=== PATIENT | female | born 1985 | race African-American/Black ===

== ENCOUNTER → 2016-10-24 | Outpatient (CLI) | payer MEDICARE, MEDICAID ==
--- NOTE | 2016-10-24 17:38 | WOMENS IMAGING REPORT ---
EXAM DESCRIPTION: BILAT DIAGNOSTIC MAMMO W/CAD; U/S BREAST UNILAT LIMITED COMPLETED DATE/TIME: 10/24/2016 8:36 am; 10/24/2016 9:43 am REASON FOR STUDY: MASTODYNIA N64.4; RT BREAST PAIN Z80.3 FAMILY HISTORY OF MALIGNANT NEOPLASM OF BR EAST N64.4 MASTODYNIA COMPARISON: CT chest 06/08/2014 TECHNIQUE: Standard craniocaudal and mediolateral oblique views of each breast recorded using digita l acquisition. Additional right breast 90 mediolateral view and right breast ultrasound was performed, given histor y of right breast pain. LIMITATIONS: None. FINDINGS: RIGHT BREAST MASSES: No suspicious masses. CALCIFICATIONS: No new or suspicious calcifications. ARCHITECTURAL DISTORTION: None. DEVELOPING DENSITY: None. ASYMMETRY: None noted. OTHER: No other significant findings. LEFT BREAST MASSES: No suspicious masses. CALCIFICATIONS: No new or suspicious calcifications. ARCHITECTURAL DISTORTION: None. DEVELOPING DENSITY: None. ASYMMETRY: None noted. OTHER: No other significant finding. Read with the assistance of CAD: .[facility] - R2 Cenova Version 1.3 .[facility] - R2 Cenova Version 1.3 .[facility] - R2 Cenova Version 2.4 .[facility] - R2 Cenova Version 2.4 .[facility] - R2 Tarring Machine Operator Version 9.2 Right breast ultrasound: Ultrasound of the right breast upper outer quadrant was performed in the area of pain. No focal find ings. No cysts. No masses. No worrisome acoustic absorption. BREAST DENSITY: d. The breasts are extremely dense, which lowers the sensitivity of mammography. BIRAD: 1 Negative. RECOMMENDATION: RECOMMENDED FOLLOW UP: Clinical followup for right breast pain. Yearly screening to mosynthesis should be based on the patient's lifetime risk assessment for breast cancer Priscilla model. SPECIFIC INTERVENTION/IMAGING/CONSULTATION RECOMMENDED:No additional intervention/ imaging/consultati on needed at this time. COMMUNICATION:Patient notified by letter COMMENT: PATIENT NOTIFIED BY LETTER. The [employer] (ACR) has developed recommendations for screening MRI of the breast s in certain patient populations, to be used in conjunction with mammography. Breast MRI surveillanc e may be appropriate for women with more than 20% lifetime risk of developing breast cancer as deter mined by genetic testing, significant family history of the disease, or history of mantle radiation f or Hodgkins Disease. ACR Practice Guidelines 2008. TECHNICAL DOCUMENTATION: FINDING NUMBER: (1) ASSESSMENT: (1) JOB ID: [id number] [facility] [employer]- All Rights Reserved
--- NOTE | 2016-10-24 17:38 | WOMENS IMAGING REPORT ---
EXAM DESCRIPTION: BILAT DIAGNOSTIC MAMMO W/CAD; U/S BREAST UNILAT LIMITED COMPLETED DATE/TIME: 10/24/2016 8:36 am; 10/24/2016 9:43 am REASON FOR STUDY: MASTODYNIA N64.4; RT BREAST PAIN Z80.3 FAMILY HISTORY OF MALIGNANT NEOPLASM OF BR EAST N64.4 MASTODYNIA COMPARISON: CT chest 06/08/2014 TECHNIQUE: Standard craniocaudal and mediolateral oblique views of each breast recorded using digita l acquisition. Additional right breast 90 mediolateral view and right breast ultrasound was performed, given histor y of right breast pain. LIMITATIONS: None. FINDINGS: RIGHT BREAST MASSES: No suspicious masses. CALCIFICATIONS: No new or suspicious calcifications. ARCHITECTURAL DISTORTION: None. DEVELOPING DENSITY: None. ASYMMETRY: None noted. OTHER: No other significant findings. LEFT BREAST MASSES: No suspicious masses. CALCIFICATIONS: No new or suspicious calcifications. ARCHITECTURAL DISTORTION: None. DEVELOPING DENSITY: None. ASYMMETRY: None noted. OTHER: No other significant finding. Read with the assistance of CAD: .[facility] - R2 Cenova Version 1.3 .[facility] - R2 Cenova Version 1.3 .[facility] - R2 Cenova Version 2.4 .[facility] - R2 Cenova Version 2.4 .[facility] - R2 Plant Technician Version 9.2 Right breast ultrasound: Ultrasound of the right breast upper outer quadrant was performed in the area of pain. No focal find ings. No cysts. No masses. No worrisome acoustic absorption. BREAST DENSITY: d. The breasts are extremely dense, which lowers the sensitivity of mammography. BIRAD: 1 Negative. RECOMMENDATION: RECOMMENDED FOLLOW UP: Clinical followup for right breast pain. Yearly screening to mosynthesis should be based on the patient's lifetime risk assessment for breast cancer Priscilla model. SPECIFIC INTERVENTION/IMAGING/CONSULTATION RECOMMENDED:No additional intervention/ imaging/consultati on needed at this time. COMMUNICATION:Patient notified by letter COMMENT: PATIENT NOTIFIED BY LETTER. The [employer] (ACR) has developed recommendations for screening MRI of the breast s in certain patient populations, to be used in conjunction with mammography. Breast MRI surveillanc e may be appropriate for women with more than 20% lifetime risk of developing breast cancer as deter mined by genetic testing, significant family history of the disease, or history of mantle radiation f or Hodgkins Disease. ACR Practice Guidelines 2008. TECHNICAL DOCUMENTATION: FINDING NUMBER: (1) ASSESSMENT: (1) JOB ID: [id number] [facility] [employer]- All Rights Reserved
== END ==
LOC: WI 08:23
PROVIDERS: ATTEND Internal Medicine Medical Oncology
DX: N64.4 Mastodynia (principal); Z80.3 Family history of malignant neoplasm of breast
CPT/HCPCS: 76642; G0204; 77066

== ENCOUNTER → 2016-11-23 | Outpatient (CLI) | payer MEDICARE, MEDICAID | LOC: RAD 08:55 | PROVIDERS: ATTEND Internal Medicine Medical Oncology | DX: R50.9 Fever, unspecified (principal); K59.00 Constipation, unspecified; N83.202 Unspecified ovarian cyst, left side | CPT/HCPCS: 74177 ==

== ENCOUNTER 2016-11-28 11:50 | Emergency (ER) | payer MEDICARE, MEDICAID ==
--- NOTE | 2016-11-28 12:32 | ER Document Report ---
ED Medical Screen (RME) - General Stated Complaint: RIGHT ARM PAIN Notes: 31 yo female c/o right arm pain since 0530 this am. hx/o Sickle cell and Lupus. took Percocet 10mg at home without relief. feels like sickle cell crisis. no other symptoms. charge nurse notified of sickle cell crisis TRAVEL OUTSIDE OF THE [place] IN LAST 30 DAYS: No - Related Data Allergies/Adverse Reactions: green pepper Allergy (Verified 09/30/16 02:34) Past Medical History Pulmonary Medical History: Reports: Hx Pneumonia - yearly since 2003 (last time 07/2012) Malignancy Medical History: Reports: Hx Renal (Kidney) Cancer Past Surgical History: Reports: Hx Cholecystectomy, Hx Kidney (Renal Surgery) - part of left kidney removed., Hx Orthopedic Surgery - L Femur, L FINGER, Other - Partial left nephrectomy for renal cell carcinoma - Immunizations Immunizations up to date: Yes Hx Diphtheria, Pertussis, Tetanus Vaccination: No
[2016-11-28] MEDS ORDERED: NORMAL SALINE 1000 ML 1,000 ML IV ONE (14:49)
[2016-11-28 15:21] LABS: ABSOLUTE BASOPHILS # (AUTO) 0.1 10^3/uL (0.0-0.2); ABSOLUTE EOSINOPHILS # (AUTO) 0.1 10^3/uL (0.0-0.6); ABSOLUTE LYMPHOCYTES (AUTO) 4.3 10^3/uL (0.5-4.7); ABSOLUTE MONOCYTES (AUTO) 1.5 10^3/uL (0.1-1.4); ABSOLUTE NEUT (AUTO) 10.6 10^3/uL (1.7-8.2); BASOPHILS % (AUTO) 0.5 % (0-2); EOSINOPHILS % (AUTO) 0.7 % (0-6); HEMATOCRIT 24.9 % (36.0-47.0); HEMOGLOBIN 8.8 g/dL (12.0-15.5); HGB HCT DIFFERENCE 1.5; MEAN CORPUSCULAR HEMOGLOBIN 32.4 pg (27.0-33.4); MEAN CORPUSCULAR HGB CONC 35.4 g/dL (32.0-36.0); MEAN CORPUSCULAR VOLUME 91 fl (80-97); RED BLOOD COUNT 2.72 10^6/uL (3.72-5.28); RED CELL DISTRIBUTION WIDTH 20.1 % (11.5-14.0); SEGMENTED NEUTROPHILS % (AUTO) 63.8 % (42-78); WHITE BLOOD COUNT 16.5 10^3/uL (4.0-10.5)
[2016-11-28 15:45] LABS: POLYCHROMASIA SLIGHT; TOXIC GRANULATION SLIGHT
[2016-11-28 15:46] LABS: ANISOCYTOSIS 2+; OVALOCYTES SLIGHT; SCHISTOCYTES SLIGHT
[2016-11-28 15:47] LABS: TARGET CELLS 2+
[2016-11-28 15:53] LABS: ALANINE AMINOTRANSFERASE 67 U/L (9-52); ALBUMIN 4.5 g/dL (3.5-5.0); ALKALINE PHOSPHATASE 78 U/L (38-126); ANION GAP 12 (5-19); ASPARTATE AMINO TRANSFERASE 130 U/L (14-36); BILIRUBIN,TOTAL 2.3 mg/dL (0.2-1.3); BLOOD UREA NITROGEN 2 mg/dL (7-20); CALCIUM 9.5 mg/dL (8.4-10.2); CARBON DIOXIDE 25 mmol/L (22-30); CHLORIDE 99 mmol/L (98-107); GLUCOSE 118 mg/dL (75-110); POTASSIUM 3.1 mmol/L (3.6-5.0); SODIUM 135.7 mmol/L (137-145); TOTAL PROTEIN 8.3 g/dL (6.3-8.2)
[2016-11-28] MEDS ORDERED: LIDOCAINE 5% (700 MG) TRANSDERMAL ADH..PATCH TP ONE (15:56)
[2016-11-28] MEDS ORDERED: OXYCODONE-ACETAMINOPHEN 5-325 MG TABLET PO ONE (16:55)
--- NOTE | 2016-11-28 17:00 | ER Document Report ---
ED General - General Chief Complaint: Arm Pain Stated Complaint: RIGHT ARM PAIN TRAVEL OUTSIDE OF THE [place] IN LAST 30 DAYS: No - HPI Patient complains to provider of: right arm pain Notes: Patient has a history of sickle cell disease coming today for right arm right shoulder pain. Patient states pain starts in her shoulder goes down to her tinnitus. Patient does have a port in her right arm. Patient states that she took her Percocet early this morning with no relief in the pain. Patient states she is also on senna patches however patch fell off and she does not have a right now. Patient states was recently at her seismograph chief office for evaluation of not feeling well was given IV fluids and discharged. Denies any recent fevers chills nausea vomiting diarrhea. Denies any recent antibiotics. - Related Data Allergies/Adverse Reactions: green pepper Allergy (Verified 09/30/16 02:34) Past Medical History - Social History Smoking Status: Never Smoker Chew tobacco use (# tins/day): No Frequency of alcohol use: None Drug Abuse: None Family History: Reviewed & Not Pertinent Patient has suicidal ideation: No Patient has homicidal ideation: No Pulmonary Medical History: Reports: Hx Pneumonia - yearly since 2003 (last time 07/2012) Renal/ Medical History: Denies: Hx Peritoneal Dialysis Malignancy Medical History: Reports: Hx Renal (Kidney) Cancer Past Surgical History: Reports: Hx Cholecystectomy, Hx Kidney (Renal Surgery) - part of left kidney removed., Hx Orthopedic Surgery - L Femur, L FINGER, Other - Partial left nephrectomy for renal cell carcinoma - Immunizations Immunizations up to date: Yes Hx Diphtheria, Pertussis, Tetanus Vaccination: No Hx Pneumococcal Vaccination: 07/21/12 Review of Systems - Review of Systems Constitutional: No symptoms reported EENT: No symptoms reported Cardiovascular: No symptoms reported Respiratory: No symptoms reported Gastrointestinal: No symptoms reported Genitourinary: No symptoms reported Female Genitourinary: No symptoms reported Musculoskeletal: Muscle pain - Arm pain Skin: No symptoms reported Hematologic/Lymphatic: No symptoms reported Neurological/Psychological: No symptoms reported -: Yes All other systems reviewed and negative Physical Exam - Vital signs Vitals: Temp Pulse Resp BP Pulse Ox 98.0 F 100 18 102/68 95 11/28/16 12:28 11/28/16 12:28 11/28/16 12:28 11/28/16 12:28 11/28/16 12:28 Interpretation: Normal - General General appearance: Appears well, Alert - HEENT Head: Normocephalic, Atraumatic Eyes: Normal Pupils: PERRL - Respiratory Respiratory status: No respiratory distress Chest status: Nontender Breath sounds: Normal Chest palpation: Normal - Cardiovascular Rhythm: Regular Heart sounds: Normal auscultation Murmur: No - Abdominal Inspection: Normal Distension: No distension Bowel sounds: Normal Tenderness: Nontender Organomegaly: No organomegaly - Back Back: Normal, Nontender - Extremities General upper extremity: Nontender, Normal color, Normal ROM, Normal temperature. No: Normal inspection - Port in the right arm no signs of infection. Upon initial evaluation palpation of the right shoulder elbow and wrist patient cries in pain going to passive range of motion exercises no difficulty. However upon auscultation of the patient's lungs I do palpate the patient's right shoulder with no painful response General lower extremity: Normal inspection, Nontender, Normal color, Normal ROM , Normal temperature, Normal weight bearing. No: Dariel's sign - Neurological Neuro grossly intact: Yes Cognition: Normal Orientation: AAOx4 [place] Coma Scale Eye Opening: Spontaneous [place] Coma Scale Verbal: Oriented [place] Coma Scale Motor: Obeys Commands [place] Coma Scale Total: 15 Speech: Normal Motor strength normal: LUE, RUE, LLE, RLE Sensory: Normal - Psychological Associated symptoms: Normal affect, Normal mood - Skin Skin Temperature: Warm Skin Moisture: Dry Skin Color: Normal Course - Re-evaluation Re-evalutation: 11/28/16 19:19 Patient's lab work shows leukocytosis chronic anemia. These results were discussed with the patient's seismograph chief Dr Jimenez. States concern that patient may start seeking drugs states change in the patient's behavior recently. States that we should treat her with her Percocet and that the patient can follow-up in her office tomorrow after she removed sees fluids. A review the patient's narcotic database shows multiple prescriptions for narcotics hydromorphone injections oxycodone prescription. Patient last filled a Dilaudid prescription on the . Explained to patient the request of her seismograph chief. We will place a Lidoderm patch on the patient's shoulders. I was later informed the patient removed her port access without heparin lock by herself. Patient will be discharged home follow-up with her seismograph chief - Vital Signs Vital signs: Temp Pulse Resp BP Pulse Ox 98.5 F 99 16 111/73 97 11/28/16 17:52 11/28/16 17:52 11/28/16 17:52 11/28/16 17:52 11/28/16 17:52 - Laboratory Result Diagrams: 11/28/16 15:06 11/28/16 15:06 Laboratory results interpreted by me: 11/28/16 11/28/16 11/28/16 12:40 15:06 15:06 WBC 16.5 H RBC 2.72 L Hgb 8.8 L Hct 24.9 L RDW 20.1 H Absolute Neutrophils 10.6 H Absolute Monocytes 1.5 H Retic Count (auto) 5.70 H Absolute Retic 0.155 H Sodium 135.7 L Potassium 3.1 L BUN 2 L Creatinine 0.40 L Glucose 118 H POC Glucose 118 H Total Bilirubin 2.3 H AST 130 H ALT 67 H Total Protein 8.3 H Discharge - Discharge Clinical Impression: Right arm pain Sickle cell anemia Qualifiers: Sickle-cell associated disorders: with unspecified crisis Qualified Code(s): D57.00 - Hb-SS disease with crisis, unspecified Condition: Good Disposition: HOME, SELF-CARE Instructions: Arm Pain, Nonspecific ([facility]) Additional Instructions: I have discussed your case with your seismograph chief is Dr. Pink. At this time she would like us to treat her pain with your Percocet you may continue your pain management home we will also give you a Lidoderm patch. Please follow-up in her office tomorrow at 8:00. Referrals: LUPE PINK MD [Primary Care Provider] - 11/29/16 (show up at 800am)
[2016-11-28 17:55] VITALS: BP 111/73
== END 2016-11-28 17:50 | disposition home or self-care (01) ==
LOC: ER 11:50
DX: D57.00 Hb-SS disease with crisis, unspecified (principal); M79.601 Pain in right arm; M25.511 Pain in right shoulder; D72.829 Elevated white blood cell count, unspecified; D64.9 Anemia, unspecified; Z91.018 Allergy to other foods; Z85.528 Personal history of other malignant neoplasm of kidney; Z90.5 Acquired absence of kidney; Z79.891 Long term (current) use of opiate analgesic
CPT/HCPCS: 36591; 99283; 36415; 82962; 83735; 85025; 85045; 80053; A9270; J7030

== ENCOUNTER 2017-01-11 10:33 | Emergency (ER) | payer MEDICARE, MEDICAID ==
[2017-01-11] MEDS ORDERED: NORMAL SALINE 1000 ML 1,000 ML IV ONE (11:03)
--- NOTE | 2017-01-11 11:05 | ER Document Report ---
ED Medical Screen (RME) - General Stated Complaint: RIGHT LEG PAIN Notes: Patient states she has been having a sickle cell crisis for the last 3 days. Complains of body pain, but pain is mostly in the right leg. Denies injury, and states she can hardly walk on that right leg. Patient does complain of slight chest pain, denies shortness of breath. I have greeted and performed a rapid initial assessment of this patient. A comprehensive ED assessment and evaluation of the patient, analysis of test results and completion of the medical decision making process will be conducted by additional ED providers. TRAVEL OUTSIDE OF THE [place] IN LAST 30 DAYS: No - Related Data Allergies/Adverse Reactions: green pepper Allergy (Verified 01/11/17 11:03) Past Medical History Pulmonary Medical History: Reports: Hx Pneumonia - yearly since 2003 (last time 07/2012) Renal/ Medical History: Denies: Hx Peritoneal Dialysis Malignancy Medical History: Reports: Hx Renal (Kidney) Cancer Past Surgical History: Reports: Hx Cholecystectomy, Hx Kidney (Renal Surgery) - part of left kidney removed., Hx Orthopedic Surgery - L Femur, L FINGER, Other - Partial left nephrectomy for renal cell carcinoma - Immunizations Immunizations up to date: Yes Hx Diphtheria, Pertussis, Tetanus Vaccination: No Physical Exam - Vital signs Vitals: Temp Pulse Resp BP Pulse Ox 98.9 F 121 H 20 118/76 94 01/11/17 11:00 01/11/17 11:01/11/17 11:01/11/17 11:00 01/11/17 11:00 - Cardiovascular Rhythm: Tachycardia Heart sounds: Normal auscultation Course - Vital Signs Vital signs: Temp Pulse Resp BP Pulse Ox 98.9 F 121 H 20 118/76 94 01/11/17 11:00 01/11/17 11:00 01/11/17 11:00 01/11/17 11:01/11/17 11:00
--- NOTE | 2017-01-11 12:50 | ER Document Report ---
ED General Pain - General Chief Complaint: Chest Pain Stated Complaint: RIGHT LEG PAIN Notes: The patient is a 31-year-old female, past medical history sickle cell disease, presents with usual sickle cell crisis pain in her right leg. She has her fentanyl patch on and took her Percocet tens without much relief of her pain. In addition, she said she had a dry cough that was causing some chest pain only when she coughs. She denies current chest pain, fevers, nausea, vomiting, numbness, tingling, leg injury, change in bowel or bladder or back pain. TRAVEL OUTSIDE OF THE [place] IN LAST 30 DAYS: No - Related Data Allergies/Adverse Reactions: green pepper Allergy (Verified 01/11/17 11:03) Past Medical History - General Information source: Patient - Social History Smoking Status: Current Every Day Smoker Chew tobacco use (# tins/day): No Frequency of alcohol use: None Drug Abuse: None Family History: Reviewed & Not Pertinent Pulmonary Medical History: Reports: Hx Pneumonia - yearly since 2003 (last time 07/2012) Renal/ Medical History: Denies: Hx Peritoneal Dialysis Malignancy Medical History: Reports: Hx Renal (Kidney) Cancer Past Surgical History: Reports: Hx Cholecystectomy, Hx Kidney (Renal Surgery) - part of left kidney removed., Hx Orthopedic Surgery - L Femur, L FINGER, Other - Partial left nephrectomy for renal cell carcinoma - Immunizations Immunizations up to date: Yes Hx Diphtheria, Pertussis, Tetanus Vaccination: No Hx Pneumococcal Vaccination: 07/21/12 Review of Systems - Review of Systems Notes: REVIEW OF SYSTEMS: CONSTITUTIONAL: -fevers, -chills EENT: -eye pain, -difficulty swallowing, -nasal congestion CARDIOVASCULAR: +chest pain when coughing, -syncope. RESPIRATORY: +cough, -SOB GASTROINTESTINAL: -abdominal pain, - nausea, -vomiting, -diarrhea GENITOURINARY: -dysuria, -hematuria MUSCULOSKELETAL: +right femur pain, -back pain, -neck pain SKIN: -rash or skin lesions. HEMATOLOGIC: -easy bruising or bleeding. LYMPHATIC: -swollen, enlarged glands. NEUROLOGICAL: -altered mental status or loss of consciousness, -headache, - neurologic symptoms PSYCHIATRIC: -anxiety, -depression. ALL OTHER SYSTEMS REVIEWED AND NEGATIVE. Physical Exam - Vital signs Vitals: Temp Pulse Resp BP Pulse Ox 98.9 F 121 H 20 118/76 94 01/11/17 11:00 01/11/17 11:00 01/11/17 11:00 01/11/17 11:00 01/11/17 11:00 - Notes Notes: PHYSICAL EXAMINATION: GENERAL: Well-appearing, well-nourished and in no acute distress. HEAD: Atraumatic, normocephalic. EYES: Pupils equal round and reactive to light, extraocular movements intact, sclera anicteric, conjunctiva are normal. ENT: nares patent, oropharynx clear without exudates. Moist mucous membranes. NECK: Normal range of motion, supple without lymphadenopathy LUNGS: Breath sounds clear to auscultation bilaterally and equal. No wheezes rales or rhonchi. HEART: Regular rate and rhythm without murmurs ABDOMEN: Soft, nontender, normoactive bowel sounds. No guarding, no rebound. No masses appreciated. EXTREMITIES: Tenderness over right mid femur. Normal range of motion, no pitting or edema. No cyanosis. NEUROLOGICAL: Cranial nerves grossly intact. Normal speech, normal gait. Normal sensory, motor, and reflex exams. PSYCH: Normal mood, normal affect. SKIN: Warm, Dry, normal turgor, no rashes or lesions noted. Course - Re-evaluation Re-evalutation: Patient's tachycardia has resolved. No infiltrate on chest x-ray and patient not having any chest pain unless she coughs. Patient is not anemic. She has a leukocytosis, but she often has a leukocytosis on her labs. She has no fevers or signs of infection at this time. After Dilaudid, patient is having no pain. Instructed her to continue her fentanyl patches, Percocet and follow up at hematology. - Vital Signs Vital signs: Temp Pulse Resp BP Pulse Ox 98.9 F 121 H 20 118/76 94 01/11/17 11:00 01/11/17 11:00 01/11/17 11:00 01/11/17 11:00 01/11/17 11:00 - Laboratory Result Diagrams: 01/11/17 15:15 01/11/17 15:15 Laboratory results interpreted by me: 01/11/17 15:15 WBC 16.7 H RBC 3.08 L Hgb 10.7 L Hct 30.9 L MCV 100 H MCH 34.8 H RDW 24.4 H Plt Count 457 H Absolute Neutrophils 11.8 H Absolute Monocytes 1.7 H Retic Count (auto) 9.84 H Absolute Retic 0.303 H - Diagnostic Test Radiology reviewed: Image reviewed, Reports reviewed - EKG Interpretation by Me EKG shows normal: Sinus rhythm, [place], Intervals, QRS Complexes, ST-T Waves Rate: Tachycardia Discharge - Discharge Clinical Impression: Sickle cell pain crisis Condition: Good Disposition: HOME, SELF-CARE Additional Instructions: Sickle Cell Crisis You have "sickle cell crisis." Sickle cell disease is caused by abnormal hemoglobin. This hemoglobin can deform red blood cells into a sickle shape. These abnormal blood cells can block blood vessels. This causes the pain of sickle cell crisis. Sickle cell crisis can occur any time. But attacks are more likely with acute infection, dehydration, or altitude change. A crisis usually causes pain in the legs, back, abdomen, and chest. Sometimes the pain may ease and return later. The usual treatment is oxygen, pain medication, IV fluids, and treatment of infection. Attacks may take a couple of days to resolve. Return if the pain becomes more severe, or if there are new symptoms. Referrals: ONCOLOGY [Provider Group] - Follow up as needed
[2017-01-11] MEDS ORDERED: HYDROMORPHONE HCL INJ/PF 2 MG/ML AMPULE IV ONE ×2 (12:57→15:41)
[2017-01-11 15:42] LABS: ABSOLUTE EOSINOPHILS # (AUTO) 0.1 10^3/uL (0.0-0.6); ABSOLUTE LYMPHOCYTES (AUTO) 3.1 10^3/uL (0.5-4.7); ABSOLUTE MONOCYTES (AUTO) 1.7 10^3/uL (0.1-1.4); ABSOLUTE NEUT (AUTO) 11.8 10^3/uL (1.7-8.2); BASOPHILS % (AUTO) 0.2 % (0-2); EOSINOPHILS % (AUTO) 0.6 % (0-6); HEMATOCRIT 30.9 % (36.0-47.0); HEMOGLOBIN 10.7 g/dL (12.0-15.5); HGB HCT DIFFERENCE 1.2; LYMPHOCYTES % (AUTO) 18.4 % (13-45); MEAN CORPUSCULAR HEMOGLOBIN 34.8 pg (27.0-33.4); MEAN CORPUSCULAR HGB CONC 34.8 g/dL (32.0-36.0); MEAN CORPUSCULAR VOLUME 100 fl (80-97); MONOCYTES % (AUTO) 10.3 % (3-13); RED BLOOD COUNT 3.08 10^6/uL (3.72-5.28); RED CELL DISTRIBUTION WIDTH 24.4 % (11.5-14.0); SEGMENTED NEUTROPHILS % (AUTO) 70.5 % (42-78); WHITE BLOOD COUNT 16.7 10^3/uL (4.0-10.5)
[2017-01-11 15:56] LABS: ANISOCYTOSIS 2+; POLYCHROMASIA SLIGHT; TOXIC GRANULATION SLIGHT
[2017-01-11 15:57] LABS: OVALOCYTES SLIGHT; TARGET CELLS 2+
[2017-01-11 16:17] LABS: ALANINE AMINOTRANSFERASE 37 U/L (9-52); ALBUMIN 4.1 g/dL (3.5-5.0); ALKALINE PHOSPHATASE 159 U/L (38-126); ANION GAP 8 (5-19); ASPARTATE AMINO TRANSFERASE 41 U/L (14-36); BILIRUBIN,DIRECT 0.4 mg/dL (0.0-0.4); BILIRUBIN,TOTAL 2.6 mg/dL (0.2-1.3); BLOOD UREA NITROGEN 3 mg/dL (7-20); CARBON DIOXIDE 28 mmol/L (22-30); CHLORIDE 100 mmol/L (98-107); CREATINE KINASE 30 U/L (30-135); CREATININE RESULT 0.27 mg/dL (0.52-1.25); GLUCOSE 92 mg/dL (75-110); LIPASE 20.8 U/L (23-300); POTASSIUM 3.6 mmol/L (3.6-5.0); TOTAL PROTEIN 7.5 g/dL (6.3-8.2)
[2017-01-11 16:39] VITALS: BP 101/65
--- NOTE | 2017-01-11 18:29 | EKG REPORT ---
SEVERITY:- ABNORMAL ECG - SINUS TACHYCARDIA LEFT ATRIAL ABNORMALITY PROBABLE LEFT VENTRICULAR HYPERTROPHY : Confirmed by: Toni Lomax MD 11-Jan-2017 18:28:26
== END 2017-01-11 16:41 | disposition home or self-care (01) ==
LOC: ER 10:33
DX: D57.00 Hb-SS disease with crisis, unspecified (principal); R07.9 Chest pain, unspecified; M79.604 Pain in right leg; F17.200 Nicotine dependence, unspecified, uncomplicated; Z90.49 Acquired absence of other specified parts of digestive tract; Z85.528 Personal history of other malignant neoplasm of kidney
CPT/HCPCS: 93005; 96376; 99284; 96361; 96374; 36415; 82550; 84702; 83690; 85025; 85045; 80053; 84484; 71020; 93010; J1170; J7030

== ENCOUNTER 2017-02-11 04:30 | Emergency (ER) | payer MEDICARE, MEDICAID ==
[2017-02-11] MEDS ORDERED: HYDROMORPHONE HCL INJ/PF 2 MG/ML AMPULE IV ONE ×2 (04:40→05:00)
[2017-02-11] MEDS ORDERED: NORMAL SALINE 1000 ML 1,000 ML IV ONE (04:41)
[2017-02-11] MEDS ORDERED: KETOROLAC TROMETHAMINE INJ/PF 30 MG/1 ML SDV IV ONE (04:42)
--- NOTE | 2017-02-11 04:42 | ER Document Report ---
ED General Pain - General Chief Complaint: Back Pain Stated Complaint: SICKLE CELL CRISIS Notes: Patient is a 31-year-old female, past medical history sickle cell disease, presents with her usual sickle cell pain in her back. She put on two of her fentanyl patches, but she is unable to find her Percocet tens to take at home because she misplaced them when she was cleaning. She was given 1 mg IV Dilaudid by EMS prior to arrival. She denies abdominal pain, numbness, tingling , difficulty walking, nausea, vomiting, saddle anesthesia, change in bowel or bladder, chest pain or shortness of breath. TRAVEL OUTSIDE OF THE [place] IN LAST 30 DAYS: No - Related Data Allergies/Adverse Reactions: green pepper Allergy (Verified 01/11/17 11:03) Past Medical History - General Information source: Patient - Social History Smoking Status: Unknown if Ever Smoked Family History: Reviewed & Not Pertinent Pulmonary Medical History: Reports: Hx Pneumonia - yearly since 2003 (last time 07/2012) Renal/ Medical History: Denies: Hx Peritoneal Dialysis Malignancy Medical History: Reports: Hx Renal (Kidney) Cancer Past Surgical History: Reports: Hx Cholecystectomy, Hx Kidney (Renal Surgery) - part of left kidney removed., Hx Orthopedic Surgery - L Femur, L FINGER, Other - Partial left nephrectomy for renal cell carcinoma - Immunizations Immunizations up to date: Yes Hx Diphtheria, Pertussis, Tetanus Vaccination: No Hx Pneumococcal Vaccination: 07/21/12 Review of Systems - Review of Systems Notes: REVIEW OF SYSTEMS: CONSTITUTIONAL: -fevers, -chills EENT: -eye pain, -difficulty swallowing, -nasal congestion CARDIOVASCULAR:-chest pain, -syncope. RESPIRATORY: -cough, -SOB GASTROINTESTINAL: -abdominal pain, - nausea, -vomiting, -diarrhea GENITOURINARY: -dysuria, -hematuria MUSCULOSKELETAL: +back pain, -neck pain SKIN: -rash or skin lesions. HEMATOLOGIC: -easy bruising or bleeding. LYMPHATIC: -swollen, enlarged glands. NEUROLOGICAL: -altered mental status or loss of consciousness, -headache, - neurologic symptoms PSYCHIATRIC: -anxiety, -depression. ALL OTHER SYSTEMS REVIEWED AND NEGATIVE. Physical Exam - Notes Notes: PHYSICAL EXAMINATION: GENERAL: In mild distress. HEAD: Atraumatic, normocephalic. EYES: Pupils equal round and reactive to light, extraocular movements intact, sclera anicteric, conjunctiva are normal. ENT: nares patent, oropharynx clear without exudates. Moist mucous membranes. NECK: Normal range of motion, supple without lymphadenopathy LUNGS: Breath sounds clear to auscultation bilaterally and equal. No wheezes rales or rhonchi. HEART: Regular rate and rhythm without murmurs ABDOMEN: Soft, nontender, normoactive bowel sounds. No guarding, no rebound. No masses appreciated. EXTREMITIES: Normal range of motion, no pitting or edema. No cyanosis. NEUROLOGICAL: Cranial nerves grossly intact. Normal speech, normal gait. Normal sensory, motor, and reflex exams. PSYCH: Normal mood, normal affect. SKIN: Warm, Dry, normal turgor, no rashes or lesions noted. Course - Re-evaluation Re-evalutation: Patient's back pain is exactly the same as her prior sickle cell pain. No fevers, chest pain or shortness of breath to suggest acute chest syndrome. Abdominal exam is completely nontender. She has no red flag signs for her low back pain. She has strong distal pulses and aortic dissection/AAA is less likely at this time. After pain medicine, patient is no longer having any pain. Told her that she must follow-up with her fountain jerk this week to discuss pain management since she utilizes the ER once a month for her sickle cell pain crisis. Given return precautions and she understands. Discharge - Discharge Clinical Impression: Hb-SS disease with crisis Condition: Stable Disposition: HOME, SELF-CARE Additional Instructions: You must follow-up with your fountain jerk to discuss pain management for your sickle cell crises since you utilize the ER once a month for pain management. Sickle Cell Crisis You have "sickle cell crisis." Sickle cell disease is caused by abnormal hemoglobin. This hemoglobin can deform red blood cells into a sickle shape. These abnormal blood cells can block blood vessels. This causes the pain of sickle cell crisis. Sickle cell crisis can occur any time. But attacks are more likely with acute infection, dehydration, or altitude change. A crisis usually causes pain in the legs, back, abdomen, and chest. Sometimes the pain may ease and return later. The usual treatment is oxygen, pain medication, IV fluids, and treatment of infection. Attacks may take a couple of days to resolve. Return if the pain becomes more severe, or if there are new symptoms.
[2017-02-11 06:16] VITALS: BP 100/63
== END 2017-02-11 06:16 | disposition home or self-care (01) ==
LOC: ER 04:30
DX: D57.00 Hb-SS disease with crisis, unspecified (principal); M54.9 Dorsalgia, unspecified; Z90.49 Acquired absence of other specified parts of digestive tract
CPT/HCPCS: 96376; 99284; 96361; 96374; 96375; J1885; J1170; J7030

== ENCOUNTER → 2017-03-22 | Outpatient (CLI) | payer MEDICARE, MEDICAID ==
[2017-03-22 14:48] LABS: HEMATOCRIT 30.3 % (36.0-47.0); HEMOGLOBIN 10.5 g/dL (12.0-15.5); HGB HCT DIFFERENCE 1.2; MEAN CORPUSCULAR HEMOGLOBIN 33.7 pg (27.0-33.4); MEAN CORPUSCULAR HGB CONC 34.8 g/dL (32.0-36.0); MEAN CORPUSCULAR VOLUME 97 fl (80-97); RED BLOOD COUNT 3.13 10^6/uL (3.72-5.28); RED CELL DISTRIBUTION WIDTH 23.1 % (11.5-14.0)
[2017-03-22 15:18] LABS: BAND NEUTROPHILS % (MANUAL) 1 % (3-5); BASOPHILS % (MANUAL) 1 % (0-2); EOSINOPHILS % (MANUAL) 3 % (0-6); LYMPHOCYTES % (MANUAL) 34 % (13-45); NUCLEATED RED BLOOD CELLS 4 /100 WBC (0); TOTAL CELLS COUNTED 100
[2017-03-22 15:23] LABS: ANISOCYTOSIS 3+; OVALOCYTES SLIGHT; POIKILOCYTOSIS 1+; POLYCHROMASIA 1+
[2017-03-22 15:24] LABS: HOWELL-JOLLY BODIES PRESENT; PLATELET CLUMPS PRESENT; TARGET CELLS 1+
[2017-03-22 15:25] LABS: TOXIC GRANULATION SLIGHT
== END ==
LOC: OD 14:00
PROVIDERS: ATTEND Emergency Medicine
DX: N89.8 Other specified noninflammatory disorders of vagina (principal)
CPT/HCPCS: 36415; 84702; 85025

== ENCOUNTER 2017-04-17 16:40 | Emergency (ER) | payer MEDICARE, MEDICAID ==
[2017-04-17] MEDS ORDERED: HYDROMORPHONE HCL INJ/PF 2 MG/ML AMPULE IV ONE ×2 (17:00→18:26)
--- NOTE | 2017-04-17 17:02 | ER Document Report ---
ED General - General Chief Complaint: Sickle Cell Crisis Stated Complaint: PAIN ALL OVER Time Seen by Provider: 04/17/17 16:53 Notes: 31-year-old female with sickle cell disease multiple ED visits for flares, indwelling port, and a distant history of acute chest syndrome presents with 4 days of all over pain chest back and legs identical to prior sickle cell, constant, achy, unrelieved with 125 mcg/h fentanyl patch and breakthrough 10 mg oxycodone tablets. Denies shortness of breath cough or fever. TRAVEL OUTSIDE OF THE [place] IN LAST 30 DAYS: No - Related Data Allergies/Adverse Reactions: green pepper Allergy (Verified 01/11/17 11:03) Past Medical History - Social History Smoking Status: Unknown if Ever Smoked Family History: Reviewed & Not Pertinent Pulmonary Medical History: Reports: Hx Pneumonia - yearly since 2003 (last time 07/2012) Renal/ Medical History: Denies: Hx Peritoneal Dialysis Malignancy Medical History: Reports: Hx Renal (Kidney) Cancer Past Surgical History: Reports: Hx Cholecystectomy, Hx Kidney (Renal Surgery) - part of left kidney removed., Hx Orthopedic Surgery - L Femur, L FINGER, Other - Partial left nephrectomy for renal cell carcinoma - Immunizations Immunizations up to date: Yes Hx Diphtheria, Pertussis, Tetanus Vaccination: No Hx Pneumococcal Vaccination: 07/21/12 Review of Systems - Review of Systems Notes: GEN: Denies fever, chills, weight loss ENT: Denies sore throat, nasal discharge, ear pain EYES: Denies blurry vision, eye pain, discharge CV: N in RESP: Denies cough, shortness of breath, wheezing GI: Denies abdominal pain, nausea, vomiting, diarrhea MSK:, Leg pain SKIN: Denies rash, skin lesions LYMPH: Denies swollen glands/lymph nodes NEURO: Denies headache, focal weakness or numbness, dizziness PSYCH: Denies depression, suicidal or homicidal ideation Physical Exam - Vital signs Vitals: Temp Pulse Resp BP Pulse Ox 98.7 F 102 H 16 85/54 L 98 04/17/17 16:51 04/17/17 16:51 04/17/17 16:51 04/17/17 16:51 04/17/17 16:51 - Notes Notes: General: No acute distress, well-nourished Head: Atraumatic, normocephalic ENT: Mouth normal, oropharynx moist, no exudates or tonsillar enlargement Eyes: Conjunctiva normal, pupils equal, lids normal Neck: No JVD, supple, no guarding CVS: Normal rate, regular rhythm, no murmurs Resp: No resp distress, equal and normal breath sounds bilaterally GI: Nondistended, soft, no tenderness to palpation, no rebound or guarding Ext: No deformities, no edema, normal range of motion in upper and lower ext Skin: No rash, warm Lymphatic: No lymphadeopathy noted Neuro: Awake, alert. Face symmetric. Course - Re-evaluation Re-evalutation: 04/17/17 17:01 31-year-old female presents with sickle cell type pain crisis, with back leg and chest pain. Her vitals are normal except for mild hypotension which I will investigate as to whether this is her baseline. She is very comfortable playing a game on her iPad and does not appear in any distress. I will rule out acute chest with chest x-ray, get an EKG get labs and reticulocyte count, hydrate her, and after conversation with her about what she normally gets we agreed on a regimen of 1 mg of Dilaudid to 40 minutes 2 followed by either discharged or admitted. She was agreeable to this plan. 04/17/17 20:11 Dr. Sumner who is uncomfortability the patient given her hypertension. She is ranged from the 70s to the 100s on multiple prior admissions she has no signs of hypoperfusion, and I let them know this but he is concerned about nursing. He requested I give the patient second liter of fluid and he would admit the patient if her blood pressure is over 95 systolic. 04/17/17 20:29 Labs all appropriate. Vital signs are stable at patient's baseline in the 80s. I informed her that she may need to be transferred and at this time she would rather be discharged home which I think is appropriate. I have discussed with the patient there likely diagnosis, aftercare plan, follow -up plans and my usual and customary return precautions. They verbalized understanding of this. 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
[2017-04-17] MEDS ORDERED: DIPHENHYDRAMINE HCL 25 MG CAPSULE PO ONE (17:25)
[2017-04-17] MEDS: NORMAL SALINE 1000 ML 1,000 ML IV PRN ×2 (17:31→20:15)
--- NOTE | 2017-04-17 17:33 | RADIOLOGY REPORT (SQ) ---
EXAM DESCRIPTION: CHEST SINGLE VIEW COMPLETED DATE/TIME: 04/17/2017 5:19 pm REASON FOR STUDY: cp sickle cell r/o infiltrate COMPARISON: None. EXAM PARAMETERS: NUMBER OF VIEWS: One view. TECHNIQUE: Single frontal radiographic view of the chest acquired. RADIATION DOSE: NA LIMITATIONS: None. FINDINGS: LUNGS AND PLEURA: Atelectasis noted in the lateral right lung base. MEDIASTINUM AND HILAR STRUCTURES: No masses. Contour normal. HEART AND VASCULAR STRUCTURES: Stable cardiac size. No pulmonary vascular congestion. BONES: No acute findings. HARDWARE: Right upper extremity port with tip at the cavoatrial junction. OTHER: No other significant finding. IMPRESSION: NO ACUTE RADIOGRAPHIC FINDING IN THE CHEST. TECHNICAL DOCUMENTATION: JOB ID: [id number]
[2017-04-17 17:42] LABS: HEMATOCRIT 24.1 % (36.0-47.0); HEMOGLOBIN 8.6 g/dL (12.0-15.5); HGB HCT DIFFERENCE 1.7; MEAN CORPUSCULAR HEMOGLOBIN 34.3 pg (27.0-33.4); MEAN CORPUSCULAR HGB CONC 35.6 g/dL (32.0-36.0); MEAN CORPUSCULAR VOLUME 96 fl (80-97); RED CELL DISTRIBUTION WIDTH 21.5 % (11.5-14.0); WHITE BLOOD COUNT 8.5 10^3/uL (4.0-10.5)
[2017-04-17 17:44] LABS: ANION GAP 10 (5-19); CALCIUM 8.8 mg/dL (8.4-10.2); CARBON DIOXIDE 20 mmol/L (22-30); CHLORIDE 107 mmol/L (98-107); CREATININE RESULT 0.36 mg/dL (0.52-1.25); GLUCOSE 84 mg/dL (75-110); POTASSIUM 3.6 mmol/L (3.6-5.0); SODIUM 136.5 mmol/L (137-145)
[2017-04-17 17:45] LABS: BLOOD UREA NITROGEN < 2 mg/dL (7-20)
[2017-04-17 18:13] LABS: BASOPHILS % (MANUAL) 0 % (0-2); EOSINOPHILS % (MANUAL) 4 % (0-6); LYMPHOCYTES % (MANUAL) 39 % (13-45); NUCLEATED RED BLOOD CELLS 4 /100 WBC (0); TOTAL CELLS COUNTED 100
[2017-04-17 18:14] LABS: ANISOCYTOSIS 3+
[2017-04-17 18:16] LABS: OVALOCYTES SLIGHT; PLATELET CLUMPS PRESENT; POIKILOCYTOSIS 1+; TARGET CELLS 2+; TEAR DROP CELLS SLIGHT
[2017-04-17 18:18] LABS: HOWELL-JOLLY BODIES PRESENT; TOXIC GRANULATION SLIGHT
[2017-04-17] MEDS ORDERED: NORMAL SALINE 1000 ML 1,000 ML IV PRN (19:45)
[2017-04-17 23:07] VITALS: BP 97/64
== END 2017-04-17 22:40 | disposition home or self-care (01) ==
LOC: ER 16:40
DX: D57.00 Hb-SS disease with crisis, unspecified (principal); M54.9 Dorsalgia, unspecified; R07.9 Chest pain, unspecified; M79.605 Pain in left leg; M79.604 Pain in right leg; I95.9 Hypotension, unspecified; Z90.49 Acquired absence of other specified parts of digestive tract; Z85.528 Personal history of other malignant neoplasm of kidney
CPT/HCPCS: 36591; 96376; 99284; 96361; 96374; 96375; 36415; 85025; 85045; 80048; 71010; A9270; J1170; J7030

== ENCOUNTER 2017-04-20 00:44 | Outpatient (CLI) | payer MEDICARE, MEDICAID ==
[2017-04-20 00:59] VITALS: BP 88/61
--- NOTE | 2017-04-20 03:05 | ER Document Report ---
ED General - General Chief Complaint: Abdominal Pain Stated Complaint: ABDOMINAL PAIN Time Seen by Provider: 04/20/17 02:42 Mode of Arrival: Medic Information source: Patient TRAVEL OUTSIDE OF THE [place] IN LAST 30 DAYS: No - HPI Notes: Patient is a 31-year-old female history of lupus and sickle cell disease presents emergency department with report that her last menstrual period was sometime in September and she has noticed some lower pelvic progression of swelling consistent with a , but has not had any care whatsoever. She states that at 1400 today and then later at 2000 she passed significant fluid similar to when she had broken her water with 2 previous pregnancies. She now states she feels like she needs to push and has a fullness in the lower pelvic region. Patient states that she is currently out of her chronic fentanyl and oxycodone for the last week that she takes for her chronic pain from sickle cell disease and lupus. The patient reports vomiting yesterday and today with some diarrhea. She denies any fever, but does report chills. She denies any chest pain or difficulty breathing. She reports no vaginal bleeding Or recent intercourse. Patient has a MediPort in place. - Related Data Allergies/Adverse Reactions: green pepper Allergy (Verified 01/11/17 11:03) Past Medical History - General Information source: Patient - Social History Smoking Status: Never Smoker Chew tobacco use (# tins/day): No Frequency of alcohol use: None Drug Abuse: None Lives with: Family Family History: Reviewed & Not Pertinent Patient has suicidal ideation: No Patient has homicidal ideation: No Pulmonary Medical History: Reports: Hx Pneumonia - yearly since 2003 (last time 07/2012) Renal/ Medical History: Denies: Hx Peritoneal Dialysis Malignancy Medical History: Reports: Hx Renal (Kidney) Cancer Past Surgical History: Reports: Hx Cholecystectomy, Hx Kidney (Renal Surgery) - part of left kidney removed., Hx Orthopedic Surgery - L Femur, L FINGER, Other - Partial left nephrectomy for renal cell carcinoma - Immunizations Immunizations up to date: Yes Hx Diphtheria, Pertussis, Tetanus Vaccination: No Hx Pneumococcal Vaccination: 07/21/12 Review of Systems - Review of Systems Notes: REVIEW OF SYSTEMS: CONSTITUTIONAL : Denies fever, chills, or sweats. Denies recent illness. EENT: Denies eye, ear, throat, or mouth pain or symptoms. Denies nasal or sinus congestion or discharge. Denies throat, tongue, or mouth swelling or difficulty swallowing. CARDIOVASCULAR: Denies chest pain. Denies palpitations or racing or irregular heart beat. Denies ankle edema. RESPIRATORY: Denies cough, cold, or chest congestion. Denies shortness of breath, difficulty breathing, or wheezing. GASTROINTESTINAL: Denies blood in vomitus, stools, or per rectum. Denies black, tarry stools. Denies constipation. GENITOURINARY: Denies difficulty urinating, painful urination, burning, frequency, blood in urine, or discharge. FEMALE GENITOURINARY: Denies vaginal bleeding, heavy or abnormal periods, irregular periods. MUSCULOSKELETAL: Denies back or neck pain or stiffness. Denies joint pain or swelling. SKIN: Denies rash, lesions or sores. HEMATOLOGIC : Denies easy bruising or bleeding. LYMPHATIC: Denies swollen, enlarged glands. NEUROLOGICAL: Denies confusion or altered mental status. Denies passing out or loss of consciousness. Denies dizziness or lightheadedness. Denies headache. Denies weakness or paralysis or loss of use of either side. Denies problems with gait or speech. Denies sensory loss, numbness, or tingling. Denies seizures. PSYCHIATRIC: Denies anxiety or stress. Denies depression, suicidal ideation, or homicidal ideation. ALL OTHER SYSTEMS REVIEWED AND NEGATIVE. Dictation was performed using [employer] voice recognition software altered Physical Exam - Vital signs Vitals: Temp Pulse Resp BP Pulse Ox 98.2 F 102 H 24 H 88/61 L 97 04/20/17 00:58 04/20/17 00:58 04/20/17 00:58 04/20/17 00:58 04/20/17 00:58 - Notes Notes: PHYSICAL EXAMINATION: GENERAL: Well-appearing, well-nourished. Tearful In obvious distress. HEAD: Atraumatic, normocephalic. EYES: Pupils equal round and reactive to light, extraocular movements intact, conjunctiva are normal. ENT: Nares patent, oropharynx clear without exudates. Moist mucous membranes. NECK: Normal range of motion, supple without lymphadenopathy LUNGS: Breath sounds clear to auscultation bilaterally and equal. No wheezes rales or rhonchi. HEART: Regular rate and rhythm without murmurs ABDOMEN: Tender with fullness and appearance of contracture through the lower pelvic region with fundal height above the umbilicus estimated at about 28 weeks. Female : Normal external female genitalia. No bleeding noted. Cervix is very much thin, but the head is not appreciated presenting. Less than 1 cm cervical dilatation noted. Musculoskeletal: Normal range of motion, no pitting or edema. No cyanosis. NEUROLOGICAL: Cranial nerves grossly intact. Normal speech, normal gait. Normal sensory, motor exams PSYCH: Patient is anxious and tearful. SKIN: Warm, Dry, normal turgor, no rashes or lesions noted. Course - Re-evaluation Re-evalutation: 04/20/17 03:11 Immediate bedside portable ultrasound was undertaken which on gross estimation showed in excess of 20 weeks. There was good heart tones greater than 150 noted. There was movement noted. Immediate call was made at the OB to transfer the patient for further evaluation of what appeared to be viable in excess of 20 weeks. Discussion was undertaken with Dr. Colunga to make him aware of the findings end of also the findings of narcotic withdrawal contributory. Patient was quickly taken up to the OB floor with instructions for IV to be started and further evaluation immediately undertaken upon arrival. 04/20/17 03:14 - Vital Signs Vital signs: Temp Pulse Resp BP Pulse Ox 98.2 F 102 H 24 H 88/61 L 97 04/20/17 00:58 04/20/17 00:58 04/20/17 00:58 04/20/17 00:58 04/20/17 00:58 Discharge - Discharge Clinical Impression: Narcotic withdrawal Qualifiers: Weeks of gestation: unspecified Qualified Code(s): Z33.1 - state, incidental Vomiting Qualifiers: Vomiting type: unspecified Vomiting Intractability: non-intractable Nausea presence: with nausea Qualified Code(s): R11.2 - Nausea with vomiting, unspecified Diarrhea Qualifiers: Diarrhea type: unspecified type Qualified Code(s): R19.7 - Diarrhea, unspecified Condition: Fair Disposition: LABOR CHECK Unit Admitted: Labor and Delivery
[2017-04-20 03:55] LABS: ABSOLUTE BASOPHILS # (AUTO) 0.1 10^3/uL (0.0-0.2); ABSOLUTE LYMPHOCYTES (AUTO) 1.8 10^3/uL (0.5-4.7); ABSOLUTE MONOCYTES (AUTO) 0.9 10^3/uL (0.1-1.4); ABSOLUTE NEUT (AUTO) 7.7 10^3/uL (1.7-8.2); BASOPHILS % (AUTO) 0.5 % (0-2); EOSINOPHILS % (AUTO) 0.5 % (0-6); HEMATOCRIT 26.5 % (36.0-47.0); HEMOGLOBIN 9.6 g/dL (12.0-15.5); HGB HCT DIFFERENCE 2.3; LYMPHOCYTES % (AUTO) 17.4 % (13-45); MEAN CORPUSCULAR HEMOGLOBIN 34.3 pg (27.0-33.4); MEAN CORPUSCULAR VOLUME 95 fl (80-97); MONOCYTES % (AUTO) 8.4 % (3-13); RED BLOOD COUNT 2.78 10^6/uL (3.72-5.28); RED CELL DISTRIBUTION WIDTH 22.3 % (11.5-14.0); SEGMENTED NEUTROPHILS % (AUTO) 73.2 % (42-78)
[2017-04-20 04:03] LABS: ALANINE AMINOTRANSFERASE 16 U/L (9-52); ALBUMIN 3.9 g/dL (3.5-5.0); ALKALINE PHOSPHATASE 140 U/L (38-126); ANION GAP 12 (5-19); ASPARTATE AMINO TRANSFERASE 24 U/L (14-36); BILIRUBIN,DIRECT 0.5 mg/dL (0.0-0.4); BILIRUBIN,TOTAL 2.8 mg/dL (0.2-1.3); BLOOD UREA NITROGEN 3 mg/dL (7-20); CALCIUM 9.5 mg/dL (8.4-10.2); CARBON DIOXIDE 18 mmol/L (22-30); CHLORIDE 107 mmol/L (98-107); CREATININE RESULT 0.43 mg/dL (0.52-1.25); GLUCOSE 88 mg/dL (75-110); LIPASE 51.3 U/L (23-300); POTASSIUM 3.9 mmol/L (3.6-5.0); SODIUM 136.7 mmol/L (137-145); TOTAL PROTEIN 7.7 g/dL (6.3-8.2)
[2017-04-20 04:23] LABS: WHITE BLOOD COUNT 10.6 10^3/uL (4.0-10.5)
[2017-04-20 04:44] LABS: ADD HIVPANEL? NO; HIV (1 AND 2) ANTIBODY NEGATIVE (NEGATIVE)
[2017-04-20 05:09] LABS: URINE BARBITURATES SCREEN NEGATIVE; URINE METHADONE SCREEN NEGATIVE; URINE OPIATES LOW NEGATIVE; URINE PHENCYCLIDINE SCREEN NEGATIVE
[2017-04-20 05:30] LABS: APPEARANCE,URINE SLIGHTLY-CLOUDY; BILIRUBIN,URINE NEGATIVE (NEGATIVE); GLUCOSE, URINE NEGATIVE (NEGATIVE); KETONES,URINE 20 mg/dL (NEGATIVE); LEUKOCYTE ESTERASE,URINE SMALL (NEGATIVE); NITRITE,URINE NEGATIVE (NEGATIVE); PROTEIN,URINE NEGATIVE (NEGATIVE); UROBILINOGEN,URINE NEGATIVE mg/dL (<2.0)
--- NOTE | 2017-04-20 06:15 | RADIOLOGY REPORT (SQ) ---
EXAM DESCRIPTION: U/S OB 14+ TA/1 GEST W/DOPPLER COMPLETED DATE/TIME: 04/20/2017 4:27 am REASON FOR STUDY: EGA,EFW,Cervical length,Placenta location,ARLENE,NPNC O26.90 RELATED CONDI TIONS, UNSP, UNSPECIFIED TRIME COMPARISON: None. TECHNIQUE: Static and Dynamic grayscale imaging performed of gravid uterus using transabdominal appr oach. Additional selected color Doppler and spectral images recorded. All stored on PACS. LIMITATIONS: None. FINDINGS: EGA: 25 weeks and 5 days based on ultrasound biometrics. NEREIDA: 07/29/2017. EFW: 876 g PERCENTILE: 37th percentile ARLENE: 13.2 cm PLACENTA: Fundal PRESENTATION: Breech. ANATOMY: HEART RATE: 161 beats per minute. FOUR CHAMBER HEART: The THREE VESSEL CORD: Yes. CORD INSERTION: Visualized. KIDNEYS AND BLADDER: Visualized. Appear normal. STOMACH: Visualized. Appears normal. SPINE: Normal as visualized. BRAIN AND LATERAL VENTRICLES: Visualized. Appear normal. OTHER: No other significant finding. MATERNAL ADNEXA: Maternal ovaries not visualized. CERVICAL LENGTH: 3.2 cm Closed. OTHER: No other significant finding. IMPRESSION: LIVING INTRAUTERINE . ESTIMATED GESTATIONAL AGE 25 weeks 5 days NO VISUALIZED ANOMALIES. Trimester of : Second trimester - 13 weeks 1 day to 27 weeks 6 days. TECHNICAL DOCUMENTATION: JOB ID: [id number]- All Rights Reserved
[2017-04-21 07:38] LABS: HEPATITIS C VIRUS AB <0.1 s/co ratio (0.0-0.9)
== END 2017-04-20 05:10 | disposition home or self-care (01) ==
LOC: ER 00:44 → EDSTATUS 02:55 → LC 02:57
PROVIDERS: ATTEND Obstetrics & Gynecology
PROC: 4A1HXCZ Monitoring of Products of Conception, Cardiac Rate, External Approach (ICD-10-PCS; principal; 2017-04-20)
DX: O21.2 Late vomiting of pregnancy (principal); O09.32 Supervision of pregnancy with insufficient antenatal care, second trimester; O26.892 Other specified pregnancy related conditions, second trimester; R10.9 Unspecified abdominal pain; R19.7 Diarrhea, unspecified; O99.012 Anemia complicating pregnancy, second trimester; D57.1 Sickle-cell disease without crisis; Z3A.25 25 weeks gestation of pregnancy; Z85.528 Personal history of other malignant neoplasm of kidney; Z90.5 Acquired absence of kidney; Z79.891 Long term (current) use of opiate analgesic
CPT/HCPCS: 36415; 76805; 80053; 80307; 81001; 83690; 84702; 85025; 86592; 86701; 86762; 86803; 86804; 86850; 86900; 86901; 87340; 93976; 99284

== ENCOUNTER 2017-04-20 05:17 | Emergency (ER) | payer MEDICARE, MEDICAID ==
[2017-04-20] MEDS ORDERED: NORMAL SALINE 1000 ML 1,000 ML IV ONE (06:25)
[2017-04-20] MEDS ORDERED: HYDROMORPHONE HCL INJ/PF 2 MG/ML AMPULE IV ONE (08:22)
[2017-04-20] MEDS ORDERED: METOCLOPRAMIDE HCL INJ/PF 10 MG/2 ML SDV IV ONE (08:22)
--- NOTE | 2017-04-20 08:28 | ER Document Report ---
ED General - General Chief Complaint: Sickle Cell Crisis Stated Complaint: BODY PAIN Time Seen by Provider: 04/20/17 06:25 Mode of Arrival: Ambulatory Information source: Patient Notes: 31-year-old female history of sickle cell disease who is 25 weeks presents with generalized body aches pain. Patient notes she has run out of her narcotics at home, was seen earlier this morning discharge and sent to OB/ OPEN DIE INSPECTOR who ruled out any abdominal and related issues. Patient was then transferred back down to the ED for reevaluation given her continued pain TRAVEL OUTSIDE OF THE [place] IN LAST 30 DAYS: No - HPI Onset: Other Onset/Duration: Intermittent Quality of pain: Sharp Severity: Mild Pain Level: 1 Associated symptoms: Body/muscle aches, Nausea, Vomiting Exacerbated by: Denies Relieved by: Denies Similar symptoms previously: Yes Recently seen / treated by doctor: Yes - Related Data Allergies/Adverse Reactions: green pepper Allergy (Verified 04/20/17 05:30) Past Medical History - Social History Smoking Status: Never Smoker Cigarette use (# per day): No Chew tobacco use (# tins/day): No Smoking Education Provided: No Family History: Reviewed & Not Pertinent Patient has suicidal ideation: No Patient has homicidal ideation: No Pulmonary Medical History: Reports: Hx Pneumonia - yearly since 2003 (last time 07/2012) Renal/ Medical History: Denies: Hx Peritoneal Dialysis Malignancy Medical History: Reports: Hx Renal (Kidney) Cancer Past Surgical History: Reports: Hx Cholecystectomy, Hx Kidney (Renal Surgery) - part of left kidney removed., Hx Orthopedic Surgery - L Femur, L FINGER, Other - Partial left nephrectomy for renal cell carcinoma - Immunizations Immunizations up to date: Yes Hx Diphtheria, Pertussis, Tetanus Vaccination: No Hx Pneumococcal Vaccination: 07/21/12 Review of Systems - Review of Systems Notes: REVIEW OF SYSTEMS: CONSTITUTIONAL : Denies fever, chills, or sweats. Denies recent illness. EENT: Denies eye, ear, throat, or mouth pain or symptoms. Denies nasal or sinus congestion or discharge. Denies throat, tongue, or mouth swelling or difficulty swallowing. CARDIOVASCULAR: Denies chest pain. Denies palpitations or racing or irregular heart beat. Denies ankle edema. RESPIRATORY: Denies cough, cold, or chest congestion. Denies shortness of breath, difficulty breathing, or wheezing. GASTROINTESTINAL: Admits to nausea vomiting GENITOURINARY: Denies difficulty urinating, painful urination, burning, frequency, blood in urine, or discharge. FEMALE GENITOURINARY: Denies vaginal bleeding, heavy or abnormal periods, irregular periods. Denies vaginal discharge or odor. MUSCULOSKELETAL: Admits to body aches. SKIN: Denies rash, lesions or sores. HEMATOLOGIC : Denies easy bruising or bleeding. LYMPHATIC: Denies swollen, enlarged glands. NEUROLOGICAL: Denies confusion or altered mental status. Denies passing out or loss of consciousness. Denies dizziness or lightheadedness. Denies headache. Denies weakness or paralysis or loss of use of either side. Denies problems with gait or speech. Denies sensory loss, numbness, or tingling. Denies seizures. PSYCHIATRIC: Denies anxiety or stress. Denies depression, suicidal ideation, or homicidal ideation. ALL OTHER SYSTEMS REVIEWED AND NEGATIVE. PHYSICAL EXAMINATION: GENERAL: Well-appearing, well-nourished and in no acute distress. HEAD: Atraumatic, normocephalic. EYES: Pupils equal round and reactive to light, extraocular movements intact, conjunctiva are normal. ENT: Nares patent, oropharynx clear without exudates. Moist mucous membranes. NECK: Normal range of motion, supple without lymphadenopathy LUNGS: Breath sounds clear to auscultation bilaterally and equal. No wheezes rales or rhonchi. HEART: Regular rate and rhythm without murmurs ABDOMEN: Soft, gravid abdomen Female : deferred Musculoskeletal: Normal range of motion, no pitting or edema. No cyanosis. NEUROLOGICAL: Cranial nerves grossly intact. Normal speech, normal gait. Normal sensory, motor exams PSYCH: Normal mood, normal affect. SKIN: Warm, Dry, normal turgor, no rashes or lesions noted. Dictation was performed using [employer] voice recognition software Physical Exam - Vital signs Vitals: Temp Pulse Resp BP Pulse Ox 98.0 F 92 18 98/74 L 93 04/20/17 05:24 04/20/17 05:24 04/20/17 05:24 04/20/17 05:24 04/20/17 05:24 Course - Re-evaluation Re-evalutation: 04/20/17 08:27 Multiple attempts to get IV access through port failed, peripheral IV was placed. Patient will be given fluids pain control, long discussion held with patient regarding her status the patient demanded narcotics nonetheless 04/20/17 11:10 Patient was given pain control, she is called a ride and is otherwise stable. Patient was to follow-up with her own primary care physician regarding continuation of her heavy dose of narcotics as I definitely do not feel comfortable prescribing this amount of narcotics in a female After performing a Medical Screening Examination, I estimate there is LOW risk for ACUTE CORONARY SYNDROME, RESPIRATORY FAILURE, SEPSIS OR MENINGITIS, thus I consider the discharge disposition reasonable. I have reevaluated this patient multiple times and no significant life threatening changes are noted. The patient and I have discussed the diagnosis and risks, and we agree with discharging home with close follow-up. We also discussed returning to the Emergency Department immediately if new or worsening symptoms occur. We have discussed the symptoms which are most concerning (e.g., changing or worsening pain, trouble swallowing or breathing, neck stiffness, fever) that necessitate immediate return. - Vital Signs Vital signs: Temp Pulse Resp BP Pulse Ox 98.0 F 92 18 98/74 L 93 04/20/17 05:24 04/20/17 05:24 04/20/17 05:24 04/20/17 05:24 04/20/17 05:24 - Laboratory Result Diagrams: 04/20/17 08:06 04/20/17 08:06 Laboratory results interpreted by me: 04/20/17 04/20/17 08:06 08:06 WBC 11.3 H RBC 2.59 L Hgb 8.6 L Hct 25.1 L RDW 21.8 H Retic Count (auto) 6.65 H Absolute Retic 0.173 H Sodium 136.8 L Potassium 3.5 L Carbon Dioxide 18 L BUN < 2 L Creatinine 0.39 L Total Bilirubin 2.8 H Direct Bilirubin 0.5 H Discharge - Discharge Clinical Impression: Hb-SS disease with crisis, Narcotic withdrawal Qualifiers: Weeks of gestation: unspecified Qualified Code(s): Z33.1 - state, incidental Condition: Stable Disposition: HOME, SELF-CARE Additional Instructions: Follow up with your physician tomorrow for further care or return to the ED IMMEDIATELY if symptoms worsen or new concerns occur. If you cannot afford to follow up with your primary care physician a list of low cost clinics have been provided at the end of your discharge papers as well.
[2017-04-20 08:29] LABS: HEMATOCRIT 25.1 % (36.0-47.0); HEMOGLOBIN 8.6 g/dL (12.0-15.5); HGB HCT DIFFERENCE 0.7; MEAN CORPUSCULAR HEMOGLOBIN 33.2 pg (27.0-33.4); MEAN CORPUSCULAR HGB CONC 34.4 g/dL (32.0-36.0); MEAN CORPUSCULAR VOLUME 97 fl (80-97); RED BLOOD COUNT 2.59 10^6/uL (3.72-5.28); RED CELL DISTRIBUTION WIDTH 21.8 % (11.5-14.0); WHITE BLOOD COUNT 11.3 10^3/uL (4.0-10.5)
[2017-04-20 08:41] LABS: ALANINE AMINOTRANSFERASE 13 U/L (9-52); ALBUMIN 3.6 g/dL (3.5-5.0); ALKALINE PHOSPHATASE 124 U/L (38-126); ANION GAP 12 (5-19); ASPARTATE AMINO TRANSFERASE 25 U/L (14-36); BILIRUBIN,DIRECT 0.5 mg/dL (0.0-0.4); BILIRUBIN,TOTAL 2.8 mg/dL (0.2-1.3); CALCIUM 9.3 mg/dL (8.4-10.2); CARBON DIOXIDE 18 mmol/L (22-30); CHLORIDE 107 mmol/L (98-107); CREATININE RESULT 0.39 mg/dL (0.52-1.25); GLUCOSE 88 mg/dL (75-110); POTASSIUM 3.5 mmol/L (3.6-5.0); SODIUM 136.8 mmol/L (137-145); TOTAL PROTEIN 7.2 g/dL (6.3-8.2)
[2017-04-20 08:44] LABS: BASOPHILS % (MANUAL) 0 % (0-2); EOSINOPHILS % (MANUAL) 1 % (0-6); LYMPHOCYTES % (MANUAL) 19 % (13-45); NUCLEATED RED BLOOD CELLS 2 /100 WBC (0); TOTAL CELLS COUNTED 100
[2017-04-20 08:45] LABS: BLOOD UREA NITROGEN < 2 mg/dL (7-20)
[2017-04-20 08:48] LABS: ANISOCYTOSIS 2+; HELMET CELLS SLIGHT; OVALOCYTES SLIGHT; POIKILOCYTOSIS 3+
[2017-04-20 08:49] LABS: POLYCHROMASIA SLIGHT; TARGET CELLS 1+
[2017-04-20 11:28] VITALS: BP 94/61
== END 2017-04-20 11:55 | disposition home or self-care (01) ==
LOC: ER 05:17
DX: D57.00 Hb-SS disease with crisis, unspecified (principal); F11.23 Opioid dependence with withdrawal; M79.1 Myalgia; Z33.1 Pregnant state, incidental; Z3A.25 25 weeks gestation of pregnancy; Z85.528 Personal history of other malignant neoplasm of kidney
CPT/HCPCS: 99283; 99284; 96374; 96375; 86900; 86901; 36415; 86850; 84702; 83690; 85025; 86762; 86592; 85045; 80053; 81001; 87340; 86701; 80307; 86803; 86804; 76805; 93976; J2765; J1170; J7030

== ENCOUNTER 2017-05-16 17:19 | Emergency (ER) | payer MEDICARE, MEDICAID ==
[2017-05-16] MEDS ORDERED: NORMAL SALINE 1000 ML 1,000 ML IV PRN (17:49)
[2017-05-16] MEDS ORDERED: HYDROMORPHONE HCL INJ/PF 2 MG/ML AMPULE IV ONE ×4 (17:49→22:17)
--- NOTE | 2017-05-16 17:50 | ER Document Report ---
ED General - General Mode of Arrival: Ambulatory Information source: Patient TRAVEL OUTSIDE OF THE U.[place] IN LAST 30 DAYS: No <MARINE CARRERA - Last Filed: 05/16/17 17:55> <GIL LEYVA - Last Filed: 05/16/17 23:56> - General Chief Complaint: Sickle Cell Crisis Stated Complaint: POSSIBLE SICKLE CELL CRISIS Time Seen by Provider: 05/16/17 17:30 Notes: Patient is a 31 year old female who presents to the ED with complaints of diffuse body pain secondary to her sickle cell acting up. Patient states she is unable to control the pain at home due to her current . Patient states this is about the same as her flare ups in the past. Patient states baby is very active and has no complications or concerns with her . Patient denies any recent fever, burning with urination or hematuria, chest pain or difficulty breathing. (MARINE CARRERA) - Related Data Allergies/Adverse Reactions: green pepper Allergy (Verified 05/16/17 17:38) Home Medications: Current Home Medications Vit/Iron Fumarate/FA [ Tablet] 1 each PO DAILY 05/16/17 [ History] Past Medical History - General Information source: Patient - Social History Smoking Status: Never Smoker Frequency of alcohol use: None Drug Abuse: None Family History: Reviewed & Not Pertinent Pulmonary Medical History: Reports: Hx Pneumonia - yearly since 2003 (last time 07/2012) Renal/ Medical History: Denies: Hx Peritoneal Dialysis Malignancy Medical History: Reports: Hx Renal (Kidney) Cancer Past Surgical History: Reports: Hx Cholecystectomy, Hx Kidney (Renal Surgery) - part of left kidney removed., Hx Orthopedic Surgery - L Femur, L FINGER, Other - Partial left nephrectomy for renal cell carcinoma - Immunizations Immunizations up to date: Yes Hx Diphtheria, Pertussis, Tetanus Vaccination: No Hx Pneumococcal Vaccination: 07/21/12 <MARINE CARRERA - Last Filed: 05/16/17 17:55> Review of Systems - Review of Systems Constitutional: No symptoms reported. denies: Fever EENT: No symptoms reported Cardiovascular: No symptoms reported. denies: Chest pain Respiratory: No symptoms reported. denies: Short of breath Gastrointestinal: No symptoms reported Genitourinary: No symptoms reported Female Genitourinary: See HPI, Musculoskeletal: See HPI, Other - diffuse generalized pain Skin: No symptoms reported Hematologic/Lymphatic: No symptoms reported Neurological/Psychological: No symptoms reported <MARINE CARRERA - Last Filed: 05/16/17 17:55> Physical Exam <MARINE CARRERA - Last Filed: 05/16/17 17:55> <GIL LEYVA - Last Filed: 05/16/17 23:56> - Vital signs Vitals: Resp 20 05/16/17 17:30 - Notes Notes: GENERAL: Alert, interacts well. No acute distress. HEAD: Normocephalic, atraumatic. EYES: Pupils equal, round, and reactive to light. Extraocular movements intact. ENT: Oral mucosa moist, tongue midline. NECK: Full range of motion. Supple. Trachea midline. LUNGS: Clear to auscultation bilaterally, no wheezes, rales, or rhonchi. No respiratory distress. HEART: Regular rate and rhythm. 2/6 systolic murmur, gallops, or rubs. ABDOMEN: Gravid abdomen, can feel baby movement, no tenderness to palpation. Bowel sounds present in all 4 quadrants. EXTREMITIES: Moves all 4 extremities spontaneously. No edema. No cyanosis. NEUROLOGICAL: Alert and oriented x3. Normal speech. PSYCH: Normal affect, normal mood. SKIN: Warm, dry, normal turgor. No rashes or lesions noted. (MARINE CARRERA) Course <MARINE CARRERA - Last Filed: 05/16/17 17:55> - Laboratory Result Diagrams: 05/16/17 18:05 05/16/17 18:05 <GIL LEYVA - Last Filed: 05/16/17 23:56> - Re-evaluation Re-evalutation: 05/16/17 21:32 Patient was awake, rechecked, still having pain. States that the daughter takes away her pain partially but not completely. Discussed with patient increasing her dose of pain medication versus trying to admit her for further pain control. Patient is agreeable to trying an increased dose of pain medication here and trying to get home. CBC shows anemia that is fairly typical for her, increased absolute reticulocyte count consistent with sickle cell crisis. Patient is responding appropriately. Patient also has urinary tract infection, this was treated with Rocephin. 05/16/17 23:15 Patient is feeling much better, pain is under control, patient will be treated as an outpatient for her urinary tract infection with Keflex. She will be given Zofran for nausea and asked to follow-up with her FREIGHT TALLIER as an outpatient. (GIL LEYVA) - Vital Signs Vital signs: Temp Pulse Resp BP Pulse Ox 97.9 F 112 H 18 117/85 98 05/16/17 23:35 05/16/17 23:35 05/16/17 23:35 05/16/17 23:31 05/16/17 23:35 - Laboratory Laboratory results interpreted by me: 05/16/17 05/16/17 05/16/17 18:05 18:05 18:09 RBC 2.51 L Hgb 9.2 L Hct 24.0 L MCH 36.7 H MCHC 38.5 H RDW 21.6 H Retic Count (auto) 9.10 H Absolute Retic 0.228 H Chloride 108 H Carbon Dioxide 20 L BUN 4 L Creatinine 0.38 L Glucose 72 L Total Bilirubin 3.9 H Direct Bilirubin 0.5 H Alkaline Phosphatase 164 H Urine Blood SMALL H Urine Urobilinogen 4.0 H Ur Leukocyte Esterase LARGE H Discharge <MARINE CARERRA - Last Filed: 05/16/17 17:55> <GIL LEYVA - Last Filed: 05/16/17 23:56> - Discharge Clinical Impression: Sickle cell anemia with crisis, Third trimester at less than 36 weeks Vomiting Qualifiers: Vomiting type: unspecified Vomiting Intractability: non-intractable Nausea presence: with nausea Qualified Code(s): R11.2 - Nausea with vomiting, unspecified Urinary tract infection Qualifiers: Urinary tract infection type: acute cystitis Hematuria presence: without hematuria Qualified Code(s): N30.00 - Acute cystitis without hematuria Condition: Stable Disposition: HOME, SELF-CARE Additional Instructions: Please drink plenty fluids. Take the Keflex as directed until it is gone, this is an antibiotic that will fix her urinary tract infection. Use the Zofran to help with your nausea and vomiting. Please follow-up with your primary care physician as an outpatient and follow up with the FREIGHT TALLIER as well. Prescriptions: Ondansetron [Zofran Odt 4 mg Tablet] 1 - 2 tab PO Q4HP PRN #10 tab.rapdis PRN Reason: Cephalexin Monohydrate [Keflex 500 mg Capsule] 500 mg PO QID #20 capsule Referrals: JARAD FRANCIS MD [Primary Care Provider] - Follow up as needed [facility] [Provider Group] - Follow up in 3-5 days Scribe Attestation: 05/16/17 23:56 I personally performed the services described in the documentation, reviewed and edited the documentation which was dictated to the scribe in my presence, and it accurately records my words and actions. (GIL LEYVA) Scribe Documentation - Scribe Written by Yeni:: yeni Perez, 05/16/2017, 1801 acting as scribe for :: Otoniel <MARINE CARRERA - Last Filed: 05/16/17 17:55>
[2017-05-16 18:19] LABS: HEMOGLOBIN 9.2 g/dL (12.0-15.5); HGB HCT DIFFERENCE 3.6; MEAN CORPUSCULAR HEMOGLOBIN 36.7 pg (27.0-33.4); MEAN CORPUSCULAR HGB CONC 38.5 g/dL (32.0-36.0); MEAN CORPUSCULAR VOLUME 96 fl (80-97); RED BLOOD COUNT 2.51 10^6/uL (3.72-5.28); RED CELL DISTRIBUTION WIDTH 21.6 % (11.5-14.0)
[2017-05-16 18:39] LABS: ALANINE AMINOTRANSFERASE 14 U/L (9-52); ALBUMIN 3.7 g/dL (3.5-5.0); ALKALINE PHOSPHATASE 164 U/L (38-126); ANION GAP 9 (5-19); ASPARTATE AMINO TRANSFERASE 30 U/L (14-36); BILIRUBIN,DIRECT 0.5 mg/dL (0.0-0.4); BILIRUBIN,TOTAL 3.9 mg/dL (0.2-1.3); BLOOD UREA NITROGEN 4 mg/dL (7-20); CALCIUM 9.4 mg/dL (8.4-10.2); CARBON DIOXIDE 20 mmol/L (22-30); CHLORIDE 108 mmol/L (98-107); CREATININE RESULT 0.38 mg/dL (0.52-1.25); GLUCOSE 72 mg/dL (75-110); POTASSIUM 3.6 mmol/L (3.6-5.0); SODIUM 137.1 mmol/L (137-145); TOTAL PROTEIN 7.5 g/dL (6.3-8.2)
[2017-05-16] MEDS ORDERED: ONDANSETRON HCL INJ/PF 4 MG/2 ML SDV IV ONE (18:53)
[2017-05-16 18:55] LABS: APPEARANCE,URINE CLEAR; BILIRUBIN,URINE NEGATIVE (NEGATIVE); GLUCOSE, URINE NEGATIVE (NEGATIVE); KETONES,URINE NEGATIVE (NEGATIVE); LEUKOCYTE ESTERASE,URINE LARGE (NEGATIVE); NITRITE,URINE NEGATIVE (NEGATIVE); PROTEIN,URINE NEGATIVE (NEGATIVE); URINE SPECIFIC GRAVITY 1.009
[2017-05-16 18:56] LABS: WHITE BLOOD COUNT 9.2 10^3/uL (4.0-10.5)
[2017-05-16 18:58] LABS: BASOPHILS % (MANUAL) 0 % (0-2); EOSINOPHILS % (MANUAL) 2 % (0-6); LYMPHOCYTES % (MANUAL) 29 % (13-45); NUCLEATED RED BLOOD CELLS 12 /100 WBC (0); POLYCHROMASIA 1+; TOTAL CELLS COUNTED 100
[2017-05-16 18:59] LABS: ANISOCYTOSIS 3+; HOWELL-JOLLY BODIES PRESENT; OVALOCYTES SLIGHT; POIKILOCYTOSIS 1+; TARGET CELLS 2+; TEAR DROP CELLS SLIGHT
[2017-05-16 19:00] LABS: TOXIC GRANULATION SLIGHT; TOXIC VACUOLATION PRESENT
[2017-05-16] MEDS ORDERED: CEFTRIAXONE 1 GM/D5W RTU 50 ML IV ONE (19:05)
[2017-05-16] MEDS ORDERED: DIPHENHYDRAMINE HCL 50 MG/ML VIAL IV ONE ×3 (19:14→21:31)
[2017-05-16] MEDS ORDERED: NORMAL SALINE 1000 ML 1,000 ML IV ONE (20:48)
[2017-05-16] MEDS ORDERED: ONDANSETRON ODT 4 MG TAB (6 TAB/DSPK) PO PRN (23:22)
[2017-05-16 23:33] VITALS: BP 117/85
== END 2017-05-16 23:40 | disposition home or self-care (01) ==
LOC: ER 17:19
DX: O99.013 Anemia complicating pregnancy, third trimester (principal); D57.00 Hb-SS disease with crisis, unspecified; O23.13 Infections of bladder in pregnancy, third trimester; O21.2 Late vomiting of pregnancy; Z3A.00 Weeks of gestation of pregnancy not specified; Z91.018 Allergy to other foods; Z85.528 Personal history of other malignant neoplasm of kidney; Z90.5 Acquired absence of kidney
CPT/HCPCS: 96376; 99284; 96361; 96375; 96365; 36415; 87086; 85025; 87088; 85045; 80053; 81001; 87186; J1200; J1170; J2405; J7030; J0696; A9270

== ENCOUNTER 2017-05-29 15:28 | Emergency (ER) | payer MEDICARE, MEDICAID ==
[2017-05-29 15:49] VITALS: BP 93/64
--- NOTE | 2017-05-29 16:29 | ER Document Report ---
ED Medical Screen (RME) - General Chief Complaint: Pain All Over Stated Complaint: BODY PAIN Time Seen by Provider: 05/29/17 16:26 Notes: This 31-year-old female patient complains of pain all over due to sickle cell crisis. She was seen here 2 weeks ago for sickle cell crisis pain and found to have urinary tract infection she is approximately 33 weeks at this time. She reports the pain started 3 days ago on Saturday. There has been no vomiting. There is been no fever. I have greeted and performed a rapid initial assessment of this patient. A comprehensive ED assessment and evaluation of the patient, analysis of test results and completion of the medical decision making process will be conducted by additional ED providers. TRAVEL OUTSIDE OF THE [place] IN LAST 30 DAYS: No - Related Data Allergies/Adverse Reactions: green pepper Allergy (Verified 05/29/17 15:36) Home Medications: Current Home Medications No Home Medications 05/29/17 [History] Past Medical History Pulmonary Medical History: Reports: Hx Pneumonia - yearly since 2003 (last time 07/2012) Renal/ Medical History: Denies: Hx Peritoneal Dialysis Malignancy Medical History: Reports: Hx Renal (Kidney) Cancer Past Surgical History: Reports: Hx Cholecystectomy, Hx Kidney (Renal Surgery) - part of left kidney removed., Hx Orthopedic Surgery - L Femur, L FINGER, Other - Partial left nephrectomy for renal cell carcinoma - Immunizations Immunizations up to date: Yes Hx Diphtheria, Pertussis, Tetanus Vaccination: No Physical Exam - Vital signs Vitals: Temp Pulse Resp BP Pulse Ox 98.2 F 83 20 93/64 L 91 L 05/29/17 15:47 05/29/17 15:47 05/29/17 15:47 05/29/17 15:47 05/29/17 15:47 Course - Vital Signs Vital signs: Temp Pulse Resp BP Pulse Ox 98.2 F 83 16 93/64 L 94 05/29/17 15:47 05/29/17 16:24 05/29/17 16:24 05/29/17 15:47 05/29/17 16:24
[2017-05-29 17:11] LABS: APPEARANCE,URINE CLEAR; BILIRUBIN,URINE NEGATIVE (NEGATIVE); GLUCOSE, URINE NEGATIVE (NEGATIVE); KETONES,URINE NEGATIVE (NEGATIVE); LEUKOCYTE ESTERASE,URINE LARGE (NEGATIVE); NITRITE,URINE NEGATIVE (NEGATIVE); PROTEIN,URINE NEGATIVE (NEGATIVE); URINE SPECIFIC GRAVITY 1.003
[2017-05-29 17:13] LABS: HEMATOCRIT 25.4 % (36.0-47.0); HEMOGLOBIN 9.3 g/dL (12.0-15.5); HGB HCT DIFFERENCE 2.5; MEAN CORPUSCULAR HGB CONC 36.7 g/dL (32.0-36.0); MEAN CORPUSCULAR VOLUME 98 fl (80-97); RED BLOOD COUNT 2.59 10^6/uL (3.72-5.28); RED CELL DISTRIBUTION WIDTH 22.5 % (11.5-14.0); WHITE BLOOD COUNT 8.6 10^3/uL (4.0-10.5)
[2017-05-29 17:31] LABS: ALANINE AMINOTRANSFERASE 15 U/L (9-52); ALBUMIN 3.6 g/dL (3.5-5.0); ALKALINE PHOSPHATASE 179 U/L (38-126); ANION GAP 10 (5-19); ASPARTATE AMINO TRANSFERASE 40 U/L (14-36); CARBON DIOXIDE 21 mmol/L (22-30); CHLORIDE 106 mmol/L (98-107); CREATININE RESULT 0.42 mg/dL (0.52-1.25); GLUCOSE 91 mg/dL (75-110); POTASSIUM 3.8 mmol/L (3.6-5.0); SODIUM 137.2 mmol/L (137-145); TOTAL PROTEIN 7.4 g/dL (6.3-8.2)
[2017-05-29 17:35] LABS: BLOOD UREA NITROGEN < 2 mg/dL (7-20)
[2017-05-29 17:55] LABS: BASOPHILS % (MANUAL) 0 % (0-2); EOSINOPHILS % (MANUAL) 2 % (0-6); LYMPHOCYTES % (MANUAL) 36 % (13-45); NUCLEATED RED BLOOD CELLS 5 /100 WBC (0); TOTAL CELLS COUNTED 100
[2017-05-29 17:58] LABS: TOXIC VACUOLATION PRESENT
[2017-05-29 17:59] LABS: ANISOCYTOSIS 3+; OVALOCYTES SLIGHT; POIKILOCYTOSIS 2+; POLYCHROMASIA 1+
[2017-05-29 18:01] LABS: HOWELL-JOLLY BODIES PRESENT
[2017-05-29 18:02] LABS: TARGET CELLS 1+
[2017-05-29] MEDS ORDERED: NORMAL SALINE 1000 ML 1,000 ML IV ONE (18:10)
[2017-05-29] MEDS ORDERED: MORPHINE SULFATE 10 MG/ML INJ IV ONE ×2 (18:11→19:58)
--- NOTE | 2017-05-29 18:15 | ER Document Report ---
ED General - General Chief Complaint: Pain All Over Stated Complaint: BODY PAIN Time Seen by Provider: 05/29/17 16:26 Notes: Patient presents 33 weeks or so with a history of sickle cell disease off all narcotics presenting with 4 days of pain in her back neck legs and chest similar to prior sickle cell crises. Severe nonradiating. She is not taking any narcotic products at home. No shortness of breath or fever. She has intermittent vaginal discharge as well which she has been treated for multiple times with antibiotics but is not sure what is going on. She sees an oncologist here. TRAVEL OUTSIDE OF THE [place] IN LAST 30 DAYS: No - Related Data Allergies/Adverse Reactions: green pepper Allergy (Verified 05/29/17 15:36) Past Medical History - General Information source: Patient - Social History Smoking Status: Never Smoker Family History: Reviewed & Not Pertinent Patient has suicidal ideation: No Patient has homicidal ideation: No Pulmonary Medical History: Reports: Hx Pneumonia - yearly since 2003 (last time 07/2012) Renal/ Medical History: Denies: Hx Peritoneal Dialysis Malignancy Medical History: Reports: Hx Renal (Kidney) Cancer Past Surgical History: Reports: Hx Cholecystectomy, Hx Kidney (Renal Surgery) - part of left kidney removed., Hx Orthopedic Surgery - L Femur, L FINGER, Other - Partial left nephrectomy for renal cell carcinoma - Immunizations Immunizations up to date: Yes Hx Diphtheria, Pertussis, Tetanus Vaccination: No Hx Pneumococcal Vaccination: 07/21/12 Review of Systems - Review of Systems Notes: REVIEW OF SYSTEMS GEN: Denies fever, chills, weight loss ENT: Denies sore throat, nasal discharge, ear pain EYES: Denies blurry vision, eye pain, discharge CV: D chest pain RESP: Shortness of breath g GI: Denies abdominal pain, nausea, vomiting, diarrhea MSK: Pain SKIN: Denies rash, skin lesions LYMPH: Denies swollen glands/lymph nodes NEURO: Denies headache, focal weakness or numbness, dizziness PSYCH: Denies depression, suicidal or homicidal ideation PHYSICAL EXAMINATION General: No acute distress, well-nourished. Appears in mild pain. Head: Atraumatic, normocephalic ENT: Mouth normal, oropharynx moist, no exudates or tonsillar enlargement Eyes: Conjunctiva normal, pupils equal, lids normal Neck: No JVD, supple, no guarding CVS: Normal rate, regular rhythm, no murmurs Resp: No resp distress, equal and normal breath sounds bilaterally GI: Nondistended, soft, no tenderness to palpation, no rebound or guarding Ext: No deformities, no edema, normal range of motion in upper and lower ext Back: No CVA or midline TTP Skin: No rash, warm Lymphatic: No lymphadeopathy noted Neuro: Awake, alert. Face symmetric. GCS 15. Physical Exam - Vital signs Vitals: Temp Pulse Resp BP Pulse Ox 98.2 F 83 20 93/64 L 91 L 05/29/17 15:47 05/29/17 15:47 05/29/17 15:47 05/29/17 15:47 05/29/17 15:47 Course - Re-evaluation Re-evalutation: 05/29/17 18:14 This is a high risk 31-year-old female approaching her third trimester off on medication for sickle cell presenting with pain characteristic of a sickle cell crisis. She has normal vital signs and a reassuring exam. She did have some chest pain. She has a history of acute chest and ICU stays per her. Her differential includes sickle cell pain crisis less likely rhabdomyolysis or infection, acute chest, aplastic crisis. I believe it is worthwhile treating her with narcotics in the ED although I have concerns for long-term use in terms of her fetus. She was offered 2 rounds of morphine treatment followed by the option of being admitted or discharge I will attempt to contact her BUTTON GRADER. UA and wet mount ordered for vaginal discharge. 05/29/17 20:51 Patient reassessed after 2 doses of morphine. She is comfortably watching TV but states that her pain is no better. When I suggest discharge she is amenable however. I spoke with her BUTTON GRADER doctor I will Moehle who will see her tomorrow in the clinic. She will help the patient establish pain management as well as get connected with her BUTTON GRADER high risk here in [place]. Patient will be given oxycodone. She appears comfortable does not have acute chest based on her workup in the ED and is stable for discharge home. I have discussed with the patient there likely diagnosis, aftercare plan, follow -up plans and my usual and customary return precautions. They verbalized understanding of this. - Vital Signs Vital signs: Temp Pulse Resp BP Pulse Ox 98.2 F 82 16 93/64 L 97 05/29/17 19:55 05/29/17 19:55 05/29/17 19:55 05/29/17 15:47 05/29/17 19:55 - Laboratory Result Diagrams: 05/29/17 16:35 05/29/17 16:35 Laboratory results interpreted by me: 05/29/17 05/29/17 05/29/17 16:30 16:35 16:35 RBC 2.59 L Hgb 9.3 L Hct 25.4 L MCV 98 H MCH 36.0 H MCHC 36.7 H RDW 22.5 H Retic Count (auto) 10.99 H Absolute Retic 0.285 H Carbon Dioxide 21 L BUN < 2 L Creatinine 0.42 L Total Bilirubin 5.0 H Direct Bilirubin 1.0 H AST 40 H Alkaline Phosphatase 179 H Urine Urobilinogen 4.0 H Ur Leukocyte Esterase LARGE H Discharge - Discharge Clinical Impression: Sickle cell pain crisis Condition: Good Disposition: HOME, SELF-CARE Instructions: Sickle Cell Crisis ([facility]) Additional Instructions: Vaginal discharge is likely being caused by infection. I am prescribing you both gel for vaginal use as well as antibiotics. Please take these as instructed. I am also prescribing him some oxycodone for pain which she should taken to you can see her necktie centralizing machine operator tomorrow. She stated that she will see you in the office at 10 AM tomorrow. Please also establish care with your BUTTON GRADER here in [place]. Prescriptions: Cephalexin Monohydrate [Keflex 500 mg Capsule] 500 mg PO QID #20 capsule Metronidazole [Metrogel 0.75% Vaginal Gel] 5 applic VG DAILY #1 tube Oxycodone HCl [Oxycodone HCl 10 MG Tablet] 5 - 10 mg PO Q6H PRN #10 tablet PRN Reason: PAIN Referrals: AIDEN ALEMAN PA-C [Primary Care Provider] - Follow up as needed LUPE PINK MD [ACTIVE STAFF] - Follow up as needed
[2017-05-29] MEDS ORDERED: CEPHALEXIN 500 MG CAPSULE PO ONE (18:58)
[2017-05-29] MEDS ORDERED: DIPHENHYDRAMINE HCL 25 MG CAPSULE PO ONE (19:13)
[2017-05-30 09:57] LABS: PATH REVIEW PATHOLOGIST REVIEWED
--- NOTE | 2017-05-30 13:28 | EKG REPORT ---
SEVERITY:- ABNORMAL ECG - SINUS RHYTHM PROLONGED QT INTERVAL : Confirmed by: Monika Mendez 30-May-2017 13:28:11
== END 2017-05-29 22:11 | disposition home or self-care (01) ==
LOC: ER 15:28
DX: O99.012 Anemia complicating pregnancy, second trimester (principal); D57.00 Hb-SS disease with crisis, unspecified; O26.892 Other specified pregnancy related conditions, second trimester; N89.8 Other specified noninflammatory disorders of vagina; R07.9 Chest pain, unspecified; Z3A.00 Weeks of gestation of pregnancy not specified; Z85.528 Personal history of other malignant neoplasm of kidney; Z91.018 Allergy to other foods; Z90.5 Acquired absence of kidney
CPT/HCPCS: 93005; 96376; 99284; 96374; 36415; 87086; 85025; 85045; 80053; 81001; 93010; A9270 ×2; J2270; J7030

== ENCOUNTER 2017-06-17 12:17 | Emergency (ER) | payer MEDICARE, MEDICAID ==
[2017-06-17] MEDS ORDERED: NORMAL SALINE 1000 ML 1,000 ML IV PRN ×2 (12:38→18:46)
[2017-06-17] MEDS ORDERED: ONDANSETRON HCL INJ/PF 4 MG/2 ML SDV IV ONE (13:04)
[2017-06-17] MEDS ORDERED: HYDROMORPHONE HCL INJ/PF 2 MG/ML AMPULE IV ONE ×2 (13:04→15:22)
--- NOTE | 2017-06-17 13:04 | ER Document Report ---
HPI - HPI Onset: Yesterday Onset/Duration: Gradual, Constant Quality of pain: Dull Pain Level: 5 Associated Symptoms: None Exacerbated by: Denies Relieved by: Denies Similar symptoms previously: Yes Recently seen / treated by doctor: Yes Notes: Patient is a 31-year-old female who is approximately 33 weeks . Patient has sickle cell. Due to her she is been taken off all her sickle-cell medications by her oncologist. She does not currently take anything for pain. Patient states she is having more frequent sickle-cell attacks as a result of this. She presents today with her typical sickle cell pain which is noted to be in her back and legs. She denies any fevers. She denies any urinary symptoms. No chest pain or shortness of breath. - ROS Systems Reviewed and Negative: Yes All other systems reviewed and negative - CONSTITUTIONAL Constitutional: DENIES: Fever - NEURO Neurology: DENIES: Headache - REPRODUCTIVE Reproductive: DENIES: : - MUSCULOSKELETAL Musculoskeletal: REPORTS: Extremity pain, Back Pain - DERM Skin Color: Normal Skin Problems: None Past Medical History - General Information source: Patient - Social History Smoking Status: Never Smoker Family History: Reviewed & Not Pertinent Patient has suicidal ideation: No Patient has homicidal ideation: No Pulmonary Medical History: Reports: Hx Pneumonia - yearly since 2003 (last time 07/2012) Renal/ Medical History: Denies: Hx Peritoneal Dialysis Malignancy Medical History: Reports: Hx Renal (Kidney) Cancer Past Surgical History: Reports: Hx Cholecystectomy, Hx Kidney (Renal Surgery) - part of left kidney removed., Hx Orthopedic Surgery - L Femur, L FINGER, Other - Partial left nephrectomy for renal cell carcinoma - Immunizations Immunizations up to date: Yes Hx Diphtheria, Pertussis, Tetanus Vaccination: No Hx Pneumococcal Vaccination: 07/21/12 Vertical Provider Document - CONSTITUTIONAL Agree With Documented VS: Yes Exam Limitations: No Limitations General Appearance: WD/WN, No Apparent Distress - INFECTION CONTROL TRAVEL OUTSIDE OF THE [place] IN LAST 30 DAYS: No - HEENT HEENT: Atraumatic, Normocephalic - NECK Neck: Normal Inspection, Supple - RESPIRATORY Respiratory: Breath Sounds Normal, No Respiratory Distress O2 Sat by Pulse Oximetry: 94 - CARDIOVASCULAR Cardiovascular: Regular Rate, Regular Rhythm, No Murmur - GI/ABDOMEN Gastrointestinal: Abdomen Soft, Abdomen Non-Tender Notes: Gravid uterus - BACK Back: Normal Inspection. negative: CVA Tenderness-Right, CVA Tenderness-Left - MUSCULOSKELETAL/EXTREMETIES Musculoskeletal/Extremeties: MAEW, FROM, Non-Tender - NEURO Level of Consciousness: Awake, Alert, Appropriate Motor/Sensory: No Motor Deficit, No Sensory Deficit Course - Re-evaluation Re-evalutation: 06/17/17 13:04 We will check sickle-cell labs. Will give IV fluids and pain medication. Disposition will be based on patient's response to treatment. 06/17/17 16:11 Labs reviewed. Patient states that she does not feel well enough to go home. Will need to transfer to [facility] for admission given her high risk . 06/17/17 16:33 Call placed to provide an transfer center. 06/17/17 17:24 Discussed with [facility] at [facility], Dr. Tyson, who has accepted patient in transfer. - Vital Signs Vital signs: Temp Pulse Resp BP Pulse Ox 98.6 F 105 H 18 102/73 94 06/17/17 12:40 06/17/17 12:40 06/17/17 12:40 06/17/17 12:40 06/17/17 12:40 - Laboratory Result Diagrams: 06/17/17 13:35 06/17/17 13:35 Discharge - Discharge Clinical Impression: Third trimester , Sickle cell crisis Condition: Fair Disposition: [facility] Referrals: AIDEN ALEMAN PA-C [Primary Care Provider] - Follow up as needed
[2017-06-17 13:20] LABS: APPEARANCE,URINE CLEAR; BILIRUBIN,URINE NEGATIVE (NEGATIVE); GLUCOSE, URINE NEGATIVE (NEGATIVE); KETONES,URINE NEGATIVE (NEGATIVE); LEUKOCYTE ESTERASE,URINE MODERATE (NEGATIVE); NITRITE,URINE NEGATIVE (NEGATIVE); PROTEIN,URINE NEGATIVE (NEGATIVE); URINE SPECIFIC GRAVITY 1.005
[2017-06-17] MEDS ORDERED: DIPHENHYDRAMINE HCL 50 MG/ML VIAL ONE (13:32)
[2017-06-17 13:49] LABS: HEMATOCRIT 21.7 % (36.0-47.0); MEAN CORPUSCULAR VOLUME 97 fl (80-97); RED BLOOD COUNT 2.24 10^6/uL (3.72-5.28); WHITE BLOOD COUNT 10.9 10^3/uL (4.0-10.5)
[2017-06-17 13:59] LABS: ALANINE AMINOTRANSFERASE 10 U/L (9-52); ALBUMIN 3.2 g/dL (3.5-5.0); ALKALINE PHOSPHATASE 226 U/L (38-126); ANION GAP 8 (5-19); ASPARTATE AMINO TRANSFERASE 39 U/L (14-36); BILIRUBIN,TOTAL 5.3 mg/dL (0.2-1.3); BLOOD UREA NITROGEN 3 mg/dL (7-20); CALCIUM 8.8 mg/dL (8.4-10.2); CARBON DIOXIDE 20 mmol/L (22-30); CHLORIDE 109 mmol/L (98-107); CREATININE RESULT 0.39 mg/dL (0.52-1.25); GLUCOSE 74 mg/dL (75-110); POTASSIUM 3.4 mmol/L (3.6-5.0); SODIUM 136.6 mmol/L (137-145); TOTAL PROTEIN 6.7 g/dL (6.3-8.2)
[2017-06-17 14:26] LABS: HGB HCT DIFFERENCE 0.2
[2017-06-17 14:30] LABS: MEAN CORPUSCULAR HEMOGLOBIN 32.6 pg (27.0-33.4)
[2017-06-17 14:31] LABS: MEAN CORPUSCULAR HGB CONC 33.6 g/dL (32.0-36.0)
[2017-06-17 14:32] LABS: HEMOGLOBIN 7.3 g/dL (12.0-15.5)
[2017-06-17 14:38] LABS: BAND NEUTROPHILS % (MANUAL) 1 % (3-5); BASOPHILS % (MANUAL) 0 % (0-2); EOSINOPHILS % (MANUAL) 0 % (0-6); LYMPHOCYTES % (MANUAL) 33 % (13-45); NUCLEATED RED BLOOD CELLS 10 /100 WBC (0); TOTAL CELLS COUNTED 100
[2017-06-17 14:42] LABS: ANISOCYTOSIS 3+; OVALOCYTES SLIGHT; POIKILOCYTOSIS 1+; POLYCHROMASIA 1+; TARGET CELLS 1+
[2017-06-17 14:44] LABS: PLATELET CLUMPS PRESENT
[2017-06-17 15:13] LABS: TOXIC VACUOLATION PRESENT
[2017-06-17 15:14] LABS: HOWELL-JOLLY BODIES PRESENT
[2017-06-17 15:19] LABS: RBC FOR MANUAL RETICS 2.24 10^6/uL (3.72-5.28)
[2017-06-17] MEDS: FENTANYL CITRATE INJ/PF 100 MCG/2 ML AMPUL IV SCH ×2 (19:08→20:57)
[2017-06-17 20:53] VITALS: BP 106/71
== END 2017-06-17 21:10 | disposition short-term general hospital (02) ==
LOC: ER 12:17
DX: O99.013 Anemia complicating pregnancy, third trimester (principal); D57.00 Hb-SS disease with crisis, unspecified; Z3A.00 Weeks of gestation of pregnancy not specified; Z85.528 Personal history of other malignant neoplasm of kidney; Z90.5 Acquired absence of kidney
CPT/HCPCS: 96376; 99285; 96361; 96374; 96375; 36415; 85025; 85045; 80053; 81001; J3010; J1170; J2405; J7030

== ENCOUNTER 2017-07-04 09:40 | Emergency (ER) | payer MEDICARE, MEDICAID ==
[2017-07-04] MEDS ORDERED: ACETAMINOPHEN 325 MG TABLET PO ONE (10:26)
[2017-07-04 10:29] LABS: HEMATOCRIT 23.3 % (36.0-47.0); HEMOGLOBIN 8.5 g/dL (12.0-15.5); HGB HCT DIFFERENCE 2.2; MEAN CORPUSCULAR HEMOGLOBIN 36.6 pg (27.0-33.4); MEAN CORPUSCULAR HGB CONC 36.5 g/dL (32.0-36.0); MEAN CORPUSCULAR VOLUME 100 fl (80-97); RED BLOOD COUNT 2.33 10^6/uL (3.72-5.28); RED CELL DISTRIBUTION WIDTH 21.3 % (11.5-14.0)
[2017-07-04] MEDS ORDERED: NORMAL SALINE 1000 ML 1,000 ML IV ONE (10:32)
--- NOTE | 2017-07-04 10:40 | RADIOLOGY REPORT (SQ) ---
EXAM DESCRIPTION: CHEST PA/LAT COMPLETED DATE/TIME: 07/04/2017 10:26 am REASON FOR STUDY: sickle cell, body pain COMPARISON: 01/11/2017 EXAM PARAMETERS: NUMBER OF VIEWS: two views TECHNIQUE: Digital Frontal and Lateral radiographic views of the chest acquired. RADIATION DOSE: NA LIMITATIONS: none FINDINGS: LUNGS AND PLEURA: Chronic interstitial changes are present. There is a minimal pleural ef fusion on the lateral view that is likely on the left side. MEDIASTINUM AND HILAR STRUCTURES: No masses or contour abnormalities. HEART AND VASCULAR STRUCTURES: Mild cardiac enlargement. BONES: No acute findings. HARDWARE: A right-sided catheter is present. The tip of the catheter is superior vena cava near the right atrium. OTHER: No other significant finding. IMPRESSION: 1. Chronic lung changes with no acute pulmonary disease. 2. Cardiomegaly with small pleural effusion but no CHF. TECHNICAL DOCUMENTATION: JOB ID: [id number] [employer]- All Rights Reserved
[2017-07-04 10:46] LABS: ALANINE AMINOTRANSFERASE 12 U/L (9-52); ALKALINE PHOSPHATASE 208 U/L (38-126); ANION GAP 7 (5-19); ASPARTATE AMINO TRANSFERASE 35 U/L (14-36); BILIRUBIN,DIRECT 0.8 mg/dL (0.0-0.4); BILIRUBIN,TOTAL 3.1 mg/dL (0.2-1.3); BLOOD UREA NITROGEN 3 mg/dL (7-20); CALCIUM 8.7 mg/dL (8.4-10.2); CARBON DIOXIDE 18 mmol/L (22-30); CHLORIDE 113 mmol/L (98-107); CREATININE RESULT 0.44 mg/dL (0.52-1.25); GLUCOSE 69 mg/dL (75-110); POTASSIUM 3.6 mmol/L (3.6-5.0); TOTAL PROTEIN 6.2 g/dL (6.3-8.2)
--- NOTE | 2017-07-04 10:56 | ER Document Report ---
ED General - General Chief Complaint: Back Pain Stated Complaint: CHEST,BACK PAIN Time Seen by Provider: 07/04/17 09:45 Mode of Arrival: Ambulatory Information source: Patient Notes: 31-year-old female history of sickle cell disease who is approximately 36-38 months presents with complaints of chest pain back pain and a nonproductive cough . Patient has been followed up by [facility] TRAVEL OUTSIDE OF THE [place] IN LAST 30 DAYS: No - HPI Onset: Yesterday Onset/Duration: Sudden Quality of pain: Achy, Sharp Severity: Mild Pain Level: 1 Associated symptoms: Body/muscle aches, Nonproductive cough, Shortness of breath Exacerbated by: Denies Relieved by: Denies Similar symptoms previously: Yes Recently seen / treated by doctor: Yes - Related Data Allergies/Adverse Reactions: green pepper Allergy (Verified 06/17/17 12:53) ibuprofen Allergy (Verified 07/04/17 13:15) Past Medical History - Social History Smoking Status: Never Smoker Cigarette use (# per day): No Chew tobacco use (# tins/day): No Smoking Education Provided: No Family History: Reviewed & Not Pertinent Pulmonary Medical History: Reports: Hx Pneumonia - yearly since 2003 (last time 07/2012) Renal/ Medical History: Denies: Hx Peritoneal Dialysis Malignancy Medical History: Reports: Hx Renal (Kidney) Cancer Past Surgical History: Reports: Hx Cholecystectomy, Hx Kidney (Renal Surgery) - part of left kidney removed., Hx Orthopedic Surgery - L Femur, L FINGER, Other - Partial left nephrectomy for renal cell carcinoma - Immunizations Immunizations up to date: Yes Hx Diphtheria, Pertussis, Tetanus Vaccination: No Hx Pneumococcal Vaccination: 07/21/12 Review of Systems - Review of Systems Notes: REVIEW OF SYSTEMS: CONSTITUTIONAL : Denies fever, chills, or sweats. Denies recent illness. EENT: Denies eye, ear, throat, or mouth pain or symptoms. Denies nasal or sinus congestion or discharge. Denies throat, tongue, or mouth swelling or difficulty swallowing. CARDIOVASCULAR: Admits to chest pain RESPIRATORY: Admits nonproductive cough GASTROINTESTINAL: Denies abdominal pain or distention. Denies nausea, vomiting , or diarrhea. Denies blood in vomitus, stools, or per rectum. Denies black, tarry stools. Denies constipation. GENITOURINARY: Denies difficulty urinating, painful urination, burning, frequency, blood in urine, or discharge. FEMALE GENITOURINARY: Denies vaginal bleeding, heavy or abnormal periods, irregular periods. Denies vaginal discharge or odor. MUSCULOSKELETAL: Admits to backache SKIN: Denies rash, lesions or sores. HEMATOLOGIC : Denies easy bruising or bleeding. LYMPHATIC: Denies swollen, enlarged glands. NEUROLOGICAL: Denies confusion or altered mental status. Denies passing out or loss of consciousness. Denies dizziness or lightheadedness. Denies headache. Denies weakness or paralysis or loss of use of either side. Denies problems with gait or speech. Denies sensory loss, numbness, or tingling. Denies seizures. PSYCHIATRIC: Denies anxiety or stress. Denies depression, suicidal ideation, or homicidal ideation. ALL OTHER SYSTEMS REVIEWED AND NEGATIVE. PHYSICAL EXAMINATION: GENERAL: Well-appearing, well-nourished and in no acute distress. HEAD: Atraumatic, normocephalic. EYES: Pupils equal round and reactive to light, extraocular movements intact, conjunctiva are normal. ENT: Nares patent, oropharynx clear without exudates. Moist mucous membranes. NECK: Normal range of motion, supple without lymphadenopathy LUNGS: Breath sounds clear to auscultation bilaterally and equal. No wheezes rales or rhonchi. HEART: Regular rate and rhythm without murmurs ABDOMEN: Soft, nontender, nondistended abdomen. No guarding, no rebound. No masses appreciated. Female : deferred Musculoskeletal: Normal range of motion, no pitting or edema. No cyanosis. NEUROLOGICAL: Cranial nerves grossly intact. Normal speech, normal gait. Normal sensory, motor exams PSYCH: Normal mood, normal affect. SKIN: Warm, Dry, normal turgor, no rashes or lesions noted. Dictation was performed using [employer] [place] voice recognition software Physical Exam - Vital signs Vitals: Temp 97.8 F 07/04/17 10:30 Course - Re-evaluation Re-evalutation: 07/04/17 10:55 Mild pleural effusion noted, given i called dr batres, she requests cardio involvment 07/04/17 11:02 Dr cecelia Chen requests transfer 07/04/17 11:53 [facility] transfer consulted julio césar [place] requests high risk obgyn consult 07/04/17 12:09 dr Nam blanco accepts 07/04/17 12:12 07/04/17 14:43 Patient continues to be stable at this time - Vital Signs Vital signs: Temp Pulse Resp BP Pulse Ox 97.8 F 07/04/17 12:49 - Laboratory Result Diagrams: 07/04/17 10:12 07/04/17 10:12 Laboratory results interpreted by me: 07/04/17 07/04/17 10:12 10:12 RBC 2.33 L Hgb 8.5 L Hct 23.3 L MCV 100 H MCH 36.6 H MCHC 36.5 H RDW 21.3 H Retic Count (auto) 10.87 H Absolute Retic 0.253 H Chloride 113 H Carbon Dioxide 18 L BUN 3 L Creatinine 0.44 L Glucose 69 L Total Bilirubin 3.1 H Direct Bilirubin 0.8 H Alkaline Phosphatase 208 H Total Protein 6.2 L Albumin 3.0 L - Diagnostic Test Radiology reviewed: Image reviewed, Reports reviewed Discharge - Discharge Clinical Impression: Sickle cell anemia with crisis, Pleural effusion, Acute chest syndrome Condition: Stable Disposition: [facility] Referrals: AIDEN ALEMAN PA-C [Primary Care Provider] - Follow up as needed
[2017-07-04 11:00] LABS: BASOPHILS % (MANUAL) 0 % (0-2); EOSINOPHILS % (MANUAL) 0 % (0-6); LYMPHOCYTES % (MANUAL) 25 % (13-45); NUCLEATED RED BLOOD CELLS 15 /100 WBC (0); TOTAL CELLS COUNTED 100
[2017-07-04 11:03] LABS: TOXIC VACUOLATION PRESENT
[2017-07-04 11:07] LABS: ANISOCYTOSIS 3+; OVALOCYTES SLIGHT; POLYCHROMASIA 1+; TARGET CELLS 1+; TEAR DROP CELLS SLIGHT
[2017-07-04 11:09] LABS: HOWELL-JOLLY BODIES PRESENT
[2017-07-04 16:37] VITALS: BP 103/75
--- NOTE | 2017-07-04 20:19 | EKG REPORT ---
SEVERITY:- ABNORMAL ECG - SINUS RHYTHM NONSPECIFIC T ABNORMALITIES, ANTERIOR LEADS BORDERLINE PROLONGED QT INTERVAL : Confirmed by: Monika Mendez 04-Jul-2017 20:19:10
== END 2017-07-04 15:15 | disposition short-term general hospital (02) ==
LOC: ER 09:40
DX: O99.013 Anemia complicating pregnancy, third trimester (principal); D57.01 Hb-SS disease with acute chest syndrome; J91.8 Pleural effusion in other conditions classified elsewhere; M79.1 Myalgia; Z3A.36 36 weeks gestation of pregnancy; Z88.6 Allergy status to analgesic agent; Z90.49 Acquired absence of other specified parts of digestive tract; Z85.528 Personal history of other malignant neoplasm of kidney
CPT/HCPCS: 93005; 99285; 96360; 36415; 85025; 85045; 80053; 71020; 93010; A9270; J7030

== ENCOUNTER 2017-08-10 17:16 | Emergency (ER) | payer MEDICARE, MEDICAID ==
[2017-08-10] MEDS ORDERED: HYDROMORPHONE HCL INJ/PF 2 MG/ML AMPULE IV ONE ×3 (18:11→22:39)
[2017-08-10] MEDS ORDERED: NORMAL SALINE 1000 ML 1,000 ML IV PRN (18:11)
--- NOTE | 2017-08-10 18:11 | ER Document Report ---
ED Medical Screen (RME) - General Mode of Arrival: Ambulatory Information source: Patient TRAVEL OUTSIDE OF THE [place] IN LAST 30 DAYS: No - General Chief Complaint: Back Pain Stated Complaint: LEG AND BACK PAIN Time Seen by Provider: 08/10/17 18:06 Notes: Patient is a 31-year-old female seen department for sickle cell crisis. Patient has had back and leg pain since last night. Patient was admitted last month for sickle cell crisis. Patient states she feels like she is having an sickle cell crisis. Patient denies any vomiting or fever. Patient also recently delivered a baby. Patient sees Dr. Chen for her sickle cell. (MICHELLE HENDERSON) - Related Data Allergies/Adverse Reactions: green pepper Allergy (Verified 08/10/17 17:20) ibuprofen Allergy (Verified 08/10/17 17:20) Past Medical History - Social History Chew tobacco use (# tins/day): No Frequency of alcohol use: Rare Drug Abuse: None Pulmonary Medical History: Reports: Hx Pneumonia - yearly since 2003 (last time 07/2012) Renal/ Medical History: Denies: Hx Peritoneal Dialysis Malignancy Medical History: Reports: Hx Renal (Kidney) Cancer GI Medical History: Denies: Hx Pancreatitis Past Surgical History: Reports: Hx Cholecystectomy, Hx Kidney (Renal Surgery) - part of left kidney removed., Hx Orthopedic Surgery - L Femur, L FINGER, Other - Partial left nephrectomy for renal cell carcinoma - Immunizations Immunizations up to date: Yes Hx Diphtheria, Pertussis, Tetanus Vaccination: Yes - 2016 History of Influenza Vaccine for 07/2017 - 12/2017 Season: Yes Influenza Administration Date for 07/2017 - 12/2017 Season: 07/21/17 Physical Exam - Vital signs Vitals: Temp Pulse Resp BP Pulse Ox 98.7 F 93 22 H 97/79 L 100 08/10/17 17:21 08/10/17 17:21 08/10/17 17:21 08/10/17 17:21 08/10/17 17:21 - Notes Notes: GENERAL: Alert, interacts well. No acute distress. LUNGS: Clear to auscultation bilaterally, no wheezes, rales, or rhonchi. No respiratory distress. HEART: Regular rate and rhythm. No murmurs, gallops, or rubs. ABDOMEN: Soft, non-tender. Non-distended. Bowel sounds present in all 4 quadrants. Exam (EDGREN,MICHELLE) - Vital Signs Vital signs: Temp Pulse Resp BP Pulse Ox 98.7 F 93 22 H 97/79 L 100 08/10/17 17:21 08/10/17 17:21 08/10/17 17:21 08/10/17 17:21 08/10/17 17:21 Scribe Documentation - Scribe Written by Scribe:: Michelle Henderson, [place], 08/10/2017 1825 acting as scribe for :: Otoniel
[2017-08-10 20:02] LABS: ABSOLUTE BASOPHILS # (AUTO) 0.1 10^3/uL (0.0-0.2); ABSOLUTE EOSINOPHILS # (AUTO) 0.1 10^3/uL (0.0-0.6); ABSOLUTE LYMPHOCYTES (AUTO) 3.6 10^3/uL (0.5-4.7); ABSOLUTE MONOCYTES (AUTO) 0.9 10^3/uL (0.1-1.4); ABSOLUTE NEUT (AUTO) 5.6 10^3/uL (1.7-8.2); BASOPHILS % (AUTO) 1.2 % (0-2); LYMPHOCYTES % (AUTO) 34.8 % (13-45); MEAN CORPUSCULAR HEMOGLOBIN 29.7 pg (27.0-33.4); MEAN CORPUSCULAR HGB CONC 35.4 g/dL (32.0-36.0); MEAN CORPUSCULAR VOLUME 84 fl (80-97); MONOCYTES % (AUTO) 8.7 % (3-13); RED BLOOD COUNT 3.69 10^6/uL (3.72-5.28); RED CELL DISTRIBUTION WIDTH 21.5 % (11.5-14.0); SEGMENTED NEUTROPHILS % (AUTO) 54.3 % (42-78); WHITE BLOOD COUNT 10.4 10^3/uL (4.0-10.5)
--- NOTE | 2017-08-10 20:10 | ER Document Report ---
ED General Pain - General Chief Complaint: Back Pain Stated Complaint: LEG AND BACK PAIN Time Seen by Provider: 08/10/17 18:06 Mode of Arrival: Ambulatory Notes: The patient is a 31-year-old female, past medical history sickle cell disease, presents with her usual leg and back pain. She delivered a baby by 1 month ago. She was restarted on her fentanyl patches, OxyContin and oxycodone, but she says that is not helping her pain. She follows with Dr. Pink. She denies chest pain, shortness of breath, fevers, cough, nausea, vomiting, abdominal pain, rash, change in bowel or bladder or saddle anesthesia. TRAVEL OUTSIDE OF THE [place] IN LAST 30 DAYS: No - Related Data Allergies/Adverse Reactions: green pepper Allergy (Verified 08/10/17 17:20) ibuprofen Allergy (Verified 08/10/17 17:20) Past Medical History - General Information source: Patient - Social History Smoking Status: Former Smoker Chew tobacco use (# tins/day): No Frequency of alcohol use: Rare Drug Abuse: None Family History: Reviewed & Not Pertinent Pulmonary Medical History: Reports: Hx Pneumonia - yearly since 2003 (last time 07/2012) Renal/ Medical History: Denies: Hx Peritoneal Dialysis Malignancy Medical History: Reports: Hx Renal (Kidney) Cancer GI Medical History: Denies: Hx Pancreatitis Past Surgical History: Reports: Hx Cholecystectomy, Hx Kidney (Renal Surgery) - part of left kidney removed., Hx Orthopedic Surgery - L Femur, L FINGER, Other - Partial left nephrectomy for renal cell carcinoma - Immunizations Immunizations up to date: Yes Hx Diphtheria, Pertussis, Tetanus Vaccination: Yes - 2016 Hx Pneumococcal Vaccination: 07/21/12 Review of Systems - Review of Systems Notes: REVIEW OF SYSTEMS: CONSTITUTIONAL: -fevers, -chills EENT: -eye pain, -difficulty swallowing, -nasal congestion CARDIOVASCULAR:-chest pain, -syncope. RESPIRATORY: -cough, -SOB GASTROINTESTINAL: -abdominal pain, - nausea, -vomiting, -diarrhea GENITOURINARY: -dysuria, -hematuria MUSCULOSKELETAL: +back pain, +B/L leg pain, -neck pain SKIN: -rash or skin lesions. HEMATOLOGIC: -easy bruising or bleeding. LYMPHATIC: -swollen, enlarged glands. NEUROLOGICAL: -altered mental status or loss of consciousness, -headache, - neurologic symptoms PSYCHIATRIC: -anxiety, -depression. ALL OTHER SYSTEMS REVIEWED AND NEGATIVE. Physical Exam - Vital signs Vitals: Temp Pulse Resp BP Pulse Ox 98.7 F 93 22 H 97/79 L 100 08/10/17 17:21 08/10/17 17:21 08/10/17 17:21 08/10/17 17:21 08/10/17 17:21 - Notes Notes: PHYSICAL EXAMINATION: GENERAL: Well-appearing, well-nourished and in no acute distress. Talking on the phone when I enter the room. HEAD: Atraumatic, normocephalic. EYES: Pupils equal round and reactive to light, extraocular movements intact, sclera anicteric, conjunctiva are normal. ENT: nares patent, oropharynx clear without exudates. Moist mucous membranes. NECK: Normal range of motion, supple without lymphadenopathy LUNGS: Breath sounds clear to auscultation bilaterally and equal. No wheezes rales or rhonchi. HEART: Regular rate and rhythm without murmurs ABDOMEN: Soft, nontender, normoactive bowel sounds. No guarding, no rebound. No masses appreciated. EXTREMITIES: Normal range of motion, no pitting or edema. No cyanosis. NEUROLOGICAL: Cranial nerves grossly intact. Normal speech, normal gait. Normal sensory and motor exams. PSYCH: Normal mood, normal affect. SKIN: Well-healing wound. Course - Re-evaluation Re-evalutation: Patient appears well. Her blood work and labs do not show any anemia and her retic count is noted. After pain medicine and IVF, she feels much better and is requesting discharge. Will send home patient with follow-up at her [facility]. Pain is chronic in nature. - Vital Signs Vital signs: Temp Pulse Resp BP Pulse Ox 98.7 F 93 22 H 97/79 L 100 08/10/17 17:21 08/10/17 17:21 08/10/17 17:21 08/10/17 17:21 08/10/17 17:21 - Laboratory Result Diagrams: 08/10/17 19:50 08/10/17 19:50 Laboratory results interpreted by me: 08/10/17 08/10/17 19:50 19:50 RBC 3.69 L Hgb 11.0 L Hct 31.0 L RDW 21.5 H Chloride 109 H Carbon Dioxide 19 L Creatinine 0.49 L Total Bilirubin 2.2 H Direct Bilirubin 0.6 H Alkaline Phosphatase 152 H Total Protein 8.7 H Discharge - Discharge Clinical Impression: Sickle cell pain crisis Condition: Stable Disposition: HOME, SELF-CARE Additional Instructions: Sickle Cell Crisis You have "sickle cell crisis." Sickle cell disease is caused by abnormal hemoglobin. This hemoglobin can deform red blood cells into a sickle shape. These abnormal blood cells can block blood vessels. This causes the pain of sickle cell crisis. Sickle cell crisis can occur any time. But attacks are more likely with acute infection, dehydration, or altitude change. A crisis usually causes pain in the legs, back, abdomen, and chest. Sometimes the pain may ease and return later. The usual treatment is oxygen, pain medication, IV fluids, and treatment of infection. Attacks may take a couple of days to resolve. Return if the pain becomes more severe, or if there are new symptoms. Follow-up with your [facility] this week. Referrals: LUPE PINK MD [ACTIVE STAFF] - Follow up as needed
--- NOTE | 2017-08-10 20:12 | RADIOLOGY REPORT (SQ) ---
EXAM DESCRIPTION: CHEST PA/LAT COMPLETED DATE/TIME: 08/10/2017 8:00 pm REASON FOR STUDY: sickle cell crisis, CP COMPARISON: 07/04/2017 EXAM PARAMETERS: NUMBER OF VIEWS: two views TECHNIQUE: Digital Frontal and Lateral radiographic views of the chest acquired. RADIATION DOSE: NA LIMITATIONS: none FINDINGS: LUNGS AND PLEURA: Re- demonstration of increased interstitial markings. MEDIASTINUM AND HILAR STRUCTURES: No masses or contour abnormalities. HEART AND VASCULAR STRUCTURES: Stable cardiac silhouette. BONES: No acute findings. HARDWARE: Right upper extremity Port-A-Cath terminating in the region of the cavoatrial junction. OTHER: No other significant finding. IMPRESSION: Stable radiographic appearance of the chest. No evidence of acute cardiopulmonary abnor mality. TECHNICAL DOCUMENTATION: JOB ID: [id number] [employer] All Rights Reserved
[2017-08-10 20:15] LABS: ALANINE AMINOTRANSFERASE 35 U/L (9-52); ALBUMIN 4.7 g/dL (3.5-5.0); ALKALINE PHOSPHATASE 152 U/L (38-126); ANION GAP 15 (5-19); ASPARTATE AMINO TRANSFERASE 30 U/L (14-36); BILIRUBIN,DIRECT 0.6 mg/dL (0.0-0.4); BILIRUBIN,TOTAL 2.2 mg/dL (0.2-1.3); BLOOD UREA NITROGEN 8 mg/dL (7-20); CARBON DIOXIDE 19 mmol/L (22-30); CHLORIDE 109 mmol/L (98-107); CREATININE RESULT 0.49 mg/dL (0.52-1.25); GLUCOSE 86 mg/dL (75-110); POTASSIUM 4.2 mmol/L (3.6-5.0); SODIUM 142.5 mmol/L (137-145); TOTAL PROTEIN 8.7 g/dL (6.3-8.2)
[2017-08-10 20:51] LABS: HYPOCHROMASIA SLIGHT; TARGET CELLS 3+
[2017-08-10 20:53] LABS: ANISOCYTOSIS 3+; POIKILOCYTOSIS 1+; POLYCHROMASIA SLIGHT
[2017-08-10 20:55] LABS: SCHISTOCYTES 1+
[2017-08-10 21:46] LABS: APPEARANCE,URINE CLEAR; BILIRUBIN,URINE NEGATIVE (NEGATIVE); GLUCOSE, URINE NEGATIVE (NEGATIVE); KETONES,URINE NEGATIVE (NEGATIVE); LEUKOCYTE ESTERASE,URINE SMALL (NEGATIVE); NITRITE,URINE NEGATIVE (NEGATIVE); PROTEIN,URINE NEGATIVE (NEGATIVE); URINE SPECIFIC GRAVITY 1.009
[2017-08-10 23:25] VITALS: BP 111/80
--- NOTE | 2017-08-11 09:21 | EKG REPORT ---
SEVERITY:- ABNORMAL ECG - SINUS RHYTHM PROBABLE LEFT ATRIAL ABNORMALITY PROBABLE LEFT VENTRICULAR HYPERTROPHY BORDERLINE PROLONGED QT INTERVAL : Confirmed by: Thea Bains MD 11-Aug-2017 09:20:53
== END 2017-08-10 23:25 | disposition home or self-care (01) ==
LOC: ER 17:16
DX: D57.00 Hb-SS disease with crisis, unspecified (principal); M54.9 Dorsalgia, unspecified; M79.606 Pain in leg, unspecified; Z79.899 Other long term (current) drug therapy; Z87.891 Personal history of nicotine dependence
CPT/HCPCS: 93005; 36591; 96376; 99284; 96361; 96374; 36415; 84703; 85025; 85045; 80053; 81001; 71020; 93010; J1170; J7030

== ENCOUNTER 2017-08-11 00:49 | Emergency (ER) | payer MEDICARE, MEDICAID ==
[2017-08-11 02:02] LABS: ALCOHOL < 10 mg/dL (NONE DETECTED)
[2017-08-11] MEDS ORDERED: TRAZODONE HCL 50 MG TABLET PO ONE (02:28)
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
[2017-08-11 03:36] LABS: URINE BARBITURATES SCREEN NEGATIVE; URINE METHADONE SCREEN NEGATIVE; URINE OPIATES LOW UNCONFIRMED POSITIVE; URINE PHENCYCLIDINE SCREEN NEGATIVE
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
[2017-08-11] MEDS ORDERED: CITALOPRAM HYDROBROMIDE 20 MG TABLET PO SCH (13:00)
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
[2017-08-11] MEDS ORDERED: FENTANYL 75 MCG/HR PATCH.TD72 TD ONE (18:48)
[2017-08-11] MEDS ORDERED: FENTANYL 25 MCG/HR PATCH.TD72 TD ONE (18:53)
--- NOTE | 2017-08-12 14:50 | ER Document Report ---
Doctor's Note Notes: 08/12/17 14:50 Patient is doing well, she has been accepted at [facility] and will be transported by the assistant director of plant operations's department at some time today.
[2017-08-12 14:51] VITALS: BP 97/66
== END 2017-08-12 16:50 ==
LOC: ER 00:49
DX: R45.851 Suicidal ideations (principal); F53 Mental and behavioral disorders associated with the puerperium, not elsewhere classified; Z79.899 Other long term (current) drug therapy
CPT/HCPCS: 99285; 36415; 80307 ×4; J3490; A9270 ×2

== ENCOUNTER 2017-09-23 20:21 | Emergency (ER) | payer MEDICARE, MEDICAID ==
[2017-09-23] MEDS ORDERED: DIPHENHYDRAMINE HCL 50 MG/ML VIAL IV ONE (20:40)
[2017-09-23] MEDS ORDERED: NORMAL SALINE 1000 ML 1,000 ML IV ONE ×2 (20:40)
[2017-09-23] MEDS ORDERED: HYDROMORPHONE HCL INJ/PF 2 MG/ML AMPULE IV ONE ×2 (20:40→23:00)
[2017-09-23] MEDS ORDERED: ONDANSETRON HCL INJ/PF 4 MG/2 ML SDV IV ONE (20:40)
--- NOTE | 2017-09-23 20:45 | ER Document Report ---
ED General - General Stated Complaint: BODY PAIN Time Seen by Provider: 09/23/17 20:32 Notes: Patient is a 32-year-old female with past medical history of sickle cell anemia that comes emergency department by EMS for chief complaint of body pain and vomiting. She states that she fell getting out of her shower last night, hit the upper side of her head, states she has a headache, states she has vomited about 12 times today. She denies passing out at that time, she denies vomiting shortly after, states she did not have vomiting until she got up this morning. She denies particular or specific abdominal pain. She denies visual changes, focal numbness or weakness. She denies cough, fever, shortness of breath. She uses fentanyl patches and oxycodone for pain, states she is still in a lot of pain in her body and also with a headache. TRAVEL OUTSIDE OF THE [place] IN LAST 30 DAYS: No - Related Data Allergies/Adverse Reactions: green pepper Allergy (Verified 08/11/17 01:15) ibuprofen Allergy (Verified 08/11/17 01:15) Past Medical History - General Information source: Patient - Social History Smoking Status: Never Smoker Frequency of alcohol use: None Drug Abuse: None Lives with: Family Family History: Reviewed & Not Pertinent Pulmonary Medical History: Reports: Hx Pneumonia - yearly since 2003 (last time 07/2012) Renal/ Medical History: Denies: Hx Peritoneal Dialysis Malignancy Medical History: Reports: Hx Renal (Kidney) Cancer GI Medical History: Denies: Hx Pancreatitis Past Surgical History: Reports: Hx Cholecystectomy, Hx Kidney (Renal Surgery) - part of left kidney removed., Hx Orthopedic Surgery - L Femur, L FINGER, Other - Partial left nephrectomy for renal cell carcinoma - Immunizations Immunizations up to date: Yes Hx Diphtheria, Pertussis, Tetanus Vaccination: Yes - 2016 Hx Pneumococcal Vaccination: 07/21/12 Review of Systems - Review of Systems Constitutional: See HPI EENT: No symptoms reported Cardiovascular: No symptoms reported Respiratory: No symptoms reported Gastrointestinal: See HPI Genitourinary: No symptoms reported Female Genitourinary: No symptoms reported Musculoskeletal: See HPI Skin: No symptoms reported Hematologic/Lymphatic: No symptoms reported Neurological/Psychological: See HPI Physical Exam - Vital signs Vitals: Resp Pulse Ox 11 L 97 09/23/17 20:41 09/23/17 20:41 - General General appearance: Alert In distress: None - HEENT Head: Normocephalic, Other - Patient has tenderness over the right parietotemporal area, no hematoma, open wounds, or other signs of trauma or abnormality noted Eyes: Normal Eyelashes: Normal Pupils: PERRL Sinus: Normal Nasal: Normal Mouth/Lips: Normal Mucous membranes: Normal Pharynx: Normal Neck: Normal - Respiratory Respiratory status: No respiratory distress Breath sounds: Normal. No: Decreased air movement, Wheezing - Cardiovascular Rhythm: Regular, Tachycardia - Borderline tachycardia Heart sounds: Normal auscultation, S1 appreciated, S2 appreciated - Abdominal Tenderness: Tender - Patient winces with palpation of the left upper quadrant, epigastric, right upper quadrant, and remaining abdomen are benign. No guarding , rigidity, or rebound tenderness. - Back Back: Normal. No: Tender - Extremities General upper extremity: Normal inspection, Nontender, Normal strength, Normal temperature General lower extremity: Normal inspection, Nontender, Normal strength, Normal temperature - Skin Skin Temperature: Warm Skin Moisture: Dry Skin Color: Normal Course - Re-evaluation Re-evalutation: Patient well-appearing, soft abdomen, no tachycardia, alert, no signs of distress. CAT scan of the head unremarkable. Neurological exam is unremarkable. Patient does not appear to be in any distress. Suspect postconcussive headaches after injury, this was discussed with patient. She states she does not have a headache to the point that she thinks she is vomiting because of it. Based on patient's presentation and exam I do agree with this. CBC shows no leukocytosis, shows expected anemia, shows some evidence of sickling with reticulocyte counts although this is significantly lower than prior. Bilirubin is not significantly elevated. Chemistry unremarkable. Urinalysis indicates infection with large leukocyte esterase and white blood cells. Culture sent, giving antibiotics. Patient was given fluids, pain medication. Reevaluated twice. On second reevaluation patient states that she actually feels really good now and she wants to go home. I recommended admission because of sickle cell crisis with urinary tract infection and vomiting. Patient has already been drinking fluids , she has had no difficulty keeping down PO, has not had vomiting since early afternoon. She requests to leave. She states that she will take antibiotics, she would like nausea medication just in case, she states that she will follow closely with her provider and return if she worsens in any way including fever, returned vomiting, or any other concerning symptoms. Because of patient's well appearance, unremarkable vital signs, and lack of sepsis or concerning symptoms at this time patient was discharged with return precautions. - Vital Signs Vital signs: Temp Pulse Resp BP Pulse Ox 98.6 F 14 124/95 H 98 09/24/17 01:30 09/24/17 01:30 09/24/17 01:30 09/24/17 01:30 - Laboratory Result Diagrams: 09/23/17 21:50 09/23/17 21:50 Laboratory results interpreted by me: 09/23/17 09/23/17 09/23/17 21:27 21:50 21:50 RBC 2.84 L Hgb 9.5 L Hct 27.0 L RDW 25.7 H Retic Count (auto) 5.38 H Absolute Retic 0.153 H BUN 2 L Creatinine 0.37 L Total Bilirubin 2.5 H Direct Bilirubin 0.6 H Alkaline Phosphatase 141 H Urine Urobilinogen 4.0 H Ur Leukocyte Esterase LARGE H Urine Ascorbic Acid 20 H Discharge - Discharge Clinical Impression: Sickle cell anemia with crisis Nausea & vomiting Qualifiers: Vomiting type: unspecified Vomiting Intractability: non-intractable Qualified Code(s): R11.2 - Nausea with vomiting, unspecified Urinary tract infection Qualifiers: Urinary tract infection type: site unspecified Hematuria presence: without hematuria Qualified Code(s): N39.0 - Urinary tract infection, site not specified Condition: Stable Disposition: HOME, SELF-CARE Additional Instructions: Your workup indicates a urinary tract infection. Please take the antibiotics as prescribed, continue current medication, take Phenergan if needed for nausea , continue to stay hydrated. Follow-up closely with your provider. Please return immediately if you worsen in anyway including returned vomiting, fever, return or worsening pain, or any other concerning symptoms. Prescriptions: Cephalexin Monohydrate [Keflex 500 mg Capsule] 500 mg PO BID #10 capsule Promethazine HCl [Phenergan 25 mg Tablet] 1 - 2 tab PO Q6H PRN #20 tablet PRN Reason:
[2017-09-23 21:46] LABS: APPEARANCE,URINE SLIGHTLY-CLOUDY; BILIRUBIN,URINE NEGATIVE (NEGATIVE); GLUCOSE, URINE NEGATIVE (NEGATIVE); KETONES,URINE NEGATIVE (NEGATIVE); LEUKOCYTE ESTERASE,URINE LARGE (NEGATIVE); NITRITE,URINE NEGATIVE (NEGATIVE); PROTEIN,URINE NEGATIVE (NEGATIVE); URINE SPECIFIC GRAVITY 1.011
[2017-09-23 22:05] LABS: WBC,URINE 20-30 /HPF
[2017-09-23 22:06] LABS: ABSOLUTE BASOPHILS # (AUTO) 0.1 10^3/uL (0.0-0.2); ABSOLUTE EOSINOPHILS # (AUTO) 0.2 10^3/uL (0.0-0.6); ABSOLUTE LYMPHOCYTES (AUTO) 3.8 10^3/uL (0.5-4.7); ABSOLUTE NEUT (AUTO) 4.9 10^3/uL (1.7-8.2); BASOPHILS % (AUTO) 1.1 % (0-2); HEMOGLOBIN 9.5 g/dL (12.0-15.5); HGB HCT DIFFERENCE 1.5; LYMPHOCYTES % (AUTO) 37.8 % (13-45); MEAN CORPUSCULAR HEMOGLOBIN 33.3 pg (27.0-33.4); MEAN CORPUSCULAR VOLUME 95 fl (80-97); MONOCYTES % (AUTO) 9.7 % (3-13); RED BLOOD COUNT 2.84 10^6/uL (3.72-5.28); RED CELL DISTRIBUTION WIDTH 25.7 % (11.5-14.0); SEGMENTED NEUTROPHILS % (AUTO) 49.4 % (42-78)
[2017-09-23] MEDS ORDERED: CEFTRIAXONE 1 GM/D5W RTU 1 GM/50 ML RTUPB IV ONE (22:13)
[2017-09-23 22:30] LABS: ALANINE AMINOTRANSFERASE 29 U/L (9-52); ALBUMIN 4.3 g/dL (3.5-5.0); ALKALINE PHOSPHATASE 141 U/L (38-126); ANION GAP 11 (5-19); ASPARTATE AMINO TRANSFERASE 25 U/L (14-36); BILIRUBIN,DIRECT 0.6 mg/dL (0.0-0.4); BILIRUBIN,TOTAL 2.5 mg/dL (0.2-1.3); BLOOD UREA NITROGEN 2 mg/dL (7-20); CALCIUM 9.4 mg/dL (8.4-10.2); CARBON DIOXIDE 23 mmol/L (22-30); CHLORIDE 107 mmol/L (98-107); CREATININE RESULT 0.37 mg/dL (0.52-1.25); GLUCOSE 97 mg/dL (75-110); LIPASE 78.1 U/L (23-300); POTASSIUM 3.6 mmol/L (3.6-5.0)
--- NOTE | 2017-09-23 22:33 | RADIOLOGY REPORT (SQ) ---
EXAM DESCRIPTION: CT HEAD WITHOUT COMPLETED DATE/TIME: 09/23/2017 10:07 pm REASON FOR STUDY: head injury, headache, vomited >10 times COMPARISON: January 2016 TECHNIQUE: Axial images acquired through the brain without intravenous contrast. Images reviewed wi th bone, brain and subdural windows. Images stored on PACS. All CT scanners at this facility use dose modulation, iterative reconstruction, and/or weight based d osing when appropriate to reduce radiation dose to as low as reasonably achievable (ALARA). [facility]: Dose Right [facility]: CareDose [facility]: Dose Right [facility]: Teradose 4D [facility]: [employer] RADIATION DOSE: mGy. LIMITATIONS: None. FINDINGS: VENTRICLES: Normal size and contour. CEREBRUM: No masses. No hemorrhage. No midline shift. No evidence for acute infarction. Normal gra y/white matter differentiation. No areas of low density in the white matter. CEREBELLUM: No masses. No hemorrhage. No alteration of density. No evidence for acute infarction. EXTRAAXIAL SPACES: No fluid collections. No masses. ORBITS AND GLOBE: No intra- or extraconal masses. Normal contour of globe without masses. CALVARIUM: No fracture. PARANASAL SINUSES: No fluid or mucosal thickening. SOFT TISSUES: No mass or hematoma. OTHER: No other significant finding. IMPRESSION: No significant interval change. No acute findings. Other findings as noted above EVIDENCE OF ACUTE STROKE: NO. COMMENT: Quality ID # [id number]: Final reports with documentation of one or more dose reduction techniques (e.g., Automated exposure control, adjustment of the mA and/or kV according to patient size, use of iterative reconstruction technique) TECHNICAL DOCUMENTATION: JOB ID: [id number] [employer]- All Rights Reserved
[2017-09-23 22:43] LABS: ANISOCYTOSIS 3+; BURR CELLS SLIGHT; POIKILOCYTOSIS 1+; POLYCHROMASIA SLIGHT
[2017-09-23 22:44] LABS: SCHISTOCYTES SLIGHT; TARGET CELLS 2+
[2017-09-23 22:48] LABS: STAIN REACTIVITY CHECK ACCEPTABLE
[2017-09-24] MEDS ORDERED: PROMETHAZINE HCL 25 MG TABLET PO ONE (01:27)
[2017-09-24 01:39] VITALS: BP 124/95
== END 2017-09-24 01:40 | disposition home or self-care (01) ==
LOC: ER 20:21
DX: D57.00 Hb-SS disease with crisis, unspecified (principal); N39.0 Urinary tract infection, site not specified; R11.2 Nausea with vomiting, unspecified; M79.1 Myalgia; W18.2XXA Fall in (into) shower or empty bathtub, initial encounter; Z79.899 Other long term (current) drug therapy
CPT/HCPCS: 36591; 96376; 99284; 96361; 96374; 96375; 36415; 87086; 83690; 84703; 85025; 87088; 85045; 80053; 81001; 87186; 70450; J1200; J1170; A9270; J2405; J7030; J0696

== ENCOUNTER 2017-11-10 10:42 | Emergency (ER) | payer MEDICARE, MEDICAID ==
[2017-11-10] MEDS ORDERED: NORMAL SALINE 1000 ML 1,000 ML IV PRN (11:18)
[2017-11-10] MEDS ORDERED: KETOROLAC TROMETHAMINE INJ/PF 30 MG/1 ML SDV IV ONE ×2 (11:19→14:55)
[2017-11-10] MEDS ORDERED: HYDROMORPHONE HCL INJ/PF 2 MG/ML AMPULE IV ONE ×3 (11:19→15:29)
--- NOTE | 2017-11-10 11:20 | ER Document Report ---
ED Medical Screen (RME) - General Chief Complaint: Sickle Cell Crisis Stated Complaint: PELVIC PAIN Time Seen by Provider: 11/10/17 11:08 Mode of Arrival: Ambulatory Information source: Patient Notes: 32-year-old female with known sickle cell disease who presents to the emergency room with sickle cell crisis. Patient states she has had decreased p.o. intake and feels dehydrated. TRAVEL OUTSIDE OF THE [place] IN LAST 30 DAYS: No - Related Data Allergies/Adverse Reactions: green pepper Allergy (Verified 11/10/17 10:43) Past Medical History - Social History Frequency of alcohol use: None Drug Abuse: None Pulmonary Medical History: Reports: Hx Pneumonia - yearly since 2003 (last time 07/2012) Renal/ Medical History: Denies: Hx Peritoneal Dialysis Malignancy Medical History: Reports: Hx Renal (Kidney) Cancer GI Medical History: Denies: Hx Pancreatitis Past Surgical History: Reports: Hx Cholecystectomy, Hx Kidney (Renal Surgery) - part of left kidney removed., Hx Orthopedic Surgery - L Femur, L FINGER, Other - Partial left nephrectomy for renal cell carcinoma - Immunizations Immunizations up to date: Yes Hx Diphtheria, Pertussis, Tetanus Vaccination: Yes - 2016 History of Influenza Vaccine for 07/2017 - 12/2017 Season: Yes Influenza Administration Date for 07/2017 - 12/2017 Season: 07/21/17 Physical Exam - Vital signs Vitals: Temp Pulse Resp BP Pulse Ox 99.2 F 102 H 18 120/90 H 100 11/10/17 10:58 11/10/17 10:58 11/10/17 10:58 11/10/17 10:58 11/10/17 10:58 Course - Vital Signs Vital signs: Temp Pulse Resp BP Pulse Ox 99.2 F 102 H 18 120/90 H 100 11/10/17 10:58 11/10/17 10:58 11/10/17 10:58 11/10/17 10:58 11/10/17 10:58
[2017-11-10 11:45] LABS: APPEARANCE,URINE CLEAR; BILIRUBIN,URINE NEGATIVE (NEGATIVE); COLOR,URINE YELLOW; GLUCOSE, URINE NEGATIVE (NEGATIVE); KETONES,URINE NEGATIVE (NEGATIVE); LEUKOCYTE ESTERASE,URINE NEGATIVE (NEGATIVE); NITRITE,URINE NEGATIVE (NEGATIVE); PROTEIN,URINE NEGATIVE (NEGATIVE); URINE SPECIFIC GRAVITY 1.009
--- NOTE | 2017-11-10 11:50 | RADIOLOGY REPORT (SQ) ---
EXAM DESCRIPTION: CHEST PA/LAT COMPLETED DATE/TIME: 11/10/2017 11:43 am REASON FOR STUDY: sickle cell crisis COMPARISON: None. EXAM PARAMETERS: NUMBER OF VIEWS: two views TECHNIQUE: Digital Frontal and Lateral radiographic views of the chest acquired. RADIATION DOSE: NA LIMITATIONS: none FINDINGS: LUNGS AND PLEURA: Stable mild prominence of the pulmonary interstitium. No new airspace d isease, pleural effusion, or pneumothorax. MEDIASTINUM AND HILAR STRUCTURES: No masses or contour abnormalities. HEART AND VASCULAR STRUCTURES: Heart stable in size. No evidence for failure. BONES: No acute findings. HARDWARE: Stable. OTHER: No other significant finding. IMPRESSION: STABLE MILD PROMINENCE OF THE PULMONARY INTERSTITIUM MAY BE SECONDARY TO SCARRING OR ACU TE CHEST SYNDROME. NO FOCAL CONSOLIDATION. TECHNICAL DOCUMENTATION: JOB ID: [id number] [employer]- All Rights Reserved
[2017-11-10] MEDS ORDERED: DIPHENHYDRAMINE HCL 50 MG/ML VIAL IV ONE (13:52)
[2017-11-10 14:15] LABS: ABSOLUTE RETICS # 0.234 10^6/uL (0.028-0.122); HEMATOCRIT 34.7 % (36.0-47.0); HEMOGLOBIN 11.7 g/dL (12.0-15.5); MEAN CORPUSCULAR HEMOGLOBIN 29.1 pg (27.0-33.4); MEAN CORPUSCULAR HGB CONC 33.8 g/dL (32.0-36.0); MEAN CORPUSCULAR VOLUME 86 fl (80-97); PLATELET COUNT 419 10^3/uL (150-450); RED BLOOD COUNT 4.03 10^6/uL (3.72-5.28); RETICULOCYTE COUNT (AUTO) 5.82 % (0.66-2.85); WHITE BLOOD COUNT 16.2 10^3/uL (4.0-10.5)
[2017-11-10 14:24] LABS: ABSOLUTE LYMPHOCYTES# (MANUAL) 7.6 10^3/uL (0.5-4.7); ABSOLUTE MONOCYTES # (MANUAL) 0.8 10^3/uL (0.1-1.4); ABSOLUTE NEUTROPHILS# (MANUAL) 7.6 10^3/uL (1.7-8.2); BASOPHILS % (MANUAL) 0 % (0-2); EOSINOPHILS % (MANUAL) 1 % (0-6); LYMPHOCYTES % (MANUAL) 43 % (13-45); MONOCYTES % (MANUAL) 5 % (3-13); SEGMENTED NEUTROPHILS % (MAN) 47 % (42-78); TOTAL CELLS COUNTED 100
[2017-11-10 14:28] LABS: ALANINE AMINOTRANSFERASE 23 U/L (9-52); ALBUMIN 4.5 g/dL (3.5-5.0); ALKALINE PHOSPHATASE 124 U/L (38-126); ANION GAP 11 (5-19); ASPARTATE AMINO TRANSFERASE 20 U/L (14-36); BILIRUBIN,DIRECT 0.3 mg/dL (0.0-0.4); BILIRUBIN,TOTAL 2.1 mg/dL (0.2-1.3); BLOOD UREA NITROGEN 5 mg/dL (7-20); CALCIUM 10.4 mg/dL (8.4-10.2); CARBON DIOXIDE 22 mmol/L (22-30); CHLORIDE 109 mmol/L (98-107); GLUCOSE 85 mg/dL (75-110); POTASSIUM 3.7 mmol/L (3.6-5.0); SODIUM 142.3 mmol/L (137-145); TOTAL PROTEIN 8.2 g/dL (6.3-8.2)
[2017-11-10 14:34] LABS: OVALOCYTES SLIGHT; POIKILOCYTOSIS 3+; SICKLE RED CELLS SLIGHT; TARGET CELLS 1+; TEAR DROP CELLS SLIGHT
[2017-11-10 14:35] LABS: ANISOCYTOSIS 2+; PLATELET COMMENT ADEQUATE; PLATELET GIANT PRESENT; POLYCHROMASIA 1+
--- NOTE | 2017-11-10 14:55 | ER Document Report ---
ED General Pain - General Chief Complaint: Sickle Cell Crisis Stated Complaint: PELVIC PAIN Time Seen by Provider: 11/10/17 11:08 Mode of Arrival: Ambulatory Information source: Patient Notes: Patient is a 32-year-old female with sickle cell disease who presents to the ER today for body pain all over that started 3 days ago and right lower abdominal pain that also started 3 days ago. Patient denies any dysuria, abnormal vaginal discharge, fevers or chills. Patient denies any chest pain or shortness of breath. She takes oxycodone for pain at home which is not been helping. TRAVEL OUTSIDE OF THE [place] IN LAST 30 DAYS: No - Related Data Allergies/Adverse Reactions: green pepper Allergy (Verified 11/10/17 10:43) Past Medical History - General Information source: Patient - Social History Smoking Status: Former Smoker Frequency of alcohol use: None Drug Abuse: None Family History: Reviewed & Not Pertinent Patient has suicidal ideation: No Patient has homicidal ideation: No Pulmonary Medical History: Reports: Hx Pneumonia - yearly since 2003 (last time 07/2012) Renal/ Medical History: Denies: Hx Peritoneal Dialysis Malignancy Medical History: Reports: Hx Renal (Kidney) Cancer GI Medical History: Denies: Hx Pancreatitis Past Surgical History: Reports: Hx Cholecystectomy, Hx Kidney (Renal Surgery) - part of left kidney removed., Hx Orthopedic Surgery - L Femur, L FINGER, Other - Partial left nephrectomy for renal cell carcinoma - Immunizations Immunizations up to date: Yes Hx Diphtheria, Pertussis, Tetanus Vaccination: Yes - 2016 Hx Pneumococcal Vaccination: 07/21/12 Review of Systems - Review of Systems Constitutional: No symptoms reported EENT: No symptoms reported Cardiovascular: See HPI Respiratory: No symptoms reported Gastrointestinal: See HPI Genitourinary: No symptoms reported Female Genitourinary: See HPI Musculoskeletal: See HPI Skin: No symptoms reported Hematologic/Lymphatic: See HPI Neurological/Psychological: No symptoms reported Physical Exam - Vital signs Vitals: Temp Pulse Resp BP Pulse Ox 99.2 F 102 H 18 120/90 H 100 11/10/17 10:58 11/10/17 10:58 11/10/17 10:58 11/10/17 10:58 11/10/17 10:58 - Notes Notes: PHYSICAL EXAMINATION: GENERAL: Well-appearing and in no acute distress. HEAD: Atraumatic, normocephalic. EYES: Pupils equal round and reactive to light, extraocular movements intact, sclera anicteric, conjunctiva are normal. NECK: Normal range of motion, supple without lymphadenopathy LUNGS: CTAB and equal. No wheezes rales or rhonchi. HEART: Regular rate and rhythm without murmurs ABDOMEN: Soft, right lower quadrant tenderness. No guarding, no rebound BACK: no vertebral tenderness, normal ROM GI/: no CVA tenderness EXTREMITIES: Normal range of motion, no pitting edema. No cyanosis. NEUROLOGICAL: Cranial nerves grossly intact. Normal sensory/motor exams. PSYCH: Normal mood, normal affect. SKIN: Warm, Dry, normal turgor, no rashes or lesions noted Course - Re-evaluation Re-evalutation: 11/10/17 18:19 Patient has an elevated white count of 16.2, reticulocyte count is elevated at 0.234 absolute reticulocyte count, however patient denies any chest pain or shortness of breath. Chest x-ray reveals stable mild prominence of the pulmonary interstitium. Transvaginal ultrasound reports no ovarian cysts or abnormality, CAT scan reports a normal appendix. Patient states that she feels better and would like to go home. Her hemoglobin today is 11.7. She declines pelvic exam today. 11/10/17 18:20 11/10/17 18:22 - Vital Signs Vital signs: Temp Pulse Resp BP Pulse Ox 99.2 F 102 H 16 95/65 L 97 11/10/17 10:58 11/10/17 10:58 11/10/17 16:01 11/10/17 16:00 11/10/17 16:01 - Laboratory Result Diagrams: 11/10/17 13:45 11/10/17 13:45 Laboratory results interpreted by me: 11/10/17 11/10/17 11/10/17 11:27 13:45 13:45 WBC 16.2 H Hgb 11.7 L Hct 34.7 L RDW 23.0 H Abs Lymphs (Manual) 7.6 H Retic Count (auto) 5.82 H Absolute Retic 0.234 H Chloride 109 H BUN 5 L Creatinine 0.41 L Calcium 10.4 H Total Bilirubin 2.1 H Urine Urobilinogen 4.0 H Discharge - Discharge Clinical Impression: Whole body pain, RLQ abdominal pain Sickle cell anemia Qualifiers: Sickle-cell associated disorders: without crisis Qualified Code(s): D57.1 - Sickle-cell disease without crisis Condition: Stable Disposition: HOME, SELF-CARE Additional Instructions: Return immediately for any new or worsening symptoms. Follow up with primary care provider, call tomorrow to make followup appointment. Referrals: JACOB HERNANDEZ DO [Primary Care Provider] - Follow up as needed
--- NOTE | 2017-11-10 15:28 | RADIOLOGY REPORT (SQ) ---
EXAM DESCRIPTION: CT ABD/PELVIS NO ORAL OR IV COMPLETED DATE/TIME: 11/10/2017 3:17 pm REASON FOR STUDY: rlq pain COMPARISON: 12/02/2015 TECHNIQUE: CT scan of the abdomen and pelvis performed without intravenous or oral contrast. Images reviewed with lung, soft tissue, and bone windows. Reconstructed coronal and sagittal MPR images revi ewed. All images stored on PACS. All CT scanners at this facility use dose modulation, iterative reconstruction, and/or weight based d osing when appropriate to reduce radiation dose to as low as reasonably achievable (ALARA). [facility]: Dose Right [facility]: CareDose [facility]: Dose Right [facility]: Teradose 4D [facility]: Smart JumpIn RADIATION DOSE: CT Rad equipment meets quality standard of care and radiation dose reduction techniq ues were employed. CTDIvol: 4.8 mGy. DLP: 245 mGy-cm.mGy. LIMITATIONS: None. FINDINGS: LOWER CHEST: No significant findings. No nodules or infiltrates. NON-CONTRASTED LIVER, SPLEEN, ADRENALS: Evaluation limited by lack of IV contrast. No identified sign ificant masses. Stable small calcified spleen compatible with chronic infarction in the setting of s ickle cell disease. PANCREAS: No masses. No peripancreatic inflammatory changes. GALLBLADDER: Surgically absent. RIGHT KIDNEY AND URETER: No suspicious masses. Assessment limited by lack of IV contrast. No signif icant calcifications. No hydronephrosis or hydroureter. LEFT KIDNEY AND URETER: No suspicious masses. Assessment limited by lack of IV contrast. No signifi cant calcifications. No hydronephrosis or hydroureter. AORTA AND RETROPERITONEUM: No aneurysm. No retroperitoneal masses or adenopathy. BOWEL AND PERITONEAL CAVITY: No obvious masses or inflammatory changes. No free fluid. APPENDIX: Normal. PELVIS, BLADDER, AND ABDOMINAL WALL:No abnormal masses. No free fluid. Bladder normal. BONES: Stable chronic multilevel central wedge compression deformities of the visualized spine compat ible with history of sickle cell disease. 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 No acute fracture or suspicious osseous lesion. OTHER: No other significant finding. IMPRESSION: NO ACUTE INFLAMMATORY CHANGE IDENTIFIED ON THIS NONCONTRAST CT OR OF THE ABDOMEN AND PEL VIS. NO URINARY TRACT STONES OR HYDRONEPHROSIS. NORMAL APPENDIX. FINDINGS COMPATIBLE WITH HISTORY OF SICKLE CELL DISEASE. OF NOTE THERE IS NEW AVASCULAR NECROSIS OF THE FEMORAL HEADS WITH FINDINGS SUGGESTIVE OF FRAGMENT INSTABILITY. CORRELATE WITH HIP PAIN. COMMENT: Quality ID # [id number]: Final reports with documentation of one or more dose reduction techniques (e.g., Automated exposure control, adjustment of the mA and/or kV according to patient size, use of iterative reconstruction technique) TECHNICAL DOCUMENTATION: JOB ID: [id number] [employer]- All Rights Reserved
[2017-11-10 16:12] VITALS: BP 95/65
--- NOTE | 2017-11-10 16:57 | RADIOLOGY REPORT (SQ) ---
EXAM DESCRIPTION: U/S NON OB PEL TV W/DOPPLER COMPLETED DATE/TIME: 11/10/2017 4:47 pm REASON FOR STUDY: rlq pain/ pelvic pain COMPARISON: CT abdomen pelvis 11/10/2017 TECHNIQUE: Dynamic and static grayscale images acquired of the pelvis via transvaginal approach and recorded on PACS. Additional selected color Doppler and spectral images recorded. LIMITATIONS: None. FINDINGS: UTERUS: Contour normal. No mass. Uterus is 7 x 5.4 x 4.5 cm in size. ENDOMETRIAL STRIPE: No focal or generalized thickening. No masses. Endometrium 5 mm in thickness CERVIX: No nabothian cysts. RIGHT OVARY: No abnormal masses. Right ovary 2.5 x 1.5 x 1 cm in size RIGHT OVARY DOPPLER: Normal arterial vascular flow without evidence for torsion. LEFT OVARY: No abnormal masses. Left ovary 2.6 x 2 x 2.4 cm in size LEFT OVARY DOPPLER: Normal arterial vascular flow without evidence for torsion. FREE FLUID: None noted. OTHER: No other significant finding. IMPRESSION: UNREMARKABLE TRANSVAGINAL PELVIC ULTRASOUND. TECHNICAL DOCUMENTATION: JOB ID: [id number] [employer]- All Rights Reserved
[2017-11-10] MEDS ORDERED: HYDROCODONE/ACETAMINOPHEN 5-325 MG (6 TAB/ER DISP) PO PRN (17:23)
== END 2017-11-10 18:20 | disposition home or self-care (01) ==
LOC: ER 10:42
DX: R10.31 Right lower quadrant pain (principal); D57.1 Sickle-cell disease without crisis; Z85.528 Personal history of other malignant neoplasm of kidney; Z90.5 Acquired absence of kidney; Z87.891 Personal history of nicotine dependence; Z87.19 Personal history of other diseases of the digestive system; Z90.49 Acquired absence of other specified parts of digestive tract; Z91.018 Allergy to other foods
CPT/HCPCS: 36591; 96376; 99284; 96361; 96374; 96375; 36415; 84702; 85025; 85045; 80053; 81001; 71046; 76830; 93976; 74176; J1200; J1885; J1170; J7030; A9270

== ENCOUNTER 2017-11-14 14:15 | Inpatient (IN) | payer MEDICARE, MEDICAID ==
--- NOTE | 2017-11-14 15:40 | EKG REPORT ---
SEVERITY:- ABNORMAL ECG - SINUS TACHYCARDIA LEFT ATRIAL ABNORMALITY LEFT VENTRICULAR HYPERTROPHY : Confirmed by: Monika Mendez 14-Nov-2017 15:40:12
[2017-11-14] MEDS ORDERED: NORMAL SALINE 1000 ML 2,000 ML IV ONE (16:39)
--- NOTE | 2017-11-14 16:39 | ER Document Report ---
ED Medical Screen (RME) - General Chief Complaint: Pain All Over Stated Complaint: CHEST PAIN Time Seen by Provider: 11/14/17 16:33 Mode of Arrival: Ambulatory Information source: Patient Notes: 32 yo non smoker, lupus, SS, female c/o intermittent retrosternal chest pain for 2 days, "trying to get out of SS crisis for a week". Pain throughout low back and both legs- attributed to sickle cell. Drinking plenty of fluids, fentanyl patch 25mcg, oxycodone 10mg every 6 hours prescribed by [employer] dr. hitchcock. Running out early in 1 week. Was at [facility] 1 month ago with severe chest pain, sob, pneumonia Dx: Chest syndrome. Runny nose, occasional cough, no dysuria, no v/d. No nausea. Pain 5/5 mostly in legs. TRAVEL OUTSIDE OF THE [place] IN LAST 30 DAYS: No - Related Data Allergies/Adverse Reactions: green pepper Allergy (Verified 11/14/17 14:19) Past Medical History Pulmonary Medical History: Reports: Hx Pneumonia - yearly since 2003 (last time 07/2012) Renal/ Medical History: Denies: Hx Peritoneal Dialysis Malignancy Medical History: Reports: Hx Renal (Kidney) Cancer GI Medical History: Denies: Hx Pancreatitis Past Surgical History: Reports: Hx Cholecystectomy, Hx Kidney (Renal Surgery) - part of left kidney removed., Hx Orthopedic Surgery - L Femur, L FINGER, Other - Partial left nephrectomy for renal cell carcinoma - Immunizations Immunizations up to date: Yes Hx Diphtheria, Pertussis, Tetanus Vaccination: Yes - 2016 History of Influenza Vaccine for 07/2017 - 12/2017 Season: Yes Influenza Administration Date for 07/2017 - 12/2017 Season: 07/21/17 Physical Exam - Vital signs Vitals: Temp Pulse Resp BP Pulse Ox 99.0 F 102 H 20 116/80 97 11/14/17 14:43 11/14/17 14:43 11/14/17 14:43 11/14/17 14:43 11/14/17 14:43 Course - Vital Signs Vital signs: Temp Pulse Resp BP Pulse Ox 99.0 F 102 H 20 116/80 97 11/14/17 14:43 11/14/17 14:43 11/14/17 14:43 11/14/17 14:43 11/14/17 14:43
[2017-11-14] MEDS ORDERED: HYDROMORPHONE HCL INJ/PF 2 MG/ML AMPULE IV ONE ×2 (16:46→22:50)
[2017-11-14] MEDS ORDERED: ONDANSETRON 4 MG TAB.RAPDIS PO ONE (16:46)
--- NOTE | 2017-11-14 17:38 | RADIOLOGY REPORT (SQ) ---
EXAM DESCRIPTION: CHEST PA/LAT COMPLETED DATE/TIME: 11/14/2017 5:20 pm REASON FOR STUDY: chest pain COMPARISON: 11/10/2017 EXAM PARAMETERS: NUMBER OF VIEWS: two views TECHNIQUE: Digital Frontal and Lateral radiographic views of the chest acquired. RADIATION DOSE: NA LIMITATIONS: none FINDINGS: LUNGS AND PLEURA: No acute consolidations or pleural effusions are identified. Stable kodak earing left basilar densities are again identified. Again there is some prominence of the interstiti al markings. MEDIASTINUM AND HILAR STRUCTURES: No masses or contour abnormalities. HEART AND VASCULAR STRUCTURES: The configuration of the heart mediastinal structures is unchanged. BONES: No acute findings. HARDWARE: PICC line is unchanged in position OTHER: No other significant finding. IMPRESSION: No significant interval change. No acute findings. Other findings as noted above TECHNICAL DOCUMENTATION: JOB ID: [id number] [employer]- All Rights Reserved
[2017-11-14 18:57] LABS: ABSOLUTE BASOPHILS # (AUTO) 0.1 10^3/uL (0.0-0.2); ABSOLUTE EOSINOPHILS # (AUTO) 0.2 10^3/uL (0.0-0.6); ABSOLUTE LYMPHOCYTES (AUTO) 4.9 10^3/uL (0.5-4.7); ABSOLUTE MONOCYTES (AUTO) 1.3 10^3/uL (0.1-1.4); ABSOLUTE NEUT (AUTO) 6.5 10^3/uL (1.7-8.2); ABSOLUTE RETICS # 0.135 10^6/uL (0.028-0.122); BASOPHILS % (AUTO) 0.9 % (0-2); EOSINOPHILS % (AUTO) 1.6 % (0-6); HEMATOCRIT 35.2 % (36.0-47.0); LYMPHOCYTES % (AUTO) 37.9 % (13-45); MEAN CORPUSCULAR HEMOGLOBIN 29.1 pg (27.0-33.4); MEAN CORPUSCULAR HGB CONC 34.1 g/dL (32.0-36.0); MEAN CORPUSCULAR VOLUME 85 fl (80-97); MONOCYTES % (AUTO) 9.7 % (3-13); PLATELET COUNT 594 10^3/uL (150-450); RED BLOOD COUNT 4.13 10^6/uL (3.72-5.28); RED CELL DISTRIBUTION WIDTH 22.8 % (11.5-14.0); RETICULOCYTE COUNT (AUTO) 3.28 % (0.66-2.85); SEGMENTED NEUTROPHILS % (AUTO) 49.9 % (42-78); TOTAL CELLS COUNTED % (AUTO) 100 %; WHITE BLOOD COUNT 13.1 10^3/uL (4.0-10.5)
[2017-11-14 19:05] LABS: APPEARANCE,URINE CLEAR; BILIRUBIN,URINE NEGATIVE (NEGATIVE); COLOR,URINE YELLOW; GLUCOSE, URINE NEGATIVE (NEGATIVE); KETONES,URINE NEGATIVE (NEGATIVE); LEUKOCYTE ESTERASE,URINE NEGATIVE (NEGATIVE); NITRITE,URINE NEGATIVE (NEGATIVE); PROTEIN,URINE NEGATIVE (NEGATIVE); URINE SPECIFIC GRAVITY 1.008
[2017-11-14 19:13] LABS: ALANINE AMINOTRANSFERASE 18 U/L (9-52); ALBUMIN 5.3 g/dL (3.5-5.0); ALKALINE PHOSPHATASE 112 U/L (38-126); ANION GAP 16 (5-19); ASPARTATE AMINO TRANSFERASE 42 U/L (14-36); BILIRUBIN,DIRECT 0.5 mg/dL (0.0-0.4); BILIRUBIN,TOTAL 3.2 mg/dL (0.2-1.3); BLOOD UREA NITROGEN 7 mg/dL (7-20); CALCIUM 10.9 mg/dL (8.4-10.2); CARBON DIOXIDE 23 mmol/L (22-30); CHLORIDE 104 mmol/L (98-107); GLUCOSE 75 mg/dL (75-110); POTASSIUM 4.3 mmol/L (3.6-5.0); TOTAL PROTEIN 9.6 g/dL (6.3-8.2)
[2017-11-14 19:14] LABS: A TYPE INFLUENZA AG NEGATIVE (NEGATIVE); B INFLUENZA AG NEGATIVE (NEGATIVE)
[2017-11-14 19:15] LABS: ANISOCYTOSIS 3+; OVALOCYTES 1+; PLATELET COMMENT INCREASED; PLATELET LARGE PRESENT; POIKILOCYTOSIS 1+; POLYCHROMASIA SLIGHT; SICKLE RED CELLS SLIGHT; TARGET CELLS 1+
[2017-11-14] MEDS ORDERED: DIPHENHYDRAMINE HCL 50 MG/ML VIAL IV ONE (22:50)
[2017-11-14] MEDS ORDERED: KETOROLAC TROMETHAMINE 60 MG/2 ML SDV IV ONE (22:50)
[2017-11-14] MEDS ORDERED: ONDANSETRON HCL INJ/PF 4 MG/2 ML SDV IV ONE (22:50)
[2017-11-14] MEDS ORDERED: NORMAL SALINE 1000 ML 1,000 ML IV ONE (22:50)
--- NOTE | 2017-11-14 22:57 | ER Document Report ---
ED General - General Mode of Arrival: Ambulatory Information source: Patient TRAVEL OUTSIDE OF THE [place] IN LAST 30 DAYS: No - HPI Patient complains to provider of: Sickle cell crisis Onset: Last week Associated symptoms: Other - see notes above <KRYSTA VIDAL - Last Filed: 11/15/17 03:35> <GIL LEYVA - Last Filed: 11/15/17 04:20> - General Chief Complaint: Pain All Over Stated Complaint: CHEST PAIN Time Seen by Provider: 11/14/17 16:33 Notes: 32 year old female with history of Sickle Cell Anemia and Lupus (not medicated with immunosuppressants) presents to the ED complaining of having sickle cell crisis pain that started last week. Patient reports pain to her right leg, groin , and chest. Patient explains that her chest pain feels similar to her prior episodes of acute chest syndrome. Patient additionally complains of diaphoresis , nausea, and intermittent shortness of breath. Patient denies fever or vomiting. Patient was seen in the ED on 11/10/2017 for the same crisis and was discharged after receiving fluids and managing her pain. Patient reports that her pain was exacerbated later that night. Patient has used 10 microgram fentanyl patch and 10 mg Oxycodone to no relief. Patient saw her clinical geneticist, Dr. Pink, since being in the ED and was given additional fluids there. (KRYSTA VIDAL) - Related Data Allergies/Adverse Reactions: green pepper Allergy (Verified 11/14/17 14:19) Past Medical History - General Information source: Patient - Social History Smoking Status: Never Smoker Chew tobacco use (# tins/day): No Frequency of alcohol use: Occasional Drug Abuse: None Family History: Reviewed & Not Pertinent Pulmonary Medical History: Reports: Hx Pneumonia - yearly since 2003 (last time 07/2012) Renal/ Medical History: Denies: Hx Peritoneal Dialysis Malignancy Medical History: Reports: Hx Renal (Kidney) Cancer GI Medical History: Denies: Hx Pancreatitis Past Surgical History: Reports: Hx Cholecystectomy, Hx Kidney (Renal Surgery) - part of left kidney removed., Hx Orthopedic Surgery - L Femur, L FINGER, Other - Partial left nephrectomy for renal cell carcinoma - Immunizations Immunizations up to date: Yes Hx Diphtheria, Pertussis, Tetanus Vaccination: Yes - 2017 Hx Pneumococcal Vaccination: 07/21/12 <KRYSTA VIDAL - Last Filed: 11/15/17 03:35> <GIL LEYVA - Last Filed: 11/15/17 04:20> - Medical History Notes: Sickle Cell Anemia (KRYSTA VIDAL) Review of Systems - Review of Systems Constitutional: See HPI, Diaphoresis. denies: Fever EENT: No symptoms reported Cardiovascular: See HPI, Chest pain Respiratory: See HPI, Short of breath Gastrointestinal: No symptoms reported. denies: Vomiting Genitourinary: No symptoms reported Female Genitourinary: No symptoms reported Musculoskeletal: See HPI, Other - Shoulders, arms, right leg, and groin pain. Skin: No symptoms reported Hematologic/Lymphatic: No symptoms reported Neurological/Psychological: No symptoms reported -: Yes All other systems reviewed and negative <KRYSTA VIDAL - Last Filed: 11/15/17 03:35> Physical Exam <KRYSTA VIDAL - Last Filed: 11/15/17 03:35> <GIL LEYVA - Last Filed: 11/15/17 04:20> - Vital signs Vitals: Temp Pulse Resp BP Pulse Ox 99.0 F 102 H 20 116/80 97 11/14/17 14:43 11/14/17 14:43 11/14/17 14:43 11/14/17 14:43 11/14/17 14:43 - Notes Notes: GENERAL: Alert, interacts well. No acute distress. HEAD: Normocephalic, atraumatic. EYES: Pupils equal, round, and reactive to light. Extraocular movements intact. ENT: Oral mucosa moist, tongue midline. NECK: Full range of motion. Supple. Trachea midline. LUNGS: Clear to auscultation bilaterally, no wheezes, rales, or rhonchi. No respiratory distress. HEART: Regular rate and rhythm. No murmurs, gallops, or rubs. ABDOMEN: Soft, non-tender. Non-distended. Bowel sounds present in all 4 quadrants. EXTREMITIES: Moves all 4 extremities spontaneously. No edema, radial and dorsalis pedis pulses 2/4 bilaterally. No cyanosis. NEUROLOGICAL: Alert and oriented x3. Normal speech. PSYCH: Normal affect, normal mood. SKIN: Warm, dry, normal turgor. No rashes or lesions noted. (KRYSTA VIDAL) Course - Laboratory Result Diagrams: 11/14/17 18:08 11/14/17 18:08 - Consults Dr. Pink Time consulted: 02:15 Dr. Samuels Time consulted: 03:25 <KRYSTA VIDAL - Last Filed: 11/15/17 03:35> - Laboratory Result Diagrams: 11/14/17 18:08 11/14/17 18:08 <GIL LEYVA - Last Filed: 11/15/17 04:20> - Re-evaluation Re-evalutation: 11/15/17 01:25 Patient is feeling somewhat better, leukocytosis is improving from last visit, is now 13.1, platelets elevated 594, absolute reticulocyte count is 0.135, this is coming down slightly from prior visit, chest x-ray shows no signs of infarct , only has the stable prominence of interstitial markings, no change from prior , total and direct bilirubin are somewhat elevated likely related to sickle cell crisis, no evidence of biliary disease or obstruction, hCG negative, urinalysis unremarkable, no blood in the urine. Flu swabs are negative. Patient has been hydrated, treated for pain, offered admission which she declines, states she will follow-up with her clinical geneticist later today. Patient is discharged home. 11/15/17 01:26 No hypoxia. No evidence of acute chest. 11/15/17 04:19 Patient was up for discharge to home however she states her pain is still uncontrolled, still feels like she is in crisis, wants to be admitted for pain control. I did consult with Dr. Beebe the clinical geneticist who is on-call, Dr. Pink did not respond when we called her several times. She states that she would add an LDH. LDH did come back elevated. I did discuss the case with Dr. Elder who accepts the patient to his service in admission status. (GIL LEYVA) - Vital Signs Vital signs: Temp Pulse Resp BP Pulse Ox 99.0 F 85 18 103/77 97 11/15/17 02:56 11/15/17 02:56 11/15/17 02:56 11/15/17 02:56 11/15/17 02:56 - Laboratory Laboratory results interpreted by me: 11/14/17 11/14/17 11/14/17 18:08 18:08 18:08 WBC 13.1 H Hct 35.2 L RDW 22.8 H Plt Count 594 H Absolute Lymphocytes 4.9 H Retic Count (auto) 3.28 H Absolute Retic 0.135 H Calcium 10.9 H Total Bilirubin 3.2 H Direct Bilirubin 0.5 H AST 42 H Lactate Dehydrogenase 1097 H Total Protein 9.6 H Albumin 5.3 H Urine Urobilinogen 11/14/17 18:11 WBC Hct RDW Plt Count Absolute Lymphocytes Retic Count (auto) Absolute Retic Calcium Total Bilirubin Direct Bilirubin AST Lactate Dehydrogenase Total Protein Albumin Urine Urobilinogen 4.0 H - EKG Interpretation by Me Additional EKG results interpreted by me: 11/15/17 01:27 EKG shows sinus rhythm rate 100, normal axis, normal intervals, no ST elevation or depression, no T-wave inversions, there is LVH per my interpretation. (GIL LEYVA) - Consults Dr. Pink Reason for consultation: 11/15/17 02:[address] Pink and left a message. (KRYSTA VIDAL) Dr. Samuels Reason for consultation: 11/15/17 03:25 Patient was discussed with Dr. Samuels who would like the patient to be admitted under hospitalist care. (KRYSTA VIDAL) Discharge <KRYSTA VIDAL - Last Filed: 11/15/17 03:35> - Discharge Admitting Provider: Hospitalist - [facility] Unit Admitted: Medical Floor <GIL LEYVA - Last Filed: 11/15/17 04:20> - Discharge Clinical Impression: Sickle cell crisis, Intractable pain Condition: Stable Disposition: ADMITTED INPATIENT Additional Instructions: Please follow-up with Dr. Pink later today. Please return if you develop fevers or shortness of breath or worsening pain. Referrals: LUPE PINK MD [ACTIVE STAFF] - 11/15/17 Scribe Attestation: 11/15/17 04:20 I personally performed the services described in the documentation, reviewed and edited the documentation which was dictated to the scribe in my presence, and it accurately records my words and actions. (GIL LEYVA) Scribe Documentation - Scribe Written by Scribe:: Ermias Pacheco, 11/14/2017 [id number] acting as scribe for :: Otoniel <KRSYTA VIDAL - Last Filed: 11/15/17 03:35>
[2017-11-15] MEDS ORDERED: HYDROMORPHONE HCL INJ/PF 2 MG/ML AMPULE IV ONE ×2 (00:40→03:34)
[2017-11-15] MEDS ORDERED: ZOLPIDEM TARTRATE 5 MG TABLET PO PRN (06:11)
[2017-11-15] MEDS ORDERED: ACETAMINOPHEN 325 MG TABLET PO PRN (06:11)
[2017-11-15] MEDS ORDERED: MAG HYDROX/AL HYDROX/SIMETH SUSP 30 ML UDCUP PO PRN (06:11)
[2017-11-15] MEDS ORDERED: FENTANYL 25 MCG/HR PATCH.TD72 TOP PRN (06:19)
--- NOTE | 2017-11-15 06:51 | PDOC H&P ---
History of Present Illness Admission Date/PCP: 11/15/17 04:41 DANIEL NIELSEN MD Patient complains of: Back and leg pain History of Present Illness: DARIEN CAPELLAN is a 32 year old female with known sickle cell anemia. She is followed by a academy director at the [facility] and a academy director locally. For the last week she has been having increased pain in her back and legs. She relates that her academy director told her to continue to take her oxycodones but her pain did not improve, so she presented to our emergency room. Here she was found to be in sickle pain crisis without aplastic crisis. Patient was transferred to our service for ongoing management. Past Medical History Pulmonary Medical History: Reports: Pneumonia - yearly since 2003 (last time 2011) Malignancy Medical History: Reports: Renal (Kidney) Cancer Hematology: Reports: Anemia - sickle cell, Sickle Cell Disease Denies: Hemophilia Past Surgical History Past Surgical History: Reports: Cholecystectomy, Orthopedic Surgery - L Femur, L FINGER, Other - Partial left nephrectomy for renal cell carcinoma Denies: Amputation Social History Information Source: Patient Smoking Status: Never Smoker Frequency of Alcohol Use: Occasional Hx Recreational Drug Use: Yes Drugs: Marijuana Hx Prescription Drug Abuse: No - Advance Directive Resuscitation Status: Full Code Family History Family History: Other - Sickle trait Parental Family History Reviewed: Yes Children Family History Reviewed: Yes Sibling(s) Family History Reviewed.: Yes Medication/Allergy Home Medications: Folic Acid 1 mg PO DAILY 08/11/17 Hydroxyurea [Hydrea 500 Mg Capsule] 500 mg PO QID 08/11/17 Megestrol Acetate [Megace 20 Mg Tablet] 20 mg PO DAILY 08/11/17 Oxycodone HCl/Acetaminophen [Oxycodone-Acetaminophen 10-325] 1 each PO Q6 Sertraline HCl [Zoloft 50 mg Tablet] 25 mg PO DAILY 08/11/17 Cephalexin Monohydrate [Keflex 500 mg Capsule] 500 mg PO BID #10 capsule Promethazine HCl [Phenergan 25 mg Tablet] 1 - 2 tab PO Q6H PRN #20 tablet Fentanyl [Fentanyl] 1 patch TOP ASDIR PRN 11/10/17 Nortriptyline HCl [Pamelor] 50 mg PO DAILY 11/10/17 Allergies/Adverse Reactions: green pepper Allergy (Verified 11/14/17 14:19) Review of Systems Constitutional: PRESENT: as per HPI. ABSENT: chills, fever(s), headache(s), weight gain, weight loss Eyes: ABSENT: visual disturbances Ears: ABSENT: hearing changes Cardiovascular: ABSENT: chest pain, dyspnea on exertion, edema, orthropnea, palpitations Respiratory: ABSENT: cough, hemoptysis Gastrointestinal: ABSENT: abdominal pain, constipation, diarrhea, hematemesis, hematochezia, nausea, vomiting Genitourinary: ABSENT: dysuria, hematuria Musculoskeletal: PRESENT: back pain Integumentary: ABSENT: rash, wounds Neurological: ABSENT: abnormal gait, abnormal speech, confusion, dizziness, focal weakness, syncope Psychiatric: ABSENT: anxiety, depression, homidical ideation, suicidal ideation Endocrine: ABSENT: cold intolerance, heat intolerance, polydipsia, polyuria Physical Exam Vital Signs: Temp Pulse Resp BP Pulse Ox 98.9 F 86 18 110/78 98 11/15/17 06:05 11/15/17 06:05 11/15/17 06:05 11/15/17 06:05 11/15/17 06:05 General appearance: PRESENT: no acute distress, well-developed, well-nourished Head exam: PRESENT: atraumatic, normocephalic Eye exam: PRESENT: conjunctiva pink, EOMI, PERRLA. ABSENT: scleral icterus Ear exam: PRESENT: normal external ear exam Neck exam: ABSENT: carotid bruit, JVD, lymphadenopathy, thyromegaly Respiratory exam: PRESENT: clear to auscultation emerson. ABSENT: rales, rhonchi, wheezes Cardiovascular exam: PRESENT: RRR. ABSENT: diastolic murmur, rubs, systolic murmur GI/Abdominal exam: PRESENT: normal bowel sounds, soft. ABSENT: distended, guarding, mass, organolmegaly, rebound, tenderness Rectal exam: PRESENT: deferred Extremities exam: PRESENT: full ROM. ABSENT: calf tenderness, clubbing, pedal edema Musculoskeletal exam: PRESENT: ambulatory. ABSENT: deformity Neurological exam: PRESENT: alert, awake, oriented to person, oriented to place , oriented to time, oriented to situation, CN II-XII grossly intact. ABSENT: motor sensory deficit Psychiatric exam: PRESENT: appropriate affect, normal mood. ABSENT: homicidal ideation, suicidal ideation Skin exam: PRESENT: dry, intact, warm. ABSENT: cyanosis, rash Results Laboratory Results: 11/14/17 11/14/17 11/14/17 18:08 18:08 18:08 WBC 13.1 H Hgb 12.0 Hct 35.2 L Plt Count 594 H Sickle Cells SLIGHT Retic Count (auto) 3.28 H Absolute Retic 0.135 H Sodium 143.0 Potassium 4.3 BUN 7 Creatinine 0.58 Glucose 75 Calcium 10.9 H Total Bilirubin 3.2 H Direct Bilirubin 0.5 H AST 42 H ALT 18 Alkaline Phosphatase 112 Lactate Dehydrogenase Total Protein 9.6 H Albumin 5.3 H Serum HCG, Qual NEGATIVE Ur Leukocyte Esterase Influenza A (Rapid) Influenza B (Rapid) 11/14/17 11/14/17 11/14/17 18:08 18:11 18:11 WBC Hgb Hct Plt Count Sickle Cells Retic Count (auto) Absolute Retic Sodium Potassium BUN Creatinine Glucose Calcium Total Bilirubin Direct Bilirubin AST ALT Alkaline Phosphatase Lactate Dehydrogenase 1097 H Total Protein Albumin Serum HCG, Qual Ur Leukocyte Esterase NEGATIVE Influenza A (Rapid) NEGATIVE Influenza B (Rapid) NEGATIVE Impressions: Chest X-Ray 11/14/17 16:37 IMPRESSION: No significant interval change. No acute findings. Other findings as noted above Assessment & Plan - Diagnosis (1) Sickle cell pain crisis Is this a current diagnosis for this admission?: Yes (2) Opiate dependence Qualifiers: Substance use status: uncomplicated Qualified Code(s): F11.20 - Opioid dependence, uncomplicated Is this a current diagnosis for this admission?: Yes (3) Sickle cell anemia Qualifiers: Sickle-cell associated disorders: with unspecified crisis Qualified Code(s) : D57.00 - Hb-SS disease with crisis, unspecified; D57.0 - Hb-SS disease with crisis Is this a current diagnosis for this admission?: Yes - Time Time Spent: 30 to 50 Minutes - Inpatient Certification Based on my medical assessment, after consideration of the patient's comorbidities, presenting symptoms, or acuity I expect that the services needed warrant INPATIENT care.: Yes I certify that my determination is in accordance with my understanding of Medicare's requirements for reasonable and necessary INPATIENT services [42 CFR 412.3e].: Yes Medical Necessity: Need For IV Fluids, Need for Pain Control - Plan Summary Plan Summary: Patient will be admitted to our service. She will be placed on a morphine PLANT MAINTENANCE MANAGER. She will be continued on supplemental oxygen and hydration. She will continue her home medications of Hydrea and folic acid. DVT prophylaxis with low molecular weight heparin Anticipated length of stay is greater than 2 midnights
[2017-11-15] MEDS: RINGERS SOLUTION,LACTATED 1,000 ML IV PRN ×2 (08:18→23:11)
[2017-11-15] MEDS: MORPHINE SULFATE 60 MG/60 ML RTUINJ IV PRN ×2 (08:19→16:35)
[2017-11-15] MEDS ORDERED: HYDROXYUREA 500 MG CAPSULE PO SCH (10:00)
[2017-11-15 11:21] LABS: URINE AMPHETAMINES SCREEN NEGATIVE; URINE BARBITURATES SCREEN NEGATIVE; URINE BENZODIAZEPINES SCREEN NEGATIVE; URINE COCAINE SCREEN NEGATIVE; URINE MARIJUANA (THC) SCREEN NEGATIVE; URINE METHADONE SCREEN NEGATIVE; URINE PHENCYCLIDINE SCREEN NEGATIVE
[2017-11-15] MEDS: FAMOTIDINE 20 MG TABLET PO SCH ×2 (12:20→21:45)
[2017-11-15] MEDS: DOCUSATE SODIUM 100 MG CAPSULE PO SCH (12:20)
[2017-11-15] MEDS: FOLIC ACID 1 MG TABLET PO SCH (12:20)
[2017-11-15] MEDS: ENOXAPARIN SODIUM INJ 40 MG/0.4 ML DISP.SYRIN SUBCUT SCH (12:20)
[2017-11-15 14:41] LABS: APPEARANCE,URINE SLIGHTLY-CLOUDY; BILIRUBIN,URINE NEGATIVE (NEGATIVE); COLOR,URINE STRAW; GLUCOSE, URINE NEGATIVE (NEGATIVE); KETONES,URINE NEGATIVE (NEGATIVE); LEUKOCYTE ESTERASE,URINE LARGE (NEGATIVE); NITRITE,URINE NEGATIVE (NEGATIVE); PROTEIN,URINE NEGATIVE (NEGATIVE); URINE SPECIFIC GRAVITY 1.004
[2017-11-15] MEDS: HYDROXYUREA 500 MG CAPSULE PO SCH ×2 (14:48→21:45)
[2017-11-15] MEDS: ONDANSETRON HCL INJ/PF 4 MG/2 ML SDV IV PRN (18:12)
[2017-11-16] MEDS: MORPHINE SULFATE 60 MG/60 ML RTUINJ IV PRN (00:10)
[2017-11-16] MEDS: ONDANSETRON HCL INJ/PF 4 MG/2 ML SDV IV PRN ×2 (03:50→19:48)
[2017-11-16] MEDS: HYDROXYUREA 500 MG CAPSULE PO SCH ×3 (05:35→23:25)
[2017-11-16] MEDS: RINGERS SOLUTION,LACTATED 1,000 ML IV PRN ×3 (05:36→18:51)
[2017-11-16 06:28] LABS: ALANINE AMINOTRANSFERASE 20 U/L (9-52); ALBUMIN 4.2 g/dL (3.5-5.0); ALKALINE PHOSPHATASE 88 U/L (38-126); ANION GAP 10 (5-19); ASPARTATE AMINO TRANSFERASE 29 U/L (14-36); BILIRUBIN,DIRECT 0.3 mg/dL (0.0-0.4); BILIRUBIN,TOTAL 2.5 mg/dL (0.2-1.3); BLOOD UREA NITROGEN 4 mg/dL (7-20); CALCIUM 9.8 mg/dL (8.4-10.2); CARBON DIOXIDE 25 mmol/L (22-30); CHLORIDE 105 mmol/L (98-107); GLUCOSE 91 mg/dL (75-110); POTASSIUM 4.1 mmol/L (3.6-5.0); SODIUM 139.9 mmol/L (137-145); TOTAL PROTEIN 7.5 g/dL (6.3-8.2)
[2017-11-16 06:33] LABS: HEMATOCRIT 28.4 % (36.0-47.0); MEAN CORPUSCULAR HEMOGLOBIN 28.6 pg (27.0-33.4); MEAN CORPUSCULAR VOLUME 84 fl (80-97); PLATELET COUNT 520 10^3/uL (150-450); RED BLOOD COUNT 3.37 10^6/uL (3.72-5.28); RED CELL DISTRIBUTION WIDTH 22.7 % (11.5-14.0); WHITE BLOOD COUNT 13.8 10^3/uL (4.0-10.5)
[2017-11-16 06:36] LABS: HEMOGLOBIN 9.6 g/dL (12.0-15.5)
[2017-11-16] MEDS ORDERED: HYDROMORPHONE HCL INJ/PF 2 MG/ML AMPULE IV PRN (09:46)
[2017-11-16] MEDS ORDERED: DIPHENHYDRAMINE HCL 50 MG/ML VIAL IV PRN (09:47)
[2017-11-16] MEDS: FAMOTIDINE 20 MG TABLET PO SCH ×2 (11:10→23:24)
[2017-11-16] MEDS: ENOXAPARIN SODIUM INJ 40 MG/0.4 ML DISP.SYRIN SUBCUT SCH (11:10)
[2017-11-16] MEDS: FOLIC ACID 1 MG TABLET PO SCH (11:10)
[2017-11-16] MEDS: DOCUSATE SODIUM 100 MG CAPSULE PO SCH (11:10)
[2017-11-16] MEDS: FENTANYL 25 MCG/HR PATCH.TD72 TOP SCH (13:54)
[2017-11-16] MEDS ORDERED: KETOROLAC TROMETHAMINE INJ/PF 30 MG/1 ML SDV IV ONE (15:30)
[2017-11-16] MEDS: KETOROLAC TROMETHAMINE INJ/PF 30 MG/1 ML SDV IV PRN ×2 (15:44→21:46)
[2017-11-16] MEDS: HYDROMORPHONE HCL INJ/PF 2 MG/ML AMPULE IV PRN ×3 (15:52→21:46)
[2017-11-16] MEDS ORDERED: MEGESTROL ACETATE 20 MG TABLET PO ONE (18:00)
[2017-11-16] MEDS ORDERED: NORTRIPTYLINE HCL 25 MG CAPSULE ONE (22:40)
[2017-11-16] MEDS ORDERED: NALOXONE HCL INJ/PF 0.4 MG/1 ML SDV IV PRN (23:04)
--- NOTE | 2017-11-16 23:08 | PDOC PROGRESS REPORT ---
Subjective Progress Note for:: 11/16/17 Subjective:: Patient with sickle cell anemia presenting with pain crises. Patient pain not well controlled on morphine MANAGER LIFE SCIENCES. Reason For Visit: SICKLE PAIN CRISIS Physical Exam Vital Signs: Temp Pulse Resp BP Pulse Ox 98.6 F 89 18 118/67 99 11/16/17 15:23 11/16/17 15:23 11/16/17 15:23 11/16/17 15:23 11/16/17 15:23 Intake & Output 11/15/17 11/16/17 11/17/17 06:59 06:59 06:59 Intake Total 500 2760 Balance 500 2760 Weight 49.8 kg 52.5 kg General appearance: PRESENT: no acute distress, thin, well-developed, other - appears younger than stated age. Head exam: PRESENT: atraumatic, normocephalic Eye exam: PRESENT: conjunctiva pale, EOMI. ABSENT: scleral icterus Ear exam: PRESENT: normal external ear exam Mouth exam: PRESENT: moist Neck exam: ABSENT: carotid bruit, JVD, lymphadenopathy, thyromegaly Respiratory exam: PRESENT: clear to auscultation emerson. ABSENT: rales, rhonchi, wheezes Cardiovascular exam: PRESENT: RRR. ABSENT: diastolic murmur, rubs, systolic murmur Pulses: PRESENT: normal dorsalis pedis pul Vascular exam: PRESENT: normal capillary refill GI/Abdominal exam: PRESENT: normal bowel sounds, soft. ABSENT: distended, guarding, mass, organolmegaly, rebound, tenderness Rectal exam: PRESENT: deferred Extremities exam: PRESENT: full ROM. ABSENT: calf tenderness, clubbing, pedal edema Neurological exam: PRESENT: alert, awake, oriented to person, oriented to place , oriented to time, oriented to situation, CN II-XII grossly intact. ABSENT: motor sensory deficit Psychiatric exam: PRESENT: appropriate affect, normal mood. ABSENT: homicidal ideation, suicidal ideation Skin exam: PRESENT: dry, intact, warm. ABSENT: cyanosis, rash Results Laboratory Results: 11/16/17 05:40 11/16/17 05:40 11/16/17 11/16/17 05:40 05:40 WBC 13.8 H RBC 3.37 L Hgb 9.6 L D Hct 28.4 L MCV 84 MCH 28.6 MCHC 34.0 RDW 22.7 H Plt Count 520 H Sodium 139.9 Potassium 4.1 Chloride 105 Carbon Dioxide 25 Anion Gap 10 BUN 4 L Creatinine 0.44 L Est GFR ( Amer) > 60 Est GFR (Non-Af Amer) > 60 Glucose 91 Calcium 9.8 Total Bilirubin 2.5 H AST 29 ALT 20 Alkaline Phosphatase 88 Total Protein 7.5 Albumin 4.2 Impressions: Chest X-Ray 11/14/17 16:37 IMPRESSION: No significant interval change. No acute findings. Other findings as noted above Assessment & Plan - Diagnosis (1) Sickle cell anemia with crisis Is this a current diagnosis for this admission?: Yes Plan: Patient taken off of morphine MANAGER LIFE SCIENCES as it was not helping. Patient started on 2 of dilaudid IV push which was increased to 3mgIV push. Toradol added. Patient states that the toradol and dilaudid combination works for her. Continue folic acid and hydroxyurea. Continue IV hydration. (2) Anemia Qualifiers: Anemia type: unspecified type Qualified Code(s): D64.9 - Anemia, unspecified Is this a current diagnosis for this admission?: Yes Plan: Continue to monitor hemoglobin and transfuse as needed. - Time Time Spent with patient: 15-24 minutes Anticipated discharge: Home Within: within 72 hours - Inpatient Certification Medical Necessity: Need For IV Fluids, Need for Pain Control
[2017-11-17] MEDS: HYDROMORPHONE HCL INJ/PF 2 MG/ML AMPULE IV PRN ×8 (00:51→22:52)
[2017-11-17] MEDS: NORTRIPTYLINE HCL 25 MG CAPSULE PO SCH ×2 (01:24→21:20)
[2017-11-17] MEDS: RINGERS SOLUTION,LACTATED 1,000 ML IV PRN (02:25)
[2017-11-17] MEDS: KETOROLAC TROMETHAMINE INJ/PF 30 MG/1 ML SDV IV PRN ×4 (04:18→22:52)
[2017-11-17] MEDS: HYDROXYUREA 500 MG CAPSULE PO SCH ×3 (06:02→21:21)
[2017-11-17 06:39] LABS: HEMATOCRIT 26.6 % (36.0-47.0); HEMOGLOBIN 9.1 g/dL (12.0-15.5); MEAN CORPUSCULAR HGB CONC 34.3 g/dL (32.0-36.0); MEAN CORPUSCULAR VOLUME 85 fl (80-97); PLATELET COUNT 486 10^3/uL (150-450); RED BLOOD COUNT 3.14 10^6/uL (3.72-5.28); RED CELL DISTRIBUTION WIDTH 23.3 % (11.5-14.0); WHITE BLOOD COUNT 11.4 10^3/uL (4.0-10.5)
[2017-11-17 08:21] LABS: ALANINE AMINOTRANSFERASE 25 U/L (9-52); ALBUMIN 3.8 g/dL (3.5-5.0); ALKALINE PHOSPHATASE 88 U/L (38-126); ANION GAP 8 (5-19); ASPARTATE AMINO TRANSFERASE 42 U/L (14-36); BILIRUBIN,TOTAL 2.5 mg/dL (0.2-1.3); BLOOD UREA NITROGEN 6 mg/dL (7-20); CALCIUM 9.7 mg/dL (8.4-10.2); CARBON DIOXIDE 27 mmol/L (22-30); CHLORIDE 104 mmol/L (98-107); GLUCOSE 103 mg/dL (75-110); SODIUM 139.3 mmol/L (137-145)
[2017-11-17] MEDS ORDERED: FOLIC ACID 1 MG TABLET PO SCH (10:00)
--- NOTE | 2017-11-17 10:20 | PDOC CONSULTATION ---
Consultation Consult Date: 11/17/17 Consult reason:: Hematology consulation was requested for patient with sickle cell crisis pain. History of Present Illness Admission Date/PCP: 11/15/17 04:41 DANIEL NIELSEN MD History of Present Illness: DARIEN CAPELLAN is a 32 year old female with known sickle cell anemia. She states that she follows with Dr. Chen and last saw her within the last month. She also has an appointment with [facility] for her Sickle Cell as well. She can not tell me how often in the last few months she has required admission for her pain. She also states that at home, she is on Duragesic 25 mcg and Oxycodone PRN as well as Hydrea. For the last week she has been having increased pain in her back and legs. She relates that her clinical pharmacy technician told her to continue to take her oxycodones but her pain did not improve, so she presented to our emergency room. Here she was found to be in sickle pain crisis without aplastic crisis. She was started on a Morphine BUSINESS REPORTING DEVELOPER, but this did not work. She is currently on Dilaudid q 3 hours with Toradol q 6 and Benadryl PRN as well. She is still in severe pain. Past Medical History Pulmonary Medical History: Reports: Pneumonia - yearly since 2003 (last time 2011) Malignancy Medical History: Reports: Renal (Kidney) Cancer Psychiatric Medical History: Reports: Depression Hematology: Reports: Anemia - sickle cell, Sickle Cell Disease Denies: Hemophilia Past Surgical History Past Surgical History: Reports: Cholecystectomy, Orthopedic Surgery - L Femur, L FINGER, Other - Partial left nephrectomy for renal cell carcinoma Denies: Amputation Social History Smoking Status: Unknown if Ever Smoked Frequency of Alcohol Use: Occasional Hx Recreational Drug Use: No Drugs: None Hx Prescription Drug Abuse: No - Advance Directive Resuscitation Status: Full Code Family History Family History: Other - Sickle trait Parental Family History Reviewed: No - Patient too distress to answer my questions Children Family History Reviewed: No Sibling(s) Family History Reviewed.: No Medication/Allergy Home Medications: Fentanyl [Duragesic 100 Mcg/Hr Transdermal Patch] 1 patch TD Q3DAYS 11/15/17 Fentanyl [Duragesic 25 mcg/hr Transdermal Patch] 1 patch TD Q3DAYS 11/15/17 Folic Acid [Folvite 1 mg Tablet] 1 mg PO DAILY 11/15/17 Hydroxyurea [Hydrea 500 mg Capsule] 500 mg PO Q8 11/15/17 Nortriptyline HCl [Pamelor] 50 mg PO QHS 11/15/17 Oxycodone HCl/Acetaminophen [Percocet 10-325 mg Tablet] 1 tab PO Q8HP PRN Sertraline HCl [Zoloft] 25 mg PO DAILY 11/15/17 Allergies/Adverse Reactions: green pepper Allergy (Verified 11/14/17 14:19) Review of Systems ROS unobtainable: Other - Patient is in severe pain and is unable to answer many questions. Physical Exam Vital Signs: Temp Pulse Resp BP Pulse Ox 98.7 F 94 16 124/77 98 11/17/17 06:53 11/17/17 06:53 11/17/17 06:53 11/17/17 06:53 11/17/17 06:53 Intake & Output 11/16/17 11/17/17 11/18/17 06:59 06:59 06:59 Intake Total 500 4410 Balance 500 4410 Weight 52.5 kg 53.5 kg General appearance: PRESENT: mild distress, well-developed, well-nourished Exam: 32 year old female who is sitting up on the side of her bed in obvious pain. During our conversation, she began crying unconsolably. Head exam: PRESENT: atraumatic Eye exam: PRESENT: PERRLA Mouth exam: PRESENT: moist Neck exam: ABSENT: tenderness Respiratory exam: PRESENT: clear to auscultation emerson, unlabored Cardiovascular exam: PRESENT: RRR. ABSENT: systolic murmur Pulses: PRESENT: +1 pedal pulses bilateral GI/Abdominal exam: PRESENT: soft. ABSENT: distended Extremities exam: ABSENT: pedal edema Musculoskeletal exam: ABSENT: deformity Neurological exam: PRESENT: alert, awake, oriented to person, oriented to place , oriented to situation Psychiatric exam: PRESENT: appropriate affect, depressed Skin exam: PRESENT: normal color. ABSENT: pallor Results Laboratory Results: 11/17/17 06:05 11/17/17 07:25 11/17/17 11/17/17 06:05 07:25 WBC 11.4 H RBC 3.14 L Hgb 9.1 L Hct 26.6 L MCV 85 MCH 29.0 MCHC 34.3 RDW 23.3 H Plt Count 486 H Sodium 139.3 Potassium 4.0 Chloride 104 Carbon Dioxide 27 Anion Gap 8 BUN 6 L Creatinine 0.40 L Est GFR ( Amer) > 60 Est GFR (Non-Af Amer) > 60 Glucose 103 Calcium 9.7 Total Bilirubin 2.5 H AST 42 H ALT 25 Alkaline Phosphatase 88 Total Protein 7.0 Albumin 3.8 Impressions: Chest X-Ray 11/14/17 16:37 IMPRESSION: No significant interval change. No acute findings. Other findings as noted above Assessment & Plan - Diagnosis (1) Sickle cell anemia with crisis Is this a current diagnosis for this admission?: Yes Plan: LDH and Bili elevated consistent with acute crisis. HGB appears to be stable. Would not transfuse unless cardio-vascular compromise. I would expect HGB to drop during this admission. I would continue fluids and add O2. Continue pain medication until pain controlled. Consider Dilaudid BUSINESS REPORTING DEVELOPER. Continue DVT prophylaxis. Patient follows with Dr. Chen. However, if she is unavailable I will be happy to help. She will follow-up with Dr. Chen on discharge.
[2017-11-17] MEDS: DOCUSATE SODIUM 100 MG CAPSULE PO SCH (11:21)
[2017-11-17] MEDS: SERTRALINE HCL 50 MG TABLET PO SCH (11:22)
[2017-11-17] MEDS: FAMOTIDINE 20 MG TABLET PO SCH ×2 (11:22→21:21)
[2017-11-17] MEDS: FOLIC ACID 1 MG TABLET PO SCH (11:22)
[2017-11-17] MEDS: MEGESTROL ACETATE 20 MG TABLET PO SCH (11:24)
[2017-11-17] MEDS: ENOXAPARIN SODIUM INJ 40 MG/0.4 ML DISP.SYRIN SUBCUT SCH (11:31)
--- NOTE | 2017-11-17 12:38 | PDOC PROGRESS REPORT ---
Subjective Progress Note for:: 11/17/17 Subjective:: The patient is a 32-year-old black female admitted with a sickle cell pain crisis. She still having severe lower back pain, however, she reports that her pain is slightly better than it was yesterday. The patient was seen by our oncology consultants today. She may require an escalation of pain medication at this time. Reason For Visit: SICKLE PAIN CRISIS Physical Exam Vital Signs: Temp Pulse Resp BP Pulse Ox 98.7 F 94 16 124/77 98 11/17/17 06:53 11/17/17 06:53 11/17/17 06:53 11/17/17 06:53 11/17/17 06:53 Intake & Output 11/16/17 11/17/17 11/18/17 06:59 06:59 06:59 Intake Total 500 4410 Balance 500 4410 Weight 52.5 kg 53.5 kg Additional comments: The patient was tearful this morning. She feels that she is not getting her medications quickly enough. However, she was extremely pleasant and polite. Her facial appearance is unremarkable. Her lungs are noted to be clear to auscultation bilaterally. Her cardiac exam is regular. She has a pronounced P2. She has a very soft grade 1/6 systolic ejection murmur at the left upper sternal border. The abdomen is soft, flat and benign. She does not have guarding or rebound noted and there are no hernias or masses present. The lower extremities are very thin and warm to touch. Skin is warm dry and intact without lesions or rashes. Results Laboratory Results: 11/17/17 06:05 11/17/17 07:25 11/17/17 11/17/17 06:05 07:25 WBC 11.4 H RBC 3.14 L Hgb 9.1 L Hct 26.6 L MCV 85 MCH 29.0 MCHC 34.3 RDW 23.3 H Plt Count 486 H Sodium 139.3 Potassium 4.0 Chloride 104 Carbon Dioxide 27 Anion Gap 8 BUN 6 L Creatinine 0.40 L Est GFR ( Amer) > 60 Est GFR (Non-Af Amer) > 60 Glucose 103 Calcium 9.7 Total Bilirubin 2.5 H AST 42 H ALT 25 Alkaline Phosphatase 88 Total Protein 7.0 Albumin 3.8 Impressions: Chest X-Ray 11/14/17 16:37 IMPRESSION: No significant interval change. No acute findings. Other findings as noted above Assessment & Plan - Diagnosis (1) Sickle cell pain crisis Is this a current diagnosis for this admission?: Yes (2) Anemia Qualifiers: Anemia type: unspecified type Qualified Code(s): D64.9 - Anemia, unspecified Is this a current diagnosis for this admission?: Yes - Time Time Spent with patient: 15-24 minutes - Inpatient Certification Medical Necessity: Need for Pain Control - Plan Summary Plan Summary: At this point time I think we can get by with IV intermittent Dilaudid. If this is not is ineffective I will begin a Dilaudid RUG TOUCH UP PAINTER. In addition, patient will continue on Toradol and Benadryl. Assistance from hematology oncology is greatly appreciated.
[2017-11-17] MEDS: NORMAL SALINE 1000 ML 1,000 ML IV PRN (18:10)
[2017-11-18] MEDS: NORMAL SALINE 1000 ML 1,000 ML IV PRN ×2 (01:00→08:05)
[2017-11-18] MEDS: HYDROMORPHONE HCL INJ/PF 2 MG/ML AMPULE IV PRN ×7 (01:54→21:41)
[2017-11-18] MEDS: HYDROXYUREA 500 MG CAPSULE PO SCH ×3 (06:20→21:43)
[2017-11-18] MEDS: KETOROLAC TROMETHAMINE INJ/PF 30 MG/1 ML SDV IV PRN ×3 (06:20→18:34)
[2017-11-18 06:57] LABS: ABSOLUTE BASOPHILS # (AUTO) 0.1 10^3/uL (0.0-0.2); ABSOLUTE EOSINOPHILS # (AUTO) 0.7 10^3/uL (0.0-0.6); ABSOLUTE LYMPHOCYTES (AUTO) 3.8 10^3/uL (0.5-4.7); ABSOLUTE MONOCYTES (AUTO) 0.9 10^3/uL (0.1-1.4); ABSOLUTE NEUT (AUTO) 5.8 10^3/uL (1.7-8.2); BASOPHILS % (AUTO) 0.7 % (0-2); EOSINOPHILS % (AUTO) 6.6 % (0-6); HEMATOCRIT 25.8 % (36.0-47.0); HEMOGLOBIN 8.8 g/dL (12.0-15.5); LYMPHOCYTES % (AUTO) 33.6 % (13-45); MEAN CORPUSCULAR HEMOGLOBIN 29.1 pg (27.0-33.4); MEAN CORPUSCULAR HGB CONC 34.3 g/dL (32.0-36.0); MEAN CORPUSCULAR VOLUME 85 fl (80-97); MONOCYTES % (AUTO) 7.9 % (3-13); PLATELET COUNT 466 10^3/uL (150-450); RED BLOOD COUNT 3.05 10^6/uL (3.72-5.28); RED CELL DISTRIBUTION WIDTH 24.3 % (11.5-14.0); SEGMENTED NEUTROPHILS % (AUTO) 51.2 % (42-78); TOTAL CELLS COUNTED % (AUTO) 100 %; WHITE BLOOD COUNT 11.3 10^3/uL (4.0-10.5)
[2017-11-18 06:59] LABS: ALANINE AMINOTRANSFERASE 37 U/L (9-52); ALBUMIN 3.6 g/dL (3.5-5.0); ALKALINE PHOSPHATASE 89 U/L (38-126); ANION GAP 9 (5-19); ASPARTATE AMINO TRANSFERASE 57 U/L (14-36); BILIRUBIN,DIRECT 0.3 mg/dL (0.0-0.4); BILIRUBIN,TOTAL 2.6 mg/dL (0.2-1.3); BLOOD UREA NITROGEN 6 mg/dL (7-20); CALCIUM 9.7 mg/dL (8.4-10.2); CARBON DIOXIDE 27 mmol/L (22-30); CHLORIDE 106 mmol/L (98-107); GLUCOSE 91 mg/dL (75-110); POTASSIUM 4.3 mmol/L (3.6-5.0); SODIUM 141.5 mmol/L (137-145); TOTAL PROTEIN 6.7 g/dL (6.3-8.2)
[2017-11-18 07:32] LABS: ANISOCYTOSIS 3+; HYPOCHROMASIA SLIGHT; PLATELET COMMENT INCREASED; POIKILOCYTOSIS 1+; SICKLE RED CELLS 1+; TARGET CELLS 1+
[2017-11-18] MEDS: MEGESTROL ACETATE 20 MG TABLET PO SCH (09:37)
[2017-11-18] MEDS: FOLIC ACID 1 MG TABLET PO SCH (09:37)
[2017-11-18] MEDS: ENOXAPARIN SODIUM INJ 40 MG/0.4 ML DISP.SYRIN SUBCUT SCH (09:37)
[2017-11-18] MEDS: SERTRALINE HCL 50 MG TABLET PO SCH (09:37)
[2017-11-18] MEDS: DOCUSATE SODIUM 100 MG CAPSULE PO SCH (09:37)
[2017-11-18] MEDS: FAMOTIDINE 20 MG TABLET PO SCH ×2 (09:37→21:43)
--- NOTE | 2017-11-18 10:59 | PDOC PROGRESS REPORT ---
Subjective Progress Note for:: 11/18/17 Subjective:: The patient is a 32-year-old black female admitted with a sickle cell pain crisis. Today, she feels that she is starting to turn the corner. Reason For Visit: SICKLE PAIN CRISIS Physical Exam Vital Signs: Temp Pulse Resp BP Pulse Ox 98.5 F 93 18 124/80 96 11/18/17 07:56 11/18/17 07:56 11/18/17 07:56 11/18/17 07:56 11/18/17 07:56 Intake & Output 11/17/17 11/18/17 11/19/17 06:59 06:59 06:59 Intake Total 4410 1650 Balance 4410 1650 Weight 53.5 kg 55.3 kg Additional comments: The patient was smiling today. She is certainly in better spirits than yesterday. Her facial appearance is unremarkable. Her lungs are noted to be clear bilaterally. Her cardiac exam again shows an increased P2 but otherwise is normal. I did not hear a soft murmur today. The abdomen is benign. The lower extremities are without edema. The skin is warm, dry and intact without lesions or rashes. Results Laboratory Results: 11/18/17 06:20 11/18/17 06:20 11/18/17 11/18/17 11/18/17 06:20 06:20 06:20 WBC Cancelled 11.3 H RBC Cancelled 3.05 L Hgb Cancelled 8.8 L Hct Cancelled 25.8 L MCV Cancelled 85 MCH Cancelled 29.1 MCHC Cancelled 34.3 RDW Cancelled 24.3 H Plt Count Cancelled 466 H Seg Neutrophils % 51.2 Lymphocytes % 33.6 Monocytes % 7.9 Eosinophils % 6.6 H Basophils % 0.7 Absolute Neutrophils 5.8 Absolute Lymphocytes 3.8 Absolute Monocytes 0.9 Absolute Eosinophils 0.7 H Absolute Basophils 0.1 Sodium 141.5 Potassium 4.3 Chloride 106 Carbon Dioxide 27 Anion Gap 9 BUN 6 L Creatinine 0.58 Est GFR ( Amer) > 60 Est GFR (Non-Af Amer) > 60 Glucose 91 Calcium 9.7 Total Bilirubin 2.6 H AST 57 H ALT 37 Alkaline Phosphatase 89 Total Protein 6.7 Albumin 3.6 Impressions: Chest X-Ray 11/14/17 16:37 IMPRESSION: No significant interval change. No acute findings. Other findings as noted above Assessment & Plan - Diagnosis (1) Sickle cell pain crisis Is this a current diagnosis for this admission?: Yes (2) Anemia Qualifiers: Anemia type: unspecified type Qualified Code(s): D64.9 - Anemia, unspecified Is this a current diagnosis for this admission?: Yes - Time Time Spent with patient: 15-24 minutes - Inpatient Certification Medical Necessity: Need for Pain Control - Plan Summary Plan Summary: Continue current management plan. Hopefully, tomorrow I can start to de- escalate therapy. No indication for transfusion at present.
[2017-11-18] MEDS: ONDANSETRON HCL INJ/PF 4 MG/2 ML SDV IV PRN (13:26)
[2017-11-18] MEDS: NORTRIPTYLINE HCL 25 MG CAPSULE PO SCH (21:42)
[2017-11-19] MEDS: HYDROMORPHONE HCL INJ/PF 2 MG/ML AMPULE IV PRN ×7 (01:13→21:36)
[2017-11-19] MEDS: KETOROLAC TROMETHAMINE INJ/PF 30 MG/1 ML SDV IV PRN ×4 (01:14→23:55)
[2017-11-19] MEDS: HYDROXYUREA 500 MG CAPSULE PO SCH ×3 (05:06→21:36)
[2017-11-19 05:34] LABS: ABSOLUTE BASOPHILS # (AUTO) 0.2 10^3/uL (0.0-0.2); ABSOLUTE EOSINOPHILS # (AUTO) 0.8 10^3/uL (0.0-0.6); ABSOLUTE LYMPHOCYTES (AUTO) 4.1 10^3/uL (0.5-4.7); ABSOLUTE MONOCYTES (AUTO) 0.9 10^3/uL (0.1-1.4); ABSOLUTE NEUT (AUTO) 4.9 10^3/uL (1.7-8.2); BASOPHILS % (AUTO) 1.4 % (0-2); EOSINOPHILS % (AUTO) 7.1 % (0-6); HEMATOCRIT 25.9 % (36.0-47.0); HEMOGLOBIN 9.2 g/dL (12.0-15.5); LYMPHOCYTES % (AUTO) 37.7 % (13-45); MEAN CORPUSCULAR HEMOGLOBIN 29.9 pg (27.0-33.4); MEAN CORPUSCULAR HGB CONC 35.4 g/dL (32.0-36.0); MEAN CORPUSCULAR VOLUME 84 fl (80-97); MONOCYTES % (AUTO) 8.6 % (3-13); PLATELET COUNT 467 10^3/uL (150-450); RED BLOOD COUNT 3.07 10^6/uL (3.72-5.28); RED CELL DISTRIBUTION WIDTH 24.6 % (11.5-14.0); SEGMENTED NEUTROPHILS % (AUTO) 45.2 % (42-78); TOTAL CELLS COUNTED % (AUTO) 100 %; WHITE BLOOD COUNT 10.8 10^3/uL (4.0-10.5)
[2017-11-19 06:03] LABS: ANISOCYTOSIS 3+; POIKILOCYTOSIS 3+; TOXIC GRANULATION 1+
[2017-11-19 06:11] LABS: OVALOCYTES SLIGHT; PLATELET COMMENT ADEQUATE; PLATELET LARGE PRESENT; SCHISTOCYTES 2+; SICKLE RED CELLS 2+; TARGET CELLS 2+; TEAR DROP CELLS SLIGHT
[2017-11-19] MEDS: ENOXAPARIN SODIUM INJ 40 MG/0.4 ML DISP.SYRIN SUBCUT SCH (10:17)
[2017-11-19] MEDS: DOCUSATE SODIUM 100 MG CAPSULE PO SCH (10:19)
[2017-11-19] MEDS: FAMOTIDINE 20 MG TABLET PO SCH ×2 (10:19→21:35)
[2017-11-19] MEDS: SERTRALINE HCL 50 MG TABLET PO SCH (10:20)
[2017-11-19] MEDS: FOLIC ACID 1 MG TABLET PO SCH (10:21)
[2017-11-19] MEDS: ONDANSETRON HCL INJ/PF 4 MG/2 ML SDV IV PRN (10:49)
[2017-11-19] MEDS: MEGESTROL ACETATE 20 MG TABLET PO SCH (10:51)
--- NOTE | 2017-11-19 12:40 | PDOC PROGRESS REPORT ---
Subjective Progress Note for:: 11/19/17 Subjective:: The patient is a 32-year-old black female admitted with a sickle cell pain crisis. Yesterday, she stated that she felt that she was turning the corner. Today she states that she feels even a little bit better. Reason For Visit: SICKLE PAIN CRISIS Physical Exam Vital Signs: Temp Pulse Resp BP Pulse Ox 98.5 F 84 16 107/81 98 11/19/17 08:17 11/19/17 08:17 11/19/17 08:17 11/19/17 08:17 11/19/17 08:17 Intake & Output 11/18/17 11/19/17 11/20/17 06:59 06:59 06:59 Intake Total 1650 Balance 1650 Weight 55.3 kg 54.2 kg Additional comments: Patient is a young, black female. She is thin. She is laughing and joking today. She certainly looks like she is improving in comparison to 48 hours ago. Her facial appearance is unremarkable. Her lungs are clear to auscultation bilaterally. Her cardiac exam is regular, she does have a grade 1/ 6 systolic ejection murmur at the left upper sternal border. Her second heart sound is less pronounced than it was yesterday. The abdomen is soft, flat and benign. She does not have guarding or rebound or hernias or masses. The lower extremities and skin exam is unremarkable. Results Laboratory Results: 11/19/17 05:15 11/18/17 06:20 11/19/17 05:15 WBC 10.8 H RBC 3.07 L Hgb 9.2 L Hct 25.9 L MCV 84 MCH 29.9 MCHC 35.4 RDW 24.6 H Plt Count 467 H Seg Neutrophils % 45.2 Lymphocytes % 37.7 Monocytes % 8.6 Eosinophils % 7.1 H Basophils % 1.4 Absolute Neutrophils 4.9 Absolute Lymphocytes 4.1 Absolute Monocytes 0.9 Absolute Eosinophils 0.8 H Absolute Basophils 0.2 Impressions: Chest X-Ray 11/14/17 16:37 IMPRESSION: No significant interval change. No acute findings. Other findings as noted above Assessment & Plan - Diagnosis (1) Sickle cell pain crisis Is this a current diagnosis for this admission?: Yes (2) Anemia Qualifiers: Anemia type: unspecified type Qualified Code(s): D64.9 - Anemia, unspecified Is this a current diagnosis for this admission?: Yes - Time Time Spent with patient: 15-24 minutes - Plan Summary Plan Summary: The patient is turning the corner. No change in care plan. I will consult Dr. Chen as she normally cares for the patient.
[2017-11-19] MEDS: FENTANYL 25 MCG/HR PATCH.TD72 TOP SCH (15:38)
[2017-11-19] MEDS: NORTRIPTYLINE HCL 25 MG CAPSULE PO SCH (21:36)
[2017-11-20] MEDS: HYDROMORPHONE HCL INJ/PF 2 MG/ML AMPULE IV PRN ×3 (00:35→06:10)
[2017-11-20] MEDS: KETOROLAC TROMETHAMINE INJ/PF 30 MG/1 ML SDV IV PRN ×2 (06:10→16:55)
[2017-11-20] MEDS: HYDROXYUREA 500 MG CAPSULE PO SCH ×3 (06:11→22:48)
[2017-11-20 06:21] LABS: ABSOLUTE BASOPHILS # (AUTO) 0.2 10^3/uL (0.0-0.2); ABSOLUTE EOSINOPHILS # (AUTO) 0.7 10^3/uL (0.0-0.6); ABSOLUTE LYMPHOCYTES (AUTO) 3.9 10^3/uL (0.5-4.7); ABSOLUTE NEUT (AUTO) 5.3 10^3/uL (1.7-8.2); BASOPHILS % (AUTO) 1.7 % (0-2); EOSINOPHILS % (AUTO) 6.2 % (0-6); HEMATOCRIT 25.7 % (36.0-47.0); LYMPHOCYTES % (AUTO) 35.2 % (13-45); MEAN CORPUSCULAR HEMOGLOBIN 29.9 pg (27.0-33.4); MEAN CORPUSCULAR HGB CONC 34.9 g/dL (32.0-36.0); MEAN CORPUSCULAR VOLUME 86 fl (80-97); MONOCYTES % (AUTO) 9.3 % (3-13); PLATELET COUNT 437 10^3/uL (150-450); SEGMENTED NEUTROPHILS % (AUTO) 47.6 % (42-78); TOTAL CELLS COUNTED % (AUTO) 100 %; WHITE BLOOD COUNT 11.1 10^3/uL (4.0-10.5)
[2017-11-20 06:57] LABS: ANISOCYTOSIS 3+; OVALOCYTES SLIGHT; POIKILOCYTOSIS 2+; SCHISTOCYTES 1+; TOXIC GRANULATION 1+
[2017-11-20 06:58] LABS: PLATELET COMMENT ADEQUATE; PLATELET LARGE PRESENT; SICKLE RED CELLS 2+; TARGET CELLS 2+; TEAR DROP CELLS SLIGHT
[2017-11-20] MEDS ORDERED: (PENDING PHARMACY ID) (Oxycodone Hcl/Acetaminophen [Percocet 10-325 Mg Tablet] 1 TAB) PO PRN (11:26)
[2017-11-20] MEDS: MEGESTROL ACETATE 20 MG TABLET PO SCH (11:38)
[2017-11-20] MEDS: SERTRALINE HCL 50 MG TABLET PO SCH (11:38)
[2017-11-20] MEDS: FAMOTIDINE 20 MG TABLET PO SCH ×2 (11:38→22:46)
[2017-11-20] MEDS: FOLIC ACID 1 MG TABLET PO SCH (11:38)
[2017-11-20] MEDS: DOCUSATE SODIUM 100 MG CAPSULE PO SCH (11:39)
[2017-11-20] MEDS: ENOXAPARIN SODIUM INJ 40 MG/0.4 ML DISP.SYRIN SUBCUT SCH (11:39)
[2017-11-20] MEDS ORDERED: OXYCODONE HCL IR 5 MG TABLET PO PRN (12:59)
[2017-11-20] MEDS ORDERED: HYDROXYUREA 500 MG CAPSULE PO SCH (14:00)
[2017-11-20] MEDS: OXYCODONE HCL IR 5 MG TABLET PO PRN ×2 (14:23→22:47)
--- NOTE | 2017-11-20 16:32 | PDOC PROGRESS REPORT ---
Subjective Progress Note for:: 11/20/17 Subjective:: The patient is a 32-year-old black female admitted with a sickle cell pain crisis. She feels that she is turning the corner, but, her pain is still 4.5 out of 10. Yesterday, I placed a consult for her glass mechanic, Dr. Chen. Dr. Chen frankly told me that she thinks that the patient has drug seeking behavior. Reason For Visit: SICKLE PAIN CRISIS Physical Exam Vital Signs: Temp Pulse Resp BP Pulse Ox 98.9 F 103 H 20 135/79 H 100 11/20/17 15:00 11/20/17 15:00 11/20/17 15:00 11/20/17 15:00 11/20/17 15:00 Intake & Output 11/19/17 11/20/17 11/21/17 06:59 06:59 06:59 Weight 54.2 kg 54.9 kg Additional comments: The patient is an extremely pleasant female who appears to be her stated age. She is cooperative. Her cognition and neurological exam are unremarkable. Her lungs are clear to auscultation bilaterally. Her cardiac exam demonstrates a loud P2 with a grade 1/6 systolic ejection murmur at the left upper sternal border. Her abdominal exam is benign. Her abdomen is soft and flat. Bowel sounds are present. She does not have guarding or rebound noted and there are no hernias or masses present. The lower extremities are unremarkable. The skin is warm, dry and intact without lesions or rashes. Results Laboratory Results: 11/20/17 06:08 11/18/17 06:20 11/20/17 06:08 WBC 11.1 H RBC 3.00 L Hgb 9.0 L Hct 25.7 L MCV 86 MCH 29.9 MCHC 34.9 RDW 25.0 H Plt Count 437 Seg Neutrophils % 47.6 Lymphocytes % 35.2 Monocytes % 9.3 Eosinophils % 6.2 H Basophils % 1.7 Absolute Neutrophils 5.3 Absolute Lymphocytes 3.9 Absolute Monocytes 1.0 Absolute Eosinophils 0.7 H Absolute Basophils 0.2 Impressions: Chest X-Ray 11/14/17 16:37 IMPRESSION: No significant interval change. No acute findings. Other findings as noted above Assessment & Plan - Diagnosis (1) Sickle cell pain crisis Is this a current diagnosis for this admission?: Yes (2) Anemia Qualifiers: Anemia type: unspecified type Qualified Code(s): D64.9 - Anemia, unspecified Is this a current diagnosis for this admission?: Yes - Time Time Spent with patient: 15-24 minutes - Inpatient Certification Medical Necessity: Need for Pain Control - Plan Summary Plan Summary: Today, I discontinued the patient's IV Dilaudid. I have placed her back on her home regimen which is Percocet 10/325 every 8 hours as needed. She is also continuing to receive her fentanyl patches. When I stopped the IV Dilaudid the patient became quite tachycardic at 100-120, but she did improve after she was giving the oxycodone. If her vital signs remained stable on oral medications I think that she can be discharged tomorrow. If she is persistently tachycardic she may require additional oral pain medications such as oral Dilaudid. Dr. Chen did not leave a consultation. She did tell me that she feels that the patient is in and out of multiple hospitals. She told me that she has been getting care from a glass mechanic in [place]. I did convey all of this to the patient. The patient tells me that she sees a primary care doctor in [place] not glass mechanic. I told her that she should make an appointment with Dr. Chen after discharge so that they could discuss these issues together.
[2017-11-20] MEDS: OXYCODONE-ACETAMINOPHEN 5-325 MG TABLET PO PRN (16:55)
[2017-11-20] MEDS: NORTRIPTYLINE HCL 25 MG CAPSULE PO SCH (22:46)
[2017-11-21] MEDS: OXYCODONE-ACETAMINOPHEN 5-325 MG TABLET PO PRN ×3 (05:06→23:38)
[2017-11-21] MEDS: HYDROXYUREA 500 MG CAPSULE PO SCH ×3 (05:07→23:21)
[2017-11-21 07:10] LABS: ABSOLUTE BASOPHILS # (AUTO) 0.1 10^3/uL (0.0-0.2); ABSOLUTE EOSINOPHILS # (AUTO) 0.5 10^3/uL (0.0-0.6); ABSOLUTE LYMPHOCYTES (AUTO) 3.2 10^3/uL (0.5-4.7); ABSOLUTE NEUT (AUTO) 5.9 10^3/uL (1.7-8.2); EOSINOPHILS % (AUTO) 4.4 % (0-6); HEMATOCRIT 29.9 % (36.0-47.0); HEMOGLOBIN 10.3 g/dL (12.0-15.5); LYMPHOCYTES % (AUTO) 29.7 % (13-45); MEAN CORPUSCULAR HEMOGLOBIN 29.9 pg (27.0-33.4); MEAN CORPUSCULAR HGB CONC 34.5 g/dL (32.0-36.0); MEAN CORPUSCULAR VOLUME 87 fl (80-97); MONOCYTES % (AUTO) 9.7 % (3-13); PLATELET COUNT 492 10^3/uL (150-450); RED BLOOD COUNT 3.46 10^6/uL (3.72-5.28); RED CELL DISTRIBUTION WIDTH 26.3 % (11.5-14.0); SEGMENTED NEUTROPHILS % (AUTO) 55.2 % (42-78); TOTAL CELLS COUNTED % (AUTO) 100 %; WHITE BLOOD COUNT 10.7 10^3/uL (4.0-10.5)
[2017-11-21 07:51] LABS: ANISOCYTOSIS 4+; OVALOCYTES SLIGHT; SICKLE RED CELLS 1+; TARGET CELLS 1+
[2017-11-21 07:52] LABS: PLATELET COMMENT INCREASED
[2017-11-21] MEDS ORDERED: FENTANYL 100 MCG/HR PATCH.TD72 TD SCH (10:00)
[2017-11-21] MEDS: DOCUSATE SODIUM 100 MG CAPSULE PO SCH (10:19)
[2017-11-21] MEDS: FOLIC ACID 1 MG TABLET PO SCH (10:27)
[2017-11-21] MEDS: SERTRALINE HCL 50 MG TABLET PO SCH (10:28)
[2017-11-21] MEDS: ENOXAPARIN SODIUM INJ 40 MG/0.4 ML DISP.SYRIN SUBCUT SCH (10:30)
[2017-11-21] MEDS: MEGESTROL ACETATE 20 MG TABLET PO SCH (10:35)
[2017-11-21] MEDS: FAMOTIDINE 20 MG TABLET PO SCH ×2 (10:39→23:18)
[2017-11-21] MEDS: OXYCODONE HCL IR 5 MG TABLET PO PRN ×2 (10:43→18:54)
--- NOTE | 2017-11-21 15:35 | PDOC PROGRESS REPORT ---
Subjective Progress Note for:: 11/21/17 Subjective:: Patient says she is still in pain especially lower extremities. There is no fever or swelling. Reason For Visit: SICKLE PAIN CRISIS Physical Exam Vital Signs: Temp Pulse Resp BP Pulse Ox 98.8 F 122 H 18 103/69 100 11/21/17 11:46 11/21/17 11:46 11/21/17 11:46 11/21/17 11:46 11/21/17 14:21 Intake & Output 11/20/17 11/21/17 11/22/17 06:59 06:59 06:59 Intake Total 220 Balance 220 Weight 54.9 kg 52.2 kg General appearance: PRESENT: no acute distress Head exam: PRESENT: atraumatic, normocephalic Eye exam: PRESENT: conjunctiva pink, EOMI, PERRLA. ABSENT: scleral icterus Ear exam: PRESENT: normal external ear exam Mouth exam: PRESENT: moist, tongue midline Neck exam: ABSENT: carotid bruit, JVD, lymphadenopathy, thyromegaly Respiratory exam: PRESENT: clear to auscultation emerson. ABSENT: rales, rhonchi, wheezes Cardiovascular exam: PRESENT: RRR. ABSENT: diastolic murmur, rubs, systolic murmur Pulses: PRESENT: normal dorsalis pedis pul Vascular exam: PRESENT: normal capillary refill GI/Abdominal exam: PRESENT: normal bowel sounds, soft. ABSENT: distended, guarding, mass, organolmegaly, rebound, tenderness Rectal exam: PRESENT: deferred Extremities exam: PRESENT: full ROM. ABSENT: calf tenderness, clubbing, pedal edema Musculoskeletal exam: PRESENT: other - Lower extremity tenderness but no swelling Neurological exam: PRESENT: alert, awake, oriented to person, oriented to place , oriented to time, oriented to situation, CN II-XII grossly intact. ABSENT: motor sensory deficit Psychiatric exam: PRESENT: appropriate affect, normal mood. ABSENT: homicidal ideation, suicidal ideation Skin exam: PRESENT: dry, intact, warm. ABSENT: cyanosis, rash Results Laboratory Results: 11/21/17 06:45 11/18/17 06:20 11/21/17 06:45 WBC 10.7 H RBC 3.46 L Hgb 10.3 L Hct 29.9 L MCV 87 MCH 29.9 MCHC 34.5 RDW 26.3 H Plt Count 492 H Seg Neutrophils % 55.2 Lymphocytes % 29.7 Monocytes % 9.7 Eosinophils % 4.4 Basophils % 1.0 Absolute Neutrophils 5.9 Absolute Lymphocytes 3.2 Absolute Monocytes 1.0 Absolute Eosinophils 0.5 Absolute Basophils 0.1 Impressions: Chest X-Ray 11/14/17 16:37 IMPRESSION: No significant interval change. No acute findings. Other findings as noted above Assessment & Plan - Diagnosis (1) Sickle cell anemia with crisis Is this a current diagnosis for this admission?: Yes Plan: Patient is currently on Lidoderm patch as well as as needed Percocet. The discussed with her the plan for discharge which likely will be tomorrow as she appears to be relatively well controlled on current regimen. Patient voices understanding and agrees to this regimen. (2) Intractable pain Is this a current diagnosis for this admission?: Yes Plan: Plan to DC in a.m. - Time Time Spent with patient: 15-24 minutes Medications reviewed and adjusted accordingly: Yes Anticipated discharge: Home Within: within 24 hours
[2017-11-21] MEDS: KETOROLAC TROMETHAMINE INJ/PF 30 MG/1 ML SDV IV PRN (21:00)
[2017-11-21] MEDS: ONDANSETRON HCL INJ/PF 4 MG/2 ML SDV IV PRN (23:18)
[2017-11-21] MEDS: NORTRIPTYLINE HCL 25 MG CAPSULE PO SCH (23:22)
[2017-11-22] MEDS: HYDROXYUREA 500 MG CAPSULE PO SCH (07:04)
[2017-11-22] MEDS: OXYCODONE-ACETAMINOPHEN 5-325 MG TABLET PO PRN (07:35)
[2017-11-22 09:23] VITALS: BP 92/65
[2017-11-22] MEDS: ENOXAPARIN SODIUM INJ 40 MG/0.4 ML DISP.SYRIN SUBCUT SCH (10:37)
[2017-11-22] MEDS: DOCUSATE SODIUM 100 MG CAPSULE PO SCH (10:42)
[2017-11-22] MEDS: MEGESTROL ACETATE 20 MG TABLET PO SCH (10:43)
[2017-11-22] MEDS: FAMOTIDINE 20 MG TABLET PO SCH (10:43)
[2017-11-22] MEDS: FOLIC ACID 1 MG TABLET PO SCH (10:43)
[2017-11-22] MEDS: SERTRALINE HCL 50 MG TABLET PO SCH (10:44)
[2017-11-23] MEDS ORDERED: FENTANYL 25 MCG/HR PATCH.TD72 TD SCH (10:00)
--- NOTE | 2017-11-24 08:26 | PDOC DISCHARGE SUMMARY ---
General - Admit/Disc Date/PCP Admission Date/Primary Care Provider: 11/15/17 04:41 DANIEL NIELSEN MD Discharge Date: 11/22/17 - Discharge Diagnosis (1) Sickle cell anemia with crisis Is this a current diagnosis for this admission?: Yes (2) Intractable pain Is this a current diagnosis for this admission?: Yes (3) Opiate dependence Is this a current diagnosis for this admission?: Yes - Additional Information Resuscitation Status: Full Code Discharge Diet: Regular Discharge Activity: Activity As Tolerated Prescriptions: Fentanyl [Duragesic 25 mcg/hr Transdermal Patch] 1 patch TD Q3DAYS #2 patch.td72 Oxycodone HCl/Acetaminophen [Percocet 10-325 mg Tablet] 1 tab PO Q8HP #10 tablet Home Medications: Folic Acid [Folvite 1 mg Tablet] 1 mg PO DAILY 11/15/17 Hydroxyurea [Hydrea 500 mg Capsule] 500 mg PO Q8 11/15/17 Nortriptyline HCl [Pamelor] 50 mg PO QHS 11/15/17 Sertraline HCl [Zoloft] 25 mg PO DAILY 11/15/17 Fentanyl [Duragesic 25 mcg/hr Transdermal Patch] 1 patch TD Q3DAYS #2 patch.td72 11/22/17 Folic Acid [Folvite 1 mg Tablet] 1 mg PO DAILY tablet 11/22/17 Megestrol Acetate [Megace 20 mg Tablet] 20 mg PO DAILY tablet 11/22/17 Oxycodone HCl/Acetaminophen [Percocet 10-325 mg Tablet] 1 tab PO Q8HP #10 tablet 11/22/17 Oxycodone HCl/Acetaminophen [Percocet 10-325 mg Tablet] 1 tab PO Q8HP PRN History of Present Illness History of Present Illness: DARIEN CAPELLAN is a 32 year old female with known sickle cell anemia. She is followed by a president ceo & founder at the [facility] and a president ceo & founder locally. For the last week she has been having increased pain in her back and legs. Hospital Course Hospital Course: She was treated with IV Fluids as well as parenteral narcotics. She did not require any transfusions during this admission. There was a suspicion of drug seeking behavior. At this point she appears to have benefitted maximally from her hospital stay and she is being discharged home in stable condition. Physical Exam Vital Signs: Temp Pulse Resp BP Pulse Ox 98 F 103 H 14 92/65 L 100 11/22/17 08:00 11/22/17 08:00 11/22/17 08:00 11/22/17 08:00 11/22/17 08:00 Intake & Output 11/21/17 11/22/17 11/23/17 06:59 06:59 06:59 Intake Total 220 Balance 220 Weight 52.2 kg 52 kg General appearance: PRESENT: no acute distress, cooperative, thin Head exam: PRESENT: atraumatic Eye exam: PRESENT: PERRLA Rectal exam: PRESENT: deferred Neurological exam: PRESENT: alert, awake, oriented to person, oriented to place , oriented to time, oriented to situation, CN II-XII grossly intact. ABSENT: motor sensory deficit Psychiatric exam: PRESENT: appropriate affect, normal mood. ABSENT: homicidal ideation, suicidal ideation Skin exam: PRESENT: dry, intact, warm. ABSENT: cyanosis, rash Results Laboratory Results: 11/21/17 06:45 11/18/17 06:20 Impressions: Chest X-Ray 11/14/17 16:37 IMPRESSION: No significant interval change. No acute findings. Other findings as noted above Plan Time Spent: Greater than 30 Minutes
== END 2017-11-22 12:30 | disposition home or self-care (01) | DRG 811 ==
LOC: ER 14:15 → EH 11-15 04:41 → 2N 11-15 06:59 → 2S 11-20 20:58
PROVIDERS: ADMIT Internal Medicine; ATTEND Internal Medicine
DX: D57.00 Hb-SS disease with crisis, unspecified (principal); J18.9 Pneumonia, unspecified organism; F11.20 Opioid dependence, uncomplicated; F32.9 Major depressive disorder, single episode, unspecified; Z91.018 Allergy to other foods; Z79.899 Other long term (current) drug therapy; Z76.5 Malingerer [conscious simulation]; Z85.53 Personal history of malignant neoplasm of renal pelvis; Z90.49 Acquired absence of other specified parts of digestive tract; Z90.5 Acquired absence of kidney; Z85.528 Personal history of other malignant neoplasm of kidney; Z83.2 Family history of diseases of the blood and blood-forming organs and certain disorders involving the immune mechanism
CPT/HCPCS: 36415; 71046; 80053; 80307; 81001; 83615; 84703; 85025; 85027; 85045; 87086; 87804; 93005; 93010; 96361; 96374; 96375; 96376; 99285; J1170; J1200; J1642; J1650; J1885; J2270; J2405; J3490; J7030; J7120; S0119

== ENCOUNTER 2018-01-18 16:08 | Inpatient (IN) | payer MEDICARE, MEDICAID ==
--- NOTE | 2018-01-18 18:02 | ER Document Report ---
ED General - General Mode of Arrival: Ambulatory Information source: Patient TRAVEL OUTSIDE OF THE [place] IN LAST 30 DAYS: No - HPI Onset: Last week Onset/Duration: Constant Quality of pain: Achy, Burning Severity: Mild Pain Level: 1 Associated symptoms: Body/muscle aches. denies: Chest pain, Nonproductive cough , Productive cough, Diarrhea, Fever, Hurts to breath, Shortness of breath, Sweating, Weakness Exacerbated by: Walking Relieved by: Denies Similar symptoms previously: Yes Recently seen / treated by doctor: Yes <DAVIS TRISTAN - Last Filed: 01/18/18 17:57> <GIL LEYVA - Last Filed: 01/22/18 00:20> - General Chief Complaint: Sickle Cell Crisis Stated Complaint: PAIN ALL OVER Time Seen by Provider: 01/18/18 17:34 Notes: 32-year-old female with a history of sickle cell anemia, lupus presents with complaint of total body pain that started 1 week prior to arrival. Patient is unable to quantify the pain but describes it as constant, and worse in her low back and right leg. Denies any recent injury to her low back or right leg. She states she has experienced right leg pain and low back pain since her . She denies any urinary retention, fecal incontinence, history of IV drug use. Denies any weakness of her legs. Patient denies any fever, chills, nausea, vomiting, chest pain, cough, shortness of breath. She denies any sick contacts. She is currently under hematology care with Dr. Mckenzie she has tried her home pain medications of fentanyl and oxycodone without relief. Her last sickle cell flare was 1 month prior to arrival. She has not had any recent hospitalizations except for the of her 5-month-old son. Patient does not believe she is currently . (DAVIS TRISTAN) - Related Data Allergies/Adverse Reactions: green pepper Allergy (Verified 01/18/18 17:17) Past Medical History - General Information source: Patient - Social History Smoking Status: Never Smoker Chew tobacco use (# tins/day): No Frequency of alcohol use: None Drug Abuse: None Lives with: Family, Spouse/Significant other Family History: Other - Sickle trait Patient has suicidal ideation: No Patient has homicidal ideation: No - Medical History Medical History: Other - This, sickle cell Pulmonary Medical History: Reports: Hx Pneumonia - yearly since 2003 (last time 07/2012) Renal/ Medical History: Denies: Hx Peritoneal Dialysis Malignancy Medical History: Reports: Hx Renal (Kidney) Cancer GI Medical History: Denies: Hx Pancreatitis Psychiatric Medical History: Reports: Hx Depression Past Surgical History: Reports: Hx Cholecystectomy, Hx Kidney (Renal Surgery) - part of left kidney removed., Hx Orthopedic Surgery - L Femur, L FINGER, Other - Partial left nephrectomy for renal cell carcinoma - Immunizations Immunizations up to date: Yes Hx Diphtheria, Pertussis, Tetanus Vaccination: Yes - 2017 Hx Pneumococcal Vaccination: 07/21/12 <KUNCHERELLE - Last Filed: 01/18/18 17:57> Review of Systems - Review of Systems Constitutional: See HPI <DAVIS TRISTAN - Last Filed: 01/18/18 17:57> <GIL LEYVA - Last Filed: 01/22/18 00:20> - Review of Systems Notes: She denies any urinary retention, fecal incontinence, history of IV drug use. Denies any weakness of her legs. Patient denies any fever, chills, nausea, vomiting, chest pain, cough, shortness of breath. She denies any sick contacts (DAVIS TRISTAN) Physical Exam - Vital signs Interpretation: Normal, Tachycardic - General General appearance: Appears well, Alert In distress: None - HEENT Head: Normocephalic - Normocephalic atraumatic, Atraumatic Eyes: Normal Pupils: PERRL - Respiratory Respiratory status: No respiratory distress - clear to auscultation bilaterally. Chest nontender. Chest status: Nontender Breath sounds: Normal Chest palpation: Normal - Cardiovascular Rhythm: Regular, Tachycardia Heart sounds: Normal auscultation Murmur: No Pulses: Normal: Radial, Dorsalis pedis - Abdominal Inspection: Normal Distension: No distension Bowel sounds: Normal Tenderness: Nontender Organomegaly: No organomegaly - Back Back: Normal - Straight leg negative bilaterally., Nontender. No: Vertebra tenderness - Neurological Neuro grossly intact: Yes Cognition: Normal Orientation: AAOx4 [place] Coma Scale Eye Opening: Spontaneous [place] Coma Scale Verbal: Oriented [place] Coma Scale Motor: Obeys Commands [place] Coma Scale Total: 15 Speech: Normal Cranial nerves: Normal Motor strength normal: LUE, RUE, LLE, RLE Additional motor exam normals: Equal account installer, Dorsiflexion, Plantar flexion Sensory: Normal Knee - Reflex grade: 2 = Normal Ankle - Reflex grade: 2 = Normal - Psychological Associated symptoms: Normal affect, Normal mood <DAVIS TRISTAN - Last Filed: 01/18/18 17:57> - Vital signs Vitals: Temp Pulse Resp BP Pulse Ox 98.5 F 103 H 16 124/81 94 01/18/18 16:24 01/18/18 16:24 01/18/18 16:24 01/18/18 16:24 01/18/18 16:24 Course <DAVIS TRISTAN - Last Filed: 01/18/18 17:57> - Laboratory Result Diagrams: 01/21/18 06:44 01/21/18 06:44 <GIL LEYVA - Last Filed: 01/22/18 00:20> - Re-evaluation Re-evalutation: 01/18/18 18:03 A 32-year-old female with a history of sickle cell anemia presents with complaint of total body pain that started 1 week prior to arrival. Vital signs reviewed upon arrival. Patient is mildly tachycardic but afebrile. She does not appear to be in any acute distress. Exam is within normal limits. She does complain of right sciatic notch pain and right hip pain that has been present since her . Straight leg raise negative bilaterally. She is neurologically intact. (DAVIS TRISTAN) 01/19/18 00:06 Patient does have a leukocytosis of 13.5, this is a little bit higher than it typically is when she has sickle cell crises, she is anemic with a hemoglobin of 8.9, reticulocyte count is 7.3 absolute reticulocyte count is 0.2, total and direct bilirubin are elevated and consistent with her prior crises urinalysis shows small blood and large leukocyte esterase, 1+ bacteria, 50 WBCs, quite concerning for urinary tract infection particularly given the leukocytosis and back pain in the sickle cell patient. test is negative. I have rechecked the patient for time since she has been here, every time he rechecked her she has appeared more uncomfortable rather than less uncomfortable. Patient is requiring increasing dosages of pain medication to control her pain. Patient's urine is sent for culture, UTI is treated with Rocephin. Patient will now be discussed with hospitalist for possible admission for pain control. 01/22/18 00:19 This is a late note as [employer] went down at the end of the patient's visit. Patient was discussed with Dr. Rojas, who accepted this patient to his service in admission status. (GIL LEYVA) - Vital Signs Vital signs: Temp Pulse Resp BP Pulse Ox 99.3 F 94 16 105/66 96 01/21/18 16:26 01/21/18 16:26 01/21/18 16:26 01/21/18 16:26 01/21/18 16:26 - Laboratory Laboratory results interpreted by me: 01/18/18 01/18/18 01/18/18 18:05 18:05 22:16 WBC 13.5 H RBC 2.74 L Hgb 8.9 L Hct 24.7 L RDW 22.5 H Absolute Lymphocytes 5.6 H Absolute Monocytes 1.7 H Retic Count (auto) 7.30 H Absolute Retic 0.200 H BUN 4 L Creatinine 0.46 L Total Bilirubin 2.9 H Direct Bilirubin 0.5 H Urine Blood SMALL H Urine Urobilinogen 8.0 H Ur Leukocyte Esterase LARGE H Discharge <DAVIS TRISTAN - Last Filed: 01/18/18 17:57> - Discharge Admitting Provider: Hospitalist Unit Admitted: Medical Floor <GIL LEYVA - Last Filed: 01/22/18 00:20> - Discharge Clinical Impression: Sickle cell anemia with crisis Urinary tract infection Qualifiers: Urinary tract infection type: acute cystitis Hematuria presence: with hematuria Qualified Code(s): N30.01 - Acute cystitis with hematuria Condition: Stable Disposition: ADMITTED INPATIENT
[2018-01-18 18:44] LABS: ABSOLUTE BASOPHILS # (AUTO) 0.1 10^3/uL (0.0-0.2); ABSOLUTE EOSINOPHILS # (AUTO) 0.2 10^3/uL (0.0-0.6); ABSOLUTE LYMPHOCYTES (AUTO) 5.6 10^3/uL (0.5-4.7); ABSOLUTE MONOCYTES (AUTO) 1.7 10^3/uL (0.1-1.4); ABSOLUTE NEUT (AUTO) 5.9 10^3/uL (1.7-8.2); EOSINOPHILS % (AUTO) 1.7 % (0-6); HEMATOCRIT 24.7 % (36.0-47.0); HEMOGLOBIN 8.9 g/dL (12.0-15.5); LYMPHOCYTES % (AUTO) 41.3 % (13-45); MEAN CORPUSCULAR HEMOGLOBIN 32.5 pg (27.0-33.4); MEAN CORPUSCULAR VOLUME 90 fl (80-97); MONOCYTES % (AUTO) 12.2 % (3-13); PLATELET COUNT 401 10^3/uL (150-450); RED BLOOD COUNT 2.74 10^6/uL (3.72-5.28); RED CELL DISTRIBUTION WIDTH 22.5 % (11.5-14.0); SEGMENTED NEUTROPHILS % (AUTO) 43.8 % (42-78); TOTAL CELLS COUNTED % (AUTO) 100 %; WHITE BLOOD COUNT 13.5 10^3/uL (4.0-10.5)
[2018-01-18] MEDS ORDERED: HYDROMORPHONE HCL INJ/PF 2 MG/ML AMPULE IV ONE (18:51)
[2018-01-18] MEDS ORDERED: DIPHENHYDRAMINE HCL 50 MG/ML VIAL IV ONE (18:53)
--- NOTE | 2018-01-18 18:55 | RADIOLOGY REPORT (SQ) ---
EXAM DESCRIPTION: CHEST PA/LAT COMPLETED DATE/TIME: 01/18/2018 6:20 pm REASON FOR STUDY: pain COMPARISON: 11/14/2017 EXAM PARAMETERS: NUMBER OF VIEWS: two views TECHNIQUE: Digital Frontal and Lateral radiographic views of the chest acquired. RADIATION DOSE: NA LIMITATIONS: none FINDINGS: LUNGS AND PLEURA: Stable radiographic appearance. No new focal opacities, masses or pneum othorax. No pleural effusion. MEDIASTINUM AND HILAR STRUCTURES: No masses or contour abnormalities. HEART AND VASCULAR STRUCTURES: Heart normal size. No evidence for failure. BONES: No acute findings. HARDWARE: Right upper extremity PICC terminates in the region of the superior vena cava. OTHER: No other significant finding. IMPRESSION: Stable radiographic appearance of the chest. No acute findings. TECHNICAL DOCUMENTATION: JOB ID: [id number] [employer]- All Rights Reserved Reading location - IP/workstation name: [email or web address] [email or web address]
[2018-01-18] MEDS ORDERED: FENTANYL CITRATE INJ/PF 100 MCG/2 ML AMPUL IV ONE ×2 (18:57→22:35)
[2018-01-18 19:10] LABS: ALANINE AMINOTRANSFERASE 19 U/L (9-52); ALBUMIN 4.4 g/dL (3.5-5.0); ALKALINE PHOSPHATASE 82 U/L (38-126); ANION GAP 10 (5-19); ASPARTATE AMINO TRANSFERASE 28 U/L (14-36); BILIRUBIN,DIRECT 0.5 mg/dL (0.0-0.4); BILIRUBIN,TOTAL 2.9 mg/dL (0.2-1.3); BLOOD UREA NITROGEN 4 mg/dL (7-20); CALCIUM 9.8 mg/dL (8.4-10.2); CARBON DIOXIDE 26 mmol/L (22-30); CHLORIDE 104 mmol/L (98-107); GLUCOSE 80 mg/dL (75-110); POTASSIUM 3.6 mmol/L (3.6-5.0); SODIUM 140.2 mmol/L (137-145); TOTAL PROTEIN 7.7 g/dL (6.3-8.2)
[2018-01-18 19:11] LABS: POLYCHROMASIA SLIGHT; TOXIC VACUOLATION PRESENT
[2018-01-18 19:12] LABS: ANISOCYTOSIS 3+; HYPOCHROMASIA 1+; OVALOCYTES 1+; PLATELET COMMENT ADEQUATE; POIKILOCYTOSIS 3+; SICKLE RED CELLS 2+; TARGET CELLS SLIGHT
[2018-01-18 19:13] LABS: PLATELET CLUMPS PRESENT; PLATELET GIANT PRESENT
[2018-01-18] MEDS ORDERED: NORMAL SALINE 1000 ML 1,000 ML IV ONE (19:50)
[2018-01-18] MEDS ORDERED: MORPHINE SULFATE 10 MG/ML INJ IV ONE (20:18)
[2018-01-18] MEDS ORDERED: KETOROLAC TROMETHAMINE INJ/PF 30 MG/1 ML SDV IV ONE (21:26)
[2018-01-18] MEDS ORDERED: RINGERS SOLUTION,LACTATED 1,000 ML IV ONE (22:35)
[2018-01-18 22:42] LABS: APPEARANCE,URINE SLIGHTLY-CLOUDY; COLOR,URINE YELLOW
[2018-01-18 22:43] LABS: BILIRUBIN,URINE NEGATIVE (NEGATIVE); GLUCOSE, URINE NEGATIVE (NEGATIVE); KETONES,URINE NEGATIVE (NEGATIVE); NITRITE,URINE NEGATIVE (NEGATIVE); PROTEIN,URINE NEGATIVE (NEGATIVE); URINE SPECIFIC GRAVITY 1.008
[2018-01-18 22:44] LABS: LEUKOCYTE ESTERASE,URINE LARGE (NEGATIVE)
[2018-01-18] MEDS ORDERED: CEFTRIAXONE 1 GM/D5W RTU 1 GM/50 ML RTUPB IV ONE (22:55)
[2018-01-18] MEDS ORDERED: CEFTRIAXONE INJ 1000 MG VIAL ONE (23:01)
[2018-01-19] MEDS ORDERED: MORPHINE SULFATE 10 MG/ML INJ IV ONE (00:02)
[2018-01-19] MEDS: NORMAL SALINE 1000 ML 1,000 ML IV PRN ×5 (01:30→19:39)
[2018-01-19] MEDS: FENTANYL CITRATE INJ/PF 100 MCG/2 ML AMPUL IV PRN ×6 (02:00→20:02)
[2018-01-19] MEDS ORDERED: FENTANYL CITRATE INJ/PF 100 MCG/2 ML AMPUL ONE (02:07)
[2018-01-19] MEDS ORDERED: ACETAMINOPHEN 325 MG TABLET PO PRN (04:23)
[2018-01-19] MEDS ORDERED: MAGNESIUM HYDROXIDE SUSP 30 ML UDCUP PO PRN (04:24)
[2018-01-19] MEDS ORDERED: PROMETHAZINE HCL 25 MG TABLET PO PRN (04:24)
[2018-01-19] MEDS ORDERED: DIPHENHYDRAMINE HCL 50 MG CAPSULE PO PRN (04:24)
[2018-01-19] MEDS ORDERED: IPRATROPIUM/ALBUTEROL 0.5-2.5 MG/3 ML AMPUL NEB PRN (04:24)
[2018-01-19] MEDS ORDERED: OXYCODONE-ACETAMINOPHEN 5-325 MG TABLET PO PRN (04:24)
[2018-01-19] MEDS ORDERED: ONDANSETRON HCL INJ/PF 4 MG/2 ML SDV IV PRN (04:24)
[2018-01-19] MEDS ORDERED: NORMAL SALINE 1000 ML 1,000 ML IV PRN (04:30)
[2018-01-19 05:32] LABS: ANION GAP 6 (5-19); BLOOD UREA NITROGEN 3 mg/dL (7-20); CALCIUM 8.7 mg/dL (8.4-10.2); CARBON DIOXIDE 24 mmol/L (22-30); CHLORIDE 111 mmol/L (98-107); GLUCOSE 93 mg/dL (75-110); POTASSIUM 3.5 mmol/L (3.6-5.0); SODIUM 140.9 mmol/L (137-145)
[2018-01-19 05:44] LABS: ABSOLUTE BASOPHILS # (AUTO) 0.1 10^3/uL (0.0-0.2); ABSOLUTE EOSINOPHILS # (AUTO) 0.4 10^3/uL (0.0-0.6); ABSOLUTE LYMPHOCYTES (AUTO) 5.1 10^3/uL (0.5-4.7); ABSOLUTE MONOCYTES (AUTO) 1.3 10^3/uL (0.1-1.4); ABSOLUTE NEUT (AUTO) 4.6 10^3/uL (1.7-8.2); BASOPHILS % (AUTO) 0.8 % (0-2); EOSINOPHILS % (AUTO) 3.6 % (0-6); HEMATOCRIT 20.6 % (36.0-47.0); LYMPHOCYTES % (AUTO) 44.8 % (13-45); MEAN CORPUSCULAR HEMOGLOBIN 32.6 pg (27.0-33.4); MEAN CORPUSCULAR HGB CONC 36.1 g/dL (32.0-36.0); MEAN CORPUSCULAR VOLUME 90 fl (80-97); PLATELET COUNT 349 10^3/uL (150-450); RED BLOOD COUNT 2.28 10^6/uL (3.72-5.28); RED CELL DISTRIBUTION WIDTH 23.1 % (11.5-14.0); SEGMENTED NEUTROPHILS % (AUTO) 39.8 % (42-78); TOTAL CELLS COUNTED % (AUTO) 100 %; WHITE BLOOD COUNT 11.5 10^3/uL (4.0-10.5)
[2018-01-19 05:46] LABS: HEMOGLOBIN 7.4 g/dL (12.0-15.5)
[2018-01-19] MEDS ORDERED: POTASSIUM CHLORIDE 10 MEQ TABLET.SA PO ONE (06:03)
--- NOTE | 2018-01-19 06:10 | PDOC H&P ---
History of Present Illness Admission Date/PCP: 01/19/18 04:49 Patient complains of: Sickle cell pain History of Present Illness: DARIEN CAPELLAN is a 32 year old female With a past medical history of sickle cell disease who presents with 8 hours of diffuse joint pain of the lower back hips and knees typical for previous pain crises. In the emergency room she is found to have a urinary tract infection, hemoglobin of 8.7 from a baseline of 10 and an elevated reticulocyte and 0.3. Patient denies dysuria, polyuria fever nausea vomiting. She started on fentanyl and normal saline and referred to the hospitalist for admission. Patient denies any medications and is otherwise felt well. Past Medical History Pulmonary Medical History: Reports: Pneumonia - yearly since 2003 (last time 2011) Malignancy Medical History: Reports: Renal (Kidney) Cancer Psychiatric Medical History: Reports: Depression Hematology: Reports: Anemia - sickle cell, Sickle Cell Disease Denies: Hemophilia Past Surgical History Past Surgical History: Reports: Cholecystectomy, Orthopedic Surgery - L Femur, L FINGER, Other - Partial left nephrectomy for renal cell carcinoma Denies: Amputation Social History Information Source: Patient, [facility] Records Lives with: Family, Spouse/Significant other Smoking Status: Never Smoker Frequency of Alcohol Use: Occasional Hx Recreational Drug Use: No Drugs: None Hx Prescription Drug Abuse: No - Advance Directive Resuscitation Status: Full Code Family History Family History: Other - Sickle trait Parental Family History Reviewed: Yes Children Family History Reviewed: Yes Sibling(s) Family History Reviewed.: Yes Medication/Allergy Home Medications: Hydroxyurea [Hydrea 500 mg Capsule] 500 mg PO Q8 11/15/17 Nortriptyline HCl [Pamelor] 50 mg PO QHS 11/15/17 Sertraline HCl [Zoloft] 100 mg PO DAILY 11/15/17 Fentanyl [Duragesic 25 mcg/hr Transdermal Patch] 1 patch TD Q3DAYS #2 patch.td72 11/22/17 Folic Acid [Folvite 1 mg Tablet] 1 mg PO DAILY tablet 11/22/17 Oxycodone HCl/Acetaminophen [Percocet 10-325 mg Tablet] 1 tab PO Q8HP PRN Allergies/Adverse Reactions: green pepper Allergy (Verified 01/18/18 17:17) Review of Systems Constitutional: ABSENT: chills, fever(s), headache(s), weight gain, weight loss Eyes: ABSENT: visual disturbances Ears: ABSENT: hearing changes Cardiovascular: ABSENT: chest pain, dyspnea on exertion, edema, orthropnea, palpitations Respiratory: ABSENT: cough, hemoptysis Gastrointestinal: ABSENT: abdominal pain, constipation, diarrhea, hematemesis, hematochezia, nausea, vomiting Genitourinary: ABSENT: dysuria, hematuria Musculoskeletal: ABSENT: joint swelling Integumentary: ABSENT: rash, wounds Neurological: ABSENT: abnormal gait, abnormal speech, confusion, dizziness, focal weakness, syncope Psychiatric: ABSENT: anxiety, depression, homidical ideation, suicidal ideation Endocrine: ABSENT: cold intolerance, heat intolerance, polydipsia, polyuria Hematologic/Lymphatic: ABSENT: easy bleeding, easy bruising Physical Exam Vital Signs: Temp Pulse Resp BP Pulse Ox 98.3 F 100 16 112/68 95 01/19/18 02:10 01/19/18 02:10 01/19/18 02:10 01/19/18 02:10 01/19/18 02:10 General appearance: PRESENT: no acute distress, well-developed, well-nourished Head exam: PRESENT: atraumatic, normocephalic Eye exam: PRESENT: conjunctiva pink, EOMI, PERRLA. ABSENT: scleral icterus Ear exam: PRESENT: normal external ear exam Mouth exam: PRESENT: moist, tongue midline Neck exam: ABSENT: carotid bruit, JVD, lymphadenopathy, thyromegaly Respiratory exam: PRESENT: clear to auscultation emerson. ABSENT: rales, rhonchi, wheezes Cardiovascular exam: PRESENT: RRR. ABSENT: diastolic murmur, rubs, systolic murmur Pulses: PRESENT: normal dorsalis pedis pul Vascular exam: PRESENT: normal capillary refill GI/Abdominal exam: PRESENT: normal bowel sounds, soft. ABSENT: distended, guarding, mass, organolmegaly, rebound, tenderness Rectal exam: PRESENT: deferred Extremities exam: PRESENT: full ROM. ABSENT: calf tenderness, clubbing, pedal edema Neurological exam: PRESENT: alert, awake, oriented to person, oriented to place , oriented to time, oriented to situation, CN II-XII grossly intact. ABSENT: motor sensory deficit Psychiatric exam: PRESENT: appropriate affect, normal mood. ABSENT: homicidal ideation, suicidal ideation Skin exam: PRESENT: dry, intact, warm. ABSENT: cyanosis, rash Results Laboratory Results: 01/19/18 04:50 01/19/18 04:50 01/19/18 01/19/18 04:50 04:50 WBC 11.5 H RBC 2.28 L Hgb 7.4 L Hct 20.6 L MCV 90 MCH 32.6 MCHC 36.1 H RDW 23.1 H Plt Count 349 Seg Neutrophils % 39.8 L Lymphocytes % 44.8 Monocytes % 11.0 Eosinophils % 3.6 Basophils % 0.8 Absolute Neutrophils 4.6 Absolute Lymphocytes 5.1 H Absolute Monocytes 1.3 Absolute Eosinophils 0.4 Absolute Basophils 0.1 Sodium 140.9 Potassium 3.5 L Chloride 111 H Carbon Dioxide 24 Anion Gap 6 BUN 3 L Creatinine 0.37 L Est GFR ( Amer) > 60 Est GFR (Non-Af Amer) > 60 Glucose 93 Calcium 8.7 Impressions: Chest X-Ray 01/18/18 17:34 IMPRESSION: Stable radiographic appearance of the chest. No acute findings. Assessment & Plan - Diagnosis (1) Urinary tract infection Is this a current diagnosis for this admission?: Yes Plan: Mid floor admission, empiric antibiotics, follow-up CBC urine and blood culture (2) Anemia Qualifiers: Is this a current diagnosis for this admission?: Yes Plan: Sickle cell disease with active reticulocytosis, IV fluid challenge symptomatic management correction of #1 (3) Intractable pain Is this a current diagnosis for this admission?: Yes Plan: Tylenol, Toradol and opiates as tolerated. - Time Time Spent: 30 to 50 Minutes - Inpatient Certification Medical Necessity: Need Close Monitoring Due to Risk of Patient Decompensation
[2018-01-19] MEDS: HEPARIN SOD (PORCINE) 5,000 UNIT/ML 1 ML SYRINGE SUBCUT SCH ×3 (06:17→22:05)
[2018-01-19] MEDS: HYDROXYUREA 500 MG CAPSULE PO SCH ×3 (07:08→22:10)
[2018-01-19] MEDS: KETOROLAC TROMETHAMINE INJ/PF 30 MG/1 ML SDV IV PRN ×3 (08:32→22:21)
[2018-01-19] MEDS: SERTRALINE HCL 50 MG TABLET PO SCH (09:52)
[2018-01-19] MEDS ORDERED: FENTANYL 25 MCG/HR PATCH.TD72 TD SCH (10:00)
--- NOTE | 2018-01-19 11:35 | PDOC PROGRESS REPORT ---
Subjective Progress Note for:: 01/19/18 Subjective:: The patient is a 32-year-old female with past medical history significant for sickle cell disease, pneumonia, renal cancer status post partial left nephrectomy, and depression who was admitted last night for sickle cell crisis and UTI. The patient is seen on morning rounds. She is found resting in bed comfortably on supplemental oxygen at 2 L/min. She states that her normal hemoglobin is approximately 10 and is agreeable to transfusion if her hemoglobin drops below 7 today. She does report continued back and extremity pain. She denies chest pain, shortness of breath. She tells me that her pain is adequately controlled at this time, however, feels that the fentanyl wears off quickly and would prefer morphine if available. She denies headache, dizziness, chest pain, palpitations, dyspnea, orthopnea, abdominal pain, nausea vomiting and diarrhea. She has no other questions or concerns at this time. Reason For Visit: SSC PAIN CRISIS Physical Exam Vital Signs: Temp Pulse Resp BP Pulse Ox 98.3 F 83 16 94/57 L 100 01/19/18 11:14 01/19/18 11:14 01/19/18 11:14 01/19/18 11:14 01/19/18 11:14 General appearance: PRESENT: no acute distress, well-developed, well-nourished Head exam: PRESENT: atraumatic, normocephalic Eye exam: PRESENT: conjunctiva pink, EOMI, PERRLA. ABSENT: scleral icterus Ear exam: PRESENT: normal external ear exam Mouth exam: PRESENT: moist, tongue midline Neck exam: ABSENT: carotid bruit, JVD, lymphadenopathy, thyromegaly Respiratory exam: PRESENT: clear to auscultation emerson, symmetrical, unlabored. ABSENT: rales, rhonchi, wheezes Cardiovascular exam: PRESENT: RRR, +S1, +S2. ABSENT: diastolic murmur, rubs, systolic murmur Pulses: PRESENT: normal dorsalis pedis pul Vascular exam: PRESENT: normal capillary refill GI/Abdominal exam: PRESENT: normal bowel sounds, soft. ABSENT: distended, guarding, mass, organolmegaly, rebound, tenderness Rectal exam: PRESENT: deferred Extremities exam: PRESENT: full ROM. ABSENT: calf tenderness, clubbing, pedal edema Neurological exam: PRESENT: alert, awake, oriented to person, oriented to place , oriented to time, oriented to situation, CN II-XII grossly intact. ABSENT: motor sensory deficit Psychiatric exam: PRESENT: appropriate affect, normal mood. ABSENT: homicidal ideation, suicidal ideation Skin exam: PRESENT: dry, intact, warm. ABSENT: cyanosis, rash Results Laboratory Results: 01/19/18 04:50 01/19/18 04:50 01/19/18 01/19/18 04:50 04:50 WBC 11.5 H RBC 2.28 L Hgb 7.4 L Hct 20.6 L MCV 90 MCH 32.6 MCHC 36.1 H RDW 23.1 H Plt Count 349 Seg Neutrophils % 39.8 L Lymphocytes % 44.8 Monocytes % 11.0 Eosinophils % 3.6 Basophils % 0.8 Absolute Neutrophils 4.6 Absolute Lymphocytes 5.1 H Absolute Monocytes 1.3 Absolute Eosinophils 0.4 Absolute Basophils 0.1 Sodium 140.9 Potassium 3.5 L Chloride 111 H Carbon Dioxide 24 Anion Gap 6 BUN 3 L Creatinine 0.37 L Est GFR ( Amer) > 60 Est GFR (Non-Af Amer) > 60 Glucose 93 Calcium 8.7 Impressions: Chest X-Ray 01/18/18 17:34 IMPRESSION: Stable radiographic appearance of the chest. No acute findings. Assessment & Plan - Diagnosis (1) Sickle cell anemia with crisis Is this a current diagnosis for this admission?: Yes Plan: The patient is admitted to the medical floor. Is provided supplemental oxygen at 2 L/min IV maintenance fluids at 250 mL's per hour. Her hemoglobin has been noted to drop from 8.97.4. The patient tells me that her normal hemoglobin is approximately 10. She is agreeable to blood transfusion if her hemoglobin is less than 7. Will obtain a repeat H&H and type and cross the patient this afternoon. Will continue to monitor serial hemoglobins and transfuse as necessary. The patient is provided as needed Tylenol, oxycodone, tramadol, and fentanyl for pain. The patient did ask for morphine; I checked with the pharmacist, unfortunately we have a very short supply and so I am hesitant to transition her to morphine knowing that we will need to transition back to fentanyl in the very near future appear (2) Urinary tract infection Is this a current diagnosis for this admission?: Yes Plan: Blood and urine cultures are pending. Previous urine cultures demonstrated pansensitive E. coli. The patient is provided IV maintenance fluids. She is receiving IV Rocephin; will adjust antibiotics as cultures result. (3) Hypotension Is this a current diagnosis for this admission?: Yes Plan: Asymptomatic. The patient may have a baseline low blood pressure as she is rather small in stature. Other contributing factors may include narcotics, sickle cell anemia, and infectious process. The patient denies headaches, dizziness, palpitations, shortness of breath. She is noted to have a normal heart rate in the mid 70s. He is receiving IV fluids. Anticipating blood transfusion this afternoon. We will continue to monitor. (4) Opiate dependence Qualifiers: Substance use status: uncomplicated Qualified Code(s): F11.20 - Opioid dependence, uncomplicated Is this a current diagnosis for this admission?: Yes Plan: Opiate dependence with continuous use. The patient's home medication; Duragesic patch 75 mcg is continued. The patient is also noted to have a home prescription for Percocet 10/325 every 8 hours as needed. While in sickle cell crisis, she is receiving her Duragesic patch, oxycodone 10 mg every 4 hours as needed, with fentanyl for breakthrough pain. - Time Time Spent with patient: 25-34 minutes Medications reviewed and adjusted accordingly: Yes Anticipated discharge: Home - Inpatient Certification Based on my medical assessment, after consideration of the patient's comorbidities, presenting symptoms, or acuity I expect that the services needed warrant INPATIENT care.: Yes I certify that my determination is in accordance with my understanding of Medicare's requirements for reasonable and necessary INPATIENT services [42 CFR 412.3e].: Yes Medical Necessity: Need For IV Fluids, Need for Pain Control
[2018-01-19 13:29] LABS: HEMATOCRIT 20.6 % (36.0-47.0); MEAN CORPUSCULAR HEMOGLOBIN 33.3 pg (27.0-33.4); MEAN CORPUSCULAR HGB CONC 36.8 g/dL (32.0-36.0); MEAN CORPUSCULAR VOLUME 91 fl (80-97); PLATELET COUNT 319 10^3/uL (150-450); RED BLOOD COUNT 2.28 10^6/uL (3.72-5.28); RED CELL DISTRIBUTION WIDTH 22.7 % (11.5-14.0); WHITE BLOOD COUNT 10.3 10^3/uL (4.0-10.5)
[2018-01-19 13:57] LABS: HEMOGLOBIN 7.6 g/dL (12.0-15.5)
[2018-01-19] MEDS: OXYCODONE-ACETAMINOPHEN 5-325 MG TABLET PO PRN ×2 (14:05→18:05)
[2018-01-19] MEDS: NORTRIPTYLINE HCL 25 MG CAPSULE PO SCH (21:10)
[2018-01-19] MEDS ORDERED: CEFTRIAXONE 1 GM/D5W RTU 1 GM/50 ML RTUPB IV SCH (22:00)
[2018-01-19] MEDS: CEFTRIAXONE SODIUM 1,000 MG in NORMAL SALINE 100 ML IV SCH (22:05)
[2018-01-20] MEDS: NORMAL SALINE 1000 ML 1,000 ML IV PRN ×5 (00:08→21:37)
[2018-01-20] MEDS: OXYCODONE-ACETAMINOPHEN 5-325 MG TABLET PO PRN ×4 (00:10→21:30)
[2018-01-20] MEDS: FENTANYL CITRATE INJ/PF 100 MCG/2 ML AMPUL IV PRN ×3 (02:18→22:40)
[2018-01-20] MEDS: HEPARIN SOD (PORCINE) 5,000 UNIT/ML 1 ML SYRINGE SUBCUT SCH ×3 (05:38→21:30)
[2018-01-20] MEDS: HYDROXYUREA 500 MG CAPSULE PO SCH ×3 (05:38→21:32)
[2018-01-20] MEDS: FOLIC ACID 1 MG TABLET PO SCH (09:12)
[2018-01-20] MEDS: SERTRALINE HCL 50 MG TABLET PO SCH (09:13)
--- NOTE | 2018-01-20 11:36 | PDOC PROGRESS REPORT ---
Subjective Progress Note for:: 01/20/18 Subjective:: The patient is a 32-year-old female with past medical history significant for sickle cell disease, pneumonia, renal cancer status post partial left nephrectomy, and depression who was admitted last night for sickle cell crisis and UTI. The patient is seen on morning rounds. She is found sitting up to the edge of the bed on room air preparing to eat her breakfast. She did refuse her a.m. lab draw, when asked if she had any concerns about obtaining these labs, the patient tells me she does not remember declining to have this done. She states that her pain is moderately well controlled at this time. She denies headache, dizziness, chest pain, palpitations, dyspnea, orthopnea, abdominal pain, nausea vomiting and diarrhea. She has no other questions or concerns at this time. Reason For Visit: SSC PAIN CRISIS Physical Exam Vital Signs: Temp Pulse Resp BP Pulse Ox 99.1 F 86 14 106/73 98 01/20/18 08:18 01/20/18 11:25 01/20/18 11:25 01/20/18 08:18 01/20/18 08:18 Intake & Output 01/19/18 01/20/18 01/21/18 06:59 06:59 06:59 Output Total 4 Balance -4 Weight 47.4 kg General appearance: PRESENT: no acute distress, thin, well-developed, well- nourished Head exam: PRESENT: atraumatic, normocephalic Eye exam: PRESENT: conjunctiva pink, EOMI, PERRLA. ABSENT: scleral icterus Ear exam: PRESENT: normal external ear exam Mouth exam: PRESENT: moist, tongue midline Neck exam: ABSENT: carotid bruit, JVD, lymphadenopathy, thyromegaly Respiratory exam: PRESENT: clear to auscultation emerson, symmetrical, unlabored. ABSENT: rales, rhonchi, wheezes Cardiovascular exam: PRESENT: RRR, +S1, +S2. ABSENT: diastolic murmur, rubs, systolic murmur Pulses: PRESENT: normal dorsalis pedis pul Vascular exam: PRESENT: normal capillary refill GI/Abdominal exam: PRESENT: normal bowel sounds, soft. ABSENT: distended, guarding, mass, organolmegaly, rebound, tenderness Rectal exam: PRESENT: deferred Extremities exam: PRESENT: full ROM. ABSENT: calf tenderness, clubbing, pedal edema Neurological exam: PRESENT: alert, awake, oriented to person, oriented to place , oriented to time, oriented to situation, CN II-XII grossly intact. ABSENT: motor sensory deficit Psychiatric exam: PRESENT: appropriate affect, normal mood. ABSENT: homicidal ideation, suicidal ideation Skin exam: PRESENT: dry, intact, warm. ABSENT: cyanosis, rash Results Laboratory Results: 01/19/18 13:10 01/19/18 04:50 01/19/18 01/19/18 13:10 13:10 WBC 10.3 RBC 2.28 L Hgb 7.6 L Hct 20.6 L MCV 91 MCH 33.3 MCHC 36.8 H RDW 22.7 H Plt Count 319 Blood Type A POSITIVE Antibody Screen NEGATIVE Impressions: Chest X-Ray 01/18/18 17:34 IMPRESSION: Stable radiographic appearance of the chest. No acute findings. Assessment & Plan - Diagnosis (1) Sickle cell anemia with crisis Is this a current diagnosis for this admission?: Yes Plan: The patient is admitted to the medical floor. Hemoglobin is decreased from 8.9- 7.4. Appears to be stable. We will continue to monitor with serial H&H. She is admitted to the medical floor. She is provided supplemental oxygen as needed for comfort and to maintain oxygen saturations greater than 90% Is provided supplemental oxygen at 2 L/min She has adequate p.o. intake and so will decrease IV maintenance fluids to 125 mL/HR. The patient is provided as needed Tylenol, oxycodone, tramadol, and fentanyl for pain. (2) Urinary tract infection Is this a current diagnosis for this admission?: Yes Plan: Blood culture: No growth to date Urine culture is pending Previous urine cultures demonstrated pansensitive E. coli. The patient is provided IV maintenance fluids. She is receiving IV Rocephin; will adjust antibiotics as cultures result. Day 2 of antibiotics. (3) Hypotension Is this a current diagnosis for this admission?: Yes Plan: Asymptomatic and stable. The patient may have a baseline low blood pressure as she is rather small in stature. Other contributing factors may include narcotics, sickle cell anemia, and infectious process. The patient denies headaches, dizziness, palpitations, shortness of breath. She is noted to have a normal heart rate in the mid 70s. She is receiving IV fluids. Anticipating blood transfusion this afternoon. We will continue to monitor. (4) Opiate dependence Qualifiers: Substance use status: uncomplicated Qualified Code(s): F11.20 - Opioid dependence, uncomplicated Is this a current diagnosis for this admission?: Yes Plan: Opiate dependence with continuous use. The patient's home medication; Duragesic patch 75 mcg is continued. The patient is also noted to have a home prescription for Percocet 10/325 every 8 hours as needed. While in sickle cell crisis, she is receiving her Duragesic patch, oxycodone 10 mg every 4 hours as needed, with fentanyl for breakthrough pain. - Time Time Spent with patient: 15-24 minutes Anticipated discharge: Home Within: within 24 hours, within 48 hours
[2018-01-20] MEDS: KETOROLAC TROMETHAMINE INJ/PF 30 MG/1 ML SDV IV PRN ×2 (13:16→19:34)
[2018-01-20 19:36] LABS: ABSOLUTE BASOPHILS # (AUTO) 0.2 10^3/uL (0.0-0.2); ABSOLUTE EOSINOPHILS # (AUTO) 0.9 10^3/uL (0.0-0.6); ABSOLUTE LYMPHOCYTES (AUTO) 6.2 10^3/uL (0.5-4.7); ABSOLUTE MONOCYTES (AUTO) 1.2 10^3/uL (0.1-1.4); ABSOLUTE NEUT (AUTO) 4.4 10^3/uL (1.7-8.2); BASOPHILS % (AUTO) 1.9 % (0-2); EOSINOPHILS % (AUTO) 6.6 % (0-6); HEMATOCRIT 21.9 % (36.0-47.0); LYMPHOCYTES % (AUTO) 47.9 % (13-45); MEAN CORPUSCULAR HEMOGLOBIN 32.7 pg (27.0-33.4); MEAN CORPUSCULAR HGB CONC 36.2 g/dL (32.0-36.0); MEAN CORPUSCULAR VOLUME 91 fl (80-97); MONOCYTES % (AUTO) 9.7 % (3-13); PLATELET COUNT 352 10^3/uL (150-450); RED BLOOD COUNT 2.41 10^6/uL (3.72-5.28); RED CELL DISTRIBUTION WIDTH 22.4 % (11.5-14.0); SEGMENTED NEUTROPHILS % (AUTO) 33.9 % (42-78); TOTAL CELLS COUNTED % (AUTO) 100 %; WHITE BLOOD COUNT 12.9 10^3/uL (4.0-10.5)
[2018-01-20 19:45] LABS: HEMOGLOBIN 7.9 g/dL (12.0-15.5)
[2018-01-20 19:50] LABS: ANION GAP 7 (5-19); BLOOD UREA NITROGEN 3 mg/dL (7-20); CARBON DIOXIDE 23 mmol/L (22-30); CHLORIDE 111 mmol/L (98-107); GLUCOSE 85 mg/dL (75-110); POTASSIUM 4.1 mmol/L (3.6-5.0); SODIUM 140.8 mmol/L (137-145)
[2018-01-20] MEDS: NORTRIPTYLINE HCL 25 MG CAPSULE PO SCH (21:30)
[2018-01-20] MEDS: CEFTRIAXONE SODIUM 1,000 MG in NORMAL SALINE 100 ML IV SCH (21:31)
[2018-01-21] MEDS: OXYCODONE-ACETAMINOPHEN 5-325 MG TABLET PO PRN ×2 (03:40→09:40)
[2018-01-21] MEDS: HYDROXYUREA 500 MG CAPSULE PO SCH ×2 (05:55→14:09)
[2018-01-21] MEDS: HEPARIN SOD (PORCINE) 5,000 UNIT/ML 1 ML SYRINGE SUBCUT SCH ×2 (05:55→14:09)
[2018-01-21] MEDS: KETOROLAC TROMETHAMINE INJ/PF 30 MG/1 ML SDV IV PRN (06:17)
[2018-01-21 07:02] LABS: HEMATOCRIT 21.4 % (36.0-47.0); MEAN CORPUSCULAR HEMOGLOBIN 32.3 pg (27.0-33.4); MEAN CORPUSCULAR HGB CONC 35.3 g/dL (32.0-36.0); MEAN CORPUSCULAR VOLUME 92 fl (80-97); PLATELET COUNT 307 10^3/uL (150-450); RED BLOOD COUNT 2.34 10^6/uL (3.72-5.28); RED CELL DISTRIBUTION WIDTH 21.9 % (11.5-14.0); WHITE BLOOD COUNT 13.1 10^3/uL (4.0-10.5)
[2018-01-21 07:03] LABS: HEMOGLOBIN 7.6 g/dL (12.0-15.5)
[2018-01-21 07:15] LABS: ANION GAP 8 (5-19); BLOOD UREA NITROGEN 3 mg/dL (7-20); CALCIUM 9.1 mg/dL (8.4-10.2); CARBON DIOXIDE 23 mmol/L (22-30); CHLORIDE 110 mmol/L (98-107); GLUCOSE 91 mg/dL (75-110); POTASSIUM 3.6 mmol/L (3.6-5.0); SODIUM 141.3 mmol/L (137-145)
[2018-01-21] MEDS: FENTANYL CITRATE INJ/PF 100 MCG/2 ML AMPUL IV PRN (08:17)
[2018-01-21] MEDS: SERTRALINE HCL 50 MG TABLET PO SCH (09:34)
[2018-01-21] MEDS: FOLIC ACID 1 MG TABLET PO SCH (09:34)
[2018-01-21] MEDS ORDERED: FENTANYL 50 MCG/HR PATCH.TD72 TD SCH (10:00)
[2018-01-21] MEDS: OXYCODONE HCL IR 5 MG TABLET PO PRN ×2 (14:09→17:30)
[2018-01-21] MEDS: NORMAL SALINE 1000 ML 1,000 ML IV PRN (14:10)
[2018-01-21 17:42] VITALS: BP 102/71
== END 2018-01-21 17:51 | disposition home or self-care (01) | DRG 812 ==
LOC: ER 16:08 → EH 01-19 04:49 → 2N 01-19 06:30
PROVIDERS: ADMIT Internal Medicine; ATTEND Internal Medicine
DX: D57.00 Hb-SS disease with crisis, unspecified (principal); N39.0 Urinary tract infection, site not specified; C64.2 Malignant neoplasm of left kidney, except renal pelvis; F11.20 Opioid dependence, uncomplicated; I95.9 Hypotension, unspecified; F32.9 Major depressive disorder, single episode, unspecified; Z90.5 Acquired absence of kidney
CPT/HCPCS: 36415; 71046; 80048; 80053; 81001; 81025; 85025; 85027; 85045; 86850; 86900; 86901; 87040; 87077; 87086; 87088; 87186; 96361; 96365; 96368; 96375; 96376; 99285; J0696; J1200; J1644; J1885; J2270; J3010; J3490; J7030; J7120

== ENCOUNTER 2018-02-08 15:27 | Emergency (ER) | payer MEDICARE, MEDICAID ==
[2018-02-08] MEDS ORDERED: NORMAL SALINE 1000 ML 1,000 ML IV ONE (15:46)
[2018-02-08 16:13] LABS: ABSOLUTE BASOPHILS # (AUTO) 0.2 10^3/uL (0.0-0.2); ABSOLUTE EOSINOPHILS # (AUTO) 0.9 10^3/uL (0.0-0.6); ABSOLUTE LYMPHOCYTES (AUTO) 4.3 10^3/uL (0.5-4.7); ABSOLUTE MONOCYTES (AUTO) 1.2 10^3/uL (0.1-1.4); ABSOLUTE NEUT (AUTO) 3.3 10^3/uL (1.7-8.2); ABSOLUTE RETICS # 0.159 10^6/uL (0.028-0.122); BASOPHILS % (AUTO) 2.5 % (0-2); EOSINOPHILS % (AUTO) 8.6 % (0-6); HEMATOCRIT 25.2 % (36.0-47.0); HEMOGLOBIN 9.1 g/dL (12.0-15.5); LYMPHOCYTES % (AUTO) 43.4 % (13-45); MEAN CORPUSCULAR HEMOGLOBIN 32.8 pg (27.0-33.4); MEAN CORPUSCULAR HGB CONC 36.1 g/dL (32.0-36.0); MEAN CORPUSCULAR VOLUME 91 fl (80-97); MONOCYTES % (AUTO) 11.9 % (3-13); PLATELET COUNT 473 10^3/uL (150-450); RED BLOOD COUNT 2.78 10^6/uL (3.72-5.28); RETICULOCYTE COUNT (AUTO) 5.71 % (0.66-2.85); SEGMENTED NEUTROPHILS % (AUTO) 33.6 % (42-78); TOTAL CELLS COUNTED % (AUTO) 100 %; WHITE BLOOD COUNT 9.9 10^3/uL (4.0-10.5)
[2018-02-08] MEDS ORDERED: FENTANYL CITRATE INJ/PF 100 MCG/2 ML AMPUL IV ONE (16:13)
[2018-02-08] MEDS ORDERED: KETOROLAC TROMETHAMINE INJ/PF 30 MG/1 ML SDV IV ONE (16:13)
[2018-02-08] MEDS ORDERED: METHYLPREDNISOLONE INJ 125 MG/2 ML SDV IV ONE (16:13)
--- NOTE | 2018-02-08 16:14 | ER Document Report ---
ED General Pain - General Chief Complaint: Sickle Cell Crisis Stated Complaint: PAIN ALL OVER Time Seen by Provider: 02/08/18 15:36 Notes: 32-year-old female patient history of sickle cell disease, history of lupus states that she is having worsening pain in her arms, chest. No shortness of breath or difficulty breathing. Having pain in her hands with difficulty grasping objects. States that she has run out of her pain medication. 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 Pink. Denies any fever, chills, sweats. Denies any abdominal pain, nausea, vomiting or diarrhea. States that she took some Aleve and has not gotten any relief. TRAVEL OUTSIDE OF THE [place] IN LAST 30 DAYS: No - HPI Onset/Duration: Gradual - Related Data Allergies/Adverse Reactions: green pepper Allergy (Verified 01/18/18 17:17) Past Medical History - General Information source: Patient - Social History Smoking Status: Never Smoker Cigarette use (# per day): No Frequency of alcohol use: None Drug Abuse: None Lives with: Family Family History: Reviewed & Not Pertinent, Other - Sickle trait - Medical History Notes: Sickle cell disease, lupus Pulmonary Medical History: Reports: Hx Pneumonia - yearly since 2003 (last time 07/2012) Renal/ Medical History: Denies: Hx Peritoneal Dialysis Malignancy Medical History: Reports: Hx Renal (Kidney) Cancer GI Medical History: Denies: Hx Pancreatitis Psychiatric Medical History: Reports: Hx Depression Past Surgical History: Reports: Hx Cholecystectomy, Hx Kidney (Renal Surgery) - part of left kidney removed., Hx Orthopedic Surgery - L Femur, L FINGER, Other - Partial left nephrectomy for renal cell carcinoma - Immunizations Immunizations up to date: Yes Hx Diphtheria, Pertussis, Tetanus Vaccination: Yes - 2017 Hx Pneumococcal Vaccination: 07/21/12 Review of Systems - Review of Systems Constitutional: denies: Fever, Malaise, Weakness EENT: denies: Blurred vision, Difficulty swallowing, Throat swelling, Mouth pain Cardiovascular: Chest pain. denies: Palpitations, Heart racing Gastrointestinal: denies: Abdominal pain, Diarrhea, Nausea, Vomiting Genitourinary: denies: Burning, Dysuria, Discharge Female Genitourinary: denies: , Vaginal discharge, Vaginal bleeding Musculoskeletal: Back pain, Joint pain, Muscle pain Skin: denies: Dryness, Lesions, Lumps, Rash Hematologic/Lymphatic: Anemia. denies: Blood clots, Easy bleeding, Easy bruising Neurological/Psychological: Weakness, Numbness. denies: Confusion, Headaches Physical Exam - Vital signs Vitals: Temp Pulse Resp BP Pulse Ox 98.0 F 95 16 106/72 97 02/08/18 15:32 02/08/18 15:32 02/08/18 15:32 02/08/18 15:32 02/08/18 15:32 Interpretation: Normal - General General appearance: Appears well, Alert - HEENT Head: Normocephalic, Atraumatic Eyes: Normal Pupils: PERRL - Respiratory Respiratory status: No respiratory distress Chest status: Nontender Breath sounds: Normal Chest palpation: Normal - Cardiovascular Rhythm: Regular Heart sounds: Normal auscultation Murmur: No - Abdominal Inspection: Normal Distension: No distension Bowel sounds: Normal Tenderness: Nontender Organomegaly: No organomegaly - Back Back: Normal, Nontender - Extremities General upper extremity: Normal inspection, Nontender, Normal color, Normal ROM , Normal temperature General lower extremity: Normal inspection, Nontender, Normal color, Normal ROM , Normal temperature, Normal weight bearing. No: Dariel's sign - Neurological Neuro grossly intact: Yes Cognition: Normal Orientation: AAOx4 Neto Coma Scale Eye Opening: Spontaneous [place] Coma Scale Verbal: Oriented [place] Coma Scale Motor: Obeys Commands Neto Coma Scale Total: 15 Speech: Normal Motor strength normal: LUE, RUE, LLE, RLE Sensory: Normal - Psychological Associated symptoms: Normal affect, Normal mood - Skin Skin Temperature: Warm Skin Moisture: Dry Skin Color: Normal Course - Re-evaluation Re-evalutation: 02/08/18 16:42 Relatively well-appearing female with normal vital signs no fever and in no acute distress with history of sickle cell disease. Will hydrate and get some pain meds and reassess. 02/08/18 18:22 Is a very well-appearing patient in no significant distress at this time. Labs are fairly baseline. Does have a chronically elevated LDH with LDH level of 1900, reticulocyte count is 5, slightly elevated bilirubin at 3 but not significantly elevated as compared to prior. We have given her a liter of fluid , Benadryl, fentanyl as well as oral oxycodone. Patient states that she has run out of her pain medication and she has not been taking her fentanyl patch, oxycodone or other medications. States that she is followed by Dr. Pink. At this time I will try and consult with Dr. Pink to make sure that we are all on the same page at this time. Patient states that her pain is slightly improved. I have given her discussions with regards to trying to keep the fentanyl patch on but she states that they always fall off. States that she is out of her Percocet and is taking 10 mg oxycodone's on a regular basis. Normally gets morphine when she is in the ER however there is a national back order of morphine and that is not available at this time. 02/08/18 18:49 I have attempted to contact Dr. Pink on 2 separate occasions but have been unsuccessful. Patient actually feels a little bit better at this time. I find nothing that looks significantly abnormal at this time. Because I have not been able to contact her provider I will write her prescription for some oxycodone and send her home with a hydrocodone take-home pack. Patient knows that this may interfere with her long-term medication management as many providers are unhappy with their patient's go to the emergency department for scripts from another provider. I will leave this up to the patient's discretion. Regardless, I have given her long lengthy verbal instructions that if the pain is getting worse, she is not getting better or she is having any worsening symptoms she should return for repeat evaluation - Vital Signs Vital signs: Temp Pulse Resp BP Pulse Ox 98.0 F 95 16 106/72 97 02/08/18 15:32 02/08/18 15:32 02/08/18 15:32 02/08/18 15:32 02/08/18 15:32 - Laboratory Result Diagrams: 02/08/18 15:50 02/08/18 15:50 Laboratory results interpreted by me: 02/08/18 02/08/18 02/08/18 15:50 15:50 17:44 RBC 2.78 L Hgb 9.1 L Hct 25.2 L MCHC 36.1 H RDW 21.0 H Plt Count 473 H Seg Neutrophils % 33.6 L Eosinophils % 8.6 H Basophils % 2.5 H Absolute Eosinophils 0.9 H Retic Count (auto) 5.71 H Absolute Retic 0.159 H Sodium 146.3 H Potassium 3.5 L BUN 6 L Total Bilirubin 3.5 H Direct Bilirubin 0.5 H AST 42 H Lactate Dehydrogenase 1938 H Urine Urobilinogen 2.0 H Discharge - Discharge Clinical Impression: Sickle cell crisis Condition: Good Disposition: HOME, SELF-CARE Instructions: Sickle Cell Crisis ([facility]) Additional Instructions: Please follow-up with your provider as soon as possible. If you begin to have worsening pain please return. If you develop fever, chest pain, shortness of breath, abdominal pain or other concerns please return. Prescriptions: Methylprednisolone [Medrol Dosepack (4 mg/Tab) 21 Tab/Dosepak] 21 tab PO DAILY 7 Days #1 dspk Oxycodone HCl/Acetaminophen [Percocet 10-325 Mg Tablet] 1 each PO TID PRN 4 Days #12 tablet PRN Reason: Referrals: AIDEN ALEMAN PA-C [Primary Care Provider] - Follow up as needed LUPE PINK MD [ACTIVE STAFF] - 02/10/18 8:00 am
[2018-02-08 16:23] LABS: ALANINE AMINOTRANSFERASE 17 U/L (9-52); ALBUMIN 4.2 g/dL (3.5-5.0); ALKALINE PHOSPHATASE 101 U/L (38-126); ANION GAP 11 (5-19); ASPARTATE AMINO TRANSFERASE 42 U/L (14-36); BILIRUBIN,DIRECT 0.5 mg/dL (0.0-0.4); BILIRUBIN,TOTAL 3.5 mg/dL (0.2-1.3); BLOOD UREA NITROGEN 6 mg/dL (7-20); CALCIUM 9.9 mg/dL (8.4-10.2); CARBON DIOXIDE 28 mmol/L (22-30); CHLORIDE 107 mmol/L (98-107); GLUCOSE 84 mg/dL (75-110); LDH 1938 U/L (313-618); POTASSIUM 3.5 mmol/L (3.6-5.0); SODIUM 146.3 mmol/L (137-145); TOTAL PROTEIN 7.6 g/dL (6.3-8.2)
[2018-02-08 16:43] LABS: ANISOCYTOSIS 3+; OVALOCYTES 2+; POLYCHROMASIA 1+
[2018-02-08 16:44] LABS: HOWELL-JOLLY BODIES PRESENT; POIKILOCYTOSIS 4+; SICKLE RED CELLS 1+; TARGET CELLS 1+
[2018-02-08 16:45] LABS: PLATELET COMMENT INCREASED
[2018-02-08] MEDS ORDERED: OXYCODONE-ACETAMINOPHEN 5-325 MG TABLET PO ONE (17:49)
[2018-02-08] MEDS ORDERED: MORPHINE SULFATE 10 MG/ML INJ IV ONE (17:49)
[2018-02-08] MEDS ORDERED: DIPHENHYDRAMINE HCL 50 MG/ML VIAL IV ONE (17:49)
[2018-02-08 18:00] LABS: APPEARANCE,URINE CLEAR; BILIRUBIN,URINE NEGATIVE (NEGATIVE); COLOR,URINE YELLOW; GLUCOSE, URINE NEGATIVE (NEGATIVE); KETONES,URINE NEGATIVE (NEGATIVE); LEUKOCYTE ESTERASE,URINE NEGATIVE (NEGATIVE); NITRITE,URINE NEGATIVE (NEGATIVE); PROTEIN,URINE NEGATIVE (NEGATIVE); URINE SPECIFIC GRAVITY 1.004
[2018-02-08] MEDS ORDERED: HYDROCODONE/ACETAMINOPHEN 5-325 MG (6 TAB/ER DISP) PO PRN (18:55)
[2018-02-08 19:37] VITALS: BP 128/74
== END 2018-02-08 20:08 | disposition home or self-care (01) ==
LOC: ER 15:27
DX: D57.00 Hb-SS disease with crisis, unspecified (principal); M32.9 Systemic lupus erythematosus, unspecified; M79.601 Pain in right arm; M79.602 Pain in left arm; R07.9 Chest pain, unspecified; M79.641 Pain in right hand; M79.642 Pain in left hand
CPT/HCPCS: 36591; 99284; 96361; 96374; 96375; 36415; 83615; 85025; 81025; 85045; 80053; 81001; J1200; J3010; J2930; J1885; A9270 ×2; J7030

== ENCOUNTER 2018-03-11 10:40 | Emergency (ER) | payer MEDICARE, MEDICAID ==
[2018-03-11] MEDS ORDERED: HYDROMORPHONE HCL INJ/PF 2 MG/ML AMPULE IV ONE (10:52)
[2018-03-11] MEDS ORDERED: NORMAL SALINE 1000 ML 1,000 ML IV ONE (10:52)
[2018-03-11 11:19] LABS: ABSOLUTE BASOPHILS # (AUTO) 0.1 10^3/uL (0.0-0.2); ABSOLUTE EOSINOPHILS # (AUTO) 0.5 10^3/uL (0.0-0.6); ABSOLUTE MONOCYTES (AUTO) 0.7 10^3/uL (0.1-1.4); ABSOLUTE NEUT (AUTO) 2.5 10^3/uL (1.7-8.2); ABSOLUTE RETICS # 0.169 10^6/uL (0.028-0.122); BASOPHILS % (AUTO) 1.7 % (0-2); EOSINOPHILS % (AUTO) 7.6 % (0-6); HEMATOCRIT 23.6 % (36.0-47.0); HEMOGLOBIN 8.7 g/dL (12.0-15.5); LYMPHOCYTES % (AUTO) 43.2 % (13-45); MEAN CORPUSCULAR HEMOGLOBIN 32.4 pg (27.0-33.4); MEAN CORPUSCULAR HGB CONC 36.7 g/dL (32.0-36.0); MEAN CORPUSCULAR VOLUME 88 fl (80-97); MONOCYTES % (AUTO) 10.4 % (3-13); PLATELET COUNT 469 10^3/uL (150-450); RED BLOOD COUNT 2.68 10^6/uL (3.72-5.28); RETICULOCYTE COUNT (AUTO) 6.33 % (0.66-2.85); SEGMENTED NEUTROPHILS % (AUTO) 37.1 % (42-78); TOTAL CELLS COUNTED % (AUTO) 100 %; WHITE BLOOD COUNT 6.8 10^3/uL (4.0-10.5)
--- NOTE | 2018-03-11 11:26 | RADIOLOGY REPORT (SQ) ---
EXAM DESCRIPTION: FEMUR RIGHT COMPLETED DATE/TIME: 03/11/2018 11:17 am REASON FOR STUDY: 14, pain COMPARISON: None. NUMBER OF VIEWS: Two views. TECHNIQUE: Two radiographic images acquired of the right femur to include hip and knee in at least o ne projection. LIMITATIONS: None. FINDINGS: MINERALIZATION: Normal. 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 Collapse of the articular surface wit h subcortical sclerosis. Remainder of the right femur is unremarkable. Mild reactive bony spurring at along the right acetabulum SOFT TISSUES: No obvious swelling or foreign body. OTHER: No other significant finding. IMPRESSION: Avascular necrosis right femoral head, stage IV TECHNICAL DOCUMENTATION: JOB ID: [id number] [employer])- All Rights Reserved Reading location - IP/workstation name: [email or web address]
--- NOTE | 2018-03-11 11:33 | ER Document Report ---
ED General Pain - General Stated Complaint: RIGHT LEG PAIN Time Seen by Provider: 03/11/18 10:48 Information source: Patient Notes: Patient is a 32-year-old female with a past medical history of sickle cell disease as well as a recent child delivery 7 months ago presents with pain to her lower back and her right leg. She states it occurred around 4 days ago. She states that this is the normal location of her sickle cell pain crises but states to me that "no one is ever imaged my right leg before". She states the pain is in her right upper anterior thigh. She denies any chest pain, cough, fevers, vomiting, or diarrhea. She denies any dysuria or flank pain. She denies any weakness or numbness to her legs, incontinence, or saddle anesthesia. TRAVEL OUTSIDE OF THE [place] IN LAST 30 DAYS: No - HPI Onset: Other - See above Quality of pain: Cramping, Dull Severity: Moderate Pain Level: 3 - See above Context: Other Associated symptoms: Other - See above Exacerbated by: Denies Relieved by: Denies Similar symptoms previously: Yes Recently seen / treated by doctor: Yes - Related Data Allergies/Adverse Reactions: green pepper Allergy (Verified 03/11/18 10:59) Past Medical History - General Information source: Patient - Social History Smoking Status: Unknown if Ever Smoked Cigarette use (# per day): No Chew tobacco use (# tins/day): No Smoking Education Provided: No Family History: Reviewed & Not Pertinent, Other - Sickle trait Pulmonary Medical History: Reports: Hx Pneumonia - yearly since 2003 (last time 07/2012) Renal/ Medical History: Denies: Hx Peritoneal Dialysis Malignancy Medical History: Reports: Hx Renal (Kidney) Cancer GI Medical History: Denies: Hx Pancreatitis Psychiatric Medical History: Reports: Hx Depression Past Surgical History: Reports: Hx Cholecystectomy, Hx Kidney (Renal Surgery) - part of left kidney removed., Hx Orthopedic Surgery - L Femur, L FINGER, Other - Partial left nephrectomy for renal cell carcinoma - Immunizations Immunizations up to date: Yes Hx Diphtheria, Pertussis, Tetanus Vaccination: Yes - 2016 Hx Pneumococcal Vaccination: 07/21/12 Review of Systems - Review of Systems Constitutional: denies: Fever EENT: denies: Eye discharge, Nose discharge Respiratory: denies: Short of breath Gastrointestinal: denies: Vomiting Genitourinary: denies: Dysuria Musculoskeletal: denies: Leg swelling Skin: Other - no hives. denies: Rash Neurological/Psychological: Other - no slurred speech -: Yes All other systems reviewed and negative Physical Exam - Vital signs Vitals: Temp 98.2 F 03/11/18 10:45 Interpretation: Normal Notes: Reviewed vital signs and nursing note as charted by RN. CONSTITUTIONAL: Alert and oriented and responds appropriately to questions. Well -appearing; well-nourished HEAD: Normocephalic; atraumatic EYES: Sclerae slightly icteric ENT: Normal nose; no rhinorrhea; moist mucous membranes; pharynx without lesions noted NECK: Supple without meningismus; non-tender; no cervical lymphadenopathy, no masses CARD: Regular rate and rhythm; no murmurs, no clicks, no rubs, no gallops; symmetric distal pulses RESP: Normal chest excursion without splinting or tachypnea; breath sounds clear and equal bilaterally; no wheezes, no rhonchi, no rales ABD/GI: Normal bowel sounds; non-distended; soft, non-tender, no rebound, no guarding; no palpable organomegaly or masses BACK: The back appears normal and is non-tender to palpation, there is no CVA tenderness EXT: Normal ROM in all joints; non-tender to palpation; no cyanosis, no effusions, no edema SKIN: Normal color for age and race; warm; dry; good turgor; capillary refill < 2 seconds; no acute lesions noted NEURO: Moves all extremities equally; Motor and sensory function intact PSYCH: The patient's mood and manner are appropriate. Grooming and personal hygiene are appropriate. Course - Re-evaluation Re-evalutation: Given the above history and physical I will order CBC with a reticulocyte count as well as order a right femur x-ray. Low suspicion for acute fracture but I would like to evaluate for avascular necrosis. Patient states that this is never yet been imaged despite the long protracted course. I do find this to be unusual? Patient has no signs or symptoms nor complaints of acute chest at this time. 03/11/18 12:30 Labs as recorded. Reticulocyte count is recorded. Patient's pain is improved. I did call and speak directly to the patient's corrosion control technician, Dr. Gardiner. She is very familiar with this patient. She states she does not believe anything needs to be done acutely but will set up outpatient orthopedic follow- up. She requests that I do not write any pain medication prescriptions that she will be able to provide these for the patient. - Vital Signs Vital signs: Temp Pulse Resp BP Pulse Ox 98.2 F 18 115/80 96 03/11/18 10:45 03/11/18 12:03 03/11/18 12:03 03/11/18 12:03 - Laboratory Result Diagrams: 03/11/18 10:50 Laboratory results interpreted by me: 03/11/18 10:50 RBC 2.68 L Hgb 8.7 L Hct 23.6 L MCHC 36.7 H RDW 21.0 H Plt Count 469 H Seg Neutrophils % 37.1 L Eosinophils % 7.6 H Retic Count (auto) 6.33 H Absolute Retic 0.169 H Discharge - Discharge Clinical Impression: Sickle cell pain crisis Avascular necrosis of bone of hip Qualifiers: Laterality: right Qualified Code(s): M87.051 - Idiopathic aseptic necrosis of right femur Additional Instructions: Come back immediately for any increased pain, change in location or quality of pain, fevers or vomiting, weakness or numbness, or any other acute problems. It is very important that you follow-up with your corrosion control technician as we have discussed and have expedited for you for orthopedic referral.
[2018-03-11 11:52] LABS: ANISOCYTOSIS 3+; OVALOCYTES SLIGHT; POIKILOCYTOSIS 2+; POLYCHROMASIA 1+; SICKLE RED CELLS 2+; TARGET CELLS 2+; TOXIC VACUOLATION PRESENT
[2018-03-11 11:53] LABS: PLATELET COMMENT INCREASED; PLATELET LARGE PRESENT
[2018-03-11 12:19] VITALS: BP 115/80
== END 2018-03-11 13:15 | disposition home or self-care (01) ==
LOC: ER 10:40
DX: D57.00 Hb-SS disease with crisis, unspecified (principal); M79.604 Pain in right leg; Z90.49 Acquired absence of other specified parts of digestive tract
CPT/HCPCS: 36591; 99284; 96361; 96374; 36415; 85025; 85045; 73552; J1170; J7030

== ENCOUNTER 2018-03-11 19:04 | Emergency (ER) | payer MEDICARE, MEDICAID ==
[2018-03-11 19:21] VITALS: BP 137/91
--- NOTE | 2018-03-11 19:30 | ER Document Report ---
ED General - General Chief Complaint: R leg pain - Avasular necrosis R hip Stated Complaint: RIGHT LEG PAIN Time Seen by Provider: 03/11/18 19:21 Notes: 32-year-old female PMH sickle cell disease seen here earlier today and diagnosed with avascular necrosis back again with complaints of not being able to sleep. She states that her narcotic pain medication, oxycodone, was accidentally left at her family member's house while she was at a . She has not tried anything for her symptoms. TRAVEL OUTSIDE OF THE [place] IN LAST 30 DAYS: No - Related Data Allergies/Adverse Reactions: green pepper Allergy (Verified 03/11/18 10:59) Past Medical History - Social History Smoking Status: Former Smoker Frequency of alcohol use: Rare Drug Abuse: None Family History: Reviewed & Not Pertinent, Other - Sickle trait Patient has suicidal ideation: No Patient has homicidal ideation: No Pulmonary Medical History: Reports: Hx Pneumonia - yearly since 2003 (last time 07/2012) Renal/ Medical History: Denies: Hx Peritoneal Dialysis Malignancy Medical History: Reports: Hx Renal (Kidney) Cancer GI Medical History: Denies: Hx Pancreatitis Psychiatric Medical History: Reports: Hx Depression Past Surgical History: Reports: Hx Cholecystectomy, Hx Kidney (Renal Surgery) - part of left kidney removed., Hx Orthopedic Surgery - L Femur, L FINGER, Other - Partial left nephrectomy for renal cell carcinoma - Immunizations Immunizations up to date: Yes Hx Diphtheria, Pertussis, Tetanus Vaccination: Yes - 2016 Hx Pneumococcal Vaccination: 07/21/12 Review of Systems - Review of Systems Notes: See history of present illness for pertinent positive review of systems; otherwise all review of systems have been reviewed and are negative Physical Exam - Vital signs Vitals: Temp Pulse Resp BP Pulse Ox 98.4 F 88 20 137/91 H 100 03/11/18 19:20 03/11/18 19:20 03/11/18 19:20 03/11/18 19:20 03/11/18 19:20 - Notes Notes: PHYSICAL EXAMINATION: GENERAL: Well-appearing and in no acute distress. HEAD: Atraumatic, normocephalic. EYES: Pupils equal round and reactive to light, extraocular movements intact, sclera anicteric, conjunctiva are normal. ENT: nares patent, oropharynx clear without exudates. Moist mucous membranes. NECK: Normal range of motion, supple without lymphadenopathy LUNGS: CTAB and equal. No wheezes rales or rhonchi. HEART: Regular rate and rhythm without murmurs ABDOMEN: Soft, no tenderness. No facial grimacing/wincing upon palpation. No guarding, no rebound. EXTREMITIES: Normal range of motion, no pitting edema. No cyanosis. Mild TTP of the right proximal femur diffusely NEUROLOGICAL: Cranial nerves grossly intact. Normal sensory/motor exams. Normal steady gait PSYCH: Normal mood, normal affect. SKIN: Warm, Dry, normal turgor, no rashes or lesions noted Course - Re-evaluation Re-evalutation: 03/11/18 19:29 MEDICAL DECISION MAKING: We will give the patient a prescription for hydroxyzine to help her sleep Also offered crutches however she says she has both a walker and crutches in the attic Instructed follow-up PCP to obtain refill of her narcotic pain medication as we will not refill this for her chronic pain Patient understands and agrees to the plan of care - Vital Signs Vital signs: Temp Pulse Resp BP Pulse Ox 98.4 F 88 20 137/91 H 100 03/11/18 19:20 03/11/18 19:20 03/11/18 19:20 03/11/18 19:20 03/11/18 19:20 Discharge - Discharge Clinical Impression: Chronic leg pain Qualifiers: Laterality: right Qualified Code(s): M79.604 - Pain in right leg; G89.29 - Other chronic pain; G89.29 - Other chronic pain Condition: Good Disposition: HOME, SELF-CARE Additional Instructions: Use the prescribed medication as needed for sleep. Go see your doctor for a refill of your narcotic pain medicine. Prescriptions: Hydroxyzine HCl 25 mg PO BIDP PRN #5 tablet PRN Reason: For Pain
== END 2018-03-11 19:31 | disposition home or self-care (01) ==
LOC: ER 19:04
DX: M79.604 Pain in right leg (principal); G89.29 Other chronic pain; D57.1 Sickle-cell disease without crisis; Z90.49 Acquired absence of other specified parts of digestive tract
CPT/HCPCS: 99283

== ENCOUNTER 2018-03-17 00:08 | Emergency (ER) | payer MEDICARE, MEDICAID ==
[2018-03-17] MEDS: MORPHINE SULFATE 10 MG/ML INJ IV PRN ×3 (01:58→04:54)
[2018-03-17 02:20] LABS: ABSOLUTE RETICS # 0.121 10^6/uL (0.028-0.122); HEMATOCRIT 20.9 % (36.0-47.0); MEAN CORPUSCULAR VOLUME 87 fl (80-97); PLATELET COUNT 456 10^3/uL (150-450); RED BLOOD COUNT 2.41 10^6/uL (3.72-5.28); RED CELL DISTRIBUTION WIDTH 21.6 % (11.5-14.0); WHITE BLOOD COUNT 14.6 10^3/uL (4.0-10.5)
--- NOTE | 2018-03-17 02:24 | ER Document Report ---
ED General - General Chief Complaint: Sickle Cell Crisis Stated Complaint: BACK PAIN Time Seen by Provider: 03/17/18 01:08 Notes: Patient is a 32-year-old female with past medical history of sickle cell anemia with frequent pain crises who presents with diffuse body pain. She states that her pain is primarily located along her back and legs. She describes it as a throbbing, aching, constant pain not have access to narcotic pain medications at home as she states that she left these in [place]. She has not spoken to her flight engineer regarding today's concerns. She denies any associated fever or constitutional symptoms. No cough or shortness of breath. States that her symptoms started approximately 24 hours ago and have been progressively worsening since that time. She states this feels identical to prior pain crises that she has had in the past. TRAVEL OUTSIDE OF THE [place] IN LAST 30 DAYS: No - Related Data Allergies/Adverse Reactions: green pepper Allergy (Verified 03/11/18 10:59) Past Medical History - General Information source: Patient - Social History Smoking Status: Former Smoker Frequency of alcohol use: None Drug Abuse: None Lives with: Family Family History: Reviewed & Not Pertinent, Other - Sickle trait Patient has suicidal ideation: No Patient has homicidal ideation: No Pulmonary Medical History: Reports: Hx Pneumonia - yearly since 2003 (last time 07/2012) Renal/ Medical History: Denies: Hx Peritoneal Dialysis Malignancy Medical History: Reports: Hx Renal (Kidney) Cancer GI Medical History: Denies: Hx Pancreatitis Psychiatric Medical History: Reports: Hx Depression Past Surgical History: Reports: Hx Cholecystectomy, Hx Kidney (Renal Surgery) - part of left kidney removed., Hx Orthopedic Surgery - L Femur, L FINGER, Other - Partial left nephrectomy for renal cell carcinoma - Immunizations Immunizations up to date: Yes Hx Diphtheria, Pertussis, Tetanus Vaccination: Yes - 2017 Hx Pneumococcal Vaccination: 07/21/12 Review of Systems - Review of Systems Notes: Constitutional: Negative for fever. HENT: Negative for sore throat. Eyes: Negative for visual changes. Cardiovascular: Negative for chest pain. Respiratory: Negative for shortness of breath. Gastrointestinal: Negative for abdominal pain, vomiting or diarrhea. Genitourinary: Negative for dysuria. Musculoskeletal: Positive for upper back pain and leg pain Skin: Negative for rash. Neurological: Negative for headaches, weakness or numbness. 10 point ROS negative except as marked above and in HPI. Physical Exam - Vital signs Vitals: Temp Pulse Resp BP Pulse Ox 99.1 F 78 16 113/78 98 03/17/18 00:15 03/17/18 00:15 03/17/18 00:15 03/17/18 00:15 03/17/18 00:15 Interpretation: Normal Notes: PHYSICAL EXAMINATION: GENERAL: Well-appearing, well-nourished and in no acute distress. HEAD: Atraumatic, normocephalic. EYES: Pupils equal round and reactive to light, extraocular movements intact, sclera anicteric, conjunctiva are normal. ENT: nares patent, oropharynx clear without exudates. Moist mucous membranes. NECK: Normal range of motion, supple without lymphadenopathy LUNGS: Breath sounds clear to auscultation bilaterally and equal. No wheezes rales or rhonchi. HEART: Regular rate and rhythm without murmurs ABDOMEN: Soft, nontender, normoactive bowel sounds. No guarding, no rebound. No masses appreciated. EXTREMITIES: Normal range of motion, no pitting or edema. No cyanosis. NEUROLOGICAL: No focal neurological deficits. Moves all extremities spontaneously and on command. PSYCH: Normal mood, normal affect. SKIN: Warm, Dry, normal turgor, no rashes or lesions noted. Course - Re-evaluation Re-evalutation: 03/17/18 02:09 Presentation is most consistent with an uncomplicated sickle cell pain crisis. Patient has no evidence of an aplastic crisis on labs. Although her hemoglobin is slightly lower than baseline she routinely has hemoglobins in the range between 7 and 8. I would not transfuse at this time point given her history of recurrent transfusions and lack of any symptoms that would indicate a need for transfusion at this time point. Clinical history and vitals are not consistent with acute chest syndrome. Vitals have remained within normal limits here in the emergency department. Patient's pain has been able to be controlled using IV analgesia. The patient is agreeable to discharge home at this time. I recommended that they follow closely with their primary flight engineer. Return precautions have been reviewed and discussed and patient has verbalized indications to return to the emergency department. - Vital Signs Vital signs: Temp Pulse Resp BP Pulse Ox 99.1 F 78 16 113/78 98 03/17/18 00:15 03/17/18 00:15 03/17/18 00:15 03/17/18 00:15 03/17/18 00:15 - Laboratory Result Diagrams: 03/17/18 02:05 03/17/18 02:05 Laboratory results interpreted by me: 03/17/18 03/17/18 02:05 02:05 WBC 14.6 H RBC 2.41 L Hgb 7.0 L Hct 20.9 L RDW 21.6 H Plt Count 456 H Abs Lymphs (Manual) 6.0 H Retic Count (auto) 5.00 H Sodium 145.2 H Chloride 111 H Carbon Dioxide 21 L BUN 6 L Creatinine 0.34 L Discharge - Discharge Clinical Impression: Sickle cell anemia with crisis, Sickle cell pain crisis Anemia Qualifiers: Anemia type: unspecified type Qualified Code(s): D64.9 - Anemia, unspecified Condition: Good Disposition: HOME, SELF-CARE Additional Instructions: You were seen today for sickle cell pain crisis. Please follow-up with your flight engineer. Returning to the ED if you have worsening pain, fever greater than 100.4, shortness of breath, persistent vomiting, or any other symptoms that are concerning to you. Referrals: AIDEN ALEMAN PA-C [Primary Care Provider] - Follow up as needed
[2018-03-17 02:36] LABS: ANION GAP 13 (5-19); BLOOD UREA NITROGEN 6 mg/dL (7-20); CALCIUM 9.5 mg/dL (8.4-10.2); CARBON DIOXIDE 21 mmol/L (22-30); CHLORIDE 111 mmol/L (98-107); GLUCOSE 99 mg/dL (75-110); POTASSIUM 3.6 mmol/L (3.6-5.0); SODIUM 145.2 mmol/L (137-145)
[2018-03-17 02:40] LABS: ABSOLUTE NEUTROPHILS# (MANUAL) 7.6 10^3/uL (1.7-8.2); BASOPHILS % (MANUAL) 0 % (0-2); EOSINOPHILS % (MANUAL) 0 % (0-6); LYMPHOCYTES % (MANUAL) 41 % (13-45); MONOCYTES % (MANUAL) 7 % (3-13); SEGMENTED NEUTROPHILS % (MAN) 52 % (42-78); TOTAL CELLS COUNTED 100
[2018-03-17 02:43] LABS: ANISOCYTOSIS 3+; OVALOCYTES SLIGHT; PLATELET COMMENT INCREASED; POIKILOCYTOSIS 2+; POLYCHROMASIA SLIGHT; SICKLE RED CELLS 2+; TARGET CELLS SLIGHT; TEAR DROP CELLS SLIGHT; TOXIC VACUOLATION PRESENT
[2018-03-17 02:46] LABS: MEAN CORPUSCULAR HGB CONC 33.5 g/dL (32.0-36.0)
[2018-03-17 02:47] LABS: MEAN CORPUSCULAR HEMOGLOBIN 29.1 pg (27.0-33.4)
[2018-03-17 05:56] VITALS: BP 109/61
== END 2018-03-17 05:30 | disposition home or self-care (01) ==
LOC: ER 00:08
DX: D57.00 Hb-SS disease with crisis, unspecified (principal); D64.9 Anemia, unspecified; M54.6 Pain in thoracic spine; M79.606 Pain in leg, unspecified; M54.9 Dorsalgia, unspecified; Z87.891 Personal history of nicotine dependence
CPT/HCPCS: 36591; 99284; 96374; 36415; 85025; 85045; 80048; J2270

== ENCOUNTER 2018-03-25 12:14 | Emergency (ER) | payer MEDICARE, MEDICAID ==
[2018-03-25 12:59] LABS: ANION GAP 11 (5-19); BLOOD UREA NITROGEN 7 mg/dL (7-20); CALCIUM 9.9 mg/dL (8.4-10.2); CARBON DIOXIDE 23 mmol/L (22-30); CHLORIDE 107 mmol/L (98-107); CREATINE KINASE 53 U/L (30-135); GLUCOSE 89 mg/dL (75-110); LDH 1957 U/L (313-618); POTASSIUM 4.4 mmol/L (3.6-5.0); SODIUM 141.2 mmol/L (137-145)
[2018-03-25] MEDS ORDERED: KETOROLAC TROMETHAMINE INJ/PF 30 MG/1 ML SDV IV ONE (13:04)
[2018-03-25] MEDS ORDERED: NORMAL SALINE 1000 ML 1,000 ML IV ONE (13:04)
[2018-03-25 13:14] LABS: ABSOLUTE RETICS # 0.115 10^6/uL (0.028-0.122); HEMATOCRIT 21.2 % (36.0-47.0); MEAN CORPUSCULAR VOLUME 86 fl (80-97); PLATELET COUNT 358 10^3/uL (150-450); RED BLOOD COUNT 2.45 10^6/uL (3.72-5.28); RED CELL DISTRIBUTION WIDTH 22.2 % (11.5-14.0); RETICULOCYTE COUNT (AUTO) 4.69 % (0.66-2.85); WHITE BLOOD COUNT 11.1 10^3/uL (4.0-10.5)
[2018-03-25 13:38] LABS: HEMOGLOBIN 7.1 g/dL (12.0-15.5); MEAN CORPUSCULAR HGB CONC 33.5 g/dL (32.0-36.0)
[2018-03-25] MEDS ORDERED: FENTANYL CITRATE INJ/PF 100 MCG/2 ML AMPUL IV ONE (13:39)
[2018-03-25 13:45] LABS: ABSOLUTE LYMPHOCYTES# (MANUAL) 2.4 10^3/uL (0.5-4.7); ABSOLUTE MONOCYTES # (MANUAL) 1.2 10^3/uL (0.1-1.4); ABSOLUTE NEUTROPHILS# (MANUAL) 7.1 10^3/uL (1.7-8.2); BASOPHILS % (MANUAL) 0 % (0-2); EOSINOPHILS % (MANUAL) 3 % (0-6); LYMPHOCYTES % (MANUAL) 22 % (13-45); MONOCYTES % (MANUAL) 11 % (3-13); PLATELET COMMENT ADEQUATE; PLATELET LARGE PRESENT; SEGMENTED NEUTROPHILS % (MAN) 64 % (42-78); TOTAL CELLS COUNTED 100; TOXIC GRANULATION SLIGHT
[2018-03-25 13:46] LABS: ANISOCYTOSIS 3+; HOWELL-JOLLY BODIES PRESENT; HYPERSEGMENTED NEUTROPHILS PRESENT; HYPOCHROMASIA 1+; OVALOCYTES 1+; POIKILOCYTOSIS 3+; POLYCHROMASIA 2+; SCHISTOCYTES 1+; SICKLE RED CELLS 2+; TARGET CELLS SLIGHT
--- NOTE | 2018-03-25 15:17 | RADIOLOGY REPORT (SQ) ---
EXAM DESCRIPTION: HIP BILATERAL COMPLETED DATE/TIME: 03/25/2018 3:05 pm REASON FOR STUDY: hx ss pain COMPARISON: CT abdomen and pelvis dated 11/10/2017. NUMBER OF VIEWS: Two views TECHNIQUE: AP pelvis and additional frog-leg view of both hips. LIMITATIONS: None. FINDINGS: MINERALIZATION: Normal. HIPS: Stable deformity of the femoral heads, right greater than left. No acute fracture or dislocati on. No worrisome bone lesions. PELVIS AND SACRUM: No acute fracture or dislocation. No worrisome bone lesions. PUBIS AND ISCHIUM: No acute fracture. LOWER LUMBAR SPINE: No significant findings as visualized. SOFT TISSUES: No findings. OTHER: No other significant finding. IMPRESSION: STABLE DEFORMITY OF THE FEMORAL HEADS, RIGHT GREATER THAN LEFT, CONSISTENT WITH AVASCULA R NECROSIS. NO ACUTE FINDINGS. TECHNICAL DOCUMENTATION: JOB ID: [id number] [employer]- All Rights Reserved Reading location - IP/workstation name: [email or web address]
--- NOTE | 2018-03-25 15:29 | ER Document Report ---
ED General - General Chief Complaint: Sickle Cell Crisis Stated Complaint: BODY PAIN Time Seen by Provider: 03/25/18 12:22 TRAVEL OUTSIDE OF THE [place] IN LAST 30 DAYS: No - HPI Patient complains to provider of: Bilateral hip pain history of sickle cell disease Notes: Patient coming in with a history of sickle cell disease bilateral hip pain history of bilateral osteonecrosis. Patient states compliance with her pain regimen of fentanyl patches and oxycodone however pain increased therefore came to the ER for further evaluation. Patient denies any fevers denies any chest pain denies any lightheadedness or dizziness. Patient otherwise looks very comfortable upon my initial evaluation patient did receive a dose of fentanyl prior to arrival. - Related Data Allergies/Adverse Reactions: green pepper Allergy (Verified 03/25/18 12:48) Past Medical History - Social History Smoking Status: Former Smoker Family History: Reviewed & Not Pertinent, Other - Sickle trait Patient has suicidal ideation: No Patient has homicidal ideation: No Pulmonary Medical History: Reports: Hx Pneumonia - yearly since 2003 (last time 07/2012) Renal/ Medical History: Denies: Hx Peritoneal Dialysis Malignancy Medical History: Reports: Hx Renal (Kidney) Cancer GI Medical History: Denies: Hx Pancreatitis Psychiatric Medical History: Reports: Hx Depression Past Surgical History: Reports: Hx Cholecystectomy, Hx Kidney (Renal Surgery) - part of left kidney removed., Hx Orthopedic Surgery - L Femur, L FINGER, Other - Partial left nephrectomy for renal cell carcinoma - Immunizations Immunizations up to date: Yes Hx Diphtheria, Pertussis, Tetanus Vaccination: Yes - 2016 Hx Pneumococcal Vaccination: 07/21/12 Review of Systems - Review of Systems Constitutional: No symptoms reported EENT: No symptoms reported Cardiovascular: No symptoms reported Respiratory: No symptoms reported Gastrointestinal: No symptoms reported Genitourinary: No symptoms reported Female Genitourinary: No symptoms reported Musculoskeletal: Other - bilateral hip pain Skin: No symptoms reported Hematologic/Lymphatic: No symptoms reported Neurological/Psychological: No symptoms reported Physical Exam - Vital signs Vitals: Temp 98.3 F 03/25/18 12:35 Interpretation: Normal - General General appearance: Appears well, Alert - HEENT Head: Normocephalic, Atraumatic Eyes: Normal Pupils: PERRL - Respiratory Respiratory status: No respiratory distress Chest status: Nontender Breath sounds: Normal Chest palpation: Normal - Cardiovascular Rhythm: Regular Heart sounds: Normal auscultation Murmur: No - Abdominal Inspection: Normal Distension: No distension Bowel sounds: Normal Tenderness: Nontender Organomegaly: No organomegaly - Back Back: Normal, Nontender - Extremities General upper extremity: Normal inspection, Nontender, Normal color, Normal ROM , Normal temperature General lower extremity: Normal inspection, Tender - Mild tenderness bilateral hips patient initially upon examination is sitting with her knees bent up she is able to straighten her legs out and sit up for auscultation on lung examination and lay back flat on her own power with no assistance, Normal color , Normal ROM, Normal temperature - Neurological Neuro grossly intact: Yes Cognition: Normal Orientation: AAOx4 Neto Coma Scale Eye Opening: Spontaneous Neto Coma Scale Verbal: Oriented Neto Coma Scale Motor: Obeys Commands Neto Coma Scale Total: 15 Speech: Normal Motor strength normal: LUE, RUE, LLE, RLE Sensory: Normal - Psychological Associated symptoms: Normal affect, Normal mood - Skin Skin Temperature: Warm Skin Moisture: Dry Skin Color: Normal Course - Re-evaluation Re-evalutation: 03/25/18 16:18 X-rays confirm chronic changes to bilateral hips consistent with osteonecrosis no acute changes. Hemoglobin and hematocrit have increased since last visit reticulocyte count has gone down since last visit. Patient is LDH slightly elevated at 1900 this looks to be about baseline for the patient. Patient initially did have a low blood pressure has not to get any further narcotic medication after IV fluids ketorolac and to give a dose of fentanyl 100 mg at the disks patient was evaluated sleeping easily arousable I did contact the patient's wood scrap handler Dr. Chen agrees with assessment plan at this time and discharged to follow-up with her as needed per Dr. Chen as requested no further narcotic prescriptions were given - Vital Signs Vital signs: Temp Pulse Resp BP Pulse Ox 98.3 F 22 H 99/71 L 100 03/25/18 15:39 03/25/18 15:40 03/25/18 15:40 03/25/18 15:40 - Laboratory Result Diagrams: 03/25/18 12:22 03/25/18 12:22 Laboratory results interpreted by me: 03/25/18 03/25/18 12:22 12:22 WBC 11.1 H RBC 2.45 L Hgb 7.1 L Hct 21.2 L RDW 22.2 H Retic Count (auto) 4.69 H Creatinine 0.46 L Lactate Dehydrogenase 1957 H Discharge - Discharge Clinical Impression: Sickle cell anemia with pain, Bilateral hip osteonecrosis Condition: Good Disposition: HOME, SELF-CARE Instructions: Sickle Cell Crisis ([facility]) Additional Instructions: Laboratory studies today do not show any signs of significant anemia requiring transfusion at this time following her last evaluation here easily aroused and sleeping your pain was to be controlled at this time. I did discuss her case with Dr. Chen agrees our plan to discharge you follow-up at her next scheduled visit return for any critical pathology or concerns Referrals: IADEN ALEMAN PA-C [Primary Care Provider] - Follow up as needed
[2018-03-25 15:41] VITALS: BP 99/71
== END 2018-03-25 15:46 | disposition home or self-care (01) ==
LOC: ER 12:14
DX: M87.9 Osteonecrosis, unspecified (principal); Z79.891 Long term (current) use of opiate analgesic; D57.1 Sickle-cell disease without crisis; Z91.018 Allergy to other foods; Z87.891 Personal history of nicotine dependence; Z85.528 Personal history of other malignant neoplasm of kidney
CPT/HCPCS: 99284; 96361; 96374; 96375; 36415; 82550; 84702; 83615; 85025; 85045; 80048; 73522; J3010; J1885; J7030

== ENCOUNTER 2018-04-16 14:50 | Emergency (ER) | payer MEDICARE, MEDICAID ==
[2018-04-16] MEDS ORDERED: FENTANYL CITRATE INJ/PF 100 MCG/2 ML AMPUL IV ONE (16:05)
[2018-04-16] MEDS ORDERED: NORMAL SALINE 1000 ML 1,000 ML IV ONE (16:05)
--- NOTE | 2018-04-16 16:07 | ER Document Report ---
ED Medical Screen (RME) - General Chief Complaint: Pain All Over Stated Complaint: HIP PAIN Time Seen by Provider: 04/16/18 16:00 Notes: RAPID MEDICAL EVALUATION DISCLOSURE I have seen this patient as part of a Rapid Medical Evaluation and, if applicable, placed any initially appropriate orders. The patient will be seen and fully evaluated, including a full history and physical exam, by a provider ( in Main ED or Fast Track) when a room becomes available. 32-year-old female PMH sickle cell here with complaints of bilateral arm pain that started approximately 13 hours ago and woke her up out of sleep. She states these are the typical symptoms for sickle cell crisis. She also has some ongoing chronic bilateral hip pain for the past 2 months and it is due to osteonecrosis for which she has a surgical procedure coming up in the near future. She has tried oxycodone with minimal relief. Her pipe tester is with [facility]. EXAM CTAB RRR TRAVEL OUTSIDE OF THE [place] IN LAST 30 DAYS: No - Related Data Allergies/Adverse Reactions: green pepper Allergy (Verified 04/16/18 14:52) Past Medical History - Social History Chew tobacco use (# tins/day): No Frequency of alcohol use: None Drug Abuse: None Pulmonary Medical History: Reports: Hx Pneumonia - yearly since 2003 (last time 07/2012) Renal/ Medical History: Denies: Hx Peritoneal Dialysis Malignancy Medical History: Reports: Hx Renal (Kidney) Cancer GI Medical History: Denies: Hx Pancreatitis Psychiatric Medical History: Reports: Hx Depression Past Surgical History: Reports: Hx Cholecystectomy, Hx Kidney (Renal Surgery) - part of left kidney removed., Hx Orthopedic Surgery - L Femur, Other - Partial left nephrectomy for renal cell carcinoma - Immunizations Immunizations up to date: Yes Hx Diphtheria, Pertussis, Tetanus Vaccination: Yes - 2016 History of Influenza Vaccine for 07/2017 - 12/2017 Season: Yes Influenza Administration Date for 07/2017 - 12/2017 Season: 07/21/17 Physical Exam - Vital signs Vitals: Temp Pulse Resp BP Pulse Ox 99.0 F 83 16 100/76 100 04/16/18 15:09 04/16/18 15:09 04/16/18 15:09 04/16/18 15:09 04/16/18 15:09 Course - Vital Signs Vital signs: Temp Pulse Resp BP Pulse Ox 99.0 F 83 16 100/76 100 04/16/18 15:09 04/16/18 15:09 04/16/18 15:09 04/16/18 15:09 04/16/18 15:09 Doctor's Discharge - Discharge Referrals: AIDEN ALEMAN PA-C [Primary Care Provider] - Follow up as needed
[2018-04-16 17:48] LABS: ABSOLUTE BASOPHILS # (AUTO) 0.1 10^3/uL (0.0-0.2); ABSOLUTE EOSINOPHILS # (AUTO) 0.5 10^3/uL (0.0-0.6); ABSOLUTE LYMPHOCYTES (AUTO) 3.8 10^3/uL (0.5-4.7); ABSOLUTE MONOCYTES (AUTO) 1.5 10^3/uL (0.1-1.4); ABSOLUTE NEUT (AUTO) 3.5 10^3/uL (1.7-8.2); ABSOLUTE RETICS # 0.142 10^6/uL (0.028-0.122); BASOPHILS % (AUTO) 1.2 % (0-2); HEMATOCRIT 23.6 % (36.0-47.0); HEMOGLOBIN 8.6 g/dL (12.0-15.5); LYMPHOCYTES % (AUTO) 40.4 % (13-45); MEAN CORPUSCULAR HEMOGLOBIN 32.1 pg (27.0-33.4); MEAN CORPUSCULAR HGB CONC 36.5 g/dL (32.0-36.0); MEAN CORPUSCULAR VOLUME 88 fl (80-97); MONOCYTES % (AUTO) 15.8 % (3-13); PLATELET COUNT 554 10^3/uL (150-450); RED BLOOD COUNT 2.69 10^6/uL (3.72-5.28); RED CELL DISTRIBUTION WIDTH 19.6 % (11.5-14.0); RETICULOCYTE COUNT (AUTO) 5.27 % (0.66-2.85); SEGMENTED NEUTROPHILS % (AUTO) 37.6 % (42-78); TOTAL CELLS COUNTED % (AUTO) 100 %; WHITE BLOOD COUNT 9.4 10^3/uL (4.0-10.5)
[2018-04-16 18:05] LABS: ALANINE AMINOTRANSFERASE 20 U/L (9-52); ALBUMIN 4.5 g/dL (3.5-5.0); ALKALINE PHOSPHATASE 100 U/L (38-126); ANION GAP 9 (5-19); ASPARTATE AMINO TRANSFERASE 42 U/L (14-36); BILIRUBIN,DIRECT 0.5 mg/dL (0.0-0.4); BILIRUBIN,TOTAL 2.7 mg/dL (0.2-1.3); BLOOD UREA NITROGEN 4 mg/dL (7-20); CALCIUM 9.3 mg/dL (8.4-10.2); CARBON DIOXIDE 24 mmol/L (22-30); CHLORIDE 110 mmol/L (98-107); GLUCOSE 81 mg/dL (75-110); POTASSIUM 3.1 mmol/L (3.6-5.0); SODIUM 143.1 mmol/L (137-145)
[2018-04-16] MEDS ORDERED: HYDROMORPHONE HCL INJ/PF 2 MG/ML AMPULE IV ONE (18:06)
--- NOTE | 2018-04-16 18:08 | ER Document Report ---
ED General Pain - General Chief Complaint: Pain All Over Stated Complaint: HIP PAIN Time Seen by Provider: 04/16/18 16:00 Information source: Patient Notes: Patient presents with a history of sickle cell disease and complains of a two- month history of left shoulder joint and bilateral hip pain. Patient denies any new injuries. Patient states that she has a history of osteonecrosis and has had chronic hip pain and she is due to have surgery in June of this year. Patient states that she saw her oncologist about her symptoms last week and her oncologist refused to increase her pain medication dosages. Patient states that she only has a few more tablets of her pain medication. Patient denies any fever or recent illness. TRAVEL OUTSIDE OF THE [place] IN LAST 30 DAYS: No - HPI Onset/Duration: Persistent Quality of pain: Sharp Pain Level: 5 Context: Chronic problem, Joint pain. denies: Recent illness Typical of prior episodes of painful crisis: Yes Associated symptoms: denies: Fever Exacerbated by: Movement Relieved by: Denies Similar symptoms previously: Yes Recently seen / treated by doctor: Yes - Related Data Allergies/Adverse Reactions: green pepper Allergy (Verified 04/16/18 14:52) Past Medical History - General Information source: Patient - Social History Smoking Status: Former Smoker Chew tobacco use (# tins/day): No Frequency of alcohol use: None Drug Abuse: None Occupation: None Lives with: Family Family History: Reviewed & Not Pertinent, Other - Sickle trait Patient has suicidal ideation: No Patient has homicidal ideation: No - Medical History Medical History: Other - Sickle cell disease Pulmonary Medical History: Reports: Hx Pneumonia - yearly since 2003 (last time 07/2012) Renal/ Medical History: Denies: Hx Peritoneal Dialysis Malignancy Medical History: Reports: Hx Renal (Kidney) Cancer GI Medical History: Denies: Hx Pancreatitis Musculoskeltal Medical History: Reports Other - Osteonecrosis Psychiatric Medical History: Reports: Hx Depression Past Surgical History: Reports: Hx Cholecystectomy, Hx Kidney (Renal Surgery) - part of left kidney removed., Hx Orthopedic Surgery - L Femur, Other - Partial left nephrectomy for renal cell carcinoma - Immunizations Immunizations up to date: Yes Hx Diphtheria, Pertussis, Tetanus Vaccination: Yes - 2016 Hx Pneumococcal Vaccination: 07/21/12 Review of Systems - Review of Systems Constitutional: No symptoms reported. denies: Fever, Recent illness EENT: No symptoms reported Cardiovascular: No symptoms reported. denies: Chest pain Respiratory: No symptoms reported. denies: Cough, Short of breath Gastrointestinal: No symptoms reported. denies: Vomiting Genitourinary: No symptoms reported. denies: Dysuria, Flank pain Female Genitourinary: No symptoms reported Musculoskeletal: Joint pain - Bilateral hip, left shoulder. denies: Back pain Skin: No symptoms reported. denies: Rash Hematologic/Lymphatic: No symptoms reported Neurological/Psychological: No symptoms reported Physical Exam - Vital signs Vitals: Temp Pulse Resp BP Pulse Ox 99.0 F 83 16 100/76 100 04/16/18 15:09 04/16/18 15:09 04/16/18 15:09 04/16/18 15:09 04/16/18 15:09 - General General appearance: Appears well, Alert In distress: None - HEENT Head: Normocephalic, Atraumatic Eyes: Normal Conjunctiva: Normal Nasal: Normal Mouth/Lips: Caries, Dental fracture Neck: Normal, Supple. No: Lymphadenopathy, Meningismus - Respiratory Respiratory status: No respiratory distress Chest status: Nontender Breath sounds: Normal. No: Rales, Rhonchi, Stridor, Wheezing Chest palpation: Normal - Cardiovascular Rhythm: Regular Heart sounds: S1 appreciated, S2 appreciated Murmur: No - Abdominal Inspection: Normal Distension: No distension Bowel sounds: Normal Tenderness: Nontender Organomegaly: No organomegaly - Back Back: Normal, Nontender. No: CVA tenderness - Extremities General upper extremity: Normal inspection, Normal ROM General lower extremity: Normal inspection, Normal ROM Shoulder: Tender - Left shoulder joint tenderness worse with range of motion Arm: Normal, Nontender Elbow: Normal, Nontender Forearm: Normal, Nontender Wrist: Normal, Nontender Hand: Normal, Nontender Hip: Tender - Bilateral hip joint tenderness worse to the right side, normal skin color and temperature overlying joint., Pain with ROM. No: Deformity, Dislocation, Laceration Thigh: Normal, Nontender Knee: Normal, Nontender Ankle: Normal, Nontender - Neurological Neuro grossly intact: Yes Cognition: Normal [place] Coma Scale Eye Opening: Spontaneous [place] Coma Scale Verbal: Oriented [place] Coma Scale Motor: Obeys Commands [place] Coma Scale Total: 15 - Psychological Associated symptoms: Tearful - Skin Skin Temperature: Warm Skin Moisture: Dry Skin Color: Normal Course - Re-evaluation Re-evalutation: 04/16/18 18:58 Patient reports that she is concerned that she might have possibly injured her left shoulder joint and would like to have it x-rayed. Patient denies any specific injury. 04/16/18 20:[address] Tran regarding patient presentation and diagnostic evaluation. Agrees with discharge plan of care at this time. Encourages outpatient follow-up with patient's primary doctor who writes her prescriptions for her narcotics. Patient without any chest pain abdominal pain or back pain. Patient with chronic bilateral hip pain for which she is being treated for osteo-necrosis and is due to have hip surgery in June this year. Patient' s left shoulder joint without any objective abnormality. Patient nontoxic in appearance, afebrile without any leukocytosis. - Vital Signs Vital signs: Temp Pulse Resp BP Pulse Ox 98.5 F 83 16 115/72 96 04/16/18 20:30 04/16/18 20:30 04/16/18 20:30 04/16/18 20:30 04/16/18 20:30 - Laboratory Result Diagrams: 04/16/18 17:31 04/16/18 17:31 Laboratory results interpreted by me: 04/16/18 04/16/18 17:31 17:31 RBC 2.69 L Hgb 8.6 L Hct 23.6 L MCHC 36.5 H RDW 19.6 H Plt Count 554 H Seg Neutrophils % 37.6 L Monocytes % 15.8 H Absolute Monocytes 1.5 H Retic Count (auto) 5.27 H Absolute Retic 0.142 H Potassium 3.1 L Chloride 110 H BUN 4 L Creatinine 0.49 L Total Bilirubin 2.7 H Direct Bilirubin 0.5 H AST 42 H Total Protein 9.0 H 04/16/18 20:01 Labs- Entire Visit 04/16/18 04/16/18 04/16/18 17:31 17:31 17:31 WBC 9.4 RBC 2.69 L Hgb 8.6 L Hct 23.6 L MCV 88 MCH 32.1 MCHC 36.5 H RDW 19.6 H Plt Count 554 H Seg Neutrophils % 37.6 L Lymphocytes % 40.4 Monocytes % 15.8 H Eosinophils % 5.0 Basophils % 1.2 Absolute Neutrophils 3.5 Absolute Lymphocytes 3.8 Absolute Monocytes 1.5 H Absolute Eosinophils 0.5 Absolute Basophils 0.1 Toxic Granulation SLIGHT Large Platelets PRESENT Platelet Comment INCREASED Poikilocytosis SLIGHT Anisocytosis 2+ Sickle Cells 1+ Target Cells SLIGHT Ovalocytes SLIGHT Retic Count (auto) 5.27 H Absolute Retic 0.142 H Sodium 143.1 Potassium 3.1 L Chloride 110 H Carbon Dioxide 24 Anion Gap 9 BUN 4 L Creatinine 0.49 L Est GFR ( Amer) > 60 Est GFR (Non-Af Amer) > 60 Glucose 81 Calcium 9.3 Magnesium 2.0 Total Bilirubin 2.7 H Direct Bilirubin 0.5 H Neonat Total Bilirubin Not Reportable Neonat Direct Bilirubin Not Reportable Neonat Indirect Bili Not Reportable AST 42 H ALT 20 Alkaline Phosphatase 100 Total Protein 9.0 H Albumin 4.5 - Diagnostic Test Radiology reviewed: Reports reviewed Discharge - Discharge Clinical Impression: Hypokalemia Anemia Qualifiers: Anemia type: unspecified type Qualified Code(s): D64.9 - Anemia, unspecified Chronic pain Qualifiers: Chronic pain type: other chronic pain Qualified Code(s): G89.29 - Other chronic pain Sickle cell disease Qualifiers: Sickle-cell associated disorders: without crisis Qualified Code(s): D57.1 - Sickle-cell disease without crisis Condition: Stable Disposition: HOME, SELF-CARE Instructions: Chronic Pain Control ([facility]), Hypokalemia ([facility]), Sickle Cell Crisis ([facility]) Additional Instructions: Return immediately for any new or worsening symptoms Followup with your primary care provider, call tomorrow to make a followup appointment Follow-up with Dr. Pink tomorrow for further evaluation. If your medications need to be adjusted she will have to be the one to refill your narcotic prescriptions. Your potassium level was decreased today. Increase diet with foods rich in potassium. Your primary doctor or Dr. Pink will have to recheck your electrolytes. Call tomorrow for an appointment time. Referrals: AIDEN ALEMAN PA-C [NO LOCAL MD] - Follow up tomorrow LUPE PINK MD [ACTIVE STAFF] - Follow up tomorrow
[2018-04-16 18:20] LABS: ANISOCYTOSIS 2+; OVALOCYTES SLIGHT; POIKILOCYTOSIS SLIGHT; SICKLE RED CELLS 1+; TARGET CELLS SLIGHT; TOXIC GRANULATION SLIGHT
[2018-04-16 18:21] LABS: PLATELET COMMENT INCREASED; PLATELET LARGE PRESENT
[2018-04-16] MEDS ORDERED: POTASSIUM CHLORIDE 10 MEQ CAPSULE.ER PO ONE ×2 (18:31→19:59)
--- NOTE | 2018-04-16 19:24 | RADIOLOGY REPORT (SQ) ---
EXAM DESCRIPTION: SHOULDER LEFT 2 OR MORE VIEWS COMPLETED DATE/TIME: 04/16/2018 7:14 pm REASON FOR STUDY: left shoulder joint pain COMPARISON: None. NUMBER OF VIEWS: Three views. TECHNIQUE: Internal rotation, external rotation, and Y view images acquired of the left shoulder. LIMITATIONS: None. FINDINGS: MINERALIZATION: Normal. BONES: No acute fracture or dislocation. No worrisome bone lesions. JOINTS: No dislocation. VISUALIZED LUNGS AND RIBS: No pneumothorax. No rib fracture. SOFT TISSUES: No radiopaque foreign body. OTHER: No other significant finding. IMPRESSION: NEGATIVE STUDY OF THE LEFT SHOULDER. NO RADIOGRAPHIC EVIDENCE OF ACUTE INJURY. TECHNICAL DOCUMENTATION: JOB ID: [id number] [email or web address]- All Rights Reserved Reading location - IP/workstation name: [email or web address]
[2018-04-16] MEDS ORDERED: IBUPROFEN 400 MG TABLET PO ONE (19:59)
[2018-04-16 20:32] VITALS: BP 115/72
--- NOTE | 2018-04-17 07:53 | EKG REPORT ---
SEVERITY:- ABNORMAL ECG - SINUS RHYTHM VENTRICULAR PREMATURE COMPLEX PROBABLE LEFT ATRIAL ABNORMALITY PROBABLE LEFT VENTRICULAR HYPERTROPHY PROLONGED QT INTERVAL : Confirmed by: Thea Bains MD 17-Apr-2018 07:51:59
== END 2018-04-16 20:33 | disposition home or self-care (01) ==
LOC: ER 14:50
DX: D57.1 Sickle-cell disease without crisis (principal); E87.6 Hypokalemia; D64.9 Anemia, unspecified; G89.29 Other chronic pain; M25.512 Pain in left shoulder; M25.551 Pain in right hip; M25.552 Pain in left hip; M25.50 Pain in unspecified joint; Z79.899 Other long term (current) drug therapy; Z87.891 Personal history of nicotine dependence
CPT/HCPCS: 93005; 36591; 99284; 96361; 96374; 96375; 36415; 83735; 85025; 85045; 80053; 73030; 93010; J3010; A9270 ×2; J1170; J7030; J3490

== ENCOUNTER 2018-05-06 13:11 | Emergency (ER) | payer MEDICARE, MEDICAID ==
[2018-05-06] MEDS ORDERED: HYDROMORPHONE HCL INJ/PF 2 MG/ML AMPULE IM ONE (14:10)
[2018-05-06] MEDS ORDERED: KETOROLAC TROMETHAMINE INJ/PF 30 MG/1 ML SDV IM ONE (14:11)
[2018-05-06] MEDS ORDERED: ONDANSETRON 4 MG TAB.RAPDIS PO ONE (14:11)
--- NOTE | 2018-05-06 14:17 | ER Document Report ---
ED Hip Pain/Injury - General Chief Complaint: Hip Pain Stated Complaint: HIP PAIN Time Seen by Provider: 05/06/18 14:01 Mode of Arrival: Ambulatory Information source: Patient Notes: 32-year-old female female breech chronic pain to her right hip. She states she scheduled for hip replacement on 07/01/2018. She states she has severe pain in the hip to the point it is macular so she has no appetite is nauseated and does not want to react with people. She states she does have a history of sickle cell anemia. She states usually when she comes in the emergency room they control her pain and then sent her home to use her chronic pain management of 25 Quan patches of fentanyl and OxyContin 10/325 she is alert and oriented respirations regular unlabored speaking in full sentences and very agitated and clipped in her speech. TRAVEL OUTSIDE OF THE [place] IN LAST 30 DAYS: No - HPI Patient complains to provider of: Pain - Chronic, Hip Occurred: Other Onset/Duration: Persistent Quality of pain: Sharp Severity: Severe Pain Level: 5 Context: Other - Chronic Symptoms since fall: Dizzy/light-headed, Other - No appetite and nausea Skin Color: Normal Rotation of extremity: None Pain with palpation of the pelvis: Yes - Related Data Allergies/Adverse Reactions: green pepper Allergy (Verified 05/06/18 13:12) No Known Drug Intolerances Allergy (Verified 05/06/18 13:12) Past Medical History - General Information source: Patient - Social History Smoking Status: Former Smoker Cigarette use (# per day): No Chew tobacco use (# tins/day): No Smoking Education Provided: No Frequency of alcohol use: None Drug Abuse: None Lives with: Family Family History: Reviewed & Not Pertinent, Other - Sickle trait Patient has suicidal ideation: No Patient has homicidal ideation: No - Medical History Medical History: Other - Sickle cell anemia - Past Medical History Cardiac Medical History: Reports: None Pulmonary Medical History: Reports: Hx Pneumonia - yearly since 2003 (last time 07/2012) EENT Medical History: Reports: None Neurological Medical History: Reports: None Endocrine Medical History: Reports: None Renal/ Medical History: Reports: None Malignancy Medical History: Reports: Hx Renal (Kidney) Cancer GI Medical History: Reports: None Musculoskeletal Medical History: Reports Hx Arthritis, Reports Hx Musculoskeletal Deformity, Reports Hx Musculoskeletal Trauma Skin Medical History: Reports None Psychiatric Medical History: Reports: Hx Depression Traumatic Medical History: Reports: None Infectious Medical History: Reports: None Past Surgical History: Reports: Hx Cholecystectomy, Hx Kidney (Renal Surgery) - part of left kidney removed., Hx Orthopedic Surgery - L Femur, Other - Partial left nephrectomy for renal cell carcinoma - Immunizations Immunizations up to date: Yes Hx Diphtheria, Pertussis, Tetanus Vaccination: Yes - 2016 Hx Pneumococcal Vaccination: 07/21/12 Review of Systems - Review of Systems Constitutional: No symptoms reported EENT: No symptoms reported Cardiovascular: No symptoms reported Respiratory: No symptoms reported Gastrointestinal: No symptoms reported Genitourinary: No symptoms reported Female Genitourinary: No symptoms reported Musculoskeletal: Other - Right hip pain Skin: No symptoms reported Hematologic/Lymphatic: No symptoms reported Neurological/Psychological: No symptoms reported -: Yes All other systems reviewed and negative Physical Exam - Vital signs Vitals: Temp Pulse Resp BP Pulse Ox 98.5 F 113 H 16 120/90 H 100 05/06/18 13:05/06/18 13:05/06/18 13:05/06/18 13:05/06/18 13:17 Interpretation: Normal - General General appearance: Appears well, Alert - HEENT Head: Normocephalic, Atraumatic Eyes: Normal Pupils: PERRL - Respiratory Respiratory status: No respiratory distress Chest status: Nontender Breath sounds: Normal Chest palpation: Normal - Cardiovascular Rhythm: Regular Heart sounds: Normal auscultation Murmur: No - Abdominal Inspection: Normal Distension: No distension Bowel sounds: Normal Tenderness: Nontender Organomegaly: No organomegaly - Back Back: Normal, Nontender - Extremities General upper extremity: Normal inspection, Nontender, Normal color, Normal ROM , Normal temperature General lower extremity: Normal color, Normal temperature, Normal weight bearing. No: Dariel's sign Thigh: Tender, Unable to bear weight. No: Deformity, Ecchymosis, Instability, Laceration - Neurological Neuro grossly intact: Yes Cognition: Normal Orientation: AAOx4 [place] Coma Scale Eye Opening: Spontaneous [place]o Coma Scale Verbal: Oriented [place] Coma Scale Motor: Obeys Commands [place] Coma Scale Total: 15 Speech: Normal Motor strength normal: LUE, RUE, LLE, RLE Sensory: Normal - Psychological Associated symptoms: Normal affect, Normal mood - Skin Skin Temperature: Warm Skin Moisture: Dry Skin Color: Normal Course - Re-evaluation Re-evalutation: 05/06/18 20:[address] Tran for this chronic pain patient who states she is having chronic pain to her hip that she is supposed to have an hip replacement in in a month. She has a sickle cell patient. He states to give her 1 injection of 0.5 mg of Dilaudid, Toradol, and Zofran and discharged home to take her chronic pain management medication. She was treated with Toradol, Dilaudid, and Zofran and instructed to follow-up with her primary doctor and her pain management doctor. - Vital Signs Vital signs: Temp Pulse Resp BP Pulse Ox 99.0 F 98 18 128/88 H 100 05/06/18 14:36 05/06/18 14:36 05/06/18 14:36 05/06/18 14:36 05/06/18 14:36 Discharge - Discharge Clinical Impression: Chronic hip pain Qualifiers: Laterality: right Qualified Code(s): M25.551 - Pain in right hip Condition: Stable Disposition: HOME, SELF-CARE Additional Instructions: Chronic Pain Control Stress, inactivity, and depression make pain more severe regardless of the cause of the pain. Stress and poor physical condition can cause pain such as headaches and backache. Relaxation: Rest in a quiet place with your eyes closed for 20 minutes twice daily. Concentrate on a pleasant image, or simply "feel" your breathing. Clear your mind. Stress management: Deal with your "stressors." Either take action, or eliminate the stressor from your life. Don't let things hang over you. Accept those things you can't change. Nutrition: Eat small, balanced meals -- don't skip, don't overeat. Meals should be high-carbohydrate, low-sugar, low-fat. Exercise: Exercise helps painful conditions and eases stress. Get 30 minutes of moderate exercise, five days a week. Do an activity that does not flare your pain. Precautions: Pain which continues to disrupt daily activities, or which changes in nature, requires a medical evaluation. Pain Clinic referral is available. We do not manage chronic pain in the Emergency Department. We will try to appropriately help you through an acute flare of your chronic painful condition , but for on-going chronic pain that does not improve, you will need to see your private doctor or auto body painter. We do not provide repeated medication management of chronic painful conditions. If you wish, we can provide the name of local pain management physicians. Toradol Injection You have been given an injection of ketorolac tromethamine (Toradol). This is an excellent, safe drug for pain control. It also has potent antiinflammatory action. You should have significant pain relief within about one hour. Toradol is not addicting and is non-sedating. It does not interfere with driving or work. Call or return if you develop itching, hives, shortness of breath, or rash. Oral Narcotic Medication You have been given a prescription for pain control. This medication is a narcotic. It's best taken with food, as nausea can result if taken on an empty stomach. Don't operate machinery or drive within six hours of taking this medication. Do not combine this medicine with alcohol, or with any medication which can cause sedation (such as cold tablets or sleeping pills) unless you get permission from the physician. Narcotics tend to cause constipation. If possible, drink plenty of fluids and eat a diet high in fiber and fruits. Antinausea Medication You have been given a medication to suppress nausea and vomiting. This type of medication can be given as a shot, pill, or suppository. It will usually last for many hours. Pills and shots usually last six to eight hours, suppositories last about 12 hours. For the typical illness, only one or two doses of the medication may be necessary. Mild lightheadedness may occur. This type of medicine can cause drowsiness. Do not drive or operate dangerous machinery while under its influence. Do not mix with alcohol. See your doctor at once if you have muscle spasms or tightness, or uncontrollable motions (particularly of the neck, mouth, or jaw). Persistent vomiting or severe lightheadedness should also be evaluated by the physician. FOLLOW-UP CARE: If you have been referred to a physician for follow-up care, call the physician s office for an appointment as you were instructed or within the next two days. If you experience worsening or a significant change in your symptoms, notify the physician immediately or return to the Emergency Department at any time for re-evaluation. Forms: Elevated Blood Pressure Referrals: [facility] [Provider Group] - Follow up tomorrow
[2018-05-06 14:39] VITALS: BP 128/88
== END 2018-05-06 14:38 | disposition home or self-care (01) ==
LOC: ER 13:11
DX: M25.551 Pain in right hip (principal); R42 Dizziness and giddiness; Z87.891 Personal history of nicotine dependence; Z85.528 Personal history of other malignant neoplasm of kidney; Z90.49 Acquired absence of other specified parts of digestive tract
CPT/HCPCS: 99283; 96372; A9270; J1885; J1170; S0119

== ENCOUNTER 2018-05-09 13:44 | Emergency (ER) | payer MEDICARE, MEDICAID ==
[2018-05-09] MEDS ORDERED: DIPHENHYDRAMINE HCL 50 MG/ML VIAL IV ONE (14:22)
[2018-05-09] MEDS ORDERED: HYDROMORPHONE HCL INJ/PF 2 MG/ML AMPULE IV ONE (14:22)
[2018-05-09] MEDS ORDERED: NORMAL SALINE 1000 ML 1,000 ML IV ONE (14:22)
--- NOTE | 2018-05-09 14:24 | ER Document Report ---
ED Medical Screen (RME) - General Chief Complaint: Sickle Cell Crisis Stated Complaint: LEG PAIN Time Seen by Provider: 05/09/18 14:10 Mode of Arrival: Ambulatory Information source: Patient TRAVEL OUTSIDE OF THE [place] IN LAST 30 DAYS: No - HPI Patient complains to provider of: Sickle cell crisis, leg pain, back pain arm pain Notes: 05/09/18 14:23 Patient is a 32-year-old female with a history of sickle cell anemia who presents to the emergency room today complaining of sickle cell crisis with leg pain, occasional low back pain and arm pain, typical of her usual crisis, she denies any chest pain or shortness of breath, no fevers, sees Dr. Chen - Related Data Allergies/Adverse Reactions: green pepper Allergy (Verified 05/06/18 13:12) No Known Drug Intolerances Allergy (Verified 05/06/18 13:12) Past Medical History Pulmonary Medical History: Reports: Hx Pneumonia - yearly since 2003 (last time 07/2012) Renal/ Medical History: Denies: Hx Peritoneal Dialysis Malignancy Medical History: Reports: Hx Renal (Kidney) Cancer GI Medical History: Denies: Hx Pancreatitis Musculoskeltal Medical History: Reports Hx Arthritis, Reports Hx Musculoskeletal Deformity, Reports Hx Musculoskeletal Trauma Psychiatric Medical History: Reports: Hx Depression Past Surgical History: Reports: Hx Cholecystectomy, Hx Kidney (Renal Surgery) - part of left kidney removed., Hx Orthopedic Surgery - L Femur, Other - Partial left nephrectomy for renal cell carcinoma - Immunizations Immunizations up to date: Yes Hx Diphtheria, Pertussis, Tetanus Vaccination: Yes - 2016 History of Influenza Vaccine for 07/2017 - 12/2017 Season: Yes Influenza Administration Date for 07/2017 - 12/2017 Season: 07/21/17 Physical Exam - Vital signs Vitals: Temp Pulse Resp BP Pulse Ox 98.6 F 98 16 117/81 100 05/09/18 13:56 05/09/18 13:56 05/09/18 13:56 05/09/18 13:56 05/09/18 13:56 Course - Vital Signs Vital signs: Temp Pulse Resp BP Pulse Ox 98.6 F 98 16 117/81 100 05/09/18 13:56 05/09/18 13:56 05/09/18 13:56 05/09/18 13:56 05/09/18 13:56 Doctor's Discharge - Discharge Referrals: BUNDLE,AIDEN, PA-C [Primary Care Provider] - Follow up as needed
[2018-05-09 14:49] LABS: APPEARANCE,URINE CLEAR; BILIRUBIN,URINE NEGATIVE (NEGATIVE); COLOR,URINE YELLOW; GLUCOSE, URINE NEGATIVE (NEGATIVE); KETONES,URINE NEGATIVE (NEGATIVE); LEUKOCYTE ESTERASE,URINE SMALL (NEGATIVE); NITRITE,URINE NEGATIVE (NEGATIVE); PROTEIN,URINE NEGATIVE (NEGATIVE); URINE SPECIFIC GRAVITY 1.013
[2018-05-09 15:35] LABS: ABSOLUTE BASOPHILS # (AUTO) 0.1 10^3/uL (0.0-0.2); ABSOLUTE EOSINOPHILS # (AUTO) 0.3 10^3/uL (0.0-0.6); ABSOLUTE LYMPHOCYTES (AUTO) 4.2 10^3/uL (0.5-4.7); ABSOLUTE MONOCYTES (AUTO) 1.1 10^3/uL (0.1-1.4); ABSOLUTE NEUT (AUTO) 5.9 10^3/uL (1.7-8.2); BASOPHILS % (AUTO) 0.8 % (0-2); EOSINOPHILS % (AUTO) 2.3 % (0-6); HEMATOCRIT 25.9 % (36.0-47.0); HEMOGLOBIN 9.3 g/dL (12.0-15.5); LYMPHOCYTES % (AUTO) 36.4 % (13-45); MEAN CORPUSCULAR HEMOGLOBIN 30.6 pg (27.0-33.4); MEAN CORPUSCULAR HGB CONC 35.9 g/dL (32.0-36.0); MEAN CORPUSCULAR VOLUME 85 fl (80-97); MONOCYTES % (AUTO) 9.6 % (3-13); PLATELET COUNT 530 10^3/uL (150-450); RED BLOOD COUNT 3.04 10^6/uL (3.72-5.28); RED CELL DISTRIBUTION WIDTH 20.8 % (11.5-14.0); RETICULOCYTE COUNT (AUTO) 4.27 % (0.66-2.85); SEGMENTED NEUTROPHILS % (AUTO) 50.9 % (42-78); TOTAL CELLS COUNTED % (AUTO) 100 %; WHITE BLOOD COUNT 11.5 10^3/uL (4.0-10.5)
[2018-05-09 15:46] LABS: ALANINE AMINOTRANSFERASE 17 U/L (9-52); ALBUMIN 4.9 g/dL (3.5-5.0); ALKALINE PHOSPHATASE 89 U/L (38-126); ANION GAP 16 (5-19); ASPARTATE AMINO TRANSFERASE 49 U/L (14-36); BILIRUBIN,DIRECT 0.5 mg/dL (0.0-0.4); BILIRUBIN,TOTAL 3.1 mg/dL (0.2-1.3); BLOOD UREA NITROGEN 9 mg/dL (7-20); CALCIUM 10.2 mg/dL (8.4-10.2); CARBON DIOXIDE 21 mmol/L (22-30); CHLORIDE 105 mmol/L (98-107); GLUCOSE 99 mg/dL (75-110); POTASSIUM 4.2 mmol/L (3.6-5.0); SODIUM 142.3 mmol/L (137-145); TOTAL PROTEIN 9.8 g/dL (6.3-8.2)
[2018-05-09 15:59] LABS: ANISOCYTOSIS 2+; PLATELET COMMENT INCREASED; SICKLE RED CELLS 2+
[2018-05-09 16:00] LABS: OVALOCYTES SLIGHT
[2018-05-09 16:01] LABS: POIKILOCYTOSIS 1+; TARGET CELLS 1+
[2018-05-09] MEDS ORDERED: KETOROLAC TROMETHAMINE INJ/PF 30 MG/1 ML SDV IV ONE (16:38)
[2018-05-09] MEDS ORDERED: MORPHINE SULFATE 10 MG/ML INJ IV ONE (16:38)
--- NOTE | 2018-05-09 16:49 | ER Document Report ---
ED General Pain - General Chief Complaint: Sickle Cell Crisis Stated Complaint: LEG PAIN Time Seen by Provider: 05/09/18 14:10 Mode of Arrival: Ambulatory Information source: Patient Notes: Pt is a 32 year old female with sickle cell disease who presents to the ER today for bilateral arm and leg pain. She is on multiple narcotic pain medications at home. She denies chest pain or sob, fever. TRAVEL OUTSIDE OF THE [place] IN LAST 30 DAYS: No - Related Data Allergies/Adverse Reactions: green pepper Allergy (Verified 05/06/18 13:12) No Known Drug Intolerances Allergy (Verified 05/06/18 13:12) Past Medical History - General Information source: Patient - Social History Smoking Status: Never Smoker Chew tobacco use (# tins/day): No Drug Abuse: None Family History: Reviewed & Not Pertinent, Other - Sickle trait Patient has suicidal ideation: No Patient has homicidal ideation: No Pulmonary Medical History: Reports: Hx Pneumonia - yearly since 2003 (last time 07/2012) Renal/ Medical History: Denies: Hx Peritoneal Dialysis Malignancy Medical History: Reports: Hx Renal (Kidney) Cancer GI Medical History: Denies: Hx Pancreatitis Musculoskeletal Medical History: Reports Hx Arthritis, Reports Hx Musculoskeletal Deformity, Reports Hx Musculoskeletal Trauma Psychiatric Medical History: Reports: Hx Depression Past Surgical History: Reports: Hx Cholecystectomy, Hx Kidney (Renal Surgery) - part of left kidney removed., Hx Orthopedic Surgery - L Femur, Other - Partial left nephrectomy for renal cell carcinoma - Immunizations Immunizations up to date: Yes Hx Diphtheria, Pertussis, Tetanus Vaccination: Yes - 2016 Hx Pneumococcal Vaccination: 07/21/12 Review of Systems - Review of Systems Constitutional: No symptoms reported EENT: No symptoms reported Cardiovascular: No symptoms reported Respiratory: No symptoms reported Gastrointestinal: No symptoms reported Genitourinary: No symptoms reported Female Genitourinary: No symptoms reported Musculoskeletal: No symptoms reported Skin: No symptoms reported Hematologic/Lymphatic: See HPI Neurological/Psychological: No symptoms reported Physical Exam - Vital signs Vitals: Temp Pulse Resp BP Pulse Ox 98.6 F 98 16 117/81 100 05/09/18 13:56 05/09/18 13:56 05/09/18 13:56 05/09/18 13:56 05/09/18 13:56 - Notes Notes: PHYSICAL EXAMINATION: GENERAL: chronically ill appearing, but in no acute distress. HEAD: Atraumatic, normocephalic. EYES: Pupils equal round and reactive to light, extraocular movements intact, sclera anicteric, conjunctiva are normal. ENT: airway patent NECK: Normal range of motion, supple without lymphadenopathy LUNGS: CTAB and equal. No wheezes rales or rhonchi. HEART: Regular rate and rhythm without murmurs ABDOMEN: Soft, no tenderness. No guarding, no rebound BACK: no vertebral tenderness, normal ROM GI/: no CVA tenderness EXTREMITIES: Normal range of motion, no pitting edema. No cyanosis. NEUROLOGICAL: Cranial nerves grossly intact. Normal sensory/motor exams. PSYCH: Normal mood, normal affect. SKIN: Warm, Dry, normal turgor, no rashes or lesions noted Course - Re-evaluation Re-evalutation: 05/09/18 23:54 hgb is 9.3, abs retic 0.130 better than usual. vitals are stable. pt received pain medication here. - Vital Signs Vital signs: Temp Pulse Resp BP Pulse Ox 98.2 F 104 H 16 113/89 H 98 05/09/18 17:29 05/09/18 17:29 05/09/18 13:56 05/09/18 17:29 05/09/18 17:29 - Laboratory Result Diagrams: 05/09/18 15:14 05/09/18 15:14 Laboratory results interpreted by me: 05/09/18 05/09/18 05/09/18 14:35 15:14 15:14 WBC 11.5 H RBC 3.04 L Hgb 9.3 L Hct 25.9 L RDW 20.8 H Plt Count 530 H Retic Count (auto) 4.27 H Absolute Retic 0.130 H Carbon Dioxide 21 L Creatinine 0.51 L Total Bilirubin 3.1 H Direct Bilirubin 0.5 H AST 49 H Total Protein 9.8 H Urine Urobilinogen 2.0 H Ur Leukocyte Esterase SMALL H Discharge - Discharge Clinical Impression: Sickle cell anemia Qualifiers: Sickle-cell associated disorders: without crisis Qualified Code(s): D57.1 - Sickle-cell disease without crisis Condition: Stable Disposition: HOME, SELF-CARE Additional Instructions: Return immediately for any new or worsening symptoms. Follow up with primary care provider, call tomorrow to make followup appointment. Referrals: AIDEN ALEMAN PA-C [Primary Care Provider] - Follow up as needed
[2018-05-09 17:31] VITALS: BP 113/89
== END 2018-05-09 17:31 | disposition home or self-care (01) ==
LOC: ER 13:44
DX: D57.1 Sickle-cell disease without crisis (principal); M79.601 Pain in right arm; M79.602 Pain in left arm; M79.604 Pain in right leg; M79.605 Pain in left leg; Z91.018 Allergy to other foods; Z85.528 Personal history of other malignant neoplasm of kidney
CPT/HCPCS: 99284; 96361; 96374; 96375; 36415; 85025; 81025; 85045; 80053; 81001; J1200; J1885; J2270; J1170; J7030

== ENCOUNTER 2018-05-15 11:35 | Emergency (ER) | payer MEDICARE, MEDICAID ==
[2018-05-15] MEDS ORDERED: NORMAL SALINE 1000 ML 1,000 ML IV PRN (12:04)
[2018-05-15] MEDS ORDERED: NORMAL SALINE 1000 ML 1,000 ML IV ONE (12:04)
[2018-05-15] MEDS ORDERED: FENTANYL CITRATE INJ/PF 100 MCG/2 ML AMPUL IV ONE (12:04)
--- NOTE | 2018-05-15 12:06 | ER Document Report ---
ED Medical Screen (RME) - General Chief Complaint: Sickle Cell Crisis Stated Complaint: PAIN ALL OVER Time Seen by Provider: 05/15/18 12:03 Notes: 32 years old female presents today with pain over the left shoulder and right leg. With a history of sickle cell disease. She claims that she takes fentanyl patches which does not stick on her body well therefore sometimes it falls off, has used more than prescribed. Her next refill is coming . She also take oxycodone. No fever chills or other constitutional symptoms. TRAVEL OUTSIDE OF THE [place] IN LAST 30 DAYS: No - Related Data Allergies/Adverse Reactions: green pepper Allergy (Verified 05/15/18 11:36) No Known Drug Intolerances Allergy (Verified 05/15/18 11:36) Past Medical History - Social History Chew tobacco use (# tins/day): No Frequency of alcohol use: None Drug Abuse: None Pulmonary Medical History: Reports: Hx Pneumonia - yearly since 2003 (last time 07/2012) Renal/ Medical History: Denies: Hx Peritoneal Dialysis Malignancy Medical History: Reports: Hx Renal (Kidney) Cancer GI Medical History: Denies: Hx Pancreatitis Musculoskeltal Medical History: Reports Hx Arthritis, Reports Hx Musculoskeletal Deformity, Reports Hx Musculoskeletal Trauma Psychiatric Medical History: Reports: Hx Depression Past Surgical History: Reports: Hx Cholecystectomy, Hx Kidney (Renal Surgery) - part of left kidney removed., Hx Orthopedic Surgery - L Femur, Other - Partial left nephrectomy for renal cell carcinoma - Immunizations Immunizations up to date: Yes Hx Diphtheria, Pertussis, Tetanus Vaccination: Yes - 2016 History of Influenza Vaccine for 07/2017 - 12/2017 Season: Yes Influenza Administration Date for 07/2017 - 12/2017 Season: 07/21/17 Physical Exam - Vital signs Vitals: Temp Pulse Resp BP Pulse Ox 98.7 F 94 20 102/74 92 05/15/18 11:41 05/15/18 11:41 05/15/18 11:41 05/15/18 11:41 05/15/18 11:41 Course - Vital Signs Vital signs: Temp Pulse Resp BP Pulse Ox 98.7 F 94 20 102/74 92 05/15/18 11:41 05/15/18 11:41 05/15/18 11:41 05/15/18 11:41 05/15/18 11:41 Doctor's Discharge - Discharge Referrals: AIDEN ALEMAN PA-C [Primary Care Provider] - Follow up as needed
[2018-05-15] MEDS ORDERED: HYDROMORPHONE HCL INJ/PF 2 MG/ML AMPULE IV ONE ×3 (13:18→16:33)
[2018-05-15 13:25] LABS: ABSOLUTE RETICS # 0.189 10^6/uL (0.028-0.122); HEMOGLOBIN 8.2 g/dL (12.0-15.5); MEAN CORPUSCULAR HEMOGLOBIN 30.7 pg (27.0-33.4); MEAN CORPUSCULAR HGB CONC 35.6 g/dL (32.0-36.0); MEAN CORPUSCULAR VOLUME 86 fl (80-97); PLATELET COUNT 349 10^3/uL (150-450); RED BLOOD COUNT 2.67 10^6/uL (3.72-5.28); RED CELL DISTRIBUTION WIDTH 22.5 % (11.5-14.0); WHITE BLOOD COUNT 10.8 10^3/uL (4.0-10.5)
[2018-05-15 13:42] LABS: ALANINE AMINOTRANSFERASE 19 U/L (9-52); ALBUMIN 4.5 g/dL (3.5-5.0); ALKALINE PHOSPHATASE 83 U/L (38-126); ANION GAP 14 (5-19); ASPARTATE AMINO TRANSFERASE 38 U/L (14-36); BILIRUBIN,DIRECT 0.5 mg/dL (0.0-0.4); BILIRUBIN,TOTAL 3.3 mg/dL (0.2-1.3); BLOOD UREA NITROGEN 6 mg/dL (7-20); CALCIUM 9.6 mg/dL (8.4-10.2); CARBON DIOXIDE 21 mmol/L (22-30); CHLORIDE 108 mmol/L (98-107); GLUCOSE 102 mg/dL (75-110); POTASSIUM 4.2 mmol/L (3.6-5.0); SODIUM 142.5 mmol/L (137-145); TOTAL PROTEIN 8.8 g/dL (6.3-8.2)
[2018-05-15 14:11] LABS: ABSOLUTE LYMPHOCYTES# (MANUAL) 3.8 10^3/uL (0.5-4.7); ABSOLUTE MONOCYTES # (MANUAL) 1.2 10^3/uL (0.1-1.4); ABSOLUTE NEUTROPHILS# (MANUAL) 5.6 10^3/uL (1.7-8.2); ANISOCYTOSIS 2+; BASOPHILS % (MANUAL) 0 % (0-2); EOSINOPHILS % (MANUAL) 2 % (0-6); HYPERSEGMENTED NEUTROPHILS PRESENT; LYMPHOCYTES % (MANUAL) 35 % (13-45); MONOCYTES % (MANUAL) 11 % (3-13); PLATELET COMMENT ADEQUATE; POIKILOCYTOSIS 3+; POLYCHROMASIA 2+; SCHISTOCYTES 1+; SEGMENTED NEUTROPHILS % (MAN) 52 % (42-78); SICKLE RED CELLS 2+; TARGET CELLS SLIGHT; TOTAL CELLS COUNTED 100; TOXIC GRANULATION SLIGHT; TOXIC VACUOLATION PRESENT
[2018-05-15] MEDS ORDERED: DIPHENHYDRAMINE HCL 50 MG/ML VIAL IV ONE (16:37)
--- NOTE | 2018-05-15 16:40 | ER Document Report ---
ED General - General Chief Complaint: Sickle Cell Crisis Stated Complaint: PAIN ALL OVER Time Seen by Provider: 05/15/18 12:03 Mode of Arrival: Ambulatory Information source: Patient TRAVEL OUTSIDE OF THE [place] IN LAST 30 DAYS: No - HPI Notes: 32-year-old female with a history of sick cell anemia presents to the ED with complaints of pain all over and is infrequent crisis. Denies any chest pain or shortness of breath. Patient states she could not get her medications today because some of it fell down the sink. Patient has not spoke to her store protection specialist regarding these concerns. Described as fairly sharp and constant started last night. Denies any fevers or chills. States his creases feels identical to the previous creases states that she has had. Denies any recent illnesses. Does take prescribed oral narcotics for pain control. Denies fevers , chills, chest pain,palpitations, shortness of breath, dyspnea, nausea, vomiting, diarrhea, abdominal pain, hematuria,blurred vision, double vision, loss of vision, speech changes, LH, dizziness, syncope, headaches, wheezing, ST , URI, neck pain, weakness, bowel or bladder dysfunction, saddle anesthesia, numbness or tingling in bilateral upper or lower extremities equally, muscle paralysis, weakness in bilateral upper or lower extremities equally or rash. Denies IV drug use. - Related Data Allergies/Adverse Reactions: green pepper Allergy (Verified 05/15/18 11:36) No Known Drug Intolerances Allergy (Verified 05/15/18 11:36) Past Medical History - General Information source: Patient - Social History Smoking Status: Never Smoker Chew tobacco use (# tins/day): No Frequency of alcohol use: None Drug Abuse: None Family History: Reviewed & Not Pertinent, Other - Sickle trait Patient has suicidal ideation: No Patient has homicidal ideation: No Pulmonary Medical History: Reports: Hx Pneumonia - yearly since 2003 (last time 07/2012) Renal/ Medical History: Denies: Hx Peritoneal Dialysis Malignancy Medical History: Reports: Hx Renal (Kidney) Cancer GI Medical History: Denies: Hx Pancreatitis Musculoskeletal Medical History: Reports Hx Arthritis, Reports Hx Musculoskeletal Deformity, Reports Hx Musculoskeletal Trauma Psychiatric Medical History: Reports: Hx Depression Past Surgical History: Reports: Hx Cholecystectomy, Hx Kidney (Renal Surgery) - part of left kidney removed., Hx Orthopedic Surgery - L Femur, Other - Partial left nephrectomy for renal cell carcinoma - Immunizations Immunizations up to date: Yes Hx Diphtheria, Pertussis, Tetanus Vaccination: Yes - 2017 Hx Pneumococcal Vaccination: 07/21/12 Review of Systems - Review of Systems Constitutional: No symptoms reported EENT: No symptoms reported Cardiovascular: No symptoms reported Respiratory: No symptoms reported Gastrointestinal: No symptoms reported Genitourinary: No symptoms reported Female Genitourinary: No symptoms reported Musculoskeletal: See HPI Skin: No symptoms reported Hematologic/Lymphatic: No symptoms reported Neurological/Psychological: No symptoms reported Physical Exam - Vital signs Vitals: Temp Pulse Resp BP Pulse Ox 98.7 F 94 20 102/74 92 05/15/18 11:41 05/15/18 11:41 05/15/18 11:41 05/15/18 11:41 05/15/18 11:41 - Notes Notes: PHYSICAL EXAMINATION: GENERAL: Well-appearing, well-nourished and in no mild distress. HEAD: Atraumatic, normocephalic. EYES: Pupils equal round and reactive to light, extraocular movements intact, conjunctiva are normal. ENT: Nares patent, oropharynx clear without exudates. Moist mucous membranes. NECK: Normal range of motion, supple without lymphadenopathy LUNGS: Breath sounds clear to auscultation bilaterally and equal. No wheezes rales or rhonchi. HEART: Regular rate and rhythm without murmurs ABDOMEN: Soft, nontender, nondistended abdomen. No guarding, no rebound. No masses appreciated. Female : deferred Musculoskeletal: Normal range of motion, no pitting or edema. No cyanosis. NEUROLOGICAL: Cranial nerves grossly intact. Normal speech, normal gait. Normal sensory, motor exams PSYCH: Normal mood, normal affect. SKIN: Warm, Dry, normal turgor, no rashes or lesions noted. Course - Re-evaluation Re-evalutation: 05/15/18 17:47 There is no evidence of aplastic crisis on labs. This patient denies any symptoms to suggest acute chest vitals otherwise unremarkable. No indication on chest x-ray. Vitals have remained within normal limits here in the emergency room. Patient's pain has been able to be controlled using IV opiate analgesia. The patient is agreeable to discharge home at this time. I agree that they follow closely with her primary store protection specialist. Return precautions have been reviewed and discussed the patient has verbalized indication return to the emergency department with bilateral hip pain. - Vital Signs Vital signs: Temp Pulse Resp BP Pulse Ox 97.3 F 84 16 136/92 H 100 05/15/18 17:03 05/15/18 17:03 05/15/18 17:03 05/15/18 17:03 05/15/18 17:03 - Laboratory Result Diagrams: 05/15/18 12:40 05/15/18 12:40 Laboratory results interpreted by me: 05/15/18 05/15/18 12:40 12:40 WBC 10.8 H RBC 2.67 L Hgb 8.2 L Hct 23.0 L RDW 22.5 H Retic Count (auto) 7.10 H Absolute Retic 0.189 H Chloride 108 H Carbon Dioxide 21 L BUN 6 L Creatinine 0.51 L Total Bilirubin 3.3 H Direct Bilirubin 0.5 H AST 38 H Total Protein 8.8 H Discharge - Discharge Clinical Impression: Sickle cell anemia with crisis Condition: Stable Disposition: HOME, SELF-CARE Instructions: Sickle Cell Crisis (OM) Additional Instructions: You were seen today for sickle cell pain crisis. Please follow-up with your store protection specialist. Returning to the ED if you have worsening pain, fever greater than 100.4, shortness of breath, persistent vomiting, or any other symptoms that are concerning to you. Return immediately for any new or worsening symptoms. Follow up with primary care provider, call tomorrow to make followup appointment. Referrals: AIDEN ALEMAN PA-C [Primary Care Provider] - Follow up tomorrow
[2018-05-15 17:21] VITALS: BP 136/92
== END 2018-05-15 17:05 | disposition home or self-care (01) ==
LOC: ER 11:35
DX: D57.00 Hb-SS disease with crisis, unspecified (principal); M79.1 Myalgia; M25.552 Pain in left hip; M25.551 Pain in right hip; Z90.49 Acquired absence of other specified parts of digestive tract
CPT/HCPCS: 96376; 99284; 96361; 96374; 96375; 36415; 85025; 85045; 80053; J1200; J3010; J1170; J7030

== ENCOUNTER 2018-06-06 12:12 | Emergency (ER) | payer MEDICARE, MEDICAID ==
[2018-06-06] MEDS ORDERED: NORMAL SALINE 1000 ML 1,000 ML IV PRN (12:44)
[2018-06-06] MEDS ORDERED: NORMAL SALINE 1000 ML 1,000 ML IV ONE (12:44)
--- NOTE | 2018-06-06 12:45 | ER Document Report ---
ED Medical Screen (RME) - General Chief Complaint: Sickle Cell Crisis Stated Complaint: POSSIBLE SICKLE CELL CRISIS Time Seen by Provider: 06/06/18 12:43 Notes: 32 years old female presents today with sickle cell crisis with pain syndrome. TRAVEL OUTSIDE OF THE [place] IN LAST 30 DAYS: No - Related Data Allergies/Adverse Reactions: green pepper Allergy (Verified 05/15/18 11:36) No Known Drug Intolerances Allergy (Verified 05/15/18 11:36) Past Medical History Pulmonary Medical History: Reports: Hx Pneumonia - yearly since 2003 (last time 07/2012) Renal/ Medical History: Denies: Hx Peritoneal Dialysis Malignancy Medical History: Reports: Hx Renal (Kidney) Cancer GI Medical History: Denies: Hx Pancreatitis Musculoskeltal Medical History: Reports Hx Arthritis, Reports Hx Musculoskeletal Deformity, Reports Hx Musculoskeletal Trauma Psychiatric Medical History: Reports: Hx Depression Past Surgical History: Reports: Hx Cholecystectomy, Hx Kidney (Renal Surgery) - part of left kidney removed., Hx Orthopedic Surgery - L Femur, Other - Partial left nephrectomy for renal cell carcinoma - Immunizations Immunizations up to date: Yes Hx Diphtheria, Pertussis, Tetanus Vaccination: Yes - 2016 History of Influenza Vaccine for 07/2017 - 12/2017 Season: Yes Influenza Administration Date for 07/2017 - 12/2017 Season: 07/21/17 Physical Exam - Vital signs Vitals: Temp Pulse Resp BP Pulse Ox 98.8 F 86 18 112/52 L 96 06/06/18 12:25 06/06/18 12:25 06/06/18 12:25 06/06/18 12:25 06/06/18 12:25 Course - Vital Signs Vital signs: Temp Pulse Resp BP Pulse Ox 98.8 F 86 18 112/52 L 96 06/06/18 12:25 06/06/18 12:25 06/06/18 12:25 06/06/18 12:25 06/06/18 12:25 Doctor's Discharge - Discharge Referrals: LUPE PINK MD [Primary Care Provider] - Follow up as needed
[2018-06-06 14:04] LABS: APPEARANCE,URINE CLEAR; BILIRUBIN,URINE NEGATIVE (NEGATIVE); GLUCOSE, URINE NEGATIVE (NEGATIVE); KETONES,URINE NEGATIVE (NEGATIVE); LEUKOCYTE ESTERASE,URINE TRACE (NEGATIVE); NITRITE,URINE NEGATIVE (NEGATIVE); PROTEIN,URINE 30 mg/dL (NEGATIVE); URINE SPECIFIC GRAVITY 1.013; UROBILINOGEN,URINE NEGATIVE mg/dL (<2.0)
[2018-06-06 14:09] LABS: COLOR,URINE YELLOW
--- NOTE | 2018-06-06 16:04 | ER Document Report ---
ED General - General Mode of Arrival: Ambulatory Information source: Patient TRAVEL OUTSIDE OF THE [place] IN LAST 30 DAYS: No <VITOR DEY - Last Filed: 06/06/18 17:51> <ALEX MERCADO - Last Filed: 06/06/18 18:38> - General Chief Complaint: Sickle Cell Crisis Stated Complaint: POSSIBLE SICKLE CELL CRISIS Time Seen by Provider: 06/06/18 12:43 Notes: 32 y.o female with sickle cell anemia presents to the ED with sickle cell crisis and pain to her LT shoulder, lower back and bilateral lower extremities of onset late Saturday night/early morning. Nurse reports that she states that she took her Fentanyl patch off yesterday (). Pt states that her patch had fallen off and she didn't put another one on because she is out of patches due to them failing to stay on well enough. When asked if she still had about 2 weeks left of her supply of 10mg Percocet she denies being out of Percocet pills but states that they do not work well. Pt reports that Tega-derm patches will stay on and help her but they are too expensive. She denies any fever or any other sx at this time. Pt was seen here on May 15 complaining of pain and was given pain medications in the ED. She then was seen by her dental laboratory supervisor on May 16 and was prescribed a 30 day supply of Fentanyl patches and a 30 day supply of 10mg Percocet which she did not fill until the 19 of May. Pt also takes Adderall at home regularly. (VITOR DEY) - Related Data Allergies/Adverse Reactions: green pepper Allergy (Verified 05/15/18 11:36) No Known Drug Intolerances Allergy (Verified 05/15/18 11:36) Past Medical History - General Information source: Patient - Social History Smoking Status: Unknown if Ever Smoked Family History: Reviewed & Not Pertinent, Other - Sickle trait Patient has suicidal ideation: No Patient has homicidal ideation: No Pulmonary Medical History: Reports: Hx Pneumonia - yearly since 2003 (last time 07/2012) Renal/ Medical History: Denies: Hx Peritoneal Dialysis Malignancy Medical History: Reports: Hx Renal (Kidney) Cancer Musculoskeletal Medical History: Reports Hx Arthritis, Reports Hx Musculoskeletal Deformity, Reports Hx Musculoskeletal Trauma Psychiatric Medical History: Reports: Hx Depression Past Surgical History: Reports: Hx Cholecystectomy, Hx Kidney (Renal Surgery) - part of left kidney removed., Hx Orthopedic Surgery - L Femur, Other - Partial left nephrectomy for renal cell carcinoma - Immunizations Immunizations up to date: Yes Hx Diphtheria, Pertussis, Tetanus Vaccination: Yes - 2017 Hx Pneumococcal Vaccination: 07/21/12 <VITOR DEY - Last Filed: 06/06/18 17:51> Review of Systems - Review of Systems Constitutional: See HPI. denies: Fever EENT: No symptoms reported Cardiovascular: No symptoms reported Respiratory: No symptoms reported Gastrointestinal: No symptoms reported Genitourinary: No symptoms reported Female Genitourinary: No symptoms reported Musculoskeletal: See HPI, Back pain - lower back, Joint pain - LT shoulder, Other - Bilateral leg pain Skin: No symptoms reported Hematologic/Lymphatic: No symptoms reported Neurological/Psychological: No symptoms reported -: Yes All other systems reviewed and negative <VITOR DEY - Last Filed: 06/06/18 17:51> Physical Exam <VITOR DEY - Last Filed: 06/06/18 17:51> <ALEX MERCADO - Last Filed: 06/06/18 18:38> - Vital signs Vitals: Temp Pulse Resp BP Pulse Ox 98.8 F 86 18 112/52 L 96 06/06/18 12:25 06/06/18 12:25 06/06/18 12:25 06/06/18 12:25 06/06/18 12:25 - Notes Notes: Physical Exam: General: Alert, appears well. HEENT: Normocephalic. Atraumatic. PERRL. Extraocular movements intact. Oropharynx clear. Neck: Supple. Non-tender. Respiratory: No respiratory distress. Clear and equal breath sounds bilaterally. Cardiovascular: Regular rate and rhythm. Abdominal: Normal Inspection. Non-tender. No distension. Normal Bowel Sounds. Back: TTP lower back. No deformity or step off. Extremities: Moves all four extremities. Upper extremities: Normal ROM. Pt complains of pain with gentle palpation to the LT shoulder externally, not consistent with bone tenderness. Lower extremities: No edema. Normal ROM. Neurological: Normal cognition. AAOx3. Normal speech. Psychological: Normal affect. Normal Mood. Skin: Warm. Dry. Normal color. (VITOR DEY) Course - Laboratory Result Diagrams: 06/06/18 14:54 06/06/18 14:54 <VITOR DEY - Last Filed: 06/06/18 17:51> - Laboratory Result Diagrams: 06/06/18 14:54 06/06/18 14:54 - Diagnostic Test Radiology reviewed: Image reviewed, Reports reviewed - Chest x-ray she does not show an acute process. - Consults Dr. Pink Time consulted: 16:00 Consulted provider: follow-up in office - She requests no IV pain medicine, even if the patient does need to be admitted. She will see her Saturday in the office to review her narcotic issues. <ALEX MERCADO - Last Filed: 06/06/18 18:38> - Re-evaluation Re-evalutation: 06/06/18 17:16 The absolute reticulocyte count is actually normal. 06/06/18 17:17 The patient's history of being on fentanyl patches for over a year, and taking 10 mg Percocet 3 times a day suggests that this is more of a narcotic opioid abuse problem and less of a sickle cell crisis management problem. Further, the patient states that she ran out of her fentanyl patches 2 days ago( because they keep falling off), but did not try to see her prescribing doctor or come to the ER until Saturday afternoon. She cannot explain why she did not go to see her doctor to discuss the fentanyl patches all falling off causing her to run out of the medication 2 weeks early. She also states that the Percocet 10 mg tablets do not help her pain. All of this is very suspicious for this being an issue of drug diversion. 06/06/18 18:30 Lab work shows the patient is well hydrated with her hemoglobin at baseline 8.0 , her BUN is 4, her total bilirubin is 1.9 which is much lower than the last time she came here, her absolute reticulocyte count is within normal range. 06/06/18 18:33 I did discuss the case with her prescribing physician Dr. Pink. She requested that I not prescribe any pain medication for the patient and specifically not to give her any IV pain medication if she needed to be admitted. The patient does report having plenty of her Percocet 10 mg tablets, as she is only assisted through the month-long prescription by history. The patient cannot explain to me why she is on fentanyl patches for what should be an episodic pain issue. She will be discharged home to take her pain medication that she still has in her possession as needed, and to follow-up with her dental laboratory supervisor on Saturday. (ALEX MERCADO) - Vital Signs Vital signs: Temp Pulse Resp BP Pulse Ox 98.8 F 86 18 112/52 L 96 06/06/18 12:25 06/06/18 12:25 06/06/18 12:25 06/06/18 12:25 06/06/18 12:25 - Laboratory Laboratory results interpreted by me: 06/06/18 06/06/18 06/06/18 13:06 14:54 14:54 WBC 12.6 H RBC 2.70 L Hgb 8.0 L Hct 23.4 L RDW 21.6 H Plt Count 519 H Retic Count (auto) 3.62 H Chloride 111 H BUN 4 L Creatinine 0.47 L Total Bilirubin 1.9 H Direct Bilirubin 0.6 H AST 57 H Urine Protein 30 H Ur Leukocyte Esterase TRACE H Discharge <VITOR DEY - Last Filed: 06/06/18 17:51> <ALEX MERCADO - Last Filed: 06/06/18 18:38> - Discharge Clinical Impression: Has run out of medications Sickle cell disease Qualifiers: Sickle-cell associated disorders: with unspecified crisis Qualified Code(s): D57.00 - Hb-SS disease with crisis, unspecified Left shoulder pain Qualifiers: Chronicity: chronic Qualified Code(s): M25.512 - Pain in left shoulder Condition: Stable Disposition: HOME, SELF-CARE Additional Instructions: Your evaluation today does not suggest that this is a sickle cell crisis that is occurring, but more likely due to running out of your fentanyl patches. You do indicate that you have plenty of your Percocet 10 mg tablets at home that you can take for pain and or opioid withdrawal symptoms. Dr. Pink has requested that you come to the office on Saturday for further evaluation of your pain medication needs. RETURN TO THE EMERGENCY ROOM IF ANY NEW OR WORSENING SYMPTOMS. Referrals: LUPE PINK MD [ACTIVE STAFF] - 06/09/18 Scribe Attestation: 06/06/18 16:48 I personally performed the services described in the documentation, reviewed and edited the documentation which was dictated to the scribe in my presence, and it accurately records my words and actions. (ALEX MERCADO) Scribe Documentation - Scribe Written by Ermias:: Ermias Del Rosario 06/06/18 1602 acting as scribe for :: Kevin <VITOR DEY - Last Filed: 06/06/18 17:51>
--- NOTE | 2018-06-06 16:46 | RADIOLOGY REPORT (SQ) ---
EXAM DESCRIPTION: CHEST SINGLE VIEW COMPLETED DATE/TIME: 06/06/2018 4:34 pm REASON FOR STUDY: ss crisis pain COMPARISON: Two-view chest 01/18/2018, 11/14/2017 EXAM PARAMETERS: NUMBER OF VIEWS: One view. TECHNIQUE: Single frontal radiographic view of the chest acquired. RADIATION DOSE: NA LIMITATIONS: None. FINDINGS: LUNGS AND PLEURA: Chronic blunting left lateral costophrenic sulcus, unchanged. No acute infiltrates. No pleural effusion. No pneumothorax. MEDIASTINUM AND HILAR STRUCTURES: No masses. Contour normal. HEART AND VASCULAR STRUCTURES: Borderline cardiomegaly. Normal vasculature. BONES: No acute findings. HARDWARE: Permanent right-sided central line tip in the superior vena cava. OTHER: No other significant finding. IMPRESSION: No acute findings. TECHNICAL DOCUMENTATION: JOB ID: [id number] [employer]- All Rights Reserved Reading location - IP/workstation name: [email or web address]
[2018-06-06 17:11] LABS: ABSOLUTE BASOPHILS # (AUTO) 0.2 10^3/uL (0.0-0.2); ABSOLUTE EOSINOPHILS # (AUTO) 0.5 10^3/uL (0.0-0.6); ABSOLUTE LYMPHOCYTES (AUTO) 3.3 10^3/uL (0.5-4.7); ABSOLUTE MONOCYTES (AUTO) 1.1 10^3/uL (0.1-1.4); ABSOLUTE NEUT (AUTO) 7.5 10^3/uL (1.7-8.2); ABSOLUTE RETICS # 0.098 10^6/uL (0.028-0.122); BASOPHILS % (AUTO) 1.7 % (0-2); HEMATOCRIT 23.4 % (36.0-47.0); LYMPHOCYTES % (AUTO) 26.2 % (13-45); MEAN CORPUSCULAR HEMOGLOBIN 29.6 pg (27.0-33.4); MEAN CORPUSCULAR VOLUME 87 fl (80-97); MONOCYTES % (AUTO) 8.9 % (3-13); PLATELET COUNT 519 10^3/uL (150-450); RED CELL DISTRIBUTION WIDTH 21.6 % (11.5-14.0); RETICULOCYTE COUNT (AUTO) 3.62 % (0.66-2.85); SEGMENTED NEUTROPHILS % (AUTO) 59.2 % (42-78); TOTAL CELLS COUNTED % (AUTO) 100 %; WHITE BLOOD COUNT 12.6 10^3/uL (4.0-10.5)
[2018-06-06 17:30] LABS: ALANINE AMINOTRANSFERASE 12 U/L (9-52); ALBUMIN 4.1 g/dL (3.5-5.0); ALKALINE PHOSPHATASE 66 U/L (38-126); ANION GAP 10 (5-19); ASPARTATE AMINO TRANSFERASE 57 U/L (14-36); BILIRUBIN,DIRECT 0.6 mg/dL (0.0-0.4); BILIRUBIN,TOTAL 1.9 mg/dL (0.2-1.3); BLOOD UREA NITROGEN 4 mg/dL (7-20); CALCIUM 9.1 mg/dL (8.4-10.2); CARBON DIOXIDE 22 mmol/L (22-30); CHLORIDE 111 mmol/L (98-107); GLUCOSE 99 mg/dL (75-110); POTASSIUM 3.7 mmol/L (3.6-5.0); SODIUM 143.4 mmol/L (137-145); TOTAL PROTEIN 8.2 g/dL (6.3-8.2)
[2018-06-06 19:04] VITALS: BP 134/78
== END 2018-06-06 19:04 | disposition home or self-care (01) ==
LOC: ER 12:12
DX: D57.00 Hb-SS disease with crisis, unspecified (principal); M25.512 Pain in left shoulder; M54.5 Low back pain; M79.604 Pain in right leg; M79.605 Pain in left leg; Z79.899 Other long term (current) drug therapy; Z79.891 Long term (current) use of opiate analgesic; Z91.018 Allergy to other foods; Z85.528 Personal history of other malignant neoplasm of kidney; Z90.5 Acquired absence of kidney
CPT/HCPCS: 99284; 96360; 96361; 36415; 85025; 81025; 85045; 80053; 81001; 71045; J7030

== ENCOUNTER 2018-06-17 10:18 | Day surgery (SDC) | payer MEDICARE, MEDICAID ==
[~2018-06-17 10:18] MED LIST: LACTATED RINGERS 1000 ML IV PRN
[2018-06-17] MEDS ORDERED: BUPIVACAINE HCL 0.5%/EPI 1:200000 INJ 1.8 ML CARTRIDGE ONE (10:55)
[2018-06-17] MEDS ORDERED: LIDOCAINE 2%/EPINEPHRINE INJ 1.7 ML CARTRIDGE ONE (10:55)
[2018-06-17] MEDS ORDERED: FENTANYL CITRATE INJ/PF 100 MCG/2 ML AMPUL ONE ×2 (12:52)
[2018-06-17] MEDS ORDERED: LIDOCAINE 2% INJ-PF (20 MG/ML) 10 ML AMPUL ONE (12:52)
[2018-06-17] MEDS ORDERED: PROPOFOL INJ 200 MG/20 ML VIAL IV ONE (12:53)
[2018-06-17] MEDS ORDERED: DEXAMETHASONE SOD PHOSPHATE INJ 4 MG/1 ML VIAL ONE (12:53)
[2018-06-17] MEDS ORDERED: ONDANSETRON HCL INJ/PF 4 MG/2 ML SDV ONE (12:53)
[2018-06-17] MEDS ORDERED: MIDAZOLAM 2 MG/2 ML INJ ONE (12:53)
[2018-06-17] MEDS ORDERED: KETAMINE HCL INJ 500 MG/10 ML VIAL ONE (13:09)
[2018-06-17] MEDS ORDERED: DIPHENHYDRAMINE HCL 50 MG/ML VIAL IV PRN (13:37)
[2018-06-17] MEDS ORDERED: MORPHINE SULFATE 10 MG/ML INJ IV PRN (13:37)
[2018-06-17] MEDS ORDERED: PROMETHAZINE HCL INJ 25 MG/1 ML VIAL IV PRN ×2 (13:37)
[2018-06-17] MEDS ORDERED: MEPERIDINE HCL/PF INJ 25 MG/1 ML DISP.SYRIN IV PRN (13:37)
[2018-06-17] MEDS ORDERED: FENTANYL CITRATE INJ/PF 100 MCG/2 ML AMPUL IV PRN ×3 (13:37)
[2018-06-17] MEDS ORDERED: ONDANSETRON HCL INJ/PF 4 MG/2 ML SDV IV PRN (13:37)
--- NOTE | 2018-06-17 14:12 | Operative Report ---
Operative Report DATE OF SURGERY: 06/17/18 Operative Report: Date of Surgery: 06/17/2018 Pre Op Dx: Non-restorable teeth #3 & 7 Post Op Dx: SWETHA Surgery Performed: Surgical Extraction of teeth 3 & 7; Alveoloplasty in area of tooth 3 Surgeon: Teressa Material Forwarded to Lab: none Drains: none Complications: none EBL: 10ml Fluids: 300 ml LR PREOPERATIVE DIAGNOSIS: Non-restorative teeth #'s 3 & 7 POSTOPERATIVE DIAGNOSIS: SWETHA OPERATION: Surgical Extraction of teeth 3 & 7; Alveoloplasty in area tooth 3 SURGEON: SERGE MAGALLANES [employer] BLASTING: none 2ND Lead Software Architect: none TISSUE REMOVED OR ALTERED: Teeth 3 & 7 COMPLICATIONS: None ESTIMATED BLOOD LOSS: 10 ML INTRAOPERATIVE FINDINGS: Consistent with diagnosis PROCEDURE: Pt taken to OR #1. Monitored anesthesia was administered. Patient maintained stable vital signs and care of patient was turned over to the surgical team. Local anesthetic was provided in the upper right vestibule and palatal region. An oral throat shield was placed. Teeth #3 & #7 were extracted and alveoloplasty performed in area of tooth #3. The extraction and alveoloplasty sites were irrigated with sterile saline and suctioned dry. The oral cavity was noted to be free of active bleeding and debri. No sutures were necessary as soft tissues lay re-approximated without them. The oral throat shield was removed and "Ghost" gauze dressings were placed to manage any additional bleeding. The patient was moved to the PACU with stable vital signs having tolerated the procedure well.
[2018-06-17] MEDS ORDERED: ONDANSETRON 4 MG TAB.RAPDIS PO PRN (14:17)
[2018-06-17] MEDS ORDERED: OXYCODONE-ACETAMINOPHEN 5-325 MG TABLET PO PRN (14:17)
[2018-06-17 15:34] VITALS: BP 111/78
== END 2018-06-17 15:25 | disposition home or self-care (01) ==
LOC: OROUT 10:18
PROVIDERS: ATTEND Dentist Oral and Maxillofacial Surgery
DX: K02.9 Dental caries, unspecified (principal); K08.89 Other specified disorders of teeth and supporting structures; D57.1 Sickle-cell disease without crisis; M32.9 Systemic lupus erythematosus, unspecified; Z79.899 Other long term (current) drug therapy; Z85.528 Personal history of other malignant neoplasm of kidney; Z90.5 Acquired absence of kidney; Z87.891 Personal history of nicotine dependence
CPT/HCPCS: 81025; 41899; 41874; J2250; J3490 ×3; J1100; J3010; J2405; J2704; 170

== ENCOUNTER 2018-09-21 09:11 | Emergency (ER) | payer MEDICARE, MEDICAID ==
--- NOTE | 2018-09-21 09:46 | ER Document Report ---
ED General - General Chief Complaint: Sickle Cell Crisis Stated Complaint: BODY PAIN Time Seen by Provider: 09/21/18 09:33 Mode of Arrival: Medic Information source: Patient Notes: This is a 33-year-old female with a history of sickle cell disease who was brought in by EMS with diffuse joint and bone pain bilaterally to the extremities. Patient denies any fever, chills, nausea or vomiting. Patient is followed by Aiden lundberg (primary care doctor), Dr. Chen (bird trapper), [facility] (for her chronic pain). Medications include oxycodone 15, sertraline, potassium, hydroxyurea, folic acid , Ortho Tri-Cyclen. 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 No known medicine allergies TRAVEL OUTSIDE OF THE [place] IN LAST 30 DAYS: No - HPI Onset: Last week Onset/Duration: Gradual Quality of pain: Dull Severity: Moderate Pain Level: 3 Associated symptoms: denies: Chest pain, Fever, Shortness of breath Exacerbated by: Denies Relieved by: Denies Similar symptoms previously: Yes Recently seen / treated by doctor: Yes - Related Data Allergies/Adverse Reactions: green pepper Allergy (Verified 06/17/18 10:58) No Known Drug Intolerances Allergy (Verified 06/17/18 10:58) Past Medical History - General Information source: Patient - Social History Smoking Status: Never Smoker Cigarette use (# per day): No Chew tobacco use (# tins/day): No Frequency of alcohol use: None Drug Abuse: None Lives with: Family Family History: Reviewed & Not Pertinent, Other - Sickle trait Patient has suicidal ideation: No Patient has homicidal ideation: No - Past Medical History Cardiac Medical History: Denies: Hx Coronary Artery Disease, Hx Heart Attack, Hx Hypertension Pulmonary Medical History: Reports: Hx Pneumonia - YEARLY SINCE 2003 (last time 07/2017) Denies: Hx Asthma, Hx Bronchitis, Hx COPD Neurological Medical History: Denies: Hx Cerebrovascular Accident, Hx Seizures Renal/ Medical History: Denies: Hx Peritoneal Dialysis Malignancy Medical History: Reports: Hx Renal (Kidney) Cancer GI Medical History: Denies: Hx Pancreatitis Musculoskeletal Medical History: Denies Hx Arthritis, Reports Hx Musculoskeletal Deformity, Reports Hx Musculoskeletal Trauma Psychiatric Medical History: Reports: Hx Depression Past Surgical History: Reports: Hx Cholecystectomy, Hx Kidney (Renal Surgery) - part of left kidney removed., Hx Orthopedic Surgery - L Femur, R hip, Other - Partial left nephrectomy for renal cell carcinoma - Immunizations Immunizations up to date: Yes Hx Diphtheria, Pertussis, Tetanus Vaccination: Yes - 2017 Hx Pneumococcal Vaccination: 07/22/17 Review of Systems - Review of Systems Constitutional: denies: Chills, Fever EENT: No symptoms reported Cardiovascular: No symptoms reported Respiratory: No symptoms reported Gastrointestinal: No symptoms reported Genitourinary: No symptoms reported Female Genitourinary: No symptoms reported Musculoskeletal: See HPI Skin: No symptoms reported Hematologic/Lymphatic: No symptoms reported Neurological/Psychological: No symptoms reported Physical Exam - Vital signs Vitals: Temp Pulse Resp BP Pulse Ox 98.6 F 98 16 122/86 H 100 09/21/18 09:20 09/21/18 09:20 09/21/18 09:20 09/21/18 09:20 09/21/18 09:20 Notes: Physical exam: GENERAL: Patient is alert and oriented x3, complaining of diffuse bone pain. HEAD: Atraumatic, normocephalic. EYES: Pupils equal round and reactive to light, extraocular movements intact, sclera anicteric, conjunctiva are normal. ENT: TMs normal, nares patent, oropharynx clear without exudates. Moist mucous membranes. NECK: Normal range of motion, supple without obvious mass or JVD. LUNGS: Breath sounds clear to auscultation bilaterally and equal. No wheezes rales or rhonchi. HEART: Regular rate and rhythm without murmurs, rubs or gallops. ABDOMEN: Soft, normoactive bowel sounds. No tenderness to palpation. No guarding, no rebound. No masses appreciated. EXTREMITIES: Normal range of motion, no pitting or edema. No clubbing or cyanosis. NEUROLOGICAL: Cranial nerves II through XII grossly intact. Normal speech, moving all extremities. PSYCH: Normal mood, normal affect. SKIN: Warm, Dry, normal turgor, no rashes or lesions noted. Course - Vital Signs Vital signs: Temp Pulse Resp BP Pulse Ox 99.2 F 85 16 101/70 99 09/21/18 17:25 09/21/18 17:25 09/21/18 17:25 09/21/18 17:25 09/21/18 17:25 - Laboratory Result Diagrams: 09/21/18 10:20 09/21/18 10:20 Laboratory results interpreted by me: 09/21/18 09/21/18 10:20 10:20 WBC 12.3 H RBC 3.62 L Hgb 10.9 L Hct 31.9 L RDW 20.5 H Retic Count (auto) 5.37 H Absolute Retic 0.194 H Chloride 108 H BUN 4 L Creatinine 0.35 L Total Bilirubin 1.7 H ALT 8 L Total Protein 8.8 H - Diagnostic Test Radiology reviewed: Image reviewed, Reports reviewed - X-rays shows no infiltrates Discharge - Discharge Clinical Impression: Vaso-occlusive crisis, URI Condition: Stable Disposition: HOME, SELF-CARE Additional Instructions: As we discussed, your labs look good. Your reticulocyte count was good. Chest x-ray showed no evidence of pneumonia. Take the Mucinex for the upper respiratory infection/cough. Continue current medicines. Follow-up with your bird trapper and pain specialist. Prescriptions: Guaifenesin [Mucinex] 600 mg PO BID #20 tablet.sa Referrals: AIDEN LUNDBERG PA-C [Primary Care Provider] - Follow up as needed
[2018-09-21] MEDS ORDERED: PROMETHAZINE HCL 25 MG TABLET PO ONE (09:47)
[2018-09-21] MEDS ORDERED: RINGERS SOLUTION,LACTATED 1,000 ML IV ONE (09:47)
[2018-09-21] MEDS ORDERED: DIPHENHYDRAMINE HCL 50 MG/ML VIAL IV ONE ×2 (09:47→12:26)
[2018-09-21] MEDS ORDERED: HYDROMORPHONE HCL INJ/PF 2 MG/ML AMPULE IV ONE ×2 (09:47→12:26)
[2018-09-21] MEDS ORDERED: FOLIC ACID INJ 5 MG/1 ML 10 ML VIAL IV ONE (09:48)
[2018-09-21] MEDS ORDERED: HYDROXYUREA 500 MG CAPSULE PO ONE (09:48)
[2018-09-21 10:47] LABS: ABSOLUTE BASOPHILS # (AUTO) 0.1 10^3/uL (0.0-0.2); ABSOLUTE EOSINOPHILS # (AUTO) 0.5 10^3/uL (0.0-0.6); ABSOLUTE LYMPHOCYTES (AUTO) 2.7 10^3/uL (0.5-4.7); ABSOLUTE NEUT (AUTO) 8.1 10^3/uL (1.7-8.2); ABSOLUTE RETICS # 0.194 10^6/uL (0.028-0.122); BASOPHILS % (AUTO) 0.7 % (0-2); EOSINOPHILS % (AUTO) 3.9 % (0-6); HEMATOCRIT 31.9 % (36.0-47.0); HEMOGLOBIN 10.9 g/dL (12.0-15.5); LYMPHOCYTES % (AUTO) 21.9 % (13-45); MEAN CORPUSCULAR HEMOGLOBIN 30.1 pg (27.0-33.4); MEAN CORPUSCULAR HGB CONC 34.1 g/dL (32.0-36.0); MEAN CORPUSCULAR VOLUME 88 fl (80-97); MONOCYTES % (AUTO) 8.1 % (3-13); PLATELET COUNT 426 10^3/uL (150-450); RED BLOOD COUNT 3.62 10^6/uL (3.72-5.28); RED CELL DISTRIBUTION WIDTH 20.5 % (11.5-14.0); RETICULOCYTE COUNT (AUTO) 5.37 % (0.66-2.85); SEGMENTED NEUTROPHILS % (AUTO) 65.4 % (42-78); TOTAL CELLS COUNTED % (AUTO) 100 %; WHITE BLOOD COUNT 12.3 10^3/uL (4.0-10.5)
[2018-09-21 11:03] LABS: ANISOCYTOSIS 2+; PLATELET COMMENT ADEQUATE; POIKILOCYTOSIS 2+; POLYCHROMASIA 1+; SICKLE RED CELLS 1+; TARGET CELLS 1+; TEAR DROP CELLS SLIGHT
[2018-09-21 11:11] LABS: ALANINE AMINOTRANSFERASE 8 U/L (9-52); ALBUMIN 4.7 g/dL (3.5-5.0); ALKALINE PHOSPHATASE 72 U/L (38-126); ANION GAP 13 (5-19); ASPARTATE AMINO TRANSFERASE 20 U/L (14-36); BILIRUBIN,DIRECT 0.2 mg/dL (0.0-0.4); BILIRUBIN,TOTAL 1.7 mg/dL (0.2-1.3); BLOOD UREA NITROGEN 4 mg/dL (7-20); CALCIUM 10.1 mg/dL (8.4-10.2); CARBON DIOXIDE 22 mmol/L (22-30); CHLORIDE 108 mmol/L (98-107); GLUCOSE 87 mg/dL (75-110); POTASSIUM 4.7 mmol/L (3.6-5.0); SODIUM 142.6 mmol/L (137-145); TOTAL PROTEIN 8.8 g/dL (6.3-8.2)
--- NOTE | 2018-09-21 14:30 | RADIOLOGY REPORT (SQ) ---
EXAM DESCRIPTION: CHEST SINGLE VIEW COMPLETED DATE/TIME: 09/21/2018 2:04 pm REASON FOR STUDY: cough COMPARISON: 06/06/2018 and earlier EXAM PARAMETERS: NUMBER OF VIEWS: One view. TECHNIQUE: Single frontal radiographic view of the chest acquired. RADIATION DOSE: NA LIMITATIONS: None. FINDINGS: LUNGS AND PLEURA: Unchanged minimally coarsened interstitial markings of the lung bases. No opacities, masses or pneumothorax. No pleural effusion. MEDIASTINUM AND HILAR STRUCTURES: No masses. Contour normal. HEART AND VASCULAR STRUCTURES: Heart normal in size. Normal vasculature. BONES: No acute findings. HARDWARE: Right-sided chest port tip terminates in the expected region the cavoatrial junction. OTHER: No other significant finding. IMPRESSION: NO ACUTE RADIOGRAPHIC FINDING IN THE CHEST. TECHNICAL DOCUMENTATION: JOB ID: [id number] [employer]- All Rights Reserved Reading location - IP/workstation name: [email or web address]
[2018-09-21 17:37] VITALS: BP 101/70
== END 2018-09-21 17:42 | disposition home or self-care (01) ==
LOC: ER 09:11
DX: D57.00 Hb-SS disease with crisis, unspecified (principal); J06.9 Acute upper respiratory infection, unspecified
CPT/HCPCS: 36591; 96376; 99284; 96361; 96374; 96375; 36415; 85025; 85045; 80053; 71045; J1200; J3490; J1170; A9270 ×2; J7120

== ENCOUNTER 2018-11-17 11:31 | Emergency (ER) | payer MEDICARE, MEDICAID ==
--- NOTE | 2018-11-17 12:44 | RADIOLOGY REPORT (SQ) ---
EXAM DESCRIPTION: KNEE LEFT 3 VIEWS COMPLETED DATE/TIME: 11/17/2018 12:34 pm REASON FOR STUDY: fall COMPARISON: 2013 NUMBER OF VIEWS: Two views. TECHNIQUE: AP and lateral radiographic images acquired of the left knee. LIMITATIONS: None. 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 BONES: No fracture. JOINT: Joint effusion. SOFT TISSUES: No foreign body. OTHER: No other significant finding. IMPRESSION: Joint effusion. No fracture identified. TECHNICAL DOCUMENTATION: JOB ID: [id number] [employer]- All Rights Reserved Reading location - IP/workstation name: [email or web address]
--- NOTE | 2018-11-17 12:45 | RADIOLOGY REPORT (SQ) ---
EXAM DESCRIPTION: HIP LEFT AP/LATERAL COMPLETED DATE/TIME: 11/17/2018 12:34 pm REASON FOR STUDY: fall COMPARISON: None. NUMBER OF VIEWS: Two views. TECHNIQUE: AP and frog-leg view of the left hip. LIMITATIONS: None. FINDINGS: MINERALIZATION: Normal. LEFT HIP: Intact total hip arthroplasty. OPPOSITE HIP: Intact total hip arthroplasty. SOFT TISSUES: No findings. OTHER: No other significant finding. IMPRESSION: NO RADIOGRAPHIC EVIDENCE OF ACUTE INJURY. COMMENT: Pelvic fractures are often occult on plain radiographs. If strong clinical suspicion for f racture, recommend CT or MR. TECHNICAL DOCUMENTATION: JOB ID: [id number] [employer]- All Rights Reserved Reading location - IP/workstation name: [email or web address]
[2018-11-17] MEDS ORDERED: IBUPROFEN 600 MG TABLET PO ONE (12:52)
[2018-11-17] MEDS ORDERED: ACETAMINOPHEN 325 MG TABLET PO ONE (12:52)
--- NOTE | 2018-11-17 12:53 | ER Document Report ---
ED General - General Chief Complaint: Fall Stated Complaint: RIGHT HIP PAIN Time Seen by Provider: 11/17/18 11:53 Primary Care Provider: AIDEN ALEMAN PA-C [Primary Care Provider] - Follow up as needed TRAVEL OUTSIDE OF THE [place] IN LAST 30 DAYS: No - HPI Patient complains to provider of: Left knee left hip pain Notes: Patient coming in via EMS for left knee left hip pain. Patient states recent surgery with hip replacement performed at [facility]. States she has follow-up visit in November. Patient states prior to arrival she was trying to pick something up of the forehead socks and slipped falling hitting her knee and hip now complains of significant pain. Patient does have some swelling to her left knee. Patient denies any loss of consciousness patient upon transport via EMS was given ketamine 9 mg . Patient otherwise is resting comfortably upon my evaluation patient on her phone texting - Related Data Allergies/Adverse Reactions: green pepper Allergy (Verified 11/17/18 11:39) No Known Drug Intolerances Allergy (Verified 11/17/18 11:39) Past Medical History - Social History Smoking Status: Unknown if Ever Smoked Family History: Reviewed & Not Pertinent, Other - Sickle trait Patient has suicidal ideation: No Patient has homicidal ideation: No - Past Medical History Cardiac Medical History: Denies: Hx Coronary Artery Disease, Hx Heart Attack, Hx Hypertension Pulmonary Medical History: Reports: Hx Pneumonia - YEARLY SINCE 2003 (last time 07/2017) Denies: Hx Asthma, Hx Bronchitis, Hx COPD Neurological Medical History: Denies: Hx Cerebrovascular Accident, Hx Seizures Renal/ Medical History: Denies: Hx Peritoneal Dialysis Malignancy Medical History: Reports: Hx Renal (Kidney) Cancer GI Medical History: Denies: Hx Pancreatitis Musculoskeletal Medical History: Denies Hx Arthritis, Reports Hx Musculoskeletal Deformity, Reports Hx Musculoskeletal Trauma Psychiatric Medical History: Reports: Hx Depression Past Surgical History: Reports: Hx Cholecystectomy, Hx Kidney (Renal Surgery) - part of left kidney removed., Hx Orthopedic Surgery - L Femur, R hip, left hip, Other - Partial left nephrectomy for renal cell carcinoma - Immunizations Immunizations up to date: Yes Hx Diphtheria, Pertussis, Tetanus Vaccination: Yes - 2016 Hx Pneumococcal Vaccination: 07/22/17 Review of Systems - Review of Systems Constitutional: No symptoms reported EENT: No symptoms reported Cardiovascular: No symptoms reported Respiratory: No symptoms reported Gastrointestinal: No symptoms reported Genitourinary: No symptoms reported Female Genitourinary: No symptoms reported Musculoskeletal: No symptoms reported Skin: No symptoms reported Hematologic/Lymphatic: No symptoms reported Neurological/Psychological: No symptoms reported Physical Exam - Vital signs Vitals: Temp Pulse Resp BP Pulse Ox 98.1 F 97 18 117/79 99 11/17/18 11:39 11/17/18 11:39 11/17/18 11:39 11/17/18 11:39 11/17/18 11:39 Interpretation: Normal - General General appearance: Appears well, Alert - HEENT Head: Normocephalic, Atraumatic Eyes: Normal Pupils: PERRL - Respiratory Respiratory status: No respiratory distress Chest status: Nontender Breath sounds: Normal Chest palpation: Normal - Cardiovascular Rhythm: Regular Heart sounds: Normal auscultation Murmur: No - Abdominal Inspection: Normal Distension: No distension Bowel sounds: Normal Tenderness: Nontender Organomegaly: No organomegaly - Back Back: Normal, Nontender - Extremities General upper extremity: Normal inspection, Nontender, Normal color, Normal ROM, Normal temperature General lower extremity: Normal color, Normal ROM, Normal temperature, Normal weight bearing, Other - Patient with postsurgical wounds to the left hip that are well-healed and no signs of infection patient does have a effusion to the knee left medial not warm no signs of infection - Neurological Neuro grossly intact: Yes Cognition: Normal Orientation: AAOx4 [place] Coma Scale Eye Opening: Spontaneous [place] Coma Scale Verbal: Oriented [place] Coma Scale Motor: Obeys Commands [place] Coma Scale Total: 15 Speech: Normal Motor strength normal: LUE, RUE, LLE, RLE Sensory: Normal - Psychological Associated symptoms: Normal affect, Normal mood - Skin Skin Temperature: Warm Skin Moisture: Dry Skin Color: Normal Course - Re-evaluation Re-evalutation: 11/17/18 15:31 Patient coming in for fall x-rays performed negative showing no displaced hardware. I am not concerned for a pelvic fracture patient is not tender on her pelvis. More concerning for hip dislocation hip hardware malfunction this is negative. Patient will be discharged home - Vital Signs Vital signs: Temp Pulse Resp BP Pulse Ox 98.4 F 102 H 16 118/83 100 11/17/18 13:23 11/17/18 13:23 11/17/18 13:23 11/17/18 13:23 11/17/18 13:23 Discharge - Discharge Clinical Impression: Hip pain Qualifiers: Laterality: left Qualified Code(s): M25.552 - Pain in left hip Knee pain Qualifiers: Chronicity: acute Laterality: left Qualified Code(s): M25.562 - Pain in left knee Condition: Good Disposition: HOME, SELF-CARE Instructions: Arthralgia ([facility]) Additional Instructions: Your x-rays today do not show any signs of acute fracture would recommend taking Tylenol Motrin and your prescribed home pain medications to help out with your pain may also place warm packs ice packs on the area to help out with your pain return to the ER symptoms worsen. Referrals: AIDEN ALEMAN PA-C [Primary Care Provider] - Follow up as needed
[2018-11-17 13:25] VITALS: BP 118/83
== END 2018-11-17 13:30 | disposition home or self-care (01) ==
LOC: ER 11:31
DX: M25.552 Pain in left hip (principal); M25.562 Pain in left knee; M25.462 Effusion, left knee; W01.0XXA Fall on same level from slipping, tripping and stumbling without subsequent striking against object, initial encounter; Y93.89 Activity, other specified; Z91.018 Allergy to other foods; Z85.528 Personal history of other malignant neoplasm of kidney; Z90.5 Acquired absence of kidney; Z96.642 Presence of left artificial hip joint
CPT/HCPCS: 99283; 73502; 73562; A9270 ×2

== ENCOUNTER 2019-01-01 19:05 | Emergency (ER) | payer MEDICARE, MEDICAID ==
[2019-01-01] MEDS ORDERED: HYDROMORPHONE HCL INJ/PF 2 MG/ML AMPULE IV ONE ×2 (20:02→21:36)
[2019-01-01] MEDS ORDERED: ONDANSETRON HCL INJ/PF 4 MG/2 ML SDV IV ONE (20:02)
[2019-01-01] MEDS ORDERED: KETOROLAC TROMETHAMINE INJ/PF 30 MG/1 ML SDV IV ONE (20:02)
--- NOTE | 2019-01-01 20:03 | ER Document Report ---
ED General - General Chief Complaint: Sickle Cell Crisis Stated Complaint: NAUSEA,DIARRHEA Time Seen by Provider: 01/01/19 20:01 Primary Care Provider: AIDEN ALEMAN PA-C [Primary Care Provider] - Follow up as needed Notes: 33-year-old female to emergency department chief complaint of sickle cell crisis. Long-standing history of sickle cell disease. Followed by local providers. No recent fever. States that ever since she had her hip surgery she gets frequent flareups. Is supposed to see pain management tomorrow. Out of her pain meds. States that her blood pressure always gets really really low when she goes into crisis. Has pain all over but no significant shortness of breath. Denies any fevers. TRAVEL OUTSIDE OF THE [place] IN LAST 30 DAYS: No - HPI Onset: Yesterday Onset/Duration: Gradual, Worse Quality of pain: Achy Severity: Severe Pain Level: 5 Associated symptoms: Body/muscle aches - Related Data Allergies/Adverse Reactions: green pepper Allergy (Verified 01/01/19 19:26) No Known Drug Intolerances Allergy (Verified 01/01/19 19:26) Past Medical History - General Information source: Patient - Social History Smoking Status: Unknown if Ever Smoked Frequency of alcohol use: None Drug Abuse: None Lives with: Family Family History: Reviewed & Not Pertinent, Other - Sickle trait - Past Medical History Cardiac Medical History: Denies: Hx Coronary Artery Disease, Hx Heart Attack, Hx Hypertension Pulmonary Medical History: Reports: Hx Pneumonia - YEARLY SINCE 2003 (last time 07/2017) Denies: Hx Asthma, Hx Bronchitis, Hx COPD Neurological Medical History: Denies: Hx Cerebrovascular Accident, Hx Seizures Renal/ Medical History: Denies: Hx Peritoneal Dialysis Malignancy Medical History: Reports: Hx Renal (Kidney) Cancer GI Medical History: Denies: Hx Pancreatitis Musculoskeletal Medical History: Denies Hx Arthritis, Reports Hx Musculoskeletal Deformity, Reports Hx Musculoskeletal Trauma Psychiatric Medical History: Reports: Hx Depression Past Surgical History: Reports: Hx Cholecystectomy, Hx Kidney (Renal Surgery) - part of left kidney removed., Hx Orthopedic Surgery - L Femur, R hip, left hip, Other - Partial left nephrectomy for renal cell carcinoma - Immunizations Immunizations up to date: Yes Hx Diphtheria, Pertussis, Tetanus Vaccination: Yes - 2017 Hx Pneumococcal Vaccination: 07/22/17 Review of Systems - Review of Systems Notes: Constitutional: denies: Chills, Diaphoresis, Fever, Malaise, Weakness EENT: denies: Eye discharge, Blurred vision, Tearing, Double vision, Nose congestion, Nose discharge, Throat swelling, Mouth pain Cardiovascular: denies: Palpitations, Heart racing, Orthopnea, Dyspnea, Chest pain Respiratory: denies: Cough, Hurts to breathe, Wheezing, Shortness of breath Gastrointestinal: denies: Abdominal pain, Diarrhea, Nausea, Vomiting, Black stools, bright red blood in stool Genitourinary: denies: Burning, Dysuria, Discharge, Frequency, Flank pain, Hematuria Musculoskeletal: Diffuse body aches and pains, hip pain, arm pains Hematologic/Lymphatic: denies: Anemia, Easy bleeding, Easy bruising, Blood clots. sickle cell disease Neurological/Psychological: denies: Confusion, Dementia, Depression, Loss of consciousness Skin: No lesions, no masses, no skin breakdown, no abscesses Physical Exam - Vital signs Vitals: Temp Pulse Resp BP Pulse Ox 97.8 F 127 H 20 65/50 L 98 01/01/19 19:43 01/01/19 19:43 01/01/19 19:43 01/01/19 19:43 01/01/19 19:43 Interpretation: Hypotensive, Tachypneic. No: Hypoxic - General General appearance: Appears well, Alert - HEENT Head: Normocephalic, Atraumatic Eyes: Normal Pupils: PERRL - Respiratory Respiratory status: No respiratory distress Chest status: Nontender Breath sounds: Normal Chest palpation: Normal - Cardiovascular Rhythm: Tachycardia Heart sounds: Normal auscultation Murmur: No - Abdominal Inspection: Normal Distension: No distension Bowel sounds: Normal Tenderness: Nontender Organomegaly: No organomegaly - Back Back: Normal, Nontender - Extremities General upper extremity: Normal inspection, Nontender, Normal color, Normal ROM, Normal temperature General lower extremity: Normal inspection, Nontender, Normal color, Normal ROM, Normal temperature, Normal weight bearing. No: Dariel's sign - Neurological Neuro grossly intact: Yes Cognition: Normal Orientation: AAOx4 [place] Coma Scale Eye Opening: Spontaneous [place] Coma Scale Verbal: Oriented [place] Coma Scale Motor: Obeys Commands [place] Coma Scale Total: 15 Speech: Normal Motor strength normal: LUE, RUE, LLE, RLE Sensory: Normal - Psychological Associated symptoms: Normal affect, Normal mood - Skin Skin Temperature: Warm Skin Moisture: Dry Skin Color: Normal Course - Re-evaluation Re-evalutation: 01/02/19 01:54 Patient is feeling better at this time. Labs are basically at her baseline. Reticulocyte count at baseline. Not acidotic. Chest x-ray unremarkable. Oxygen saturations are normal. Heart rate normal. Blood pressure back to normal. Patient's pain is tolerable at this time. Will DC in stable condition. 01/02/19 01:56 01/02/19 02:12 Laboratory 01/01/19 01/01/19 01/01/19 20:31 21:15 21:15 WBC 17.5 H RBC 2.83 L Hgb 9.0 L Hct 24.9 L MCV 88 MCH 31.7 MCHC 36.1 H RDW 17.7 H Plt Count 359 Seg Neutrophils % 85.0 H Lymphocytes % 10.4 L Monocytes % 4.1 Eosinophils % 0.4 Basophils % 0.1 Absolute Neutrophils 14.9 H Absolute Lymphocytes 1.8 Absolute Monocytes 0.7 Absolute Eosinophils 0.1 Absolute Basophils 0.0 Platelet Comment ADEQUATE Poikilocytosis 1+ Anisocytosis 1+ Sickle Cells 1+ Target Cells SLIGHT Domitila Cells SLIGHT Retic Count (auto) 3.80 H Absolute Retic 0.108 PT INR APTT VBG pH Cancelled VBG pCO2 Cancelled VBG HCO3 Cancelled VBG Base Excess Cancelled Sodium 141.8 Potassium 4.0 Chloride 109 H Carbon Dioxide 15 L Anion Gap 18 BUN 11 Creatinine 0.76 Est GFR ( Amer) > 60 Est GFR (Non-Af Amer) > 60 Glucose 96 Lactic Acid Calcium 10.9 H Total Bilirubin 3.1 H Direct Bilirubin 0.7 H Neonat Total Bilirubin Not Reportable Neonat Direct Bilirubin Not Reportable Neonat Indirect Bili Not Reportable AST 39 H ALT 23 Alkaline Phosphatase 145 H Total Protein 10.6 H Albumin 5.6 H Urine Color Urine Appearance Urine pH Ur Specific [place] Urine Protein Urine Glucose (UA) Urine Ketones Urine Blood Urine Nitrite Urine Bilirubin Urine Urobilinogen Ur Leukocyte Esterase Urine WBC (Auto) Urine RBC (Auto) U Hyaline Cast (Auto) Urine Bacteria (Auto) Squamous Epi Cells Auto Urine Mucus (Auto) Urine Ascorbic Acid Urine HCG, Qual 01/01/19 01/01/19 01/01/19 21:33 21:33 21:54 WBC RBC Hgb Hct MCV MCH MCHC RDW Plt Count Seg Neutrophils % Lymphocytes % Monocytes % Eosinophils % Basophils % Absolute Neutrophils Absolute Lymphocytes Absolute Monocytes Absolute Eosinophils Absolute Basophils Platelet Comment Poikilocytosis Anisocytosis Sickle Cells Target Cells [place] Cells Retic Count (auto) Absolute Retic PT 15.6 H INR 1.18 APTT 23.6 VBG pH 7.34 VBG pCO2 32.5 L VBG HCO3 17.1 L VBG Base Excess -7.8 Sodium Potassium Chloride Carbon Dioxide Anion Gap BUN Creatinine Est GFR ( Amer) Est GFR (Non-Af Amer) Glucose Lactic Acid 0.6 L Calcium Total Bilirubin Direct Bilirubin Neonat Total Bilirubin Neonat Direct Bilirubin Neonat Indirect Bili AST ALT Alkaline Phosphatase Total Protein Albumin Urine Color Urine Appearance Urine pH Ur Specific [place] Urine Protein Urine Glucose (UA) Urine Ketones Urine Blood Urine Nitrite Urine Bilirubin Urine Urobilinogen Ur Leukocyte Esterase Urine WBC (Auto) Urine RBC (Auto) U Hyaline Cast (Auto) Urine Bacteria (Auto) Squamous Epi Cells Auto Urine Mucus (Auto) Urine Ascorbic Acid Urine HCG, Qual 01/02/19 01/02/19 01:00 01:00 WBC RBC Hgb Hct MCV MCH MCHC RDW Plt Count Seg Neutrophils % Lymphocytes % Monocytes % Eosinophils % Basophils % Absolute Neutrophils Absolute Lymphocytes Absolute Monocytes Absolute Eosinophils Absolute Basophils Platelet Comment Poikilocytosis Anisocytosis Sickle Cells Target Cells Domitila Cells Retic Count (auto) Absolute Retic PT INR APTT VBG pH VBG pCO2 VBG HCO3 VBG Base Excess Sodium Potassium Chloride Carbon Dioxide Anion Gap BUN Creatinine Est GFR ( Amer) Est GFR (Non-Af Amer) Glucose Lactic Acid Calcium Total Bilirubin Direct Bilirubin Neonat Total Bilirubin Neonat Direct Bilirubin Neonat Indirect Bili AST ALT Alkaline Phosphatase Total Protein Albumin Urine Color JULY Urine Appearance SLIGHTLY-CLOUDY Urine pH 6.0 Ur Specific [place] 1.014 Urine Protein 30 H Urine Glucose (UA) NEGATIVE Urine Ketones NEGATIVE Urine Blood LARGE H Urine Nitrite NEGATIVE Urine Bilirubin NEGATIVE Urine Urobilinogen NEGATIVE Ur Leukocyte Esterase NEGATIVE Urine WBC (Auto) 5 Urine RBC (Auto) 6 U Hyaline Cast (Auto) 8 Urine Bacteria (Auto) TRACE Squamous Epi Cells Auto 2 Urine Mucus (Auto) RARE Urine Ascorbic Acid NEGATIVE Urine HCG, Qual NEGATIVE - Vital Signs Vital signs: Temp Pulse Resp BP Pulse Ox 97.8 F 127 H 21 H 97/67 L 100 01/01/19 19:43 01/01/19 19:43 01/02/19 02:01 01/02/19 02:01 01/02/19 02:01 - Laboratory Result Diagrams: 01/01/19 21:15 01/01/19 20:31 Laboratory results interpreted by me: 01/01/19 01/01/19 01/01/19 20:31 21:15 21:33 WBC 17.5 H RBC 2.83 L Hgb 9.0 L Hct 24.9 L MCHC 36.1 H RDW 17.7 H Seg Neutrophils % 85.0 H Lymphocytes % 10.4 L Absolute Neutrophils 14.9 H Retic Count (auto) 3.80 H PT 15.6 H VBG pCO2 VBG HCO3 Chloride 109 H Carbon Dioxide 15 L Lactic Acid Calcium 10.9 H Total Bilirubin 3.1 H Direct Bilirubin 0.7 H AST 39 H Alkaline Phosphatase 145 H Total Protein 10.6 H Albumin 5.6 H Urine Protein Urine Blood 01/01/19 01/01/19 01/02/19 21:33 21:54 01:00 WBC RBC Hgb Hct MCHC RDW Seg Neutrophils % Lymphocytes % Absolute Neutrophils Retic Count (auto) PT VBG pCO2 32.5 L VBG HCO3 17.1 L Chloride Carbon Dioxide Lactic Acid 0.6 L Calcium Total Bilirubin Direct Bilirubin AST Alkaline Phosphatase Total Protein Albumin Urine Protein 30 H Urine Blood LARGE H Discharge - Discharge Clinical Impression: Sickle cell crisis Condition: Good Disposition: HOME, SELF-CARE Instructions: Sickle Cell Crisis ([facility]) Additional Instructions: Continue to hydrate. Take your regular medications. Follow-up with your drug abuse worker and your paint formulator. Return for worsening symptoms or concerns. Referrals: AIDEN ALEMAN PA-C [Primary Care Provider] - Follow up as needed
[2019-01-01] MEDS: NORMAL SALINE 1000 ML 1,000 ML IV PRN ×2 (20:21→22:00)
--- NOTE | 2019-01-01 20:41 | RADIOLOGY REPORT (SQ) ---
EXAM DESCRIPTION: XR CHEST 1 VIEW COMPLETED DATE/TME: 01/01/2019 20:02 CLINICAL HISTORY: 33 years, Female, sob Compared to 12-18. FINDINGS: The heart is mildly enlarged. Right arm PICC is in place. No consolidations or pleural effusions. No pulmonary edema or pneumothorax. IMPRESSION: No acute disease.
[2019-01-01 21:11] LABS: ALANINE AMINOTRANSFERASE 23 U/L (9-52); ALBUMIN 5.6 g/dL (3.5-5.0); ALKALINE PHOSPHATASE 145 U/L (38-126); ANION GAP 18 (5-19); ASPARTATE AMINO TRANSFERASE 39 U/L (14-36); BILIRUBIN,DIRECT 0.7 mg/dL (0.0-0.4); BILIRUBIN,TOTAL 3.1 mg/dL (0.2-1.3); BLOOD UREA NITROGEN 11 mg/dL (7-20); CALCIUM 10.9 mg/dL (8.4-10.2); CARBON DIOXIDE 15 mmol/L (22-30); CHLORIDE 109 mmol/L (98-107); GLUCOSE 96 mg/dL (75-110); SODIUM 141.8 mmol/L (137-145); TOTAL PROTEIN 10.6 g/dL (6.3-8.2)
[2019-01-01 21:37] LABS: ABSOLUTE EOSINOPHILS # (AUTO) 0.1 10^3/uL (0.0-0.6); ABSOLUTE LYMPHOCYTES (AUTO) 1.8 10^3/uL (0.5-4.7); ABSOLUTE MONOCYTES (AUTO) 0.7 10^3/uL (0.1-1.4); ABSOLUTE NEUT (AUTO) 14.9 10^3/uL (1.7-8.2); ABSOLUTE RETICS # 0.108 10^6/uL (0.028-0.122); BASOPHILS % (AUTO) 0.1 % (0-2); EOSINOPHILS % (AUTO) 0.4 % (0-6); HEMATOCRIT 24.9 % (36.0-47.0); LYMPHOCYTES % (AUTO) 10.4 % (13-45); MEAN CORPUSCULAR HEMOGLOBIN 31.7 pg (27.0-33.4); MEAN CORPUSCULAR HGB CONC 36.1 g/dL (32.0-36.0); MEAN CORPUSCULAR VOLUME 88 fl (80-97); MONOCYTES % (AUTO) 4.1 % (3-13); PLATELET COUNT 359 10^3/uL (150-450); RED BLOOD COUNT 2.83 10^6/uL (3.72-5.28); RED CELL DISTRIBUTION WIDTH 17.7 % (11.5-14.0); TOTAL CELLS COUNTED % (AUTO) 100 %; WHITE BLOOD COUNT 17.5 10^3/uL (4.0-10.5)
[2019-01-01 21:47] LABS: INTERNATIONAL RATION (INR) 1.18; PROTHROMBIN TIME 15.6 SEC (11.4-15.4)
[2019-01-01 21:48] LABS: PARTIAL THROMBOPLASTIN TIME 23.6 SEC (23.5-35.8)
[2019-01-01 21:56] LABS: ANISOCYTOSIS 1+; BURR CELLS SLIGHT; PLATELET COMMENT ADEQUATE; POIKILOCYTOSIS 1+; SICKLE RED CELLS 1+; TARGET CELLS SLIGHT
[2019-01-01 22:02] LABS: VENOUS BLOOD BASE EXCESS -7.8 mmol/L; VENOUS BLOOD HCO3 17.1 mmol/L (20-32); VENOUS BLOOD PCO2 32.5 mmHg (35-63); VENOUS BLOOD PH 7.34 (7.30-7.42)
[2019-01-02] MEDS ORDERED: HYDROMORPHONE HCL INJ/PF 2 MG/ML AMPULE IV ONE (00:16)
[2019-01-02 01:23] LABS: APPEARANCE,URINE SLIGHTLY-CLOUDY; BILIRUBIN,URINE NEGATIVE (NEGATIVE); COLOR,URINE AMBER; GLUCOSE, URINE NEGATIVE (NEGATIVE); KETONES,URINE NEGATIVE (NEGATIVE); LEUKOCYTE ESTERASE,URINE NEGATIVE (NEGATIVE); NITRITE,URINE NEGATIVE (NEGATIVE); PROTEIN,URINE 30 mg/dL (NEGATIVE); URINE SPECIFIC GRAVITY 1.014; UROBILINOGEN,URINE NEGATIVE mg/dL (<2.0)
[2019-01-02] MEDS ORDERED: OXYCODONE-ACETAMINOPHEN 5-325 MG TABLET PO ONE (01:29)
[2019-01-02 02:35] VITALS: BP 98/69
== END 2019-01-02 02:35 | disposition home or self-care (01) ==
LOC: ER 19:05
DX: D57.00 Hb-SS disease with crisis, unspecified (principal); M79.10 Myalgia, unspecified site; Z90.49 Acquired absence of other specified parts of digestive tract
CPT/HCPCS: 36591; 96376; 99284; 96361; 96374; 96375; 36415; 87040; 83605; 85025; 85610; 85730; 81025; 85045; 80053; 81001; 82803; 71045; J1885; A9270; J1170 ×2; J2405; J7030

== ENCOUNTER 2019-04-02 21:29 | Emergency (ER) | payer MEDICARE, MEDICAID ==
[2019-04-02] MEDS ORDERED: NORMAL SALINE 1000 ML 1,000 ML IV ONE (23:26)
[2019-04-02] MEDS ORDERED: HYDROMORPHONE HCL INJ/PF 2 MG/ML AMPULE IV ONE (23:27)
--- NOTE | 2019-04-02 23:29 | ER Document Report ---
ED Medical Screen (RME) - General Chief Complaint: Sickle Cell Crisis Stated Complaint: SICKNESS Time Seen by Provider: 04/02/19 23:25 Primary Care Provider: AIDEN ALEMAN PA-C [Primary Care Provider] - Follow up as needed Mode of Arrival: Ambulatory Notes: Patient presents complaining of sickle cell crisis. Patient complains of thoracic back pain. Patient states pain started yesterday. Patient denies any fever or cough. hx: Sickle cell, lupus I have greeted and performed a rapid initial assessment of this patient. A comprehensive ED assessment and evaluation of the patient, analysis of test results and completion of the medical decision making process will be conducted by additional ED providers. TRAVEL OUTSIDE OF THE [place] IN LAST 30 DAYS: No - Related Data Allergies/Adverse Reactions: green pepper Allergy (Verified 01/01/19 19:26) No Known Drug Intolerances Allergy (Verified 01/01/19 19:26) Past Medical History - Past Medical History Cardiac Medical History: Denies: Hx Coronary Artery Disease, Hx Heart Attack, Hx Hypertension Pulmonary Medical History: Reports: Hx Pneumonia - YEARLY SINCE 2003 (last time 07/2017) Denies: Hx Asthma, Hx Bronchitis, Hx COPD Neurological Medical History: Denies: Hx Cerebrovascular Accident, Hx Seizures Renal/ Medical History: Denies: Hx Peritoneal Dialysis Malignancy Medical History: Reports: Hx Renal (Kidney) Cancer GI Medical History: Denies: Hx Pancreatitis Musculoskeltal Medical History: Denies Hx Arthritis, Reports Hx Musculoskeletal Deformity, Reports Hx Musculoskeletal Trauma, Denies Hx Systemic Lupus Erythematosus Psychiatric Medical History: Reports: Hx Depression Past Surgical History: Reports: Hx Cholecystectomy, Hx Kidney (Renal Surgery) - part of left kidney removed., Hx Orthopedic Surgery - L Femur, R hip, left hip, Other - Partial left nephrectomy for renal cell carcinoma - Immunizations Immunizations up to date: Yes Hx Diphtheria, Pertussis, Tetanus Vaccination: Yes - 2016 History of Influenza Vaccine for 07/2017 - 12/2017 Season: Yes Influenza Administration Date for 07/2017 - 12/2017 Season: 07/21/17 Physical Exam - Vital signs Vitals: Temp Pulse Resp BP Pulse Ox 98.4 F 92 22 H 111/83 94 04/02/19 22:52 04/02/19 22:52 04/02/19 22:52 04/02/19 22:52 04/02/19 22:52 - Respiratory Respiratory status: No respiratory distress Breath sounds: Normal - Back Back: Tender - Thoracic paraspinal tenderness Course - Vital Signs Vital signs: Temp Pulse Resp BP Pulse Ox 98.4 F 92 22 H 111/83 94 04/02/19 22:52 04/02/19 22:52 04/02/19 22:52 04/02/19 22:52 04/02/19 22:52 Doctor's Discharge - Discharge Referrals: AIDEN ALEMAN PA-C [Primary Care Provider] - Follow up as needed
--- NOTE | 2019-04-03 00:04 | RADIOLOGY REPORT (SQ) ---
EXAM DESCRIPTION: XR CHEST 2 VIEWS COMPLETED DATE/TME: 04/02/2019 23:26 CLINICAL HISTORY: back pain, hx ss COMPARISON: 01/01/2019 FINDINGS: Frontal and lateral views of the chest. Right arm PICC with tip in the SVC. The cardiomediastinal silhouette has normal size and contour. No consolidation, pneumothorax, or pleural effusion. Degenerative change of the left shoulder. No acute abnormalities identified. Upper abdominal soft tissues are unremarkable. IMPRESSION: 1. No acute pulmonary process identified.
[2019-04-03 00:51] LABS: ABSOLUTE BASOPHILS # (AUTO) 0.3 10^3/uL (0.0-0.2); ABSOLUTE EOSINOPHILS # (AUTO) 0.6 10^3/uL (0.0-0.6); ABSOLUTE LYMPHOCYTES (AUTO) 6.9 10^3/uL (0.5-4.7); ABSOLUTE MONOCYTES (AUTO) 1.2 10^3/uL (0.1-1.4); ABSOLUTE NEUT (AUTO) 5.9 10^3/uL (1.7-8.2); ABSOLUTE RETICS # 0.236 10^6/uL (0.028-0.122); BASOPHILS % (AUTO) 1.9 % (0-2); EOSINOPHILS % (AUTO) 3.8 % (0-6); HEMATOCRIT 18.1 % (36.0-47.0); LYMPHOCYTES % (AUTO) 46.3 % (13-45); MEAN CORPUSCULAR HEMOGLOBIN 33.1 pg (27.0-33.4); MEAN CORPUSCULAR VOLUME 87 fl (80-97); MONOCYTES % (AUTO) 8.3 % (3-13); PLATELET COUNT 311 10^3/uL (150-450); RED BLOOD COUNT 2.08 10^6/uL (3.72-5.28); RETICULOCYTE COUNT (AUTO) 11.37 % (0.66-2.85); SEGMENTED NEUTROPHILS % (AUTO) 39.7 % (42-78); TOTAL CELLS COUNTED % (AUTO) 100 %
[2019-04-03] MEDS ORDERED: DIPHENHYDRAMINE HCL 50 MG/ML VIAL IV ONE ×2 (00:52→06:00)
[2019-04-03 01:02] LABS: ALANINE AMINOTRANSFERASE 17 U/L (9-52); ALBUMIN 4.1 g/dL (3.5-5.0); ALKALINE PHOSPHATASE 101 U/L (38-126); ANION GAP 8 (5-19); ASPARTATE AMINO TRANSFERASE 36 U/L (14-36); BILIRUBIN,DIRECT 0.5 mg/dL (0.0-0.4); BILIRUBIN,TOTAL 3.6 mg/dL (0.2-1.3); BLOOD UREA NITROGEN 5 mg/dL (7-20); CALCIUM 9.2 mg/dL (8.4-10.2); CARBON DIOXIDE 24 mmol/L (22-30); CHLORIDE 107 mmol/L (98-107); GLUCOSE 84 mg/dL (75-110); HEMOGLOBIN 6.9 g/dL (12.0-15.5); POTASSIUM 3.4 mmol/L (3.6-5.0); SODIUM 138.5 mmol/L (137-145); TOTAL PROTEIN 7.7 g/dL (6.3-8.2)
[2019-04-03] MEDS ORDERED: HYDROMORPHONE HCL INJ/PF 2 MG/ML AMPULE IV ONE ×4 (01:06→06:00)
[2019-04-03 01:14] LABS: ANISOCYTOSIS 3+; POIKILOCYTOSIS 3+
[2019-04-03 01:15] LABS: SICKLE RED CELLS 3+
[2019-04-03 01:40] LABS: PLATELET COMMENT ADEQUATE
[2019-04-03] MEDS ORDERED: NORMAL SALINE 250 ML IV PRN (01:49)
[2019-04-03 01:57] LABS: APPEARANCE,URINE CLEAR; BILIRUBIN,URINE NEGATIVE (NEGATIVE); COLOR,URINE YELLOW; GLUCOSE, URINE NEGATIVE (NEGATIVE); KETONES,URINE NEGATIVE (NEGATIVE); LEUKOCYTE ESTERASE,URINE NEGATIVE (NEGATIVE); NITRITE,URINE NEGATIVE (NEGATIVE); PROTEIN,URINE NEGATIVE (NEGATIVE); URINE SPECIFIC GRAVITY 1.004
--- NOTE | 2019-04-03 02:17 | ER Document Report ---
ED General - General Chief Complaint: Sickle Cell Crisis Stated Complaint: SICKNESS Time Seen by Provider: 04/02/19 23:25 Primary Care Provider: LUPE PINK MD [ACTIVE STAFF] - Follow up in 3-5 days Mode of Arrival: Ambulatory Notes: Patient is a 33-year-old female with history of sickle cell anemia that presents to the emergency department for chief complaint of shoulder pain back pain. Patient states she started having pain yesterday around 10 AM, she states is typical pain with her sickle cell crisis, she tried taking 10 mg of Lexapro at home without much relief of her pain so she decided to come to the emergency department. She was seen by her oncologist earlier this week, was noted to be anemic, was given a Procrit injection at that time. She currently rates her pain in the aching pain in her back with intensity. She denies having fevers, chills, night, chest pain, shortness of breath, nausea, vomiting or difficulty breathing. Past Medical History: Sickle cell anemia, lupus Past Surgical History: Left total hip replacement, cholecystectomy Social History: Denies tobacco, alcohol or drug use Family History: Reviewed and noncontributory for presenting illness Allergies: Reviewed, see documented allergy list. REVIEW OF SYSTEMS: Other than noted above, the 12 point review of systems was reviewed with the patient and were negative, all pertinent findings are included in the HPI. PHYSICAL EXAMINATION: Vital signs reviewed, nursing noted reviewed. GENERAL: Patient appears uncomfortable exam, but no acute distress HEAD: Atraumatic, normocephalic. EYES: Eyes appear normal, extraocular movements intact, sclera anicteric, conjunctiva are normal. ENT: nares patent, oropharynx clear without exudates. Moist mucous membranes. NECK: Normal range of motion, supple without lymphadenopathy LUNGS: Breath sounds clear to auscultation bilaterally and equal. No wheezes rales or rhonchi. HEART: Heart rate borderline tachycardic, regular rhythm. ABDOMEN: Soft, nontender, normoactive bowel sounds. No rebound, guarding, or rigidity. No masses appreciated. EXTREMITIES: Nontender, good range of motion, no pitting or edema. NEUROLOGICAL: No focal neurological deficits. Moves all extremities spontaneously Motor and sensory grossly intact on exam. PSYCH: Normal mood, normal affect. SKIN: Warm, Dry, normal turgor, no rashes or lesions noted on exposed skin TRAVEL OUTSIDE OF THE [place] IN LAST 30 DAYS: No - Related Data Allergies/Adverse Reactions: green pepper Allergy (Verified 01/01/19 19:26) No Known Drug Intolerances Allergy (Verified 01/01/19 19:26) Past Medical History - Social History Smoking Status: Never Smoker Chew tobacco use (# tins/day): No Frequency of alcohol use: None Drug Abuse: None Family History: Reviewed & Not Pertinent, Other - Sickle trait Patient has suicidal ideation: No Patient has homicidal ideation: No - Past Medical History Cardiac Medical History: Denies: Hx Coronary Artery Disease, Hx Heart Attack, Hx Hypertension Pulmonary Medical History: Reports: Hx Pneumonia - YEARLY SINCE 2003 (last time 07/2017) Denies: Hx Asthma, Hx Bronchitis, Hx COPD Neurological Medical History: Denies: Hx Cerebrovascular Accident, Hx Seizures Renal/ Medical History: Denies: Hx Peritoneal Dialysis Malignancy Medical History: Reports: Hx Renal (Kidney) Cancer GI Medical History: Denies: Hx Pancreatitis Musculoskeletal Medical History: Denies Hx Arthritis, Reports Hx Musculoskeletal Deformity, Reports Hx Musculoskeletal Trauma, Denies Hx Systemic Lupus Erythematosus Psychiatric Medical History: Reports: Hx Depression Past Surgical History: Reports: Hx Cholecystectomy, Hx Kidney (Renal Surgery) - part of left kidney removed., Hx Orthopedic Surgery - L Femur, R hip, left hip, Other - Partial left nephrectomy for renal cell carcinoma - Immunizations Immunizations up to date: Yes Hx Diphtheria, Pertussis, Tetanus Vaccination: Yes - 2016 Hx Pneumococcal Vaccination: 07/22/17 Physical Exam - Vital signs Vitals: Temp Pulse Resp BP Pulse Ox 98.4 F 92 22 H 111/83 94 04/02/19 22:52 04/02/19 22:52 04/02/19 22:52 04/02/19 22:52 04/02/19 22:52 Course - Re-evaluation Re-evalutation: Patient seen and examined vital signs reviewed. Laboratory data and/or imaging were ordered as appropriate for the patient's presenting symptoms and complaint, with consideration of any critical or life threatening conditions that may be associated with their obtained history and exam as noted above. Patient was treated with IV fluids, Zofran, and Dilaudid for pain, given a total of 3 mg Results were reviewed when available and demonstrated anemia of 6.9, appropriately elevated reticulocyte count, due to the drop in her hemoglobin, I will transfuse her 1 unit of blood, her chest x-ray was negative. After unit of blood, patient's pain is controlled feel she can be discharged home safely to follow-up with her applications systems analyst. The patient was re-evaluated and was stable and improved Evaluation was most consistent with sickle cell crisis, sickle cell anemia requiring transfusion Results were discussed with the patient at this point, after careful consideration I feel that that patient can be discharged from the emergency department, the patient was educated treatments and reasons to return to the emergency department based on their presumed diagnosis as noted above, they were advised to followup with a primary care physician in 2-3 days. Patient was agreeable to plan of care. *Note is created using voice recognition software and may contain spelling, syntax or grammatical errors. Laboratory 04/03/19 04/03/19 04/03/19 00:25 00:25 01:38 WBC 15.0 H RBC 2.08 L Hgb 6.9 L Hct 18.1 L MCV 87 MCH 33.1 MCHC 38.0 H RDW 24.0 H Plt Count 311 Seg Neutrophils % 39.7 L Lymphocytes % 46.3 H Monocytes % 8.3 Eosinophils % 3.8 Basophils % 1.9 Absolute Neutrophils 5.9 Absolute Lymphocytes 6.9 H Absolute Monocytes 1.2 Absolute Eosinophils 0.6 Absolute Basophils 0.3 H Platelet Comment ADEQUATE Poikilocytosis 3+ Anisocytosis 3+ Sickle Cells 3+ Retic Count (auto) 11.37 H Absolute Retic 0.236 H Sodium 138.5 Potassium 3.4 L Chloride 107 Carbon Dioxide 24 Anion Gap 8 BUN 5 L Creatinine 0.44 L Est GFR ( Amer) > 60 Est GFR (Non-Af Amer) > 60 Glucose 84 Calcium 9.2 Total Bilirubin 3.6 H Direct Bilirubin 0.5 H Neonat Total Bilirubin Not Reportable Neonat Direct Bilirubin Not Reportable Neonat Indirect Bili Not Reportable AST 36 ALT 17 Alkaline Phosphatase 101 Total Protein 7.7 Albumin 4.1 Urine Color YELLOW Urine Appearance CLEAR Urine pH 7.0 Ur Specific [place] 1.004 Urine Protein NEGATIVE Urine Glucose (UA) NEGATIVE Urine Ketones NEGATIVE Urine Blood SMALL H Urine Nitrite NEGATIVE Urine Bilirubin NEGATIVE Urine Urobilinogen 2.0 H Ur Leukocyte Esterase NEGATIVE Urine WBC (Auto) 1 Urine RBC (Auto) 0 Squamous Epi Cells Auto 1 Urine Mucus (Auto) RARE Urine Ascorbic Acid NEGATIVE Chest X-Ray 04/02/19 23:26 IMPRESSION: 1. No acute pulmonary process identified. - Vital Signs Vital signs: Temp Pulse Resp BP Pulse Ox 97.9 F 89 16 101/75 96 04/03/19 06:30 04/03/19 08:16 04/03/19 08:16 04/03/19 08:16 04/03/19 08:16 - Laboratory Result Diagrams: 04/03/19 00:25 04/03/19 00:25 Laboratory results interpreted by me: 04/03/19 04/03/19 04/03/19 00:25 00:25 01:38 WBC 15.0 H RBC 2.08 L Hgb 6.9 L Hct 18.1 L MCHC 38.0 H RDW 24.0 H Seg Neutrophils % 39.7 L Lymphocytes % 46.3 H Absolute Lymphocytes 6.9 H Absolute Basophils 0.3 H Retic Count (auto) 11.37 H Absolute Retic 0.236 H Potassium 3.4 L BUN 5 L Creatinine 0.44 L Total Bilirubin 3.6 H Direct Bilirubin 0.5 H Urine Blood SMALL H Urine Urobilinogen 2.0 H Crossmatch 04/03/19 02:58 WBC RBC Hgb Hct MCHC RDW Seg Neutrophils % Lymphocytes % Absolute Lymphocytes Absolute Basophils Retic Count (auto) Absolute Retic Potassium BUN Creatinine Total Bilirubin Direct Bilirubin Urine Blood Urine Urobilinogen Crossmatch See Detail Discharge - Discharge Clinical Impression: Sickle cell pain crisis Sickle cell anemia Qualifiers: Sickle-cell associated disorders: with unspecified crisis Qualified Code(s): D57.00 - Hb-SS disease with crisis, unspecified Condition: Stable Disposition: HOME, SELF-CARE Instructions: Sickle Cell Crisis ([facility]) Additional Instructions: Please follow-up with your oncologist for an appointment, if you have any worsening symptoms, do not hesitate to return to the emergency department. Referrals: LUPE PINK MD [ACTIVE STAFF] - Follow up in 3-5 days
[2019-04-03] MEDS ORDERED: ONDANSETRON 4 MG TAB.RAPDIS PO ONE (04:40)
[2019-04-03 08:16] VITALS: BP 101/75
== END 2019-04-03 08:16 | disposition home or self-care (01) ==
LOC: ER 21:29
DX: D57.00 Hb-SS disease with crisis, unspecified (principal); M25.519 Pain in unspecified shoulder; M54.9 Dorsalgia, unspecified; Z79.899 Other long term (current) drug therapy
CPT/HCPCS: 36591; 96376; 99284; 96361; 96374; 96375; 86900; 86901; 36415; 36430; 86850; 85025; 85045; 80053; 81001; 86920; 86902 ×3; 71046; P9016; J1200; A9270; J1170; J7030; J7050; J1642; S0119

== ENCOUNTER 2019-05-04 16:18 | Emergency (ER) | payer MEDICARE, MEDICAID ==
[2019-05-04 18:25] VITALS: BP 116/79
--- NOTE | 2019-05-04 18:35 | ER Document Report ---
ED Medical Screen (RME) - General Chief Complaint: Sickle Cell Crisis Stated Complaint: BACK AND LEG PAIN Time Seen by Provider: 05/04/19 18:30 Primary Care Provider: AIDEN ALEMAN PA-C [Primary Care Provider] - Follow up as needed Mode of Arrival: Ambulatory Information source: Patient Notes: Patient presents to the emergency department with complaints of headache, back and leg pain. Reports she has a history of sickle cell feels like she is in a sickle cell crisis. Reports this is out normally feels. Denies other symptoms such as fever vomiting diarrhea. She reports she is on pain management has been taking her oxycodone as prescribed but she is still hurting. I have greeted and performed a rapid initial assessment of this patient. A comprehensive ED assessment and evaluation of the patient, analysis of test results and completion of the medical decision making process will be conducted by additional ED providers. Dictation of this chart was performed using voice recognition software; therefore, there may be some unintended grammatical errors. TRAVEL OUTSIDE OF THE [place] IN LAST 30 DAYS: No - HPI Onset: Other - Related Data Allergies/Adverse Reactions: green pepper Allergy (Verified 05/04/19 16:20) No Known Drug Intolerances Allergy (Verified 05/04/19 16:20) Past Medical History - Past Medical History Cardiac Medical History: Denies: Hx Coronary Artery Disease, Hx Heart Attack, Hx Hypertension Pulmonary Medical History: Reports: Hx Pneumonia - YEARLY SINCE 2003 (last time 07/2017) Denies: Hx Asthma, Hx Bronchitis, Hx COPD Neurological Medical History: Denies: Hx Cerebrovascular Accident, Hx Seizures Renal/ Medical History: Denies: Hx Peritoneal Dialysis Malignancy Medical History: Reports: Hx Renal (Kidney) Cancer GI Medical History: Denies: Hx Pancreatitis Musculoskeltal Medical History: Denies Hx Arthritis, Reports Hx Musculoskeletal Deformity, Reports Hx Musculoskeletal Trauma, Denies Hx Systemic Lupus Erythematosus Psychiatric Medical History: Reports: Hx Depression Past Surgical History: Reports: Hx Cholecystectomy, Hx Kidney (Renal Surgery) - part of left kidney removed., Hx Orthopedic Surgery - L Femur, R hip, left hip, Other - Partial left nephrectomy for renal cell carcinoma - Immunizations Immunizations up to date: Yes Hx Diphtheria, Pertussis, Tetanus Vaccination: Yes - 2016 History of Influenza Vaccine for 07/2017 - 12/2017 Season: Yes Influenza Administration Date for 07/2017 - 12/2017 Season: 07/21/17 Physical Exam - Vital signs Vitals: Temp Pulse Resp BP Pulse Ox 98.5 F 87 16 116/79 100 05/04/19 17:32 05/04/19 17:32 05/04/19 17:32 05/04/19 17:32 05/04/19 17:32 Course - Vital Signs Vital signs: Temp Pulse Resp BP Pulse Ox 98.5 F 87 16 116/79 100 05/04/19 17:32 05/04/19 17:32 05/04/19 17:32 05/04/19 17:32 05/04/19 17:32 Doctor's Discharge - Discharge Referrals: AIDEN ALEMAN PA-C [Primary Care Provider] - Follow up as needed
[2019-05-04 19:17] LABS: ABSOLUTE BASOPHILS # (AUTO) 0.2 10^3/uL (0.0-0.2); ABSOLUTE EOSINOPHILS # (AUTO) 0.3 10^3/uL (0.0-0.6); ABSOLUTE LYMPHOCYTES (AUTO) 3.9 10^3/uL (0.5-4.7); ABSOLUTE MONOCYTES (AUTO) 0.9 10^3/uL (0.1-1.4); ABSOLUTE NEUT (AUTO) 5.7 10^3/uL (1.7-8.2); EOSINOPHILS % (AUTO) 2.6 % (0-6); HEMOGLOBIN 8.2 g/dL (12.0-15.5); LYMPHOCYTES % (AUTO) 35.5 % (13-45); MEAN CORPUSCULAR HEMOGLOBIN 32.6 pg (27.0-33.4); MEAN CORPUSCULAR HGB CONC 35.8 g/dL (32.0-36.0); MEAN CORPUSCULAR VOLUME 91 fl (80-97); MONOCYTES % (AUTO) 7.9 % (3-13); PLATELET COUNT 421 10^3/uL (150-450); RED BLOOD COUNT 2.53 10^6/uL (3.72-5.28); RED CELL DISTRIBUTION WIDTH 19.2 % (11.5-14.0); RETICULOCYTE COUNT (AUTO) 5.15 % (0.66-2.85); TOTAL CELLS COUNTED % (AUTO) 100 %; WHITE BLOOD COUNT 10.9 10^3/uL (4.0-10.5)
[2019-05-04 19:18] LABS: APPEARANCE,URINE CLEAR; BILIRUBIN,URINE NEGATIVE (NEGATIVE); COLOR,URINE YELLOW; GLUCOSE, URINE NEGATIVE (NEGATIVE); KETONES,URINE NEGATIVE (NEGATIVE); LEUKOCYTE ESTERASE,URINE NEGATIVE (NEGATIVE); NITRITE,URINE NEGATIVE (NEGATIVE); PROTEIN,URINE NEGATIVE (NEGATIVE); URINE SPECIFIC GRAVITY 1.012
[2019-05-04 19:29] LABS: ALANINE AMINOTRANSFERASE 14 U/L (9-52); ALBUMIN 4.8 g/dL (3.5-5.0); ALKALINE PHOSPHATASE 124 U/L (38-126); ANION GAP 10 (5-19); ASPARTATE AMINO TRANSFERASE 41 U/L (14-36); BILIRUBIN,DIRECT 0.4 mg/dL (0.0-0.4); BLOOD UREA NITROGEN 7 mg/dL (7-20); CALCIUM 9.8 mg/dL (8.4-10.2); CARBON DIOXIDE 23 mmol/L (22-30); CHLORIDE 108 mmol/L (98-107); GLUCOSE 87 mg/dL (75-110); SODIUM 140.5 mmol/L (137-145); TOTAL PROTEIN 8.8 g/dL (6.3-8.2)
[2019-05-04 19:35] LABS: ANISOCYTOSIS 2+; PLATELET COMMENT ADEQUATE; POIKILOCYTOSIS 3+; SICKLE RED CELLS 3+
== END 2019-05-04 19:30 | disposition left against medical advice (07) ==
LOC: ER 16:18
DX: R51 Headache (principal); M54.9 Dorsalgia, unspecified; M79.606 Pain in leg, unspecified; Z90.49 Acquired absence of other specified parts of digestive tract
CPT/HCPCS: 36415; 80053; 81001; 81025; 85025; 85045; 99281

== ENCOUNTER 2019-09-12 09:18 | Emergency (ER) | payer MEDICARE, MEDICAID ==
[2019-09-12 09:52] LABS: ABSOLUTE BASOPHILS # (AUTO) 0.1 10^3/uL (0.0-0.2); ABSOLUTE EOSINOPHILS # (AUTO) 0.6 10^3/uL (0.0-0.6); ABSOLUTE LYMPHOCYTES (AUTO) 3.1 10^3/uL (0.5-4.7); ABSOLUTE MONOCYTES (AUTO) 0.6 10^3/uL (0.1-1.4); ABSOLUTE NEUT (AUTO) 3.2 10^3/uL (1.7-8.2); EOSINOPHILS % (AUTO) 7.3 % (0-6); LYMPHOCYTES % (AUTO) 40.9 % (13-45); MEAN CORPUSCULAR HEMOGLOBIN 35.1 pg (27.0-33.4); MEAN CORPUSCULAR HGB CONC 36.8 g/dL (32.0-36.0); MEAN CORPUSCULAR VOLUME 95 fl (80-97); MONOCYTES % (AUTO) 8.5 % (3-13); PLATELET COUNT 475 10^3/uL (150-450); RED BLOOD COUNT 2.01 10^6/uL (3.72-5.28); RED CELL DISTRIBUTION WIDTH 21.2 % (11.5-14.0); SEGMENTED NEUTROPHILS % (AUTO) 42.3 % (42-78); TOTAL CELLS COUNTED % (AUTO) 100 %; WHITE BLOOD COUNT 7.7 10^3/uL (4.0-10.5)
--- NOTE | 2019-09-12 10:10 | ER Document Report ---
ED General - General Chief Complaint: Sickle Cell Crisis Stated Complaint: WEAKNESS Time Seen by Provider: 09/12/19 10:10 Primary Care Provider: AIDEN ALEMAN PA-C [Primary Care Provider] - Follow up in 1 week TRAVEL OUTSIDE OF THE [place] IN LAST 30 DAYS: No - HPI Notes: 34-year-old female with history of sickle cell anemia to the emergency department with complaints of low back pain and bilateral leg pain that began 2 days ago. She states this is typical for her sickle cell pain crisis. She takes oxycodone, hydroxyurea, Flexeril, folic acid daily. She states that she has been taking her regular medicine and it has not helped her pain. Her last transfusion was in March here when she is having a sickle cell crisis. She denies any chest pain, fevers, shortness of breath, nausea, vomiting, diarrhea, urinary complaints. She is followed by biology intern in [facility]. She states that the last time she was admitted for sickle cell was in October 2018. - Related Data Allergies/Adverse Reactions: green pepper Allergy (Verified 05/04/19 16:20) No Known Drug Intolerances Allergy (Verified 05/04/19 16:20) Past Medical History - General Information source: Patient - Social History Smoking Status: Never Smoker Frequency of alcohol use: None Drug Abuse: None Family History: Reviewed & Not Pertinent, Other - Sickle trait Patient has suicidal ideation: No Patient has homicidal ideation: No - Past Medical History Cardiac Medical History: Denies: Hx Coronary Artery Disease, Hx Heart Attack, Hx Hypertension Pulmonary Medical History: Reports: Hx Pneumonia - YEARLY SINCE 2003 (last time 07/2017) Denies: Hx Asthma, Hx Bronchitis, Hx COPD Neurological Medical History: Denies: Hx Cerebrovascular Accident, Hx Seizures, Hx Parkinson's Disease Renal/ Medical History: Denies: Hx Peritoneal Dialysis Malignancy Medical History: Reports: Hx Renal (Kidney) Cancer GI Medical History: Denies: Hx Pancreatitis Musculoskeletal Medical History: Denies Hx Arthritis, Reports Hx Musculoskeletal Deformity, Reports Hx Musculoskeletal Trauma, Denies Hx Systemic Lupus Erythematosus Psychiatric Medical History: Reports: Hx Depression Past Surgical History: Reports: Hx Cholecystectomy, Hx Kidney (Renal Surgery) - part of left kidney removed., Hx Orthopedic Surgery - L Femur, R hip, left hip, Other - Partial left nephrectomy for renal cell carcinoma - Immunizations Immunizations up to date: Yes Hx Diphtheria, Pertussis, Tetanus Vaccination: Yes - 2017 Hx Pneumococcal Vaccination: 07/22/17 Review of Systems - Review of Systems Constitutional: denies: Chills, Fever EENT: No symptoms reported Cardiovascular: denies: Chest pain, Palpitations, Syncope, Dizziness, Lightheaded Respiratory: denies: Cough, Short of breath Gastrointestinal: denies: Abdominal pain, Diarrhea, Nausea, Vomiting Genitourinary: denies: Frequency, Flank pain Musculoskeletal: See HPI, Back pain, Muscle pain Skin: No symptoms reported Hematologic/Lymphatic: No symptoms reported Neurological/Psychological: No symptoms reported -: Yes All other systems reviewed and negative Physical Exam - Vital signs Vitals: Temp Pulse Resp BP Pulse Ox 98.1 F 87 18 110/77 100 09/12/19 09:22 09/12/19 09:22 09/12/19 09:22 09/12/19 09:22 09/12/19 09:22 Interpretation: Normal - General General appearance: Appears well, Alert In distress: None - HEENT Head: Normocephalic, Atraumatic Eyes: Normal Pupils: PERRL - Respiratory Respiratory status: No respiratory distress Chest status: Nontender. No: Accessory muscle use Breath sounds: Normal. No: Rales, Rhonchi, Wheezing Chest palpation: Normal - Cardiovascular Rhythm: Regular Heart sounds: Normal auscultation Murmur: No - Abdominal Inspection: Normal Distension: No distension Bowel sounds: Normal Tenderness: Nontender. No: Tender, McBurney's point, Sauer's sign, Guarding, Rebound Organomegaly: No organomegaly - Psychological Associated symptoms: Normal affect, Normal mood - Skin Skin Temperature: Warm Skin Moisture: Dry Skin Color: Normal Course - Re-evaluation Re-evalutation: 09/12/19 Patient is better after pain control and unit of blood. Will repeat CBC and if improved will discharge home. We will have her follow with her biology intern in [place]. Patient agrees with the plan. 09/12/19 H and H improved since transfusion. Patient is requesting discharge and states she is feeling better. Will have her follow with her biology intern. Encouraged to return if worse. She agrees with the plan. - Vital Signs Vital signs: Temp Pulse Resp BP Pulse Ox 97.7 F 86 14 123/97 H 98 09/12/19 19:39 09/12/19 19:39 09/12/19 19:39 09/12/19 19:39 09/12/19 19:39 - Laboratory Result Diagrams: 09/12/19 17:08 09/12/19 09:25 Laboratory results interpreted by me: 09/12/19 09/12/19 09/12/19 09:24 09:25 09:25 RBC 2.01 L Hgb 7.1 L Hct 19.1 L MCH 35.1 H MCHC 36.8 H RDW 21.2 H Plt Count 475 H Lymph % (Auto) Eos % (Auto) 7.3 H Reticulocyte # 0.124 H Absolute Lymphs (auto) Seg Neutrophils % Retic Count (auto) 6.08 H Chloride 111 H BUN 6 L Creatinine 0.44 L Total Bilirubin 2.1 H Urine Blood Urine Urobilinogen Ur Leukocyte Esterase Crossmatch 09/12/19 09/12/19 09/12/19 11:30 11:43 17:08 RBC 2.45 L Hgb 8.5 L Hct 23.2 L MCH 34.5 H MCHC 36.4 H RDW 18.8 H Plt Count Lymph % (Auto) 55.0 H Eos % (Auto) Reticulocyte # Absolute Lymphs (auto) 5.2 H Seg Neutrophils % 32.3 L Retic Count (auto) Chloride BUN Creatinine Total Bilirubin Urine Blood SMALL H Urine Urobilinogen 4.0 H Ur Leukocyte Esterase TRACE H Crossmatch See Detail Discharge - Discharge Clinical Impression: Leg pain, bilateral, Sickle cell anemia with pain Sickle cell anemia Qualifiers: Sickle-cell associated disorders: with unspecified crisis Qualified Code(s): D57.00 - Hb-SS disease with crisis, unspecified Low back pain Qualifiers: Chronicity: acute Back pain laterality: bilateral Sciatica presence: without sciatica Qualified Code(s): M54.5 - Low back pain Condition: Stable Disposition: HOME, SELF-CARE Instructions: Sickle Cell Crisis ([facility]) Additional Instructions: FOLLOW UP WITH YOUR SALES DATA ANALYST NEXT WEEK. RETURN IF WORSENING PAIN, FEVERS, OR ANY OTHER CONCERNS. Referrals: AIDEN ALEMAN PA-C [Primary Care Provider] - Follow up in 1 week
[2019-09-12 10:13] LABS: HEMOGLOBIN 7.1 g/dL (12.0-15.5)
[2019-09-12 10:14] LABS: ANISOCYTOSIS 3+; POLYCHROMASIA SLIGHT
[2019-09-12 10:15] LABS: PLATELET COMMENT INCREASED; POIKILOCYTOSIS 1+; SICKLE RED CELLS 2+; TARGET CELLS 2+
[2019-09-12 10:16] LABS: ALBUMIN 4.1 g/dL (3.5-5.0); ALKALINE PHOSPHATASE 72 U/L (38-126); ANION GAP 9 (5-19); ASPARTATE AMINO TRANSFERASE 32 U/L (14-36); BILIRUBIN,TOTAL 2.1 mg/dL (0.2-1.3); BLOOD UREA NITROGEN 6 mg/dL (7-20); CALCIUM 9.2 mg/dL (8.4-10.2); CARBON DIOXIDE 24 mmol/L (22-30); CHLORIDE 111 mmol/L (98-107); CREATINE KINASE 39 U/L (30-135); GLUCOSE 85 mg/dL (75-110); TOTAL PROTEIN 7.8 g/dL (6.3-8.2)
[2019-09-12 10:17] LABS: HEMATOCRIT 19.1 % (36.0-47.0)
[2019-09-12 10:19] LABS: ABSOLUTE RETICS # 0.124 10^6/uL (0.028-0.122); RETICULOCYTE COUNT (AUTO) 6.08 % (0.66-2.85)
[2019-09-12 10:27] LABS: CREATINE KINASE MB < 0.22 ng/mL (<4.55)
[2019-09-12 10:29] LABS: TROPONIN I 0.043 ng/mL
[2019-09-12] MEDS ORDERED: NORMAL SALINE 250 ML IV PRN ×2 (10:48)
[2019-09-12] MEDS ORDERED: ONDANSETRON HCL INJ/PF 4 MG/2 ML SDV IV ONE (10:49)
[2019-09-12] MEDS ORDERED: HYDROMORPHONE HCL INJ/PF 2 MG/ML AMPULE IV ONE ×4 (10:49→16:29)
[2019-09-12] MEDS ORDERED: DIPHENHYDRAMINE HCL 50 MG/ML VIAL IV ONE ×3 (10:49→14:30)
[2019-09-12] MEDS ORDERED: NORMAL SALINE 1000 ML 1,000 ML IV ONE (10:50)
[2019-09-12 12:04] LABS: APPEARANCE,URINE CLEAR; BILIRUBIN,URINE NEGATIVE (NEGATIVE); COLOR,URINE YELLOW; GLUCOSE, URINE NEGATIVE (NEGATIVE); KETONES,URINE NEGATIVE (NEGATIVE); LEUKOCYTE ESTERASE,URINE TRACE (NEGATIVE); NITRITE,URINE NEGATIVE (NEGATIVE); PROTEIN,URINE NEGATIVE (NEGATIVE)
[2019-09-12 18:22] LABS: ABSOLUTE BASOPHILS # (AUTO) 0.1 10^3/uL (0.0-0.2); ABSOLUTE EOSINOPHILS # (AUTO) 0.5 10^3/uL (0.0-0.6); ABSOLUTE LYMPHOCYTES (AUTO) 5.2 10^3/uL (0.5-4.7); ABSOLUTE MONOCYTES (AUTO) 0.7 10^3/uL (0.1-1.4); ABSOLUTE NEUT (AUTO) 3.1 10^3/uL (1.7-8.2); BASOPHILS % (AUTO) 0.8 % (0-2); EOSINOPHILS % (AUTO) 4.9 % (0-6); HEMATOCRIT 23.2 % (36.0-47.0); HEMOGLOBIN 8.5 g/dL (12.0-15.5); MEAN CORPUSCULAR HEMOGLOBIN 34.5 pg (27.0-33.4); MEAN CORPUSCULAR HGB CONC 36.4 g/dL (32.0-36.0); MEAN CORPUSCULAR VOLUME 95 fl (80-97); PLATELET COUNT 401 10^3/uL (150-450); RED BLOOD COUNT 2.45 10^6/uL (3.72-5.28); RED CELL DISTRIBUTION WIDTH 18.8 % (11.5-14.0); SEGMENTED NEUTROPHILS % (AUTO) 32.3 % (42-78); TOTAL CELLS COUNTED % (AUTO) 100 %; WHITE BLOOD COUNT 9.5 10^3/uL (4.0-10.5)
[2019-09-12 19:42] VITALS: BP 123/97
== END 2019-09-12 19:43 | disposition home or self-care (01) ==
LOC: ER 09:18
DX: D57.00 Hb-SS disease with crisis, unspecified (principal); M79.605 Pain in left leg; M79.604 Pain in right leg; M54.5 Low back pain; R53.1 Weakness
CPT/HCPCS: 36591; 96376; 99284; 96361; 96374; 96375; 86900; 86901; 36415; 82553; 36430; 86850; 82550; 85025; 85652; 81025; 85045; 80053; 81001; 84484; 86920; 86902 ×3; P9016; J1200; J1170; J2405; J7030; J7050

== ENCOUNTER 2019-12-04 15:06 | Emergency (ER) | payer MEDICARE, MEDICAID ==
[2019-12-04] MEDS ORDERED: NORMAL SALINE 1000 ML 1,000 ML IV ONE (15:35)
[2019-12-04 15:43] LABS: ABSOLUTE BASOPHILS # (AUTO) 0.1 10^3/uL (0.0-0.2); ABSOLUTE EOSINOPHILS # (AUTO) 0.4 10^3/uL (0.0-0.6); ABSOLUTE LYMPHOCYTES (AUTO) 2.8 10^3/uL (0.5-4.7); ABSOLUTE MONOCYTES (AUTO) 1.2 10^3/uL (0.1-1.4); ABSOLUTE NEUT (AUTO) 7.8 10^3/uL (1.7-8.2); ABSOLUTE RETICS # 0.131 10^6/uL (0.028-0.122); BASOPHILS % (AUTO) 1.1 % (0-2); EOSINOPHILS % (AUTO) 3.3 % (0-6); HEMATOCRIT 18.9 % (36.0-47.0); LYMPHOCYTES % (AUTO) 22.8 % (13-45); MEAN CORPUSCULAR HEMOGLOBIN 34.6 pg (27.0-33.4); MEAN CORPUSCULAR HGB CONC 36.8 g/dL (32.0-36.0); MEAN CORPUSCULAR VOLUME 94 fl (80-97); MONOCYTES % (AUTO) 9.8 % (3-13); PLATELET COUNT 367 10^3/uL (150-450); RED BLOOD COUNT 2.01 10^6/uL (3.72-5.28); RED CELL DISTRIBUTION WIDTH 17.8 % (11.5-14.0); RETICULOCYTE COUNT (AUTO) 6.48 % (0.66-2.85); TOTAL CELLS COUNTED % (AUTO) 100 %; WHITE BLOOD COUNT 12.4 10^3/uL (4.0-10.5)
[2019-12-04 15:58] LABS: ALBUMIN 3.8 g/dL (3.5-5.0); ALKALINE PHOSPHATASE 74 U/L (38-126); ANION GAP 7 (5-19); ASPARTATE AMINO TRANSFERASE 40 U/L (14-36); BLOOD UREA NITROGEN 4 mg/dL (7-20); CALCIUM 9.3 mg/dL (8.4-10.2); CARBON DIOXIDE 23 mmol/L (22-30); CHLORIDE 103 mmol/L (98-107); GLUCOSE 77 mg/dL (75-110); POTASSIUM 4.3 mmol/L (3.6-5.0); TOTAL PROTEIN 7.4 g/dL (6.3-8.2)
[2019-12-04 16:20] LABS: POLYCHROMASIA SLIGHT; SICKLE RED CELLS 2+; TARGET CELLS 1+
[2019-12-04 16:24] LABS: PLATELET COMMENT ADEQUATE; TOXIC GRANULATION 1+
[2019-12-04 16:26] LABS: ANISOCYTOSIS 1+; POIKILOCYTOSIS 1+
[2019-12-04] MEDS ORDERED: MORPHINE SULFATE 10 MG/ML INJ IV PRN (16:31)
[2019-12-04] MEDS ORDERED: DIPHENHYDRAMINE HCL 50 MG/ML VIAL IV ONE (16:32)
--- NOTE | 2019-12-04 16:39 | ER Document Report ---
ED General - General Chief Complaint: Sickle Cell Crisis Stated Complaint: BODY PAIN Time Seen by Provider: 12/04/19 16:16 Primary Care Provider: AIDEN ALEMAN PA-C [Primary Care Provider] - Follow up as needed TRAVEL OUTSIDE OF THE [place] IN LAST 30 DAYS: No - HPI Notes: 34-year-old female presenting with a chief complaint of sickle cell osseous crisis. She regularly takes Percocet at home and says she continues to use this medicine as needed. For the last week she has been having breakthrough pain which is getting progressively worse. She denies fever, chills, vomiting, diarrhea, cough or shortness of breath. She denies syncope or presyncope. She denies headache. Patient says that her blood pressure always runs low. She is taking in fluids without difficulty. - Related Data Allergies/Adverse Reactions: green pepper Allergy (Verified 05/04/19 16:20) No Known Drug Intolerances Allergy (Verified 05/04/19 16:20) Past Medical History - General Information source: Patient, Emergency Med Personnel - Social History Smoking Status: Never Smoker Family History: Reviewed & Not Pertinent, Other - Sickle trait Patient has suicidal ideation: No Patient has homicidal ideation: No - Past Medical History Cardiac Medical History: Denies: Hx Coronary Artery Disease, Hx Heart Attack, Hx Hypertension Pulmonary Medical History: Reports: Hx Pneumonia - YEARLY SINCE 2003 (last time 07/2017) Denies: Hx Asthma, Hx Bronchitis, Hx COPD Neurological Medical History: Denies: Hx Cerebrovascular Accident, Hx Seizures, Hx Parkinson's Disease Renal/ Medical History: Denies: Hx Peritoneal Dialysis Malignancy Medical History: Reports: Hx Renal (Kidney) Cancer GI Medical History: Denies: Hx Pancreatitis Musculoskeletal Medical History: Denies Hx Arthritis, Reports Hx Musculoskeletal Deformity, Reports Hx Musculoskeletal Trauma, Denies Hx Systemic Lupus Erythematosus Psychiatric Medical History: Reports: Hx Depression Past Surgical History: Reports: Hx Cholecystectomy, Hx Kidney (Renal Surgery) - part of left kidney removed., Hx Orthopedic Surgery - L Femur, R hip, left hip, Other - Partial left nephrectomy for renal cell carcinoma - Immunizations Immunizations up to date: Yes Hx Diphtheria, Pertussis, Tetanus Vaccination: Yes - 2016 Hx Pneumococcal Vaccination: 07/22/17 Review of Systems - Review of Systems Notes: Constitutional: Negative for fever. HENT: Negative for sore throat. Eyes: Negative for visual changes. Cardiovascular: Negative for chest pain. Respiratory: Negative for shortness of breath. Gastrointestinal: Negative for abdominal pain, vomiting or diarrhea. Genitourinary: Negative for dysuria. Musculoskeletal: As per HPI. Skin: Negative for rash. Neurological: Negative for headaches, weakness or numbness. 10 point ROS negative except as marked above and in HPI. Physical Exam - Vital signs Vitals: Resp 15 12/04/19 15:23 - Notes Notes: GENERAL: Well-developed well-nourished appearing moderately uncomfortable. SKIN: Good turgor no rashes. HEAD: Normocephalic atraumatic. EYES: PERRLA. EOMI. Conjunctivae and sclerae clear. EARS: CANALS AND TMS CLEAR. NOSE: CLEAR. MOUTH: Moist mucosa. Good dentition. No stridor or edema. No drooling. NECK: Supple. No masses or thyromegaly. No adenopathy. Carotids 2+ without bruits. No JVD. BACK: Symmetrical with diffuse tenderness. CHEST: Diffuse chest wall tenderness. Respirations unlabored. Breath sounds clear and symmetrical. HEART: Regular rhythm. No murmur gallop or rub. ABDOMEN: Soft nontender without masses, organomegaly or rebound. Bowel sounds normally active. No bruits. GENITALIA: Deferred. EXTREMITIES: No edema. Diffuse tenderness. Cap refill less than 1.5 seconds. Dorsalis pedis and posterior tibial pulses 3+ and symmetrical. NEUROLOGICAL: GCS 15. Alert and oriented x3. Normal gait. Fluent speech. Cranial nerves II through XII intact. Sensorimotor and cerebellar normal. Normal tone. PSYCHIATRIC: Appropriate affect. Course - Re-evaluation Re-evalutation: 12/04/19 20:48 Patient received 2 doses of IV Dilaudid here for management of sickle cell osseous crisis. She symptomatically improved and wants to go home. Her LDH is mildly elevated. She does not have a fever. Hemoglobin is 7 g which is slightly below where she has her usual baseline but she has no evidence of any active bleeding or other complications. She appears stable for outpatient follow-up with her primary provider. - Vital Signs Vital signs: Temp Pulse Resp BP Pulse Ox 98.4 F 88 16 88/68 L 99 12/04/19 15:32 12/04/19 15:29 12/04/19 19:00 12/04/19 18:23 12/04/19 19:00 - Laboratory Result Diagrams: 12/04/19 15:24 12/04/19 15:24 Laboratory results interpreted by me: 12/04/19 12/04/19 12/04/19 15:24 15:24 15:24 WBC 12.4 H RBC 2.01 L Hgb 7.0 L Hct 18.9 L MCH 34.6 H MCHC 36.8 H RDW 17.8 H Reticulocyte # 0.131 H Retic Count (auto) 6.48 H Sodium 133.4 L BUN 4 L Creatinine 0.35 L Total Bilirubin 2.0 H AST 40 H Lactate Dehydrogenase 428 H Urine HCG, Qual 12/04/19 18:04 WBC RBC Hgb Hct MCH MCHC RDW Reticulocyte # Retic Count (auto) Sodium BUN Creatinine Total Bilirubin AST Lactate Dehydrogenase Urine HCG, Qual POSITIVE H Discharge - Discharge Clinical Impression: Sickle cell anemia with crisis Condition: Stable Disposition: HOME, SELF-CARE Referrals: AIDEN ALEMAN PA-C [Primary Care Provider] - Follow up as needed
[2019-12-04] MEDS ORDERED: HYDROMORPHONE HCL INJ/PF 2 MG/ML AMPULE IV ONE ×2 (17:24→19:14)
--- NOTE | 2019-12-04 17:39 | RADIOLOGY REPORT (SQ) ---
EXAM DESCRIPTION: CHEST SINGLE VIEW COMPLETED DATE/TIME: 12/04/2019 5:14 pm REASON FOR STUDY: chest pain COMPARISON: 04/02/2019 TECHNIQUE: Single frontal radiographic view of the chest acquired. NUMBER OF VIEWS: One view. LIMITATIONS: None. FINDINGS: LUNGS AND PLEURA: No pneumothorax. No consolidation or pleural effusion. MEDIASTINUM AND HILAR STRUCTURES: Stable. HEART AND VASCULAR STRUCTURES: Stable. BONES: No acute findings. HARDWARE: Right-sided port. Left proximal humeral replacement. 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 OTHER: No other significant finding. IMPRESSION: NO ACUTE FINDINGS. TECHNICAL DOCUMENTATION: JOB ID: [id number] 2010 [employer]- All Rights Reserved Reading location - IP/workstation name: [email or web address]
[2019-12-04 18:31] LABS: APPEARANCE,URINE CLEAR; BILIRUBIN,URINE NEGATIVE (NEGATIVE); COLOR,URINE STRAW; GLUCOSE, URINE NEGATIVE (NEGATIVE); KETONES,URINE NEGATIVE (NEGATIVE); LEUKOCYTE ESTERASE,URINE NEGATIVE (NEGATIVE); NITRITE,URINE NEGATIVE (NEGATIVE); PROTEIN,URINE NEGATIVE (NEGATIVE); URINE SPECIFIC GRAVITY 1.003; UROBILINOGEN,URINE NEGATIVE mg/dL (<2.0)
--- NOTE | 2019-12-04 20:25 | EKG REPORT ---
SEVERITY:- ABNORMAL ECG - SINUS RHYTHM PROBABLE LEFT ATRIAL ABNORMALITY PROBABLE LEFT VENTRICULAR HYPERTROPHY BORDERLINE PROLONGED QT INTERVAL : Confirmed by: Toni Lomax MD 04-Dec-2019 20:24:33
[2019-12-04 21:04] VITALS: BP 94/80
== END 2019-12-04 21:04 | disposition home or self-care (01) ==
LOC: ER 15:06
DX: D57.00 Hb-SS disease with crisis, unspecified (principal); Z90.49 Acquired absence of other specified parts of digestive tract
CPT/HCPCS: 36415; 71045; 80053; 81001; 81025; 83615; 84484; 85025; 85045; 93005; 93010; 96361; 96374; 96375; 96376; 99284; J1170; J1200; J2270; J7030

== ENCOUNTER 2019-12-07 15:16 | Inpatient (IN) | payer MEDICARE, MEDICAID ==
--- NOTE | 2019-12-07 16:24 | ER Document Report ---
BRANDON Mueller <LINDSAYJOHNATHAN J - Last Filed: 12/07/19 23:14> - General TRAVEL OUTSIDE OF THE [place] IN LAST 30 DAYS: No - HPI Patient complains to provider of: pain Onset: Last week Onset/Duration: Sudden Severity: Severe Exacerbated by: Denies Relieved by: Denies <HANSEL HUGHES - Last Filed: 12/09/19 20:03> - General Chief Complaint: General Weakness Stated Complaint: GENERAL WEAKNESS Time Seen by Provider: 12/07/19 16:20 - HPI Context: 34 year old female with known sickle cell disease presents with pain in arms and legs and fever. Temp to 101 or so at home. Seen here 12/04 for same. Has "procedure" to end 12/05. No vaginal bleeding or abd pain. Right arm port is in place. (HANSEL HUGHES) - Related Data Allergies/Adverse Reactions: green pepper Allergy (Intermediate, Verified 12/08/19 09:19) Anaphylaxis No Known Drug Intolerances Allergy (Verified 05/04/19 16:20) Past Medical History - General Information source: Patient - Social History Smoking Status: Unknown if Ever Smoked Family History: Reviewed & Not Pertinent, Other - Sickle trait - Past Medical History Cardiac Medical History: Denies: Hx Coronary Artery Disease, Hx Heart Attack, Hx Hypertension Pulmonary Medical History: Reports: Hx Pneumonia - YEARLY SINCE 2003 (last time 07/2017) Denies: Hx Asthma, Hx Bronchitis, Hx COPD Neurological Medical History: Denies: Hx Cerebrovascular Accident, Hx Seizures, Hx Parkinson's Disease Renal/ Medical History: Denies: Hx Peritoneal Dialysis Malignancy Medical History: Reports: Hx Renal (Kidney) Cancer GI Medical History: Denies: Hx Pancreatitis Musculoskeletal Medical History: Denies Hx Arthritis, Reports Hx Musculoskeletal Deformity, Reports Hx Musculoskeletal Trauma, Denies Hx Systemic Lupus Erythematosus Psychiatric Medical History: Reports: Hx Depression Past Surgical History: Reports: Hx Cholecystectomy, Hx Kidney (Renal Surgery) - part of left kidney removed., Hx Orthopedic Surgery - L Femur, R hip, left hip, Other - Partial left nephrectomy for renal cell carcinoma - Immunizations Immunizations up to date: Yes Hx Diphtheria, Pertussis, Tetanus Vaccination: Yes - 2017 Hx Pneumococcal Vaccination: 07/22/17 <HANSEL HUGHES - Last Filed: 12/09/19 20:03> Review of Systems - Review of Systems Constitutional: See HPI EENT: No symptoms reported Cardiovascular: No symptoms reported Respiratory: No symptoms reported Gastrointestinal: No symptoms reported Genitourinary: No symptoms reported Female Genitourinary: No symptoms reported Musculoskeletal: See HPI, Joint swelling, Muscle pain, Muscle stiffness. denies: Neck pain Skin: No symptoms reported Hematologic/Lymphatic: No symptoms reported Neurological/Psychological: No symptoms reported <HANSEL HUGHES P - Last Filed: 12/09/19 20:03> Physical Exam - Vital signs Interpretation: Normal - General General appearance: Appears well, Alert - HEENT Head: Normocephalic, Atraumatic Eyes: Normal Pupils: PERRL - Respiratory Respiratory status: No respiratory distress Chest status: Nontender Breath sounds: Normal Chest palpation: Normal - Cardiovascular Rhythm: Regular Heart sounds: Normal auscultation Murmur: No - Abdominal Inspection: Normal Distension: No distension Bowel sounds: Normal Tenderness: Nontender Organomegaly: No organomegaly - Back Back: Normal, Nontender - Extremities General upper extremity: Normal inspection, Nontender, Normal color, Normal ROM, Normal temperature General lower extremity: Normal inspection, Nontender, Normal color, Normal ROM, Normal temperature, Normal weight bearing. No: Dariel's sign - Neurological Neuro grossly intact: Yes Cognition: Normal Orientation: AAOx4 [place] Coma Scale Eye Opening: Spontaneous [place] Coma Scale Verbal: Oriented [place] Coma Scale Motor: Obeys Commands [place] Coma Scale Total: 15 Speech: Normal Motor strength normal: LUE, RUE, LLE, RLE Sensory: Normal - Psychological Associated symptoms: Normal affect, Normal mood - Skin Skin Temperature: Warm Skin Moisture: Dry Skin Color: Normal <HANSEL HUGHES P - Last Filed: 12/09/19 20:03> - Vital signs Vitals: Temp Pulse Resp BP Pulse Ox 98.4 F 108 H 18 102/69 99 12/07/19 16:02 12/07/19 16:02 12/07/19 16:02 12/07/19 16:02 12/07/19 16:02 Course - Laboratory Result Diagrams: 12/07/19 17:00 12/07/19 17:00 <JOHNATHAN LINDSAY J - Last Filed: 12/07/19 23:14> - Laboratory Result Diagrams: 12/09/19 05:50 12/09/19 05:50 - Diagnostic Test Radiology reviewed: Image reviewed, Reports reviewed - EKG Interpretation by Me EKG shows normal: Sinus rhythm Rate: Tachycardia - Sinus Tachy Nl [place] [address] elevation or depression my interpretation. <HANSEL HUGHES - Last Filed: 12/09/19 20:03> - Re-evaluation Re-evalutation: 12/07/19 23:12 Patient still complains of pain generalized. Discussed with Dr. Rojas who requested that I consult with the on-call OB drafting layout worker inasmuch as patient just had a elective done in [place] at the [facility] just 2 days ago. Discussed with Dr. 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 (JOHNATHAN REEDER) 12/07/19 19:08 MDM Recheck pt at 1905 and her pain is worse she tells me. She is crying. Will check sono of pelvis with elevated HCG - should show only thickening of endo metrium. 12/07/19 19:14 Over to Ila Lindsay at 1915. (HANSEL HUGHES) - Vital Signs Vital signs: Temp Pulse Resp BP Pulse Ox 98.5 F 104 H 16 102/63 94 12/09/19 17:00 12/09/19 19:51 12/09/19 19:51 12/09/19 17:00 12/09/19 19:51 - Laboratory Laboratory results interpreted by me: 12/07/19 12/07/19 12/07/19 17:00 17:00 21:24 WBC 14.9 H RBC 2.11 L Hgb 7.2 L Hct 20.1 L MCH 34.1 H RDW 19.2 H Reticulocyte # 0.198 H Absolute Neuts (auto) 9.1 H Retic Count (auto) 9.36 H Sodium 136.8 L Chloride 108 H Creatinine 0.30 L Total Bilirubin 2.7 H AST 56 H Beta HCG, Quant 4527.60 H Urine Urobilinogen 4.0 H Urine Ascorbic Acid 20 H Discharge <JOHNATHAN LINDSAY - Last Filed: 12/07/19 23:14> - Discharge Admitting Provider: Bob (Hospitalist) Unit Admitted: Medical Floor <ELLEN,HANSEL P - Last Filed: 12/09/19 20:03> - Discharge Clinical Impression: Sickle cell anemia with crisis Leg pain, anterior Qualifiers: Laterality: unspecified laterality Qualified Code(s): M79.606 - Pain in leg, unspecified Condition: Fair Disposition: ADMITTED INPATIENT
[2019-12-07] MEDS ORDERED: NORMAL SALINE 1000 ML 1,000 ML IV ONE (16:45)
[2019-12-07] MEDS ORDERED: HYDROMORPHONE HCL INJ/PF 2 MG/ML AMPULE IV ONE ×3 (16:46→21:53)
[2019-12-07] MEDS ORDERED: DIPHENHYDRAMINE HCL 50 MG/ML VIAL IV ONE ×2 (16:46→19:05)
--- NOTE | 2019-12-07 17:04 | RADIOLOGY REPORT (SQ) ---
EXAM DESCRIPTION: CHEST SINGLE VIEW COMPLETED DATE/TIME: 12/07/2019 4:56 pm REASON FOR STUDY: fever COMPARISON: AP view of the chest from 12/04/2019. EXAM PARAMETERS: NUMBER OF VIEWS: One view. TECHNIQUE: An AP view of the chest was obtained. RADIATION DOSE: NA LIMITATIONS: None. FINDINGS: LUNGS AND PLEURA: No consolidation, pleural effusion or pneumothorax. MEDIASTINUM AND HILAR STRUCTURES: No mediastinal or hilar contour abnormality. HEART AND VASCULAR STRUCTURES: The cardiac silhouette and pulmonary vasculature are within normal baum its. BONES: AVN of the right humeral head. HARDWARE: The tip of the single-lumen right upper extremity port projects within the SVC. There is a n humeral head prosthesis on the left. OTHER: No other finding. IMPRESSION: No acute cardiopulmonary process. TECHNICAL DOCUMENTATION: JOB ID: [id number] 2010 [employer]- All Rights Reserved Reading location - IP/workstation name: [email or web address]
[2019-12-07 17:35] LABS: ABSOLUTE BASOPHILS # (AUTO) 0.1 10^3/uL (0.0-0.2); ABSOLUTE EOSINOPHILS # (AUTO) 0.4 10^3/uL (0.0-0.6); ABSOLUTE MONOCYTES (AUTO) 1.2 10^3/uL (0.1-1.4); ABSOLUTE NEUT (AUTO) 9.1 10^3/uL (1.7-8.2); ABSOLUTE RETICS # 0.198 10^6/uL (0.028-0.122); BASOPHILS % (AUTO) 0.9 % (0-2); EOSINOPHILS % (AUTO) 2.7 % (0-6); HEMATOCRIT 20.1 % (36.0-47.0); LYMPHOCYTES % (AUTO) 27.1 % (13-45); MEAN CORPUSCULAR HEMOGLOBIN 34.1 pg (27.0-33.4); MEAN CORPUSCULAR HGB CONC 35.9 g/dL (32.0-36.0); MEAN CORPUSCULAR VOLUME 95 fl (80-97); PLATELET COUNT 405 10^3/uL (150-450); RED BLOOD COUNT 2.11 10^6/uL (3.72-5.28); RED CELL DISTRIBUTION WIDTH 19.2 % (11.5-14.0); RETICULOCYTE COUNT (AUTO) 9.36 % (0.66-2.85); SEGMENTED NEUTROPHILS % (AUTO) 61.3 % (42-78); TOTAL CELLS COUNTED % (AUTO) 100 %; WHITE BLOOD COUNT 14.9 10^3/uL (4.0-10.5)
[2019-12-07 17:37] LABS: HEMOGLOBIN 7.2 g/dL (12.0-15.5)
[2019-12-07 17:50] LABS: ANISOCYTOSIS 2+; POIKILOCYTOSIS 2+; POLYCHROMASIA SLIGHT
[2019-12-07 17:51] LABS: HOWELL-JOLLY BODIES PRESENT; PLATELET COMMENT ADEQUATE; SICKLE RED CELLS 1+; TARGET CELLS SLIGHT
[2019-12-07 17:54] LABS: ALBUMIN 3.9 g/dL (3.5-5.0); ALKALINE PHOSPHATASE 97 U/L (38-126); ANION GAP 7 (5-19); ASPARTATE AMINO TRANSFERASE 56 U/L (14-36); BILIRUBIN,DIRECT 0.2 mg/dL (0.0-0.4); BILIRUBIN,TOTAL 2.7 mg/dL (0.2-1.3); BLOOD UREA NITROGEN 7 mg/dL (7-20); CALCIUM 9.1 mg/dL (8.4-10.2); CARBON DIOXIDE 22 mmol/L (22-30); CHLORIDE 108 mmol/L (98-107); GLUCOSE 80 mg/dL (75-110); TOTAL PROTEIN 7.4 g/dL (6.3-8.2)
--- NOTE | 2019-12-07 18:34 | EKG REPORT ---
SEVERITY:- ABNORMAL ECG - SINUS TACHYCARDIA LEFT VENTRICULAR HYPERTROPHY BORDERLINE PROLONGED QT INTERVAL : Confirmed by: Monika Mendez 07-Dec-2019 18:34:07
[2019-12-07] MEDS ORDERED: ONDANSETRON HCL INJ/PF 4 MG/2 ML SDV IV ONE (19:04)
[2019-12-07] MEDS ORDERED: VANCOMYCIN HCL INJ 1000 MG VIAL IV ONE (19:07)
--- NOTE | 2019-12-07 21:26 | RADIOLOGY REPORT (SQ) ---
US PELVIS EXAM DATE: 12/07/2019 7:04 PM SKIN CARVER HISTORY: History of recent . Pelvic pain. COMPARISON: None. TECHNIQUE: Grayscale, color Doppler, and spectral Doppler ultrasound images of the pelvis were obtained. FINDINGS: The uterus is anteverted and measures 9.5 x 6.1 x 6.5 cm. The cervix measures 2 cm and is closed. The endometrium is heterogeneous and measures 2 cm in thickness. No evidence of retained products of conception. Both ovaries are normal in size and contain normal follicles, with the right ovary measuring 4 cm and the left ovary measuring 3 cm. There is a 1.7 cm right ovarian cyst. Normal color Doppler blood flow is seen in both ovaries. No pelvic free fluid. IMPRESSION: 1. Mildly heterogeneous and thickened endometrium without evidence of retained products of conception. 2. Small right ovarian cyst for which no follow-up imaging is needed.
[2019-12-07 21:58] LABS: APPEARANCE,URINE CLEAR; BILIRUBIN,URINE NEGATIVE (NEGATIVE); COLOR,URINE YELLOW; GLUCOSE, URINE NEGATIVE (NEGATIVE); KETONES,URINE NEGATIVE (NEGATIVE); LEUKOCYTE ESTERASE,URINE NEGATIVE (NEGATIVE); NITRITE,URINE NEGATIVE (NEGATIVE); PROTEIN,URINE NEGATIVE (NEGATIVE)
[2019-12-07] MEDS ORDERED: MAG HYDROX/AL HYDROX/SIMETH SUSP 30 ML UDCUP PO PRN (23:06)
[2019-12-07] MEDS ORDERED: IPRATROPIUM/ALBUTEROL 0.5-2.5 MG/3 ML AMPUL NEB PRN (23:06)
[2019-12-07 23:47] LABS: INTERNATIONAL RATION (INR) 1.17; PROTHROMBIN TIME 14.9 SEC (11.4-15.4)
[2019-12-07 23:56] LABS: URINE AMPHETAMINES SCREEN NEGATIVE; URINE BARBITURATES SCREEN NEGATIVE; URINE BENZODIAZEPINES SCREEN NEGATIVE; URINE COCAINE SCREEN NEGATIVE; URINE MARIJUANA (THC) SCREEN NEGATIVE; URINE METHADONE SCREEN NEGATIVE; URINE PHENCYCLIDINE SCREEN NEGATIVE
[2019-12-08] MEDS: KETOROLAC TROMETHAMINE INJ/PF 30 MG/1 ML SDV IV PRN ×3 (01:46→16:57)
[2019-12-08] MEDS: ONDANSETRON HCL INJ/PF 4 MG/2 ML SDV IV PRN ×3 (01:47→20:17)
[2019-12-08] MEDS: NORMAL SALINE 1000 ML 1,000 ML IV PRN ×3 (02:08→10:13)
[2019-12-08] MEDS: HYDROMORPHONE HCL INJ/PF 2 MG/ML AMPULE IV PRN ×5 (03:49→22:50)
[2019-12-08 04:33] LABS: ABSOLUTE BASOPHILS # (AUTO) 0.1 10^3/uL (0.0-0.2); ABSOLUTE EOSINOPHILS # (AUTO) 0.2 10^3/uL (0.0-0.6); ABSOLUTE LYMPHOCYTES (AUTO) 2.3 10^3/uL (0.5-4.7); ABSOLUTE MONOCYTES (AUTO) 1.3 10^3/uL (0.1-1.4); ABSOLUTE NEUT (AUTO) 12.7 10^3/uL (1.7-8.2); BASOPHILS % (AUTO) 0.8 % (0-2); EOSINOPHILS % (AUTO) 1.3 % (0-6); HEMATOCRIT 18.6 % (36.0-47.0); LYMPHOCYTES % (AUTO) 13.6 % (13-45); MEAN CORPUSCULAR HEMOGLOBIN 34.2 pg (27.0-33.4); MEAN CORPUSCULAR HGB CONC 36.2 g/dL (32.0-36.0); MEAN CORPUSCULAR VOLUME 94 fl (80-97); MONOCYTES % (AUTO) 7.9 % (3-13); PLATELET COUNT 346 10^3/uL (150-450); RED BLOOD COUNT 1.98 10^6/uL (3.72-5.28); RED CELL DISTRIBUTION WIDTH 19.5 % (11.5-14.0); SEGMENTED NEUTROPHILS % (AUTO) 76.4 % (42-78); TOTAL CELLS COUNTED % (AUTO) 100 %; WHITE BLOOD COUNT 16.6 10^3/uL (4.0-10.5)
[2019-12-08 04:52] LABS: HEMOGLOBIN 6.8 g/dL (12.0-15.5)
[2019-12-08 04:55] LABS: ANION GAP 9 (5-19); BLOOD UREA NITROGEN 3 mg/dL (7-20); CALCIUM 8.7 mg/dL (8.4-10.2); CARBON DIOXIDE 22 mmol/L (22-30); CHLORIDE 105 mmol/L (98-107); GLUCOSE 87 mg/dL (75-110); POTASSIUM 3.5 mmol/L (3.6-5.0)
--- NOTE | 2019-12-08 05:36 | PDOC H&P ---
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 She presents 3 days after termination of a 12-week by D&C in [place] with complaints of 24 hours of generalized pain subjective fever similar to previous episodes of sickle cell pain crisis. She adamantly denies abdominal or pelvic pain or vaginal discharge. In the emergency department she is found to have an unremarkable pelvic ultrasound, beta-hCG within expected range given history and a CBC notable for anemia and increased reticulocytosis. She receives normal saline, Dilaudid and referred to the hospitalist for admission. Past Medical History Cardiac Medical History: Denies: Coronary Artery Disease, Myocardial Infarction, Hypertension Pulmonary Medical History: Reports: Pneumonia - YEARLY SINCE 2003 (last time 07/2017) Denies: Asthma, Bronchitis, Chronic Obstructive Pulmonary Disease (COPD) Neurological Medical History: Denies: Seizures Malignancy Medical History: Reports: Renal (Kidney) Cancer Musculoskeltal Medical History: Denies: Arthritis Psychiatric Medical History: Reports: Depression Hematology: Reports: Anemia - SICKLE CELL, Sickle Cell Disease Denies: Hemophilia Past Surgical History Past Surgical History: Reports: Section, Cholecystectomy, Orthopedic Surgery - Left shoulder September 2019, L Femur, R hip, left hip, Other - Partial left nephrectomy for renal cell carcinoma Denies: Amputation Social History Information Source: Patient, [facility] Records Lives with: Spouse/Significant other Smoking Status: Never Smoker Last Time Smoked: 2014 Frequency of Alcohol Use: Rare Hx Recreational Drug Use: No Drugs: None Hx Prescription Drug Abuse: No - Advance Directive Resuscitation Status: Full Code Family History Family History: Hypertension, Other Parental Family History Reviewed: Yes Children Family History Reviewed: Yes Sibling(s) Family History Reviewed.: Yes Medication/Allergy Home Medications: Dextroamphetamine/Amphetamine [Dextroamp-Amphetamin 15 mg Tab] 15 mg PO BIDP PRN 01/19/18 Folic Acid [Folvite 1 mg Tablet] 1 mg PO DAILY 01/19/18 Sertraline HCl [Zoloft] 150 mg PO DAILY 01/19/18 Fentanyl [Duragesic 50 Mcg/Hr Transdermal Patch] 1 each TD Q3DAYS #5 patch.[id number] 01/21/18 Oxycodone HCl/Acetaminophen [Percocet 10-325 Mg Tablet] 1 each PO TID PRN 4 Days #12 tablet 02/08/18 Epoetin Shimon [Procrit Inj 40,000 Unit/1 ml Vial (Oncology)] 40,000 unit IM ASDIR PRN 06/17/18 Hydroxyurea [Hydrea 500 mg Capsule] 500 mg PO BID 06/17/18 Guaifenesin [Mucinex] 600 mg PO BID #20 tablet.sa 09/21/18 Allergies/Adverse Reactions: green pepper Allergy (Verified 05/04/19 16:20) No Known Drug Intolerances Allergy (Verified 05/04/19 16:20) Review of Systems Constitutional: PRESENT: as per HPI, chills, fatigue, other - Generalized pain. ABSENT: fever(s), headache(s), weight gain, weight loss Eyes: ABSENT: visual disturbances Ears: ABSENT: hearing changes Cardiovascular: ABSENT: chest pain, dyspnea on exertion, edema, orthropnea, palpitations Respiratory: ABSENT: cough, hemoptysis Gastrointestinal: ABSENT: abdominal pain, constipation, diarrhea, hematemesis, hematochezia, nausea, vomiting Genitourinary: ABSENT: dysuria, hematuria Musculoskeletal: ABSENT: joint swelling Integumentary: ABSENT: rash, wounds Neurological: ABSENT: abnormal gait, abnormal speech, confusion, dizziness, focal weakness, syncope Psychiatric: ABSENT: anxiety, depression, homidical ideation, suicidal ideation Endocrine: ABSENT: cold intolerance, heat intolerance, polydipsia, polyuria Hematologic/Lymphatic: ABSENT: easy bleeding, easy bruising Physical Exam Vital Signs: Temp Pulse Resp BP Pulse Ox 98 F 99 18 115/80 99 12/08/19 01:30 12/08/19 01:35 12/08/19 01:30 12/08/19 01:30 12/08/19 01:30 Intake & Output 12/06/19 12/07/19 12/08/19 11:59 11:59 11:59 Intake Total 1000 Balance 1000 Weight 49.7 kg General appearance: PRESENT: cooperative, mild distress, thin, well-developed, well-nourished Head exam: PRESENT: atraumatic, normocephalic Eye exam: PRESENT: conjunctiva pink, EOMI, PERRLA. ABSENT: scleral icterus Ear exam: PRESENT: normal external ear exam Mouth exam: PRESENT: moist, tongue midline Neck exam: ABSENT: carotid bruit, JVD, lymphadenopathy, thyromegaly Respiratory exam: PRESENT: clear to auscultation emerson. ABSENT: rales, rhonchi, wheezes Cardiovascular exam: PRESENT: RRR. ABSENT: diastolic murmur, rubs, systolic murmur Pulses: PRESENT: normal dorsalis pedis pul Vascular exam: PRESENT: normal capillary refill GI/Abdominal exam: PRESENT: normal bowel sounds, soft. ABSENT: distended, guarding, mass, organolmegaly, rebound, tenderness Rectal exam: PRESENT: deferred Extremities exam: PRESENT: other - Left shoulder pain without swelling Neurological exam: PRESENT: alert, awake, oriented to person, oriented to place, oriented to time, oriented to situation, CN II-XII grossly intact. ABSENT: motor sensory deficit Psychiatric exam: PRESENT: appropriate affect, normal mood. ABSENT: homicidal ideation, suicidal ideation Skin exam: PRESENT: dry, intact, warm. ABSENT: cyanosis, rash Results Laboratory Results: 12/08/19 04:16 12/08/19 04:16 12/07/19 12/07/19 12/07/19 17:00 17:00 17:00 WBC 14.9 H RBC 2.11 L Hgb 7.2 L Hct 20.1 L MCV 95 MCH 34.1 H MCHC 35.9 RDW 19.2 H Plt Count 405 Seg Neutrophils % 61.3 Retic Count (auto) 9.36 H Sodium 136.8 L Potassium 4.0 Chloride 108 H Carbon Dioxide 22 Anion Gap 7 BUN 7 Creatinine 0.30 L Est GFR ( Amer) > 60 Glucose 80 Lactic Acid 0.7 Calcium 9.1 Total Bilirubin 2.7 H AST 56 H Alkaline Phosphatase 97 Total Protein 7.4 Albumin 3.9 Urine Color Urine Appearance Urine pH Ur Specific [place] Urine Protein Urine Glucose (UA) Urine Ketones Urine Blood Urine Nitrite Ur Leukocyte Esterase Urine WBC (Auto) 12/07/19 12/08/19 12/08/19 21:24 04:16 04:16 WBC 16.6 H RBC 1.98 L Hgb 6.8 L Hct 18.6 L MCV 94 MCH 34.2 H MCHC 36.2 H RDW 19.5 H Plt Count 346 Seg Neutrophils % 76.4 Retic Count (auto) Sodium 135.9 L Potassium 3.5 L Chloride 105 Carbon Dioxide 22 Anion Gap 9 BUN 3 L Creatinine 0.26 L Est GFR ( Amer) > 60 Glucose 87 Lactic Acid Calcium 8.7 Total Bilirubin AST Alkaline Phosphatase Total Protein Albumin Urine Color YELLOW Urine Appearance CLEAR Urine pH 7.0 Ur Specific [place] 1.010 Urine Protein NEGATIVE Urine Glucose (UA) NEGATIVE Urine Ketones NEGATIVE Urine Blood NEGATIVE Urine Nitrite NEGATIVE Ur Leukocyte Esterase NEGATIVE Urine WBC (Auto) 0 Impressions: Chest X-Ray 12/07/19 16:44 IMPRESSION: No acute cardiopulmonary process. Obstetrics Ultrasound 12/07/19 19:04 IMPRESSION: 1. Mildly heterogeneous and thickened endometrium without evidence of retained products of conception. 2. Small right ovarian cyst for which no follow-up imaging is needed. Assessment and Plan - Diagnosis (1) Sickle cell anemia with crisis Is this a current diagnosis for this admission?: Yes Plan: Telemetry, symptomatic management, IV fluid, follow-up CBC (2) Anemia Qualifiers: Anemia type: unspecified type Qualified Code(s): D64.9 - Anemia, unspecified Is this a current diagnosis for this admission?: Yes Plan: Currently at baseline, anticipate dilutional drop, follow-up CBC (3) Elevated serum hCG Is this a current diagnosis for this admission?: Yes Plan: Status post D&C termination 3 days ago, REPAIR MILLER consult as needed pain or failure to improve - Time Time Spent with patient: 25-34 minutes - Inpatient Certification Medical Necessity: Need Close Monitoring Due to Risk of Patient Decompensation
[2019-12-08] MEDS: HEPARIN SOD (PORCINE) 5,000 UNIT/ML 1 ML VIAL SUBCUT SCH ×3 (06:14→21:47)
[2019-12-08] MEDS ORDERED: POTASSIUM CHLORIDE 10 MEQ TABLET.ER PO ONE (06:21)
[2019-12-08] MEDS: IPRATROPIUM/ALBUTEROL 0.5-2.5 MG/3 ML AMPUL NEB SCH ×2 (07:57→20:57)
[2019-12-08] MEDS: DOCUSATE SODIUM 100 MG CAPSULE PO SCH ×2 (09:52→17:08)
[2019-12-08] MEDS ORDERED: CYCLOBENZAPRINE HCL 10 MG TABLET PO PRN (12:14)
[2019-12-08] MEDS ORDERED: NORMAL SALINE 250 ML IV PRN ×2 (12:15)
--- NOTE | 2019-12-08 12:28 | PDOC PROGRESS REPORT ---
Subjective Progress Note for:: 12/08/19 Subjective:: Patient having some pain in her arms with some relief from the pain medication. Patient states she sees a architectural intern in [place]. Hemoglobin usually ranges around 8 for her. Agreeable to blood transfusion. Denies chest pain. Reason For Visit: SS PAIN CRISIS Physical Exam Vital Signs: Temp Pulse Resp BP Pulse Ox 98.6 F 101 H 18 106/66 97 12/08/19 08:45 12/08/19 08:45 12/08/19 08:45 12/08/19 08:45 12/08/19 08:45 Intake & Output 12/07/19 12/08/19 12/09/19 06:59 06:59 06:59 Intake Total 2250 996 Output Total 1000 Balance 1250 996 Weight 49.7 kg 49.7 kg General appearance: PRESENT: no acute distress, cooperative Neck exam: ABSENT: JVD Respiratory exam: PRESENT: clear to auscultation emerson, symmetrical, unlabored. ABSENT: tachypnea, wheezes Cardiovascular exam: PRESENT: RRR, +S1, +S2. ABSENT: tachycardia GI/Abdominal exam: PRESENT: normal bowel sounds, soft. ABSENT: rebound, rigid, tenderness Neurological exam: PRESENT: alert, awake, oriented to person, oriented to place, oriented to time, oriented to situation Skin exam: ABSENT: jaundice Results Laboratory Results: 12/08/19 04:16 12/08/19 04:16 12/07/19 12/07/19 12/07/19 17:00 17:00 17:00 WBC 14.9 H RBC 2.11 L Hgb 7.2 L Hct 20.1 L MCV 95 MCH 34.1 H MCHC 35.9 RDW 19.2 H Plt Count 405 Seg Neutrophils % 61.3 Retic Count (auto) 9.36 H Sodium 136.8 L Potassium 4.0 Chloride 108 H Carbon Dioxide 22 Anion Gap 7 BUN 7 Creatinine 0.30 L Est GFR ( Amer) > 60 Glucose 80 Lactic Acid 0.7 Calcium 9.1 Total Bilirubin 2.7 H AST 56 H Alkaline Phosphatase 97 Total Protein 7.4 Albumin 3.9 Urine Color Urine Appearance Urine pH Ur Specific [place] Urine Protein Urine Glucose (UA) Urine Ketones Urine Blood Urine Nitrite Ur Leukocyte Esterase Urine WBC (Auto) Blood Type Antibody Screen 12/07/19 12/08/19 12/08/19 21:24 04:16 04:16 WBC 16.6 H RBC 1.98 L Hgb 6.8 L Hct 18.6 L MCV 94 MCH 34.2 H MCHC 36.2 H RDW 19.5 H Plt Count 346 Seg Neutrophils % 76.4 Retic Count (auto) Sodium 135.9 L Potassium 3.5 L Chloride 105 Carbon Dioxide 22 Anion Gap 9 BUN 3 L Creatinine 0.26 L Est GFR ( Amer) > 60 Glucose 87 Lactic Acid Calcium 8.7 Total Bilirubin AST Alkaline Phosphatase Total Protein Albumin Urine Color YELLOW Urine Appearance CLEAR Urine pH 7.0 Ur Specific [place] 1.010 Urine Protein NEGATIVE Urine Glucose (UA) NEGATIVE Urine Ketones NEGATIVE Urine Blood NEGATIVE Urine Nitrite NEGATIVE Ur Leukocyte Esterase NEGATIVE Urine WBC (Auto) 0 Blood Type Antibody Screen 12/08/19 09:08 WBC RBC Hgb Hct MCV MCH MCHC RDW Plt Count Seg Neutrophils % Retic Count (auto) Sodium Potassium Chloride Carbon Dioxide Anion Gap BUN Creatinine Est GFR ( Amer) Glucose Lactic Acid Calcium Total Bilirubin AST Alkaline Phosphatase Total Protein Albumin Urine Color Urine Appearance Urine pH Ur Specific [place] Urine Protein Urine Glucose (UA) Urine Ketones Urine Blood Urine Nitrite Ur Leukocyte Esterase Urine WBC (Auto) Blood Type A POSITIVE Antibody Screen NEGATIVE Impressions: Chest X-Ray 12/07/19 16:44 IMPRESSION: No acute cardiopulmonary process. Obstetrics Ultrasound 12/07/19 19:04 IMPRESSION: 1. Mildly heterogeneous and thickened endometrium without evidence of retained products of conception. 2. Small right ovarian cyst for which no follow-up imaging is needed. Assessment and Plan - Diagnosis (1) Sickle cell pain crisis Is this a current diagnosis for this admission?: Yes Plan: Acute pain episode from sickle cell anemia. Continue IV fluids. Will transfuse 2 units of PRBC given patient is way below her reported baseline of 8. Follows hematology at [place]. Dilaudid and Toradol for pain control. Continue folic acid and hydroxyurea. Reticulocyte index is appropriately high. Follow-up a.m. CBC. (2) Status post dilation and curettage Is this a current diagnosis for this admission?: Yes Plan: Had recent D&C. OB ultrasound showing thickened endometrium but no current retained products of contraception. Expect that bhcg will go down with time. Outpt OB f/u. (3) Hypokalemia Is this a current diagnosis for this admission?: Yes Plan: Replace with potassium chloride. Follow-up BMP in a.m. - Time Time Spent with patient: 15-24 minutes
[2019-12-08] MEDS: HYDROXYUREA 500 MG CAPSULE PO SCH (17:08)
[2019-12-08] MEDS ORDERED: MEROPENEM 1 GM VIAL IV SCH (21:45)
[2019-12-08] MEDS: AMITRIPTYLINE HCL 50 MG TABLET PO SCH (21:47)
--- NOTE | 2019-12-08 22:46 | Progress Note ---
Provider Note Provider Note: Critical care note: 12/08/2019 Critical care start time: 21:29 Critical care issue: Positive anaerobic blood culture I was notified by the patient's nurse that her anaerobic blood culture bottle was positive for gram-positive cocci. Final identification and sensitivity are pending. I evaluated the patient in her room and discussed with her at length the positive blood culture and the need for empiric antibiotic therapy given her special situation with a recent elective termination of via D&C. Aft er general discussion and patient admitting no signs or symptoms relevant to sepsis, she did relate that her pain control is adequate as per current administration. On exam chest is clear to auscultation with normal respiratory effort noted. Heart shows a regular rate and rhythm without murmurs clicks gallops or rubs. Extremities reveal no clubbing, cyanosis or edema range of motion and muscle masses are grossly normal. It was decided to start the patient on meropenem 1 g IV every 8 hours to cover a wide variety of possible anaerobic organisms. Patient was in agreement with the therapeutic decision and played an active role in the entire process. Critical care end time: 22:45 Total critical care time: 27 minutes
[2019-12-09] MEDS: NORMAL SALINE 1000 ML 1,000 ML IV PRN ×3 (00:16→23:26)
[2019-12-09] MEDS: KETOROLAC TROMETHAMINE INJ/PF 30 MG/1 ML SDV IV PRN ×3 (00:22→20:30)
[2019-12-09] MEDS ORDERED: MEROPENEM 1 GM VIAL ONE (00:27)
[2019-12-09] MEDS ORDERED: MEROPENEM 1 GM VIAL IV PRN (00:33)
[2019-12-09] MEDS ORDERED: MEROPENEM 1 GM in NORMAL SALINE 50 ML IV ONE (00:45)
[2019-12-09] MEDS: HYDROMORPHONE HCL INJ/PF 2 MG/ML AMPULE IV PRN ×5 (02:59→21:39)
[2019-12-09] MEDS: ONDANSETRON HCL INJ/PF 4 MG/2 ML SDV IV PRN ×2 (04:39→21:52)
[2019-12-09] MEDS: HEPARIN SOD (PORCINE) 5,000 UNIT/ML 1 ML VIAL SUBCUT SCH ×3 (05:45→21:39)
[2019-12-09 06:13] LABS: HEMATOCRIT 26.5 % (36.0-47.0); MEAN CORPUSCULAR HEMOGLOBIN 33.7 pg (27.0-33.4); MEAN CORPUSCULAR HGB CONC 36.9 g/dL (32.0-36.0); MEAN CORPUSCULAR VOLUME 91 fl (80-97); PLATELET COUNT 336 10^3/uL (150-450); RED BLOOD COUNT 2.91 10^6/uL (3.72-5.28); RED CELL DISTRIBUTION WIDTH 17.7 % (11.5-14.0); WHITE BLOOD COUNT 14.1 10^3/uL (4.0-10.5)
[2019-12-09 06:14] LABS: HEMOGLOBIN 9.8 g/dL (12.0-15.5)
[2019-12-09 06:35] LABS: ALBUMIN 3.5 g/dL (3.5-5.0); ALKALINE PHOSPHATASE 83 U/L (38-126); ANION GAP 9 (5-19); ASPARTATE AMINO TRANSFERASE 45 U/L (14-36); BILIRUBIN,TOTAL 2.2 mg/dL (0.2-1.3); CALCIUM 9.2 mg/dL (8.4-10.2); CARBON DIOXIDE 21 mmol/L (22-30); CHLORIDE 105 mmol/L (98-107); GLUCOSE 94 mg/dL (75-110); POTASSIUM 3.7 mmol/L (3.6-5.0); TOTAL PROTEIN 6.8 g/dL (6.3-8.2)
[2019-12-09 06:40] LABS: BLOOD UREA NITROGEN < 2 mg/dL (7-20)
[2019-12-09] MEDS: IPRATROPIUM/ALBUTEROL 0.5-2.5 MG/3 ML AMPUL NEB SCH ×2 (08:03→19:48)
[2019-12-09] MEDS: FOLIC ACID 1 MG TABLET PO SCH (09:28)
[2019-12-09] MEDS: SERTRALINE HCL 50 MG TABLET PO SCH (09:28)
[2019-12-09] MEDS: MEROPENEM 1 GM in NORMAL SALINE 50 ML IV SCH ×2 (09:28→17:27)
[2019-12-09] MEDS: DOCUSATE SODIUM 100 MG CAPSULE PO SCH ×2 (09:29→17:37)
[2019-12-09] MEDS: HYDROXYUREA 500 MG CAPSULE PO SCH ×2 (09:29→17:27)
[2019-12-09] MEDS ORDERED: NORETHINDRONE E ESTRADIOL IRON PO SCH (10:00)
--- NOTE | 2019-12-09 12:23 | PDOC PROGRESS REPORT ---
Subjective Progress Note for:: 12/09/19 Subjective:: Patient denies any nausea vomiting. She still complains of generalized pain. She has been afebrile Reason For Visit: SS PAIN CRISIS Physical Exam Vital Signs: Temp Pulse Resp BP Pulse Ox 98.6 F 112 H 19 106/46 L 96 12/09/19 08:45 12/09/19 08:45 12/09/19 08:45 12/09/19 08:45 12/09/19 08:45 Intake & Output 12/08/19 12/09/19 12/10/19 06:59 06:59 06:59 Intake Total 2250 5129 1050 Output Total 1000 2900 Balance 1250 2229 1050 Weight 49.7 kg 49.1 kg General appearance: PRESENT: no acute distress, well-developed, well-nourished Head exam: PRESENT: atraumatic, normocephalic Eye exam: PRESENT: conjunctiva pink, EOMI, PERRLA. ABSENT: scleral icterus Ear exam: PRESENT: normal external ear exam Mouth exam: PRESENT: moist, tongue midline Neck exam: ABSENT: carotid bruit, JVD, lymphadenopathy, thyromegaly Respiratory exam: PRESENT: clear to auscultation emerson. ABSENT: rales, rhonchi, wheezes Cardiovascular exam: PRESENT: RRR. ABSENT: diastolic murmur, rubs, systolic murmur Pulses: PRESENT: normal dorsalis pedis pul Vascular exam: PRESENT: normal capillary refill GI/Abdominal exam: PRESENT: normal bowel sounds, soft. ABSENT: distended, guarding, mass, organolmegaly, rebound, tenderness Rectal exam: PRESENT: deferred Extremities exam: PRESENT: full ROM. ABSENT: calf tenderness, clubbing, pedal e pérez Neurological exam: PRESENT: alert, awake, oriented to person, oriented to place, oriented to time, oriented to situation, CN II-XII grossly intact. ABSENT: motor sensory deficit Psychiatric exam: PRESENT: appropriate affect, normal mood. ABSENT: homicidal ideation, suicidal ideation Skin exam: PRESENT: dry, intact, warm. ABSENT: cyanosis, rash Results Laboratory Results: 12/09/19 05:50 12/09/19 05:50 12/08/19 12/09/19 12/09/19 09:08 05:50 05:50 WBC 14.1 H RBC 2.91 L Hgb 9.8 L D Hct 26.5 L MCV 91 MCH 33.7 H MCHC 36.9 H RDW 17.7 H Plt Count 336 Sodium 134.9 L Potassium 3.7 Chloride 105 Carbon Dioxide 21 L Anion Gap 9 BUN < 2 L Creatinine 0.27 L Est GFR ( Amer) > 60 Glucose 94 Calcium 9.2 Magnesium 1.6 Total Bilirubin 2.2 H AST 45 H Alkaline Phosphatase 83 Total Protein 6.8 Albumin 3.5 Blood Type A POSITIVE Antibody Screen NEGATIVE 12/07/19 20:57 Blood Blood Culture (PCR) - Final Staphylococcus Species Impressions: Chest X-Ray 12/07/19 16:44 IMPRESSION: No acute cardiopulmonary process. Obstetrics Ultrasound 12/07/19 19:04 IMPRESSION: 1. Mildly heterogeneous and thickened endometrium without evidence of retained products of conception. 2. Small right ovarian cyst for which no follow-up imaging is needed. Assessment and Plan - Diagnosis (1) Bacteremia Is this a current diagnosis for this admission?: Yes Plan: This may well be a contaminant, 1 out of 2 bottles yielding methicillin sensitive Staphylococcus aureus. Because patient just had a recent D&C I agree with coverage pending repeat blood cultures. Since this is methicillin sensitive we will continue with meropenem (2) Sickle cell anemia with crisis Is this a current diagnosis for this admission?: Yes Plan: Reticulocyte count, symptomatic management, IV fluid, follow-up CBC (3) Status post dilation and curettage Is this a current diagnosis for this admission?: Yes Plan: Had recent D&C. OB ultrasound showing thickened endometrium but no current retained products of contraception. Expect that bhcg will go down with time. Outpt OB f/u. - Time Time Spent with patient: 25-34 minutes
[2019-12-09] MEDS: AMITRIPTYLINE HCL 50 MG TABLET PO SCH (21:39)
[2019-12-10] MEDS: MEROPENEM 1 GM in NORMAL SALINE 50 ML IV SCH ×3 (02:11→17:13)
[2019-12-10] MEDS: ONDANSETRON HCL INJ/PF 4 MG/2 ML SDV IV PRN ×2 (06:48→23:49)
[2019-12-10] MEDS: HEPARIN SOD (PORCINE) 5,000 UNIT/ML 1 ML VIAL SUBCUT SCH ×3 (06:48→21:52)
[2019-12-10] MEDS: HYDROMORPHONE HCL INJ/PF 2 MG/ML AMPULE IV PRN ×5 (06:48→23:44)
[2019-12-10] MEDS: KETOROLAC TROMETHAMINE INJ/PF 30 MG/1 ML SDV IV PRN ×2 (08:53→17:13)
[2019-12-10] MEDS: HYDROXYUREA 500 MG CAPSULE PO SCH ×2 (09:05→17:13)
[2019-12-10] MEDS: SERTRALINE HCL 50 MG TABLET PO SCH (09:05)
[2019-12-10] MEDS: DOCUSATE SODIUM 100 MG CAPSULE PO SCH ×2 (09:05→17:16)
[2019-12-10] MEDS: FOLIC ACID 1 MG TABLET PO SCH (09:05)
[2019-12-10] MEDS: NORMAL SALINE 1000 ML 1,000 ML IV PRN ×2 (09:06→19:41)
[2019-12-10] MEDS: IPRATROPIUM/ALBUTEROL 0.5-2.5 MG/3 ML AMPUL NEB SCH ×2 (10:16→19:51)
--- NOTE | 2019-12-10 17:19 | PDOC PROGRESS REPORT ---
Subjective Progress Note for:: 12/10/19 Subjective:: Patient denies any nausea vomiting. She still complains of generalized pain. She has been afebrile She says she feels slightly down Reason For Visit: SS PAIN CRISIS Physical Exam Vital Signs: Temp Pulse Resp BP Pulse Ox 98.5 F 102 H 16 102/63 96 12/09/19 17:00 12/10/19 14:00 12/10/19 10:16 12/09/19 17:00 12/10/19 10:16 Intake & Output 12/09/19 12/10/19 12/11/19 06:59 06:59 06:59 Intake Total 5129 5124 1017 Output Total 2900 1450 Balance 2229 3674 1017 Weight 49.1 kg 49.1 kg General appearance: PRESENT: no acute distress, well-developed, well-nourished Head exam: PRESENT: atraumatic, normocephalic Eye exam: PRESENT: conjunctiva pink, PERRLA. ABSENT: scleral icterus Mouth exam: PRESENT: tongue midline Neck exam: ABSENT: carotid bruit, JVD, lymphadenopathy, thyromegaly Respiratory exam: PRESENT: clear to auscultation emerson. ABSENT: rales, rhonchi, wheezes Cardiovascular exam: PRESENT: RRR. ABSENT: diastolic murmur, rubs, systolic murmur Pulses: PRESENT: normal dorsalis pedis pul Vascular exam: PRESENT: normal capillary refill GI/Abdominal exam: PRESENT: normal bowel sounds, soft. ABSENT: distended, guarding, mass, organolmegaly, rebound, tenderness Rectal exam: PRESENT: deferred Extremities exam: PRESENT: full ROM. ABSENT: calf tenderness, clubbing, pedal edema Neurological exam: PRESENT: alert, awake, oriented to person, oriented to place, oriented to time, oriented to situation, CN II-XII grossly intact. ABSENT: motor sensory deficit Psychiatric exam: PRESENT: appropriate affect, normal mood. ABSENT: homicidal ideation, suicidal ideation Skin exam: PRESENT: dry, intact, warm. ABSENT: cyanosis, rash Results Laboratory Results: 12/09/19 05:50 12/09/19 05:50 12/07/19 20:57 Blood Blood Culture (PCR) - Final Staphylococcus Species Impressions: Chest X-Ray 12/07/19 16:44 IMPRESSION: No acute cardiopulmonary process. Obstetrics Ultrasound 12/07/19 19:04 IMPRESSION: 1. Mildly heterogeneous and thickened endometrium without evidence of retained products of conception. 2. Small right ovarian cyst for which no follow-up imaging is needed. Assessment and Plan - Diagnosis (1) Bacteremia Is this a current diagnosis for this admission?: Yes Plan: This may well be a contaminant, 1 out of 2 bottles yielding methicillin sensitive Staphylococcus aureus. Because patient just had a recent D&C I agree with coverage pending repeat blood cultures. Since this is methicillin sensiti ve we will continue with meropenem and follow up with BC in am (2) Sickle cell anemia with crisis Is this a current diagnosis for this admission?: Yes Plan: Reticulocyte count, symptomatic management, IV fluid, follow-up CBC in am (3) Status post dilation and curettage Is this a current diagnosis for this admission?: Yes Plan: Had recent D&C. OB ultrasound showing thickened endometrium but no current retained products of contraception. Expect that bhcg will go down with time. Outpt OB f/u.
[2019-12-10] MEDS: AMITRIPTYLINE HCL 50 MG TABLET PO SCH (21:51)
[2019-12-11] MEDS: MEROPENEM 1 GM in NORMAL SALINE 50 ML IV SCH (02:45)
[2019-12-11] MEDS: KETOROLAC TROMETHAMINE INJ/PF 30 MG/1 ML SDV IV PRN ×3 (02:50→20:08)
[2019-12-11] MEDS: HEPARIN SOD (PORCINE) 5,000 UNIT/ML 1 ML VIAL SUBCUT SCH ×3 (05:18→21:35)
[2019-12-11 05:33] LABS: ABSOLUTE BASOPHILS # (AUTO) 0.1 10^3/uL (0.0-0.2); ABSOLUTE LYMPHOCYTES (AUTO) 3.3 10^3/uL (0.5-4.7); ABSOLUTE MONOCYTES (AUTO) 0.7 10^3/uL (0.1-1.4); ABSOLUTE NEUT (AUTO) 5.3 10^3/uL (1.7-8.2); ABSOLUTE RETICS # 0.108 10^6/uL (0.028-0.122); BASOPHILS % (AUTO) 0.6 % (0-2); HEMATOCRIT 25.4 % (36.0-47.0); HEMOGLOBIN 9.1 g/dL (12.0-15.5); LYMPHOCYTES % (AUTO) 31.9 % (13-45); MEAN CORPUSCULAR HEMOGLOBIN 33.2 pg (27.0-33.4); MEAN CORPUSCULAR HGB CONC 35.9 g/dL (32.0-36.0); MEAN CORPUSCULAR VOLUME 93 fl (80-97); MONOCYTES % (AUTO) 7.1 % (3-13); PLATELET COUNT 317 10^3/uL (150-450); RED BLOOD COUNT 2.74 10^6/uL (3.72-5.28); RED CELL DISTRIBUTION WIDTH 17.9 % (11.5-14.0); RETICULOCYTE COUNT (AUTO) 3.95 % (0.66-2.85); SEGMENTED NEUTROPHILS % (AUTO) 50.4 % (42-78); TOTAL CELLS COUNTED % (AUTO) 100 %; WHITE BLOOD COUNT 10.4 10^3/uL (4.0-10.5)
[2019-12-11] MEDS: NORMAL SALINE 1000 ML 1,000 ML IV PRN ×3 (05:46→21:33)
[2019-12-11] MEDS: HYDROMORPHONE HCL INJ/PF 2 MG/ML AMPULE IV PRN ×5 (05:46→22:38)
[2019-12-11 06:32] LABS: ANISOCYTOSIS 1+; OVALOCYTES SLIGHT; PLATELET COMMENT ADEQUATE; POLYCHROMASIA SLIGHT; SICKLE RED CELLS SLIGHT; TEAR DROP CELLS SLIGHT
[2019-12-11] MEDS: IPRATROPIUM/ALBUTEROL 0.5-2.5 MG/3 ML AMPUL NEB SCH ×2 (08:06→19:42)
[2019-12-11] MEDS: FOLIC ACID 1 MG TABLET PO SCH (09:59)
[2019-12-11] MEDS: SERTRALINE HCL 50 MG TABLET PO SCH (09:59)
[2019-12-11] MEDS: DOCUSATE SODIUM 100 MG CAPSULE PO SCH ×2 (10:00→17:30)
[2019-12-11] MEDS: HYDROXYUREA 500 MG CAPSULE PO SCH ×2 (10:01→17:31)
--- NOTE | 2019-12-11 12:52 | PDOC PROGRESS REPORT ---
Subjective Progress Note for:: 12/11/19 Subjective:: Patient denies any nausea vomiting. She still complains of generalized pain. She has been afebrile She says she feels slightly improved Reason For Visit: SS PAIN CRISIS Physical Exam Vital Signs: Temp Pulse Resp BP Pulse Ox 98.5 F 88 16 107/71 98 12/11/19 07:29 12/11/19 07:29 12/11/19 07:29 12/11/19 07:29 12/11/19 07:29 Intake & Output 12/10/19 12/11/19 12/12/19 06:59 06:59 06:59 Intake Total 5124 4993 Output Total 1450 Balance 3674 4993 Weight 49.1 kg 48.9 kg General appearance: PRESENT: no acute distress, well-developed Head exam: PRESENT: atraumatic, normocephalic Eye exam: PRESENT: conjunctiva pink, EOMI, PERRLA. ABSENT: scleral icterus Ear exam: PRESENT: normal external ear exam Neck exam: ABSENT: carotid bruit, JVD, lymphadenopathy, thyromegaly Respiratory exam: PRESENT: clear to auscultation emerson. ABSENT: rales, rhonchi, wheezes Cardiovascular exam: PRESENT: RRR, +S1, +S2. ABSENT: diastolic murmur, rubs, systolic murmur Pulses: PRESENT: normal dorsalis pedis pul GI/Abdominal exam: PRESENT: normal bowel sounds, soft. ABSENT: distended, guarding, mass, organolmegaly, rebound, tenderness Rectal exam: PRESENT: deferred Extremities exam: PRESENT: full ROM. ABSENT: calf tenderness, clubbing, pedal edema Neurological exam: PRESENT: alert, awake, oriented to person, oriented to place, oriented to time, oriented to situation, CN II-XII grossly intact. ABSENT: motor sensory deficit Psychiatric exam: PRESENT: appropriate affect, normal mood. ABSENT: homicidal ideation, suicidal ideation Skin exam: PRESENT: dry, intact, warm. ABSENT: cyanosis, rash Results Laboratory Results: 12/11/19 04:09 12/09/19 05:50 12/11/19 04:09 WBC 10.4 RBC 2.74 L Hgb 9.1 L Hct 25.4 L MCV 93 MCH 33.2 MCHC 35.9 RDW 17.9 H Plt Count 317 Seg Neutrophils % 50.4 Retic Count (auto) 3.95 H 12/07/19 20:57 Blood Blood Culture (PCR) - Final Staphylococcus Species 12/07/19 20:57 Blood Blood Culture - Final Staphylococcus Epidermidis Impressions: Chest X-Ray 12/07/19 16:44 IMPRESSION: No acute cardiopulmonary process. Obstetrics Ultrasound 12/07/19 19:04 IMPRESSION: 1. Mildly heterogeneous and thickened endometrium without evidence of retained products of conception. 2. Small right ovarian cyst for which no follow-up imaging is needed. Assessment and Plan - Diagnosis (1) Bacteremia Is this a current diagnosis for this admission?: Yes Plan: This is a contaminant DC abx Follow up on repeat culture (2) Sickle cell anemia with crisis Is this a current diagnosis for this admission?: Yes Plan: Improved, Retic count improving. will increase IVF, decrease Dilaudid (3) Status post dilation and curettage Is this a current diagnosis for this admission?: Yes
[2019-12-11] MEDS: AMITRIPTYLINE HCL 50 MG TABLET PO SCH (21:35)
[2019-12-12] MEDS: HYDROMORPHONE HCL INJ/PF 2 MG/ML AMPULE IV PRN ×3 (03:22→13:16)
[2019-12-12] MEDS: KETOROLAC TROMETHAMINE INJ/PF 30 MG/1 ML SDV IV PRN (04:24)
[2019-12-12] MEDS: HEPARIN SOD (PORCINE) 5,000 UNIT/ML 1 ML VIAL SUBCUT SCH (06:42)
[2019-12-12] MEDS: IPRATROPIUM/ALBUTEROL 0.5-2.5 MG/3 ML AMPUL NEB SCH (07:51)
[2019-12-12] MEDS: FOLIC ACID 1 MG TABLET PO SCH (10:29)
[2019-12-12] MEDS: SERTRALINE HCL 50 MG TABLET PO SCH (10:29)
[2019-12-12] MEDS: DOCUSATE SODIUM 100 MG CAPSULE PO SCH (10:29)
[2019-12-12] MEDS: HYDROXYUREA 500 MG CAPSULE PO SCH (10:30)
[2019-12-12 13:25] VITALS: BP 101/80
--- NOTE | 2019-12-12 16:32 | PDOC DISCHARGE SUMMARY ---
Impression - Admit/DC Date/PCP Admission Date/Primary Care Provider: 12/07/19 23:18 AIDEN ALEMAN PA-C Discharge Date: 12/12/19 - Discharge Diagnosis (1) Bacteremia Is this a current diagnosis for this admission?: Yes (2) Sickle cell anemia with crisis Is this a current diagnosis for this admission?: Yes (3) Status post dilation and curettage Is this a current diagnosis for this admission?: Yes - Additional Information Resuscitation Status: Full Code Discharge Diet: Regular Discharge Activity: Activity As Tolerated Referrals: AIDEN ALEMAN PA-C [Primary Care Provider] - Follow up as needed Home Medications: Folic Acid [Folvite 1 mg Tablet] 1 mg PO DAILY 01/19/18 Sertraline HCl [Zoloft] 100 mg PO DAILY 01/19/18 Hydroxyurea [Hydrea 500 mg Capsule] 500 mg PO BID 06/17/18 Amitriptyline HCl [Elavil 50 mg Tablet] 100 mg PO QHS 12/08/19 Cyclobenzaprine HCl [Flexeril 10 mg Tablet] 10 mg PO TID PRN 12/08/19 Dextroamphetamine/Amphetamine [Dextroamp-Amphet ER 20 mg Cap] 20 mg PO BIDP PRN 12/08/19 Norethindrone-E.estradiol-Iron [Junel Fe 1 mg-20 Mcg Tablet] 1 tab PO DAILY 12/08/19 Oxycodone HCl/Acetaminophen [Percocet 10-325 mg Tablet] 1 each PO QIDP PRN 12/08/19 History of Present Illiness History of Present Illness: DARIEN CAPELLAN is a 34 year old female DARIEN CAPELLAN is a 34 year old female with a past medical history of sickle cell disease and 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 She presents 3 days after termination of a 12-week by D&C in [place] with complaints of 24 hours of generalized pain subjective fever similar to previous episodes of sickle cell pain crisis. She adamantly denies abdominal or pelvic pain or vaginal discharge. In the emergency departme she is found to have an unremarkable pelvic ultrasound, beta-hCG within expected range given history and a CBC notable for anemia and increased reticulocytosis. She receives normal saline, Dilaudid and referred to the hospitalist for admission. Hospital Course Hospital Course: Patient was admitted to the medical floor and started on intravenous analgesic as well as intravenous IV fluid for sickle cell crisis. She had a pelvic ultrasound done which revealed a thickened endometrium without evidence of retained products of conception. Patient reticulocyte count was 9.36 and this has since decreased to 3.95. Patient received multiple doses of Dilaudid while in hospital. He did receive 2 units of packed red blood cells as her hemoglobin dropped to 6.8. Hemoglobin is stayed relatively stable around 9. She had 1 blood culture positive for Staphylococcus epidermidis but this was felt to be contaminant. Given her recent history however with the D&C she was treated with meropenem intravenously. Subsequent blood cultures have been negative and there was no sign of bacteremia so antibiotics have been discontinued. Patient remains afebrile with no leukocytosis or any evidence of any other kind of infection throughout her hospital stay. At this time she is felt stable enough to go home and so she has been discharged home for outpatient follow-up Physical Exam Vital Signs: Temp Pulse Resp BP Pulse Ox 98.5 F 87 16 106/76 94 12/12/19 04:30 12/12/19 07:51 12/12/19 07:51 12/12/19 04:30 12/12/19 07:51 Intake & Output 12/11/19 12/12/19 12/13/19 06:59 06:59 06:59 Intake Total 4993 3615 Balance 4993 3615 Weight 48.9 kg 51 kg General appearance: PRESENT: no acute distress, well-developed Head exam: PRESENT: atraumatic, normocephalic Eye exam: PRESENT: EOMI, PERRLA. ABSENT: scleral icterus Ear exam: PRESENT: normal external ear exam Neck exam: ABSENT: carotid bruit, JVD, lymphadenopathy, thyromegaly Respiratory exam: PRESENT: clear to auscultation [place]erson. ABSENT: rales, rhonchi, wheezes Cardiovascular exam: PRESENT: RRR, +S1, +S2. ABSENT: diastolic murmur, rubs, systolic murmur Pulses: PRESENT: normal dorsalis pedis pul Vascular exam: PRESENT: normal capillary refill GI/Abdominal exam: PRESENT: normal bowel sounds, soft. ABSENT: distended, guarding, mass, organolmegaly, rebound, tenderness Rectal exam: PRESENT: deferred Extremities exam: PRESENT: full ROM. ABSENT: calf tenderness, clubbing, pedal edema Neurological exam: PRESENT: alert, awake, oriented to person, oriented to place, oriented to time, oriented to situation, CN II-XII grossly intact. ABSENT: motor sensory deficit Psychiatric exam: PRESENT: appropriate affect, normal mood. ABSENT: homicidal ideation, suicidal ideation Skin exam: PRESENT: dry, intact, warm. ABSENT: cyanosis, rash Results Laboratory Results: WBC 10.4 10^3/uL (4.0-10.5) 12/11/19 04:09 RBC 2.74 10^6/uL (3.72-5.28) L 12/11/19 04:09 Hgb 9.1 g/dL (12.0-15.5) L 12/11/19 04:09 Hct 25.4 % (36.0-47.0) L 12/11/19 04:09 MCV 93 fl (80-97) 12/11/19 04:09 MCH 33.2 pg (27.0-33.4) 12/11/19 04:09 MCHC 35.9 g/dL (32.0-36.0) 12/11/19 04:09 RDW 17.9 % (11.5-14.0) H 12/11/19 04:09 Plt Count 317 10^3/uL (150-450) 12/11/19 04:09 Lymph % (Auto) 31.9 % (13-45) 12/11/19 04:09 [place] % (Auto) 7.1 % (3-13) 12/11/19 04:09 Eos % (Auto) 10.0 % (0-6) H 12/11/19 04:09 Baso % (Auto) 0.6 % (0-2) 12/11/19 04:09 Reticulocyte # 0.108 10^6/uL (0.028-0.122) 12/11/19 04:09 Absolute Neuts (auto) 5.3 10^3/uL (1.7-8.2) 12/11/19 04:09 Absolute Lymphs (auto) 3.3 10^3/uL (0.5-4.7) 12/11/19 04:09 Absolute Monos (auto) 0.7 10^3/uL (0.1-1.4) 12/11/19 04:09 Absolute Eos (auto) 1.0 10^3/uL (0.0-0.6) H 12/11/19 04:09 Absolute Basos (auto) 0.1 10^3/uL (0.0-0.2) 12/11/19 04:09 Seg Neutrophils % 50.4 % (42-78) 12/11/19 04:09 Platelet Comment ADEQUATE 12/11/19 04:09 Polychromasia SLIGHT 12/11/19 04:09 Poikilocytosis 2+ 12/07/19 17:00 Anisocytosis 1+ 12/11/19 04:09 Sickle Cells SLIGHT 12/11/19 04:09 Target Cells SLIGHT 12/07/19 17:00 Tear Drop Cells SLIGHT 12/11/19 04:09 Ovalocytes SLIGHT 12/11/19 04:09 Mcknight-Boomer Bodies PRESENT 12/07/19 17:00 ESR 34 mm/hr (0-20) H 12/08/19 04:16 Retic Count (auto) 3.95 % (0.66-2.85) H 12/11/19 04:09 PT 14.9 SEC (11.4-15.4) 12/07/19 17:00 INR 1.17 12/07/19 17:00 Sodium 134.9 mmol/L (137-145) L 12/09/19 05:50 Potassium 3.7 mmol/L (3.6-5.0) 12/09/19 05:50 Chloride 105 mmol/L (98-107) 12/09/19 05:50 Carbon Dioxide 21 mmol/L (22-30) L 12/09/19 05:50 Anion Gap 9 (5-19) 12/09/19 05:50 BUN < 2 mg/dL (7-20) L 12/09/19 05:50 Creatinine 0.27 mg/dL (0.52-1.25) L 12/09/19 05:50 Est GFR ( Amer) > 60 (>60) 12/09/19 05:50 Est GFR (MDRD) Non-Af > 60 (>60) 12/09/19 05:50 Glucose 94 mg/dL (75-110) 12/09/19 05:50 Lactic Acid 0.7 mmol/L (0.7-2.1) 12/07/19 17:00 Calcium 9.2 mg/dL (8.4-10.2) 12/09/19 05:50 Magnesium 1.6 mg/dL (1.6-2.3) 12/09/19 05:50 Total Bilirubin 2.2 mg/dL (0.2-1.3) H 12/09/19 05:50 Direct Bilirubin 0.0 mg/dL (0.0-0.4) 12/09/19 05:50 Neonat Total Bilirubin Not Reportable 12/09/19 05:50 Neonat Direct Bilirubin Not Reportable 12/09/19 05:50 Neonat Indirect Bili Not Reportable 12/09/19 05:50 AST 45 U/L (14-36) H 12/09/19 05:50 ALT 19 U/L (<35) 12/09/19 05:50 Alkaline Phosphatase 83 U/L (38-126) 12/09/19 05:50 Lactate Dehydrogenase 470 U/L (120-246) H 12/08/19 15:46 Total Protein 6.8 g/dL (6.3-8.2) 12/09/19 05:50 Albumin 3.5 g/dL (3.5-5.0) 12/09/19 05:50 Beta HCG, Quant 4527.60 mIU/mL (0.0-6.15) H 12/07/19 17:00 Total Beta HCG POSITIVE (NEGATIVE) 12/07/19 17:00 Urine Color YELLOW 12/07/19 21:24 Urine Appearance CLEAR 12/07/19 21:24 Urine pH 7.0 (5.0-9.0) 12/07/19 21:24 Ur Specific [place] 1.010 12/07/19 21:24 Urine Protein NEGATIVE mg/dL (NEGATIVE) 12/07/19 21:24 Urine Glucose (UA) NEGATIVE mg/dL (NEGATIVE) 12/07/19 21:24 Urine Ketones NEGATIVE mg/dL (NEGATIVE) 12/07/19 21:24 Urine Blood NEGATIVE (NEGATIVE) 12/07/19 21:24 Urine Nitrite NEGATIVE (NEGATIVE) 12/07/19 21:24 Urine Bilirubin NEGATIVE (NEGATIVE) 12/07/19 21:24 Urine Urobilinogen 4.0 mg/dL (<2.0) H 12/07/19 21:24 Ur Leukocyte Esterase NEGATIVE (NEGATIVE) 12/07/19 21:24 Urine WBC (Auto) 0 /HPF 12/07/19 21:24 Squamous Epi Cells Auto <1 /HPF 12/07/19 21:24 Urine Ascorbic Acid 20 (NEGATIVE) H 12/07/19 21:24 Urine Opiates Screen UNCONFIRMED POSITIVE 12/07/19 21:24 Urine Methadone Screen NEGATIVE 12/07/19 21:24 Ur Barbiturates Screen NEGATIVE 12/07/19 21:24 Ur Phencyclidine Scrn NEGATIVE 12/07/19 21:24 Ur Amphetamines Screen NEGATIVE 12/07/19 21:24 U Benzodiazepines Scrn NEGATIVE 12/07/19 21:24 Urine Cocaine Screen NEGATIVE 12/07/19 21:24 U Marijuana (THC) Screen NEGATIVE 12/07/19 21:24 Blood Type A POSITIVE 12/08/19 09:08 Blood Type Confirm A POSITIVE 12/08/19 09:08 Antibody Screen NEGATIVE 12/08/19 09:08 Crossmatch See Detail 12/08/19 09:08 Impressions: Chest X-Ray 12/07/19 16:44 IMPRESSION: No acute cardiopulmonary process. Obstetrics Ultrasound 12/07/19 19:04 IMPRESSION: 1. Mildly heterogeneous and thickened endometrium without evidence of retained products of conception. 2. Small right ovarian cyst for which no follow-up imaging is needed. Plan Plan of Treatment: Follow-up with PCP Time Spent: Greater than 30 Minutes Stroke Is this a Stroke Patient?: No Acute Heart Failure - Is this a Heart Failure Patient?: No
== END 2019-12-12 13:40 | disposition home or self-care (01) | DRG 812 ==
LOC: ER 15:16 → EH 23:18 → 5 12-08 01:34
PROVIDERS: ADMIT Internal Medicine; ATTEND Internal Medicine
PROC: 30233N1 Transfusion of Nonautologous Red Blood Cells into Peripheral Vein, Percutaneous Approach (ICD-10-PCS; principal; 2019-12-08)
DX: D57.00 Hb-SS disease with crisis, unspecified (principal); F32.9 Major depressive disorder, single episode, unspecified; Z98.890 Other specified postprocedural states; Z96.612 Presence of left artificial shoulder joint; Z82.49 Family history of ischemic heart disease and other diseases of the circulatory system; Z85.528 Personal history of other malignant neoplasm of kidney; Z90.49 Acquired absence of other specified parts of digestive tract; Z90.5 Acquired absence of kidney
CPT/HCPCS: 36415; 36430; 71045; 76817; 80048; 80053; 80307; 81001; 83605; 83615; 83735; 84702; 85025; 85027; 85045; 85610; 85652; 86850; 86900; 86901; 86920; 87040; 87077; 87150; 87186; 93005; 93010; 94640; 96361; 96365; 96366; 96375; 96376; 99285; J1170; J1200; J1642; J1644; J1885; J2185; J2405; J3370; J3490; J7030; J7620; P9016

== ENCOUNTER 2020-01-02 11:04 | Emergency (ER) | payer MEDICARE, MEDICAID ==
[2020-01-02] MEDS ORDERED: NORMAL SALINE 1000 ML 1,000 ML IV PRN (11:17)
--- NOTE | 2020-01-02 11:19 | ER Document Report ---
ED Medical Screen (RME) - General Chief Complaint: Sickle Cell Crisis Stated Complaint: SICKLE CELL CRISIS,BONE PAIN Time Seen by Provider: 01/02/20 11:15 Primary Care Provider: AIDEN ALEMAN PA-C [Primary Care Provider] - Follow up as needed Cannot obtain history due to: Other - This is a 34-year-old female presented to the emergency room today stating she has a history of sickle cell disease and feels as though she is in a crisis has pain in her joints to her upper extremities. TRAVEL OUTSIDE OF THE [place] IN LAST 30 DAYS: No - Related Data Allergies/Adverse Reactions: green pepper Allergy (Intermediate, Verified 01/02/20 11:13) Anaphylaxis No Known Drug Intolerances Allergy (Verified 01/02/20 11:13) Past Medical History - Past Medical History Cardiac Medical History: Denies: Hx Coronary Artery Disease, Hx Heart Attack, Hx Hypertension Pulmonary Medical History: Reports: Hx Pneumonia - YEARLY SINCE 2003 (last time 07/2017) Denies: Hx Asthma, Hx Bronchitis, Hx COPD Neurological Medical History: Denies: Hx Cerebrovascular Accident, Hx Seizures, Hx Parkinson's Disease Renal/ Medical History: Denies: Hx Peritoneal Dialysis Malignancy Medical History: Reports: Hx Renal (Kidney) Cancer GI Medical History: Denies: Hx Pancreatitis Musculoskeltal Medical History: Denies Hx Arthritis, Reports Hx Musculoskeletal Deformity, Reports Hx Musculoskeletal Trauma, Denies Hx Systemic Lupus Erythematosus Psychiatric Medical History: Reports: Hx Depression Past Surgical History: Reports: Hx Section, Hx Cholecystectomy, Hx Kidney (Renal Surgery) - part of left kidney removed., Hx Orthopedic Surgery - L Femur, R hip, left hip, Other - Partial left nephrectomy for renal cell carcinoma - Immunizations Immunizations up to date: Yes Hx Diphtheria, Pertussis, Tetanus Vaccination: Yes - 2016 Physical Exam - Vital signs Vitals: Temp Pulse Resp BP Pulse Ox 97.9 F 107 H 16 99/66 L 98 01/02/20 11:06 01/02/20 11:06 01/02/20 11:06 01/02/20 11:06 01/02/20 11:06 - Respiratory Respiratory status: No respiratory distress Chest status: Nontender Breath sounds: Normal Chest palpation: Normal Course - Vital Signs Vital signs: Temp Pulse Resp BP Pulse Ox 97.9 F 107 H 16 99/66 L 98 01/02/20 11:06 01/02/20 11:06 01/02/20 11:06 01/02/20 11:06 01/02/20 11:06 Doctor's Discharge - Discharge Referrals: AIDEN ALEMAN PA-C [Primary Care Provider] - Follow up as needed
[2020-01-02 12:15] LABS: ABSOLUTE BASOPHILS # (AUTO) 0.1 10^3/uL (0.0-0.2); ABSOLUTE EOSINOPHILS # (AUTO) 0.5 10^3/uL (0.0-0.6); ABSOLUTE LYMPHOCYTES (AUTO) 2.7 10^3/uL (0.5-4.7); ABSOLUTE MONOCYTES (AUTO) 0.9 10^3/uL (0.1-1.4); ABSOLUTE NEUT (AUTO) 5.5 10^3/uL (1.7-8.2); EOSINOPHILS % (AUTO) 5.1 % (0-6); HEMATOCRIT 26.4 % (36.0-47.0); HEMOGLOBIN 9.6 g/dL (12.0-15.5); LYMPHOCYTES % (AUTO) 28.1 % (13-45); MEAN CORPUSCULAR HEMOGLOBIN 32.8 pg (27.0-33.4); MEAN CORPUSCULAR HGB CONC 36.4 g/dL (32.0-36.0); MEAN CORPUSCULAR VOLUME 90 fl (80-97); MONOCYTES % (AUTO) 9.6 % (3-13); PLATELET COUNT 457 10^3/uL (150-450); RED BLOOD COUNT 2.93 10^6/uL (3.72-5.28); RED CELL DISTRIBUTION WIDTH 16.8 % (11.5-14.0); SEGMENTED NEUTROPHILS % (AUTO) 56.2 % (42-78); TOTAL CELLS COUNTED % (AUTO) 100 %; WHITE BLOOD COUNT 9.7 10^3/uL (4.0-10.5)
[2020-01-02 12:24] LABS: ABSOLUTE RETICS # 0.076 10^6/uL (0.028-0.122); RETICULOCYTE COUNT (AUTO) 2.56 % (0.66-2.85)
[2020-01-02 13:03] LABS: ALBUMIN 4.3 g/dL (3.5-5.0); ALKALINE PHOSPHATASE 82 U/L (38-126); ANION GAP 9 (5-19); ASPARTATE AMINO TRANSFERASE 36 U/L (14-36); BILIRUBIN,DIRECT 0.3 mg/dL (0.0-0.4); BILIRUBIN,TOTAL 2.4 mg/dL (0.2-1.3); BLOOD UREA NITROGEN 5 mg/dL (7-20); CALCIUM 9.2 mg/dL (8.4-10.2); CARBON DIOXIDE 23 mmol/L (22-30); CHLORIDE 109 mmol/L (98-107); GLUCOSE 88 mg/dL (75-110); POTASSIUM 3.5 mmol/L (3.6-5.0); TOTAL PROTEIN 8.5 g/dL (6.3-8.2)
[2020-01-02] MEDS ORDERED: NORMAL SALINE 1000 ML 1,000 ML IV ONE (13:20)
[2020-01-02] MEDS ORDERED: HYDROMORPHONE HCL INJ/PF 2 MG/ML AMPULE IV ONE ×2 (13:21→15:21)
[2020-01-02] MEDS ORDERED: DIPHENHYDRAMINE HCL 50 MG/ML VIAL IV ONE ×2 (13:22→15:23)
[2020-01-02 14:52] LABS: APPEARANCE,URINE CLEAR; BILIRUBIN,URINE NEGATIVE (NEGATIVE); COLOR,URINE YELLOW; GLUCOSE, URINE NEGATIVE (NEGATIVE); KETONES,URINE NEGATIVE (NEGATIVE); LEUKOCYTE ESTERASE,URINE NEGATIVE (NEGATIVE); NITRITE,URINE NEGATIVE (NEGATIVE); PROTEIN,URINE NEGATIVE (NEGATIVE); URINE SPECIFIC GRAVITY 1.009
[2020-01-02 15:05] LABS: URINE AMPHETAMINES SCREEN NEGATIVE; URINE BARBITURATES SCREEN NEGATIVE; URINE BENZODIAZEPINES SCREEN NEGATIVE; URINE COCAINE SCREEN NEGATIVE; URINE MARIJUANA (THC) SCREEN NEGATIVE; URINE METHADONE SCREEN NEGATIVE; URINE PHENCYCLIDINE SCREEN NEGATIVE
[2020-01-02 15:45] VITALS: BP 102/58
--- NOTE | 2020-01-04 07:35 | ER Document Report ---
Entered by DOMI NEIL SCRIBE 01/02/20 1666 Acting as scribe for:JOHNATHAN LINDSAY MD ED General - General Chief Complaint: Sickle Cell Crisis Stated Complaint: SICKLE CELL CRISIS,BONE PAIN Time Seen by Provider: 01/02/20 11:15 Primary Care Provider: AIDEN ALEMAN PA-C [Primary Care Provider] - Follow up as needed Information source: Patient Notes: This 34 year old female patient presents to the emergency department today with complaints of a headache. Patient states there is pain in her legs, back, and left arm. Patient states this pain is somewhat similar to usual pain from a sickle cell crisis. Patient states she had a nose bleed this morning. Patient states she is not dehydrated and does not have any infections. Patient states she has stopped taking oxycodone, one of the medications for her sickle cell anemia. TRAVEL OUTSIDE OF THE [place] IN LAST 30 DAYS: No - Related Data Allergies/Adverse Reactions: green pepper Allergy (Intermediate, Verified 01/02/20 11:13) Anaphylaxis No Known Drug Intolerances Allergy (Verified 01/02/20 11:13) Past Medical History - General Information source: Patient - Social History Smoking Status: Never Smoker Cigarette use (# per day): No Chew tobacco use (# tins/day): No Frequency of alcohol use: None Drug Abuse: None Family History: Reviewed & Not Pertinent, Other - Sickle trait Patient has suicidal ideation: No Patient has homicidal ideation: No Pulmonary Medical History: Reports: Hx Pneumonia - YEARLY SINCE 2003 (last time 07/2017) Malignancy Medical History: Reports: Hx Renal (Kidney) Cancer Musculoskeletal Medical History: Reports Hx Musculoskeletal Deformity, Reports Hx Musculoskeletal Trauma Psychiatric Medical History: Reports: Hx Depression Past Surgical History: Reports: Hx Section, Hx Cholecystectomy, Hx Kidney (Renal Surgery) - part of left kidney removed., Hx Orthopedic Surgery - L Femur, R hip, left hip, Other - Partial left nephrectomy for renal cell carcinoma - Immunizations Immunizations up to date: Yes Hx Diphtheria, Pertussis, Tetanus Vaccination: Yes - 2017 Hx Pneumococcal Vaccination: 07/22/17 Review of Systems - Review of Systems Constitutional: No symptoms reported EENT: See HPI, Other - Nose bleed. Cardiovascular: No symptoms reported Respiratory: No symptoms reported Gastrointestinal: No symptoms reported Genitourinary: No symptoms reported Musculoskeletal: See HPI, Muscle pain Skin: No symptoms reported Hematologic/Lymphatic: No symptoms reported Neurological/Psychological: See HPI, Headaches -: Yes All other systems reviewed and negative Physical Exam - Vital signs Vitals: Temp Pulse Resp BP Pulse Ox 97.9 F 107 H 16 99/66 L 98 01/02/20 11:06 01/02/20 11:06 01/02/20 11:06 01/02/20 11:06 01/02/20 11:06 - General General appearance: Appears well, Alert - HEENT Head: Normocephalic, Atraumatic Eyes: Normal Pupils: PERRL Ears: Normal External canal: Normal Tympanic membrane: Serous effusion. No: Injected Nasal: Other - Swollen turbinates. Pharynx: Normal Neck: Supple - Respiratory Respiratory status: No respiratory distress Chest status: Nontender Breath sounds: Normal - Cardiovascular Rhythm: Regular Heart sounds: Normal auscultation Murmur: No - Abdominal Inspection: Normal Distension: No distension Bowel sounds: Normal Tenderness: Nontender - Extremities General upper extremity: Normal inspection. No: Edema General lower extremity: Normal inspection. No: Edema - Neurological Neuro grossly intact: Yes Cognition: Normal Orientation: AAOx4 - Psychological Associated symptoms: Normal affect, Normal mood - Skin Skin Temperature: Warm Skin Moisture: Dry Skin Color: Normal Course - Re-evaluation Re-evalutation: 01/02/20 15:25 Patient reports she still has pain. Plan is to give patient another round of Dilaudid with Benadryl IV. Patient will be discharged home. - Vital Signs Vital signs: Temp Pulse Resp BP Pulse Ox 97.9 F 107 H 16 99/66 L 98 01/02/20 11:06 01/02/20 11:06 01/02/20 11:06 01/02/20 11:06 01/02/20 11:06 - Laboratory Result Diagrams: 01/02/20 11:48 01/02/20 11:48 Laboratory results interpreted by me: 01/02/20 01/02/20 01/02/20 11:48 11:48 13:33 RBC 2.93 L Hgb 9.6 L Hct 26.4 L MCHC 36.4 H RDW 16.8 H Plt Count 457 H Potassium 3.5 L Chloride 109 H BUN 5 L Creatinine 0.37 L Total Bilirubin 2.4 H Total Protein 8.5 H Urine Urobilinogen 2.0 H 01/02/20 15:25 Patient has a hemoglobin of 9.6 and a normal reticulocyte count percent therefore I discussed with patient that it does not appear that she is in sickle cell crisis at this time. Plan for patient is to be discharged home continue her usual medications and follow-up with her primary care. Discharge - Discharge Clinical Impression: Severe somatic symptom disorder with predominant pain, Sickle cell disease Condition: Stable Disposition: HOME, SELF-CARE Additional Instructions: Sickle Cell Crisis You have "sickle cell crisis." Sickle cell disease is caused by abnormal hemoglobin. This hemoglobin can deform red blood cells into a sickle shape. These abnormal blood cells can block blood vessels. This causes the pain of sickle cell crisis. Sickle cell crisis can occur any time. But attacks are more likely with acute infection, dehydration, or altitude change. A crisis usually causes pain in the legs, back, abdomen, and chest. Sometimes the pain may ease and return later. The usual treatment is oxygen, pain medication, IV fluids, and treatment of infection. Attacks may take a couple of days to resolve. Return if the pain becomes more severe, or if there are new symptoms. Referrals: AIDEN ALEMAN PA-C [Primary Care Provider] - Follow up as needed I personally performed the services described in the documentation, reviewed and edited the documentation which was dictated to the scribe in my presence, and it accurately records my words and actions.
== END 2020-01-02 15:43 | disposition home or self-care (01) ==
LOC: ER 11:04
DX: F45.1 Undifferentiated somatoform disorder (principal); R51 Headache; M79.604 Pain in right leg; M79.605 Pain in left leg; M79.602 Pain in left arm; M54.9 Dorsalgia, unspecified; M79.10 Myalgia, unspecified site; D57.1 Sickle-cell disease without crisis; R04.0 Epistaxis; R09.89 Other specified symptoms and signs involving the circulatory and respiratory systems; Z87.892 Personal history of anaphylaxis; Z91.018 Allergy to other foods
CPT/HCPCS: 96376; 99284; 96361; 96374; 96375; 36415; 83605; 82570; 85025; 81025; 85045; 80053; 81001; 80307; J1200; J1170; J7030; J1642 ×2

== ENCOUNTER 2020-01-27 12:05 | Emergency (ER) | payer MEDICARE, MEDICAID ==
[2020-01-27] MEDS ORDERED: HYDROMORPHONE HCL INJ/PF 2 MG/ML AMPULE IV ONE ×3 (12:16→15:55)
[2020-01-27] MEDS ORDERED: DIPHENHYDRAMINE HCL 50 MG/ML VIAL IV ONE (12:16)
[2020-01-27] MEDS ORDERED: NORMAL SALINE 1000 ML 1,000 ML IV ONE ×2 (12:17→14:24)
--- NOTE | 2020-01-27 12:39 | RADIOLOGY REPORT (SQ) ---
EXAM DESCRIPTION: CHEST SINGLE VIEW IMAGES COMPLETED DATE/TIME: 01/27/2020 12:30 pm REASON FOR STUDY: sickle cell crisis COMPARISON: 12/07/2019 EXAM PARAMETERS: NUMBER OF VIEWS: One view. TECHNIQUE: Single frontal radiographic view of the chest acquired. RADIATION DOSE: NA LIMITATIONS: None. FINDINGS: LUNGS AND PLEURA: Asymmetric opacity overlying the left base is consistent with overlying soft tissue. No consolidation or effusion. No pneumothorax. MEDIASTINUM AND HILAR STRUCTURES: No masses. Contour normal. HEART AND VASCULAR STRUCTURES: Heart normal in size. Normal vasculature. BONES: No acute findings. HARDWARE: Right arm port is in place. Catheter tip overlies the SVC. OTHER: No other significant finding. IMPRESSION: NO ACUTE RADIOGRAPHIC FINDING IN THE CHEST. TECHNICAL DOCUMENTATION: JOB ID: [id number] [employer]- All Rights Reserved Reading location - IP/workstation name: [email or web address]
--- NOTE | 2020-01-27 12:55 | ER Document Report ---
ED General Pain - General Chief Complaint: Pain All Over Stated Complaint: BODY PAIN Time Seen by Provider: 01/27/20 12:10 Primary Care Provider: AIDEN ALEMAN PA-C [Primary Care Provider] - Follow up as needed Mode of Arrival: Ambulatory Information source: Patient Notes: 34-year-old female patient presented to the emergency department chief complaint of pain all over. Patient reports pain to her back, bilateral arms and bilateral legs. She states she has a history of sickle cell disease, states this is how she usually presents when she is in crisis. Denies any chest pain or shortness of breath. TRAVEL OUTSIDE OF THE [place] IN LAST 30 DAYS: No - Related Data Allergies/Adverse Reactions: green pepper Allergy (Intermediate, Verified 01/27/20 12:12) Anaphylaxis No Known Drug Intolerances Allergy (Verified 01/27/20 12:12) Home Medications: hydroyurea, folic acid, zoloft, flexeril Past Medical History - General Information source: Patient - Social History Smoking Status: Former Smoker Chew tobacco use (# tins/day): No Frequency of alcohol use: Rare Drug Abuse: None Family History: Reviewed & Not Pertinent, Other - Sickle trait Patient has suicidal ideation: No Patient has homicidal ideation: No - Medical History Medical History: Other - Sickle cell - Past Medical History Cardiac Medical History: Denies: Hx Coronary Artery Disease, Hx Heart Attack, Hx Hypertension Pulmonary Medical History: Reports: Hx Pneumonia - YEARLY SINCE 2003 (last time 07/2017) Denies: Hx Asthma, Hx Bronchitis, Hx COPD Neurological Medical History: Denies: Hx Cerebrovascular Accident, Hx Seizures, Hx Parkinson's Disease Renal/ Medical History: Denies: Hx Peritoneal Dialysis Malignancy Medical History: Reports: Hx Renal (Kidney) Cancer GI Medical History: Denies: Hx Pancreatitis Musculoskeletal Medical History: Denies Hx Arthritis, Reports Hx Musculoskeletal Deformity, Reports Hx Musculoskeletal Trauma, Denies Hx Systemic Lupus Erythematosus Psychiatric Medical History: Reports: Hx Depression Past Surgical History: Reports: Hx Section, Hx Cholecystectomy, Hx Kidney (Renal Surgery) - partial Lt nephrectomy, Hx Orthopedic Surgery - L Femur, R hip, left hip, Other - Partial left nephrectomy for renal cell carcinoma - Immunizations Immunizations up to date: Yes Hx Diphtheria, Pertussis, Tetanus Vaccination: Yes - 2016 Hx Pneumococcal Vaccination: 07/22/17 Review of Systems - Review of Systems Musculoskeletal: See HPI -: Yes All other systems reviewed and negative Physical Exam - Vital signs Vitals: Temp Pulse Resp BP Pulse Ox 98.3 F 93 16 114/81 100 01/27/20 12:12 01/27/20 12:12 01/27/20 12:12 01/27/20 12:12 01/27/20 12:12 - Notes Notes: PHYSICAL EXAMINATION: GENERAL: Well-appearing, well-nourished and in no acute distress. HEAD: Atraumatic, normocephalic. EYES: Pupils equal round and reactive to light, extraocular movements intact, conjunctiva are normal. ENT: Nares patent, oropharynx clear without exudates. Moist mucous membranes. NECK: Normal range of motion, supple without lymphadenopathy LUNGS: Breath sounds clear to auscultation bilaterally and equal. No wheezes rales or rhonchi. HEART: Regular rate and rhythm without murmurs ABDOMEN: Soft, nontender, nondistended abdomen. No guarding, no rebound. No masses appreciated. Female : deferred Musculoskeletal: Normal range of motion, no pitting or edema. No cyanosis. NEUROLOGICAL: Cranial nerves grossly intact. Normal speech, normal gait. Normal sensory, motor exams PSYCH: Normal mood, normal affect. SKIN: Warm, Dry, normal turgor, no rashes or lesions noted. Course - Re-evaluation Re-evalutation: Laboratory 01/27/20 01/27/20 13:06 13:06 WBC 6.7 RBC 2.99 L Hgb 9.7 L Hct 26.9 L MCV 90 MCH 32.4 MCHC 36.1 H RDW 18.4 H Plt Count 614 H Lymph % (Auto) 36.6 [place] % (Auto) 9.4 Eos % (Auto) 5.0 Baso % (Auto) 1.0 Reticulocyte # 0.111 Absolute Neuts (auto) 3.2 Absolute Lymphs (auto) 2.4 Absolute Monos (auto) 0.6 Absolute Eos (auto) 0.3 Absolute Basos (auto) 0.1 Seg Neutrophils % 48.0 Platelet Comment INCREASED Polychromasia SLIGHT Poikilocytosis SLIGHT Anisocytosis 2+ Sickle Cells 2+ Target Cells 1+ Retic Count (auto) 3.70 H Sodium 139.5 Potassium 3.8 Chloride 108 H Carbon Dioxide 27 Anion Gap 5 BUN 3 L Creatinine 0.38 L Est GFR ( Amer) > 60 Est GFR (MDRD) Non-Af > 60 Glucose 86 Calcium 9.0 Total Bilirubin 2.3 H Direct Bilirubin 0.1 Neonat Total Bilirubin Not Reportable Neonat Direct Bilirubin Not Reportable Neonat Indirect Bili Not Reportable AST 30 ALT 13 Alkaline Phosphatase 95 Total Protein 8.1 Albumin 4.2 Chest X-Ray 01/27/20 12:16 IMPRESSION: NO ACUTE RADIOGRAPHIC FINDING IN THE CHEST. Patient reports improvement in symptoms after 2 L of normal saline and multiple rounds of pain medication. Patient will be discharged home at this time. - Vital Signs Vital signs: Temp Pulse Resp BP Pulse Ox 98.3 F 93 16 114/81 100 01/27/20 12:12 01/27/20 12:12 01/27/20 12:12 01/27/20 12:12 01/27/20 12:12 - Laboratory Result Diagrams: 01/27/20 13:06 01/27/20 13:06 Laboratory results interpreted by me: 01/27/20 01/27/20 13:06 13:06 RBC 2.99 L Hgb 9.7 L Hct 26.9 L MCHC 36.1 H RDW 18.4 H Plt Count 614 H Retic Count (auto) 3.70 H Chloride 108 H BUN 3 L Creatinine 0.38 L Total Bilirubin 2.3 H Discharge - Discharge Clinical Impression: Sickle cell crisis Condition: Stable Disposition: HOME, SELF-CARE Additional Instructions: You were seen today for sickle cell pain crisis. 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 Returning to the ED if you have worsening pain, fever greater than 100.4, shortness of breath, persistent vomiting, or any other symptoms that are concerning to you. Referrals: AIDEN ALEMAN PA-C [Primary Care Provider] - Follow up as needed
[2020-01-27 13:21] LABS: ABSOLUTE BASOPHILS # (AUTO) 0.1 10^3/uL (0.0-0.2); ABSOLUTE EOSINOPHILS # (AUTO) 0.3 10^3/uL (0.0-0.6); ABSOLUTE LYMPHOCYTES (AUTO) 2.4 10^3/uL (0.5-4.7); ABSOLUTE MONOCYTES (AUTO) 0.6 10^3/uL (0.1-1.4); ABSOLUTE NEUT (AUTO) 3.2 10^3/uL (1.7-8.2); ABSOLUTE RETICS # 0.111 10^6/uL (0.028-0.122); HEMATOCRIT 26.9 % (36.0-47.0); HEMOGLOBIN 9.7 g/dL (12.0-15.5); LYMPHOCYTES % (AUTO) 36.6 % (13-45); MEAN CORPUSCULAR HEMOGLOBIN 32.4 pg (27.0-33.4); MEAN CORPUSCULAR HGB CONC 36.1 g/dL (32.0-36.0); MEAN CORPUSCULAR VOLUME 90 fl (80-97); MONOCYTES % (AUTO) 9.4 % (3-13); PLATELET COUNT 614 10^3/uL (150-450); RED BLOOD COUNT 2.99 10^6/uL (3.72-5.28); RED CELL DISTRIBUTION WIDTH 18.4 % (11.5-14.0); TOTAL CELLS COUNTED % (AUTO) 100 %; WHITE BLOOD COUNT 6.7 10^3/uL (4.0-10.5)
[2020-01-27 13:35] LABS: ALBUMIN 4.2 g/dL (3.5-5.0); ALKALINE PHOSPHATASE 95 U/L (38-126); ANION GAP 5 (5-19); ASPARTATE AMINO TRANSFERASE 30 U/L (14-36); BILIRUBIN,DIRECT 0.1 mg/dL (0.0-0.4); BILIRUBIN,TOTAL 2.3 mg/dL (0.2-1.3); BLOOD UREA NITROGEN 3 mg/dL (7-20); CARBON DIOXIDE 27 mmol/L (22-30); CHLORIDE 108 mmol/L (98-107); GLUCOSE 86 mg/dL (75-110); POTASSIUM 3.8 mmol/L (3.6-5.0); TOTAL PROTEIN 8.1 g/dL (6.3-8.2)
[2020-01-27 14:01] LABS: ANISOCYTOSIS 2+; POLYCHROMASIA SLIGHT
[2020-01-27 14:02] LABS: PLATELET COMMENT INCREASED; POIKILOCYTOSIS SLIGHT; SICKLE RED CELLS 2+; TARGET CELLS 1+
[2020-01-27 17:45] VITALS: BP 124/80
== END 2020-01-27 17:42 | disposition home or self-care (01) ==
LOC: ER 12:05
DX: D57.00 Hb-SS disease with crisis, unspecified (principal); M79.10 Myalgia, unspecified site; Z90.49 Acquired absence of other specified parts of digestive tract
CPT/HCPCS: 36591; 96376; 99284; 96361; 96374; 96375; 36415; 85025; 85045; 80053; 71045; J1200; J1170; J7030; J1642

== ENCOUNTER 2020-01-29 12:42 | Emergency (ER) | payer MEDICARE, MEDICAID ==
[2020-01-29] MEDS ORDERED: DIPHENHYDRAMINE HCL 50 MG/ML VIAL IV ONE (13:04)
[2020-01-29] MEDS ORDERED: ONDANSETRON HCL INJ/PF 4 MG/2 ML SDV IV ONE (13:04)
[2020-01-29] MEDS ORDERED: HYDROMORPHONE HCL INJ/PF 2 MG/ML AMPULE IV ONE ×2 (13:04→14:58)
[2020-01-29] MEDS ORDERED: NORMAL SALINE 500 ML IV ONE (13:05)
[2020-01-29 13:30] LABS: ABSOLUTE BASOPHILS # (AUTO) 0.1 10^3/uL (0.0-0.2); ABSOLUTE EOSINOPHILS # (AUTO) 0.2 10^3/uL (0.0-0.6); ABSOLUTE MONOCYTES (AUTO) 0.7 10^3/uL (0.1-1.4); ABSOLUTE NEUT (AUTO) 3.9 10^3/uL (1.7-8.2); ABSOLUTE RETICS # 0.147 10^6/uL (0.028-0.122); BASOPHILS % (AUTO) 1.2 % (0-2); EOSINOPHILS % (AUTO) 2.6 % (0-6); HEMATOCRIT 27.5 % (36.0-47.0); HEMOGLOBIN 9.8 g/dL (12.0-15.5); LYMPHOCYTES % (AUTO) 38.3 % (13-45); MEAN CORPUSCULAR HGB CONC 35.7 g/dL (32.0-36.0); MEAN CORPUSCULAR VOLUME 90 fl (80-97); MONOCYTES % (AUTO) 8.4 % (3-13); PLATELET COUNT 620 10^3/uL (150-450); RED BLOOD COUNT 3.06 10^6/uL (3.72-5.28); RED CELL DISTRIBUTION WIDTH 18.2 % (11.5-14.0); RETICULOCYTE COUNT (AUTO) 4.82 % (0.66-2.85); SEGMENTED NEUTROPHILS % (AUTO) 49.5 % (42-78); TOTAL CELLS COUNTED % (AUTO) 100 %
--- NOTE | 2020-01-29 13:39 | ER Document Report ---
ED General - General Chief Complaint: Sickle Cell Crisis Stated Complaint: SICKLE CELL CRISIS Time Seen by Provider: 01/29/20 12:53 Primary Care Provider: AIDEN ALEMAN PA-C [Primary Care Provider] - Follow up as needed TRAVEL OUTSIDE OF THE [place] IN LAST 30 DAYS: No - HPI Notes: 34-year-old female well-known to me from prior emergency department encounters now presenting with a chief complaint of sickle cell osseous crisis. She regularly takes Percocet at home and says she continues to use this medicine as needed. She has run out of her medications this time. For the last week she has been having breakthrough pain which is getting progressively worse. She denies fever, chills, vomiting, diarrhea, cough or shortness of breath. She denies syncope or presyncope. She denies headache. Patient says that her blood pressure always runs low. She is taking in fluids without difficulty. - Related Data Allergies/Adverse Reactions: green pepper Allergy (Intermediate, Verified 01/27/20 12:12) Anaphylaxis No Known Drug Intolerances Allergy (Verified 01/27/20 12:12) Past Medical History - General Information source: Patient - Social History Smoking Status: Never Smoker Family History: Reviewed & Not Pertinent, Other - Sickle trait Patient has suicidal ideation: No Patient has homicidal ideation: No - Medical History Medical History: Other - History of sickle cell disease - Past Medical History Cardiac Medical History: Denies: Hx Coronary Artery Disease, Hx Heart Attack, Hx Hypertension Pulmonary Medical History: Reports: Hx Pneumonia - YEARLY SINCE 2003 (last time 07/2017) Denies: Hx Asthma, Hx Bronchitis, Hx COPD Neurological Medical History: Denies: Hx Cerebrovascular Accident, Hx Seizures, Hx Parkinson's Disease Renal/ Medical History: Denies: Hx Peritoneal Dialysis Malignancy Medical History: Reports: Hx Renal (Kidney) Cancer GI Medical History: Denies: Hx Pancreatitis Musculoskeletal Medical History: Denies Hx Arthritis, Reports Hx Musculoskeletal Deformity, Reports Hx Musculoskeletal Trauma, Denies Hx Systemic Lupus Erythematosus Psychiatric Medical History: Reports: Hx Depression Past Surgical History: Reports: Hx Section, Hx Cholecystectomy, Hx Kidney (Renal Surgery) - partial Lt nephrectomy, Hx Orthopedic Surgery - L Fe mur, R hip, left hip, Other - Partial left nephrectomy for renal cell carcinoma - Immunizations Immunizations up to date: Yes Hx Diphtheria, Pertussis, Tetanus Vaccination: Yes - 2016 Hx Pneumococcal Vaccination: 07/22/17 Review of Systems - Review of Systems Notes: Constitutional: Negative for fever. HENT: Negative for sore throat. Eyes: Negative for visual changes. Cardiovascular: Negative for chest pain. Respiratory: Negative for shortness of breath. Gastrointestinal: Negative for abdominal pain, vomiting or diarrhea. Genitourinary: Negative for dysuria. Musculoskeletal: As per HPI. Skin: Negative for rash. Neurological: Negative for headaches, weakness or numbness. 10 point ROS negative except as marked above and in HPI. Physical Exam - Vital signs Vitals: Temp Resp BP Pulse Ox 98.2 F 19 130/87 H 99 01/29/20 12:50 01/29/20 12:50 01/29/20 12:50 01/29/20 12:50 - Notes Notes: GENERAL: Well-developed well-nourished appearing in moderate pain. SKIN: Good turgor no rashes. HEAD: Normocephalic atraumatic. EYES: PERRLA. EOMI. Conjunctivae and sclerae clear. EARS: CANALS AND TMS CLEAR. NOSE: CLEAR. MOUTH: Moist mucosa. Good dentition. No stridor or edema. No drooling. NECK: Supple. No masses or thyromegaly. No adenopathy. Carotids 2+ without bruits. No JVD. BACK: Symmetrical with mild diffuse tenderness. CHEST: Respirations unlabored. Breath sounds clear and symmetrical. HEART: Regular rhythm. No murmur gallop or rub. ABDOMEN: Soft nontender without masses, organomegaly or rebound. Bowel sounds normally active. No bruits. GENITALIA: Deferred. EXTREMITIES: Diffuse tenderness of thigh area and upper arm area bilaterally. Patient has a venous port over her right upper arm medial aspect. No edema. No calf tenderness. Cap refill less than 1.5 seconds. Dorsalis pedis and posterior tibial pulses 3+ and symmetrical. NEUROLOGICAL: GCS 15. Alert and oriented x3. Normal gait. Fluent speech. Cranial nerves II through XII intact. Sensorimotor and cerebellar normal. Normal tone. PSYCHIATRIC: Appropriate affect. Course - Re-evaluation Re-evalutation: 01/29/20 15:05 Patient does not have a fever. Her white count is not elevated. Hemoglobin is consistent with usual baseline. Reticulocyte count is 4.5%. LDH is mildly elevated. Comprehensive metabolic profile otherwise unremarkable. Urinalysis unremarkable. Clinical picture is consistent with uncomplicated vaso-occlusive crisis. Patient was given IV normal saline and also received 2 doses of IV Dilaudid along with IV Benadryl and IV Zofran. Symptoms are improved. She will be discharged for outpatient follow-up with PMD. - Vital Signs Vital signs: Temp Pulse Resp BP Pulse Ox 98.2 F 22 H 130/87 H 100 01/29/20 12:50 01/29/20 14:00 01/29/20 12:50 01/29/20 14:00 - Laboratory Result Diagrams: 01/29/20 13:14 01/29/20 13:14 Laboratory results interpreted by me: 01/29/20 01/29/20 01/29/20 13:14 13:14 14:39 RBC 3.06 L Hgb 9.8 L Hct 27.5 L RDW 18.2 H Plt Count 620 H Reticulocyte # 0.147 H Retic Count (auto) 4.82 H BUN 3 L Creatinine 0.41 L Total Bilirubin 2.9 H AST 40 H Lactate Dehydrogenase 538 H Total Protein 8.6 H Urine Blood SMALL H Urine Urobilinogen 4.0 H Discharge - Discharge Clinical Impression: Sickle cell anemia with crisis Condition: Stable Disposition: HOME, SELF-CARE Additional Instructions: Sickle Cell Crisis You have "sickle cell crisis." Sickle cell disease is caused by abnormal hemoglobin. This hemoglobin can deform red blood cells into a sickle shape. These abnormal blood cells can block blood vessels. This causes the pain of sickle cell crisis. Sickle cell crisis can occur any time. But attacks are more likely with acute infection, dehydration, or altitude change. A crisis usually causes pain in the legs, back, abdomen, and chest. Sometimes the pain may ease and return later. The usual treatment is oxygen, pain medication, IV fluids, and treatment of infection. Attacks may take a couple of days to resolve. Return if the pain becomes more severe, or if there are new symptoms. Return here as needed for new or worsening symptoms: Pain that is worsening or unimproved Uncontrolled vomiting High fever or shaking chills Overall worsening Prescriptions: Oxycodone HCl/Acetaminophen [Percocet 5-325 mg Tablet] 1 - 2 tab PO Q4H PRN #25 tablet PRN Reason: Referrals: AIDEN ALEMAN PA-C [Primary Care Provider] - Follow up as needed
[2020-01-29 13:44] LABS: ALBUMIN 4.4 g/dL (3.5-5.0); ALKALINE PHOSPHATASE 96 U/L (38-126); ANION GAP 7 (5-19); ASPARTATE AMINO TRANSFERASE 40 U/L (14-36); BILIRUBIN,DIRECT 0.2 mg/dL (0.0-0.4); BILIRUBIN,TOTAL 2.9 mg/dL (0.2-1.3); BLOOD UREA NITROGEN 3 mg/dL (7-20); CALCIUM 9.1 mg/dL (8.4-10.2); CARBON DIOXIDE 24 mmol/L (22-30); CHLORIDE 107 mmol/L (98-107); GLUCOSE 84 mg/dL (75-110); POTASSIUM 3.8 mmol/L (3.6-5.0); TOTAL PROTEIN 8.6 g/dL (6.3-8.2)
[2020-01-29 14:03] LABS: ANISOCYTOSIS 2+; HOWELL-JOLLY BODIES PRESENT; PAPPENHEIMER BODIES PRESENT; PLATELET COMMENT INCREASED; POIKILOCYTOSIS 1+; POLYCHROMASIA SLIGHT; SICKLE RED CELLS 2+; TARGET CELLS 1+
[2020-01-29 14:54] LABS: APPEARANCE,URINE CLEAR; BILIRUBIN,URINE NEGATIVE (NEGATIVE); COLOR,URINE YELLOW; GLUCOSE, URINE NEGATIVE (NEGATIVE); KETONES,URINE NEGATIVE (NEGATIVE); PROTEIN,URINE NEGATIVE (NEGATIVE); URINE SPECIFIC GRAVITY 1.005
[2020-01-29 15:08] LABS: URINE AMPHETAMINES SCREEN NEGATIVE; URINE BARBITURATES SCREEN NEGATIVE; URINE BENZODIAZEPINES SCREEN NEGATIVE; URINE COCAINE SCREEN NEGATIVE; URINE MARIJUANA (THC) SCREEN NEGATIVE; URINE METHADONE SCREEN NEGATIVE; URINE PHENCYCLIDINE SCREEN NEGATIVE
[2020-01-29 15:48] VITALS: BP 121/87
== END 2020-01-29 15:48 | disposition home or self-care (01) ==
LOC: ER 12:42
DX: D57.00 Hb-SS disease with crisis, unspecified (principal); Z90.49 Acquired absence of other specified parts of digestive tract
CPT/HCPCS: 36591; 96376; 99284; 96361; 96374; 96375; 36415; 83615; 85025; 85045; 80053; 81001; 80307; J1200; J1170; J2405; J7040; J1642

== ENCOUNTER 2020-02-19 22:31 | Emergency (ER) | payer MEDICARE, MEDICAID ==
[2020-02-19] MEDS ORDERED: DIPHENHYDRAMINE HCL 50 MG/ML VIAL IV ONE (22:51)
[2020-02-19] MEDS ORDERED: ONDANSETRON HCL INJ/PF 4 MG/2 ML SDV IV ONE (22:51)
[2020-02-19] MEDS ORDERED: HYDROMORPHONE HCL INJ/PF 2 MG/ML AMPULE IV ONE (22:51)
[2020-02-19] MEDS ORDERED: NORMAL SALINE 500 ML IV ONE (22:52)
--- NOTE | 2020-02-19 22:53 | ER Document Report ---
ED General - General Chief Complaint: Sickle Cell Crisis Stated Complaint: SICKLE CELL CRISIS Time Seen by Provider: 02/19/20 22:45 Primary Care Provider: AIDEN ALEMAN PA-C [Primary Care Provider] - Follow up in 3-5 days Notes: Patient is a 34-year-old female with a history of sickle cell disease and comes emergency department for chief complaint of sickle cell pain crisis. She states her symptoms been worsening for about 3 days now. She states last night was much worse and she cannot get comfortable today. She states she believes she had a fever with some chills this morning. She denies cough, sore throat, abdominal pain, headache, chest pain, or any particular symptoms of severe leg pain in both legs and generalized body aches. She states that she is taking Percocet 10/325 but her symptoms would not resolve. She states she follows with hematology in [place]. She denies any recent travel or obvious sick contacts. TRAVEL OUTSIDE OF THE [place] IN LAST 30 DAYS: No - Related Data Allergies/Adverse Reactions: green pepper Allergy (Intermediate, Verified 02/20/20 01:36) Anaphylaxis No Known Drug Intolerances Allergy (Verified 02/20/20 01:36) Past Medical History - General Information source: Patient - Social History Smoking Status: Never Smoker Frequency of alcohol use: None Drug Abuse: None Lives with: Family Family History: Reviewed & Not Pertinent, Other - Sickle trait Patient has homicidal ideation: No - Past Medical History Cardiac Medical History: Denies: Hx Coronary Artery Disease, Hx Heart Attack, Hx Hypertension Pulmonary Medical History: Reports: Hx Pneumonia - YEARLY SINCE 2003 (last time 07/2017) Denies: Hx Asthma, Hx Bronchitis, Hx COPD Neurological Medical History: Denies: Hx Cerebrovascular Accident, Hx Seizures, Hx Parkinson's Disease Renal/ Medical History: Denies: Hx Peritoneal Dialysis Malignancy Medical History: Reports: Hx Renal (Kidney) Cancer GI Medical History: Denies: Hx Pancreatitis Musculoskeletal Medical History: Denies Hx Arthritis, Reports Hx Musculoskeletal Deformity, Reports Hx Musculoskeletal Trauma, Denies Hx Systemic Lupus Erythematosus Psychiatric Medical History: Reports: Hx Depression Past Surgical History: Reports: Hx Section, Hx Cholecystectomy, Hx Kidney (Renal Surgery) - partial Lt nephrectomy, Hx Orthopedic Surgery - L Femur, R hip, left hip, Other - Partial left nephrectomy for renal cell carcinoma - Immunizations Immunizations up to date: Yes Hx Diphtheria, Pertussis, Tetanus Vaccination: Yes - 2016 Hx Pneumococcal Vaccination: 07/22/17 Review of Systems - Review of Systems Constitutional: See HPI EENT: No symptoms reported Cardiovascular: No symptoms reported Respiratory: No symptoms reported Gastrointestinal: No symptoms reported Genitourinary: No symptoms reported Female Genitourinary: No symptoms reported Musculoskeletal: See HPI Skin: No symptoms reported Hematologic/Lymphatic: No symptoms reported Neurological/Psychological: No symptoms reported Physical Exam - Vital signs Vitals: Temp 98.5 F 02/19/20 22:35 - Notes Notes: GENERAL: Patient is thin and slightly frail-appearing, she appears to have been recently crying but she does not appear to be in distress HEAD: Normocephalic, atraumatic. EYES: Pupils equal, round, and reactive to light. Extraocular movements intact. Slightly injected sclera, otherwise unremarkable ENT: Oral mucosa moist, tongue midline. Oropharynx unremarkable. Airway patent. NECK: Full range of motion. Supple. Trachea midline. No lymphadenopathy. LUNGS: Clear to auscultation bilaterally, no wheezes, rales, or rhonchi. No respiratory distress. Non-tender chest wall. HEART: Regular rate and rhythm. No murmur ABDOMEN: Soft, non-tender. Non-distended. EXTREMITIES: Moves all 4 extremities spontaneously. No edema, normal radial and dorsalis pedis pulses bilaterally. No cyanosis. BACK: no cervical, thoracic, lumbar midline tenderness. No saddle anesthesia, normal distal neurovascular exam. Moves all extremities in full range of motion. NEUROLOGICAL: Alert and oriented x3. Normal speech. Cranial nerves II through XII grossly intact. Strength 5/5 in all extremities. PSYCH: Normal affect, normal mood. SKIN: Warm, dry, normal turgor. No rashes or lesions noted. Course - Re-evaluation Re-evalutation: On reevaluation after symptom management patient states she does feel improved and she is hoping that with additional symptom relief she will be able to go home. CBC does show very mild leukocytosis, hemoglobin approximately same as prior, reticulocyte count similar to prior with recent visit. Indirect hemoglobin is somewhat elevated suggesting sickling. Chemistry otherwise unremarkable. Chest x-ray and urinalysis unremarkable. On reevaluation patient states she feels much improved and she is able to go home. However patient also states that she took her temperature multiple times at home during the day and she had a temperature of 101 F. She has not had a fever here. She has no current symptoms and no reported sick symptoms. She denies recent contacts or recent travel. However she does state that she was to be tested for the coronavirus. Patient does have a history of partial nephrectomy with kidney carcinoma, reportedly lupus but not on autoimmune regulators, and also sickle cell. Based on her reported fever and her medical history I did agree to test her and provided her with information regards to this. However patient is not hypoxic, has no difficulty breathing, has no concerning vital signs, does not have a fever here, and is overall very well- appearing. Patient will be discharged for follow-up with her horse identifier and return precautions. Patient states understanding and agreement. Stable and well-appearing at time of discharge. - Vital Signs Vital signs: Temp Pulse Resp BP Pulse Ox 98.4 F 97 15 125/66 68 L 02/19/20 23:41 02/19/20 22:36 02/20/20 02:01 02/20/20 02:01 02/20/20 02:00 - Laboratory Result Diagrams: 02/19/20 23:09 02/19/20 23:09 Laboratory results interpreted by me: 02/19/20 02/19/20 02/20/20 23:09 23:09 01:17 WBC 10.7 H RBC 2.75 L Hgb 9.2 L Hct 24.9 L MCH 33.6 H MCHC 37.1 H RDW 19.9 H Retic Count (auto) 4.44 H Sodium 136.6 L BUN 4 L Creatinine 0.43 L Total Bilirubin 3.9 H AST 40 H Total Protein 8.5 H Urine Blood SMALL H Urine Urobilinogen 4.0 H Discharge - Discharge Clinical Impression: Sickle cell pain crisis Condition: Stable Disposition: HOME, SELF-CARE Additional Instructions: You have been seen and evaluated for pain associated with sickle cell. Continue your medications, call your horse identifier tomorrow for additional management. Return for any concerning symptoms including developing a fever again, difficulty breathing, vomiting, or any other concerning or worsening symptoms. Because of your recorded temperatures beforehand you have been tested for the coronavirus, please follow the directions listed below, you will be contacted with your results. As a person under investigation for COVID-19, the [place] Department of Health and Human Services (divison on public health) advises you to adhere to the following guidance until your test results are reported to you. If your test result is positive, you will receive additional information from your provider and your local health department at that time. Remain at home until you are cleared by the health provider or public health authorities. Keep a log of visitors to your home, notify any visitors to your home of your isolation status. If you plan to move to a new address or leave the county, notify the local health department in your County. Call your Doctor or seek care if you have an urgent medical need. Before seeking medical care, call him to get instructions from the provider before arriving at the medical office, clinic, or hospital. Notify them that you are being tested for the virus (COVID-19) so that arrangements can be made, as necessary, to prevent transmission to others in the healthcare setting. Next, notify the local health department in your county. If a medical emergency arises and you need to call 911, inform the first responders that you are being tested for the virus that causes COVID-19. Next, notify the local health department in your county. Referrals: AIDEN ALEMAN PA-C [Primary Care Provider] - Follow up in 3-5 days
[2020-02-19 23:29] LABS: ABSOLUTE BASOPHILS # (AUTO) 0.1 10^3/uL (0.0-0.2); ABSOLUTE EOSINOPHILS # (AUTO) 0.6 10^3/uL (0.0-0.6); ABSOLUTE LYMPHOCYTES (AUTO) 3.9 10^3/uL (0.5-4.7); ABSOLUTE MONOCYTES (AUTO) 0.8 10^3/uL (0.1-1.4); ABSOLUTE NEUT (AUTO) 5.3 10^3/uL (1.7-8.2); ABSOLUTE RETICS # 0.122 10^6/uL (0.028-0.122); BASOPHILS % (AUTO) 0.6 % (0-2); EOSINOPHILS % (AUTO) 5.3 % (0-6); HEMATOCRIT 24.9 % (36.0-47.0); HEMOGLOBIN 9.2 g/dL (12.0-15.5); LYMPHOCYTES % (AUTO) 36.6 % (13-45); MEAN CORPUSCULAR HEMOGLOBIN 33.6 pg (27.0-33.4); MEAN CORPUSCULAR VOLUME 91 fl (80-97); MONOCYTES % (AUTO) 7.8 % (3-13); PLATELET COUNT 329 10^3/uL (150-450); RED BLOOD COUNT 2.75 10^6/uL (3.72-5.28); RED CELL DISTRIBUTION WIDTH 19.9 % (11.5-14.0); RETICULOCYTE COUNT (AUTO) 4.44 % (0.66-2.85); SEGMENTED NEUTROPHILS % (AUTO) 49.7 % (42-78); TOTAL CELLS COUNTED % (AUTO) 100 %; WHITE BLOOD COUNT 10.7 10^3/uL (4.0-10.5)
--- NOTE | 2020-02-19 23:41 | RADIOLOGY REPORT (SQ) ---
EXAM DESCRIPTION: XR CHEST 1 VIEW COMPLETED DATE/TME: 02/19/2020 22:52 CLINICAL HISTORY: 34 years, Female, sickle cell, body pain, fever EXAM DESCRIPTION: CLINICAL HISTORY: sickle cell, body pain, fever COMPARISON: 01/27/2020 FINDINGS: Single view of the chest is submitted. Central catheter tip is at the superior aspect of the right atrium. Prosthetic humerus head hardware appears intact with no clear evidence of acute failure or loosening. There is irregularity and mottling with heterogeneity of the right humerus head. Dedicated imaging would provide greater detail if desired. Cardiac silhouette is normal. No focal parenchymal or pleural disease. There is no significant pulmonary vascular engorgement. IMPRESSION: No evidence of acute cardiopulmonary disease.
[2020-02-19 23:44] LABS: MEAN CORPUSCULAR HGB CONC 37.1 g/dL (32.0-36.0)
[2020-02-19 23:48] LABS: ANISOCYTOSIS 3+; OVALOCYTES 2+; POIKILOCYTOSIS 3+; SICKLE RED CELLS 3+; TARGET CELLS 1+; TEAR DROP CELLS SLIGHT; TOXIC GRANULATION SLIGHT
[2020-02-19 23:49] LABS: PLATELET COMMENT ADEQUATE
[2020-02-19 23:52] LABS: ALBUMIN 4.4 g/dL (3.5-5.0); ALKALINE PHOSPHATASE 74 U/L (38-126); ANION GAP 9 (5-19); ASPARTATE AMINO TRANSFERASE 40 U/L (14-36); BILIRUBIN,DIRECT 0.3 mg/dL (0.0-0.4); BILIRUBIN,TOTAL 3.9 mg/dL (0.2-1.3); BLOOD UREA NITROGEN 4 mg/dL (7-20); CALCIUM 9.1 mg/dL (8.4-10.2); CARBON DIOXIDE 24 mmol/L (22-30); CHLORIDE 104 mmol/L (98-107); GLUCOSE 95 mg/dL (75-110); POTASSIUM 3.9 mmol/L (3.6-5.0); TOTAL PROTEIN 8.5 g/dL (6.3-8.2)
[2020-02-20] MEDS ORDERED: DIPHENHYDRAMINE HCL 50 MG/ML VIAL IV ONE (00:15)
[2020-02-20] MEDS ORDERED: ONDANSETRON HCL INJ/PF 4 MG/2 ML SDV IV ONE (00:15)
[2020-02-20] MEDS ORDERED: HYDROMORPHONE HCL INJ/PF 2 MG/ML AMPULE IV ONE ×2 (00:15→01:43)
[2020-02-20] MEDS ORDERED: PROMETHAZINE HCL INJ 25 MG/1 ML VIAL IM ONE (01:43)
[2020-02-20 01:53] LABS: APPEARANCE,URINE CLEAR; BILIRUBIN,URINE NEGATIVE (NEGATIVE); COLOR,URINE YELLOW; GLUCOSE, URINE NEGATIVE (NEGATIVE); KETONES,URINE NEGATIVE (NEGATIVE); LEUKOCYTE ESTERASE,URINE NEGATIVE (NEGATIVE); NITRITE,URINE NEGATIVE (NEGATIVE); PROTEIN,URINE NEGATIVE (NEGATIVE); URINE SPECIFIC GRAVITY 1.005
[2020-02-20 04:15] VITALS: BP 118/72
== END 2020-02-20 04:16 | disposition home or self-care (01) ==
LOC: ER 22:31
DX: D57.00 Hb-SS disease with crisis, unspecified (principal); R50.9 Fever, unspecified; M79.604 Pain in right leg; M79.605 Pain in left leg; M79.10 Myalgia, unspecified site; Z88.8 Allergy status to other drugs, medicaments and biological substances; Z85.528 Personal history of other malignant neoplasm of kidney; Z20.828 Contact with and (suspected) exposure to other viral communicable diseases
CPT/HCPCS: 36591; 96376; 99284; 96372; 96361; 96374; 96375; 36415; 84703; 85025; 85045; 80053; 81001; 71045; U0003; J1200 ×2; J1170 ×2; J2550; J2405 ×2; J7040; J1642; 87635

== ENCOUNTER 2020-03-16 09:47 | Day surgery (SDC) | payer MEDICARE, MEDICAID ==
[~2020-03-16 09:47] MED LIST changes: +CHONDR SU A NA/HYALUR INTRAOC KIT (SURGICARE) ONE; +EPINEPHRINE INJ/PF 1 MG/1 ML AMPULE ONE; +FENTANYL CITRATE INJ/PF 100 MCG/2 ML AMPUL ONE; +KETOROLAC TROMETHAMINE 0.45% 4 DROP/0.4 ML DROPERETTE OD PRN; -LACTATED RINGERS 1000 ML IV PRN; +LIDOCAINE 1%/PHENYLEPHRINE 1.5% 1 ML VIAL ONE; +MIDAZOLAM 2 MG/2 ML INJ ONE; +TETRACAINE HCL 0.5% OPH SOLN 0.6 ML DROPERETTE OD PRN; +TETRACAINE HCL 0.5% OPH SOLN 4 ML OD PRN
[2020-03-16] MEDS: TROPICAMIDE 1% OPH SOLN 15 ML OD PRN ×3 (10:09→10:29)
[2020-03-16] MEDS: CYCLOPENTOLATE 0.2%/PHENYLEPHRINE 1% OPH SOLN 2 ML OD PRN ×3 (10:09→10:29)
[2020-03-16] MEDS: BESIFLOXACIN HCL 0.6% OPH SUSP 5 ML BOTTLE OD PRN ×4 (10:09→10:55)
[2020-03-16] MEDS: TETRACAINE HCL 0.5% OPH SOLN 4 ML OD PRN ×2 (10:10→10:29)
[2020-03-16] MEDS ORDERED: MIDAZOLAM 2 MG/2 ML INJ ONE (10:27)
[2020-03-16] MEDS ORDERED: FENTANYL CITRATE INJ/PF 100 MCG/2 ML AMPUL ONE (10:27)
[2020-03-16] MEDS: DORZOLAMIDE HCL 2%/TIMOLOL MALEAT 0.5% OPH SOLN 10 ML OD PRN ×2 (10:54→10:55)
--- NOTE | 2020-03-16 11:00 | Operative Report ---
Operative Report-[facility] Operative Report: DATE OF SURGERY: March 16, 2020 PREOPERATIVE DIAGNOSIS: NUCLEAR CATARACT, RIGHT EYE. POSTOPERATIVE DIAGNOSIS: NUCLEAR CATARACT, RIGHT EYE. PROCEDURE PERFORMED: PHACOEMULSIFICATION WITH POSTERIOR CHAMBER INTRAOCULAR LENS IMPLANT, RIGHT EYE. SURGEON: Timmy Doherty DO MEDICATIONS AND ANESTHESIA: Versed: IV Versed Tetracaine drops: 1 to 2 drops given as needed COMPLICATION: None INDICATIONS FOR SURGERY: Medical necessity: Best corrected visual acuity worse than 20/40 secondary to cataracts with impairment of ability to carry out needs or desired activities, blurred vision, visual distortion, reduced contrast sensitivity and/or glare with association functional impairment and supporting documentation/testing, and cataracts causing symptomatic impairment of visual functions not corrected with tolerable changes in glasses or contact lenses interfering with activities of daily life. PROCEDURE: Consent: The risks, benefits and alternatives of this procedures was discussed with the patient. The patient read and signed the consent forms, was identified and was seated in the exam chair. IOL: MX 60 E 15.0 IOL Diopters: Phacoemulsification with posterior chamber intraocular lens implant: The face was prepped with 5% povidone iodine solution, and a few drops of 5% povidone iodine solution was instilled into the inferior fornix. A non-fenestrated drape was placed over the eye and the lids were parted with the speculum. A paracentesis was made with a 15 degree blade, and 1% lidocaine MPF followed by viscoelastic was injected into the anterior chamber. A 2.4 mm metal micro- keratome was used to create a temporal clear corneal incision. A circular anterior capsulorrhexis was created, followed by hydro-dissection and hydro- delineation. The phacoemulsification hand piece was inserted and the nucleus was removed with the Phaco chop technique. The irrigation-aspiration hand piece was used to remove the residual cortex, and vacuum the posterior capsule. The capsular bag was inflated and viscoelastic and the above-mentioned IOL was injected into the eye with care to insert both leaning and trailing haptics in the capsular bag. The irrigation/aspiration hand piece was reinserted to remove residual viscoelastic from the capsular bag and anterior chamber. The corneal incision was hydrated, and anterior chamber was inflated with sterile BSS via the paracentesis site, and found to be watertight. Postop medication: 1 drop of prednisolone into operative by followed by 1 drop of Cosopt into operative eye followed by 1 drop of Besivance intraoperative by other:
== END 2020-03-16 11:50 | disposition home or self-care (01) ==
LOC: SC 09:47
PROVIDERS: ATTEND Ophthalmology
DX: H25.11 Age-related nuclear cataract, right eye (principal); Z87.891 Personal history of nicotine dependence; D57.1 Sickle-cell disease without crisis; Z86.73 Personal history of transient ischemic attack (TIA), and cerebral infarction without residual deficits
CPT/HCPCS: 00142; 66984; V2632; J2250; J3490 ×2; A9270; J0171; J3010; 142

== ENCOUNTER 2020-03-23 10:33 | Emergency (ER) | payer MEDICARE, MEDICAID ==
[2020-03-23] MEDS ORDERED: NORMAL SALINE 1000 ML 1,000 ML IV ONE (11:03)
[2020-03-23] MEDS ORDERED: MORPHINE SULFATE 10 MG/ML INJ IV ONE ×2 (11:04→12:21)
--- NOTE | 2020-03-23 11:07 | ER Document Report ---
ED Medical Screen (RME) - General Chief Complaint: Sickle Cell Crisis Stated Complaint: BODY PAIN/SICKLE CELL CRISIS Time Seen by Provider: 03/23/20 10:57 Primary Care Provider: AIDEN ALEMAN PA-C [Primary Care Provider] - Follow up as needed Mode of Arrival: Ambulatory Information source: Patient Notes: HPI; 34-year-old female past medical history significant for sickle cell and lupus presents emergency room complaining of a sickle cell flareup. Complaining of generalized joint pain. States she takes 10 mg of oxycodone at home took her last one yesterday. Has a follow-up appointment on Saturday with her doctor for refill. Denies any fever, no chest pain, no shortness of breath, no recent travel, no COVID-19 exposure. PE: Oriented x3. Mild distress noted. Lungs clear to auscultation without rales rhonchi wheezes. Heart regular rate rhythm without murmurs rubs or gallops. I have greeted and performed a rapid initial assessment of this patient. A c omprehensive ED assessment and evaluation of the patient, analysis of test results and completion of the medical decision making process will be conducted by additional ED providers. I have specifically instructed the patient or family members with the patient to immediately return to any nursing staff should anything change in the patient's condition or with their chief complaint. TRAVEL OUTSIDE OF THE [place] IN LAST 30 DAYS: No - Related Data Allergies/Adverse Reactions: green pepper Allergy (Severe, Verified 03/23/20 10:55) Anaphylaxis No Known Drug Intolerances Allergy (Verified 03/23/20 10:55) Home Medications: hydroxyurea. folic acid. zoloft. flexeril. adderall. vigamox. durezol Past Medical History - Social History Chew tobacco use (# tins/day): No Frequency of alcohol use: Rare Drug Abuse: None - Past Medical History Cardiac Medical History: Denies: Hx Coronary Artery Disease, Hx Heart Attack, Hx Hypertension Pulmonary Medical History: Reports: Hx Pneumonia - YEARLY SINCE 2003 (last time 07/2017) Denies: Hx Asthma, Hx Bronchitis, Hx COPD Neurological Medical History: Denies: Hx Cerebrovascular Accident, Hx Seizures, Hx Parkinson's Disease Renal/ Medical History: Denies: Hx Peritoneal Dialysis Malignancy Medical History: Reports: Hx Renal (Kidney) Cancer GI Medical History: Denies: Hx Hepatitis, Hx Hiatal Hernia, Hx Pancreatitis, Hx Ulcer Musculoskeltal Medical History: Denies Hx Arthritis, Reports Hx Musculoskeletal Deformity, Reports Hx Musculoskeletal Trauma, Denies Hx Systemic Lupus Erythematosus Psychiatric Medical History: Reports: Hx Depression Infectious Medical History: Denies: Hx Hepatitis Past Surgical History: Reports: Hx Section, Hx Cholecystectomy, Hx Ki dney (Renal Surgery) - partial Lt nephrectomy, Hx Orthopedic Surgery - L Femur, R hip, left hip, Other - Partial left nephrectomy for renal cell carcinoma. Denies: Hx Hysterectomy, Hx Mastectomy, Hx Open Heart Surgery, Hx Pacemaker - Immunizations Immunizations up to date: Yes Hx Diphtheria, Pertussis, Tetanus Vaccination: Yes - 2016 Physical Exam - Vital signs Vitals: Temp Pulse Resp BP Pulse Ox 99.0 F 107 H 16 105/71 97 03/23/20 10:36 03/23/20 10:36 03/23/20 10:36 03/23/20 10:36 03/23/20 10:36 Course - Vital Signs Vital signs: Temp Pulse Resp BP Pulse Ox 99 F 107 H 16 105/71 97 03/23/20 10:55 03/23/20 10:36 03/23/20 10:36 03/23/20 10:36 03/23/20 10:36 Doctor's Discharge - Discharge Referrals: AIDEN ALEMAN PA-C [Primary Care Provider] - Follow up as needed
[2020-03-23 11:25] LABS: APPEARANCE,URINE CLEAR; BILIRUBIN,URINE NEGATIVE (NEGATIVE); COLOR,URINE YELLOW; GLUCOSE, URINE NEGATIVE (NEGATIVE); KETONES,URINE NEGATIVE (NEGATIVE); LEUKOCYTE ESTERASE,URINE NEGATIVE (NEGATIVE); NITRITE,URINE NEGATIVE (NEGATIVE); PROTEIN,URINE NEGATIVE (NEGATIVE); URINE SPECIFIC GRAVITY 1.009
[2020-03-23 11:57] LABS: ABSOLUTE BASOPHILS # (AUTO) 0.1 10^3/uL (0.0-0.2); ABSOLUTE EOSINOPHILS # (AUTO) 0.3 10^3/uL (0.0-0.6); ABSOLUTE LYMPHOCYTES (AUTO) 2.2 10^3/uL (0.5-4.7); ABSOLUTE MONOCYTES (AUTO) 0.5 10^3/uL (0.1-1.4); ABSOLUTE NEUT (AUTO) 3.6 10^3/uL (1.7-8.2); ABSOLUTE RETICS # 0.134 10^6/uL (0.028-0.122); BASOPHILS % (AUTO) 2.2 % (0-2); EOSINOPHILS % (AUTO) 3.7 % (0-6); HEMATOCRIT 26.6 % (36.0-47.0); HEMOGLOBIN 9.7 g/dL (12.0-15.5); LYMPHOCYTES % (AUTO) 32.8 % (13-45); MEAN CORPUSCULAR HEMOGLOBIN 33.1 pg (27.0-33.4); MEAN CORPUSCULAR HGB CONC 36.6 g/dL (32.0-36.0); MEAN CORPUSCULAR VOLUME 90 fl (80-97); PLATELET COUNT 443 10^3/uL (150-450); RED BLOOD COUNT 2.94 10^6/uL (3.72-5.28); RED CELL DISTRIBUTION WIDTH 19.5 % (11.5-14.0); RETICULOCYTE COUNT (AUTO) 4.55 % (0.66-2.85); SEGMENTED NEUTROPHILS % (AUTO) 53.3 % (42-78); TOTAL CELLS COUNTED % (AUTO) 100 %; WHITE BLOOD COUNT 6.8 10^3/uL (4.0-10.5)
--- NOTE | 2020-03-23 12:10 | ER Document Report ---
ED General - General Chief Complaint: Sickle Cell Crisis Stated Complaint: BODY PAIN/SICKLE CELL CRISIS Time Seen by Provider: 03/23/20 10:57 Primary Care Provider: AIDEN ALEMAN PA-C [Primary Care Provider] - Follow up as needed Mode of Arrival: Ambulatory Information source: Patient TRAVEL OUTSIDE OF THE [place] IN LAST 30 DAYS: No - HPI Notes: Patient presents stating that she is having a sickle cell crisis. She states this 1 feels mild and compared to other when she has had. She states she would like to "get out ahead of this 1". She states this does feel like her typical sickle cell exacerbation. She states she has diffuse body aches and pains. These pains are constant. They are worse with movement and better with rest. They radiate throughout her body. They are moderate to severe in intensity. It is an achy sensation. She denies fever, sweats or chills. No vomiting or diarrhea. She denies any knowledge of being . - Related Data Allergies/Adverse Reactions: green pepper Allergy (Severe, Verified 03/23/20 10:55) Anaphylaxis No Known Drug Intolerances Allergy (Verified 03/23/20 10:55) Home Medications: hydroxyurea. folic acid. zoloft. flexeril. adderall. vigamox. durezol Past Medical History - General Information source: Patient - Social History Smoking Status: Former Smoker Chew tobacco use (# tins/day): No Frequency of alcohol use: Rare Drug Abuse: None Family History: Reviewed & Not Pertinent, Other - Sickle trait Patient has homicidal ideation: No - Past Medical History Cardiac Medical History: Denies: Hx Coronary Artery Disease, Hx Heart Attack, Hx Hypertension Pulmonary Medical History: Reports: Hx Pneumonia - YEARLY SINCE 2003 (last time 07/2017) Denies: Hx Asthma, Hx Bronchitis, Hx COPD Neurological Medical History: Denies: Hx Cerebrovascular Accident, Hx Seizures, Hx Parkinson's Disease Renal/ Medical History: Denies: Hx Peritoneal Dialysis Malignancy Medical History: Reports: Hx Renal (Kidney) Cancer GI Medical History: Denies: Hx Hepatitis, Hx Hiatal Hernia, Hx Pancreatitis, Hx Ulcer Musculoskeletal Medical History: Denies Hx Arthritis, Reports Hx Musculoskeletal Deformity, Reports Hx Musculoskeletal Trauma, Denies Hx Systemic Lupus Erythematosus Psychiatric Medical History: Reports: Hx Depression Infectious Medical History: Denies: Hx Hepatitis Past Surgical History: Reports: Hx Section, Hx Cholecystectomy, Hx Kidney (Renal Surgery) - partial Lt nephrectomy, Hx Orthopedic Surgery - L Femur, R hip, left hip, Other - Partial left nephrectomy for renal cell carcinoma. Denies: Hx Hysterectomy, Hx Mastectomy, Hx Open Heart Surgery, Hx Pacemaker - Immunizations Immunizations up to date: Yes Hx Diphtheria, Pertussis, Tetanus Vaccination: Yes - 2016 Hx Pneumococcal Vaccination: 07/22/17 Review of Systems - Review of Systems Constitutional: denies: Chills, Fever Cardiovascular: denies: Chest pain, Palpitations Respiratory: Short of breath. denies: Cough -: Yes All other systems reviewed and negative Physical Exam - Vital signs Vitals: Temp Pulse Resp BP Pulse Ox 99.0 F 107 H 16 105/71 97 03/23/20 10:36 03/23/20 10:36 03/23/20 10:36 03/23/20 10:36 03/23/20 10:36 Interpretation: Tachycardic - General General appearance: Appears well, Alert - HEENT Head: Normocephalic, Atraumatic Eyes: Normal Pupils: PERRL - Respiratory Respiratory status: No respiratory distress Chest status: Nontender Breath sounds: Normal Chest palpation: Normal - Cardiovascular Rhythm: Tachycardia Heart sounds: Normal auscultation Murmur: No - Abdominal Inspection: Normal Distension: No distension Bowel sounds: Normal Tenderness: Nontender Organomegaly: No organomegaly - Back Back: Normal, Nontender - Extremities General upper extremity: Normal inspection, Nontender, Normal color, Normal ROM, Normal temperature General lower extremity: Normal inspection, Nontender, Normal color, Normal ROM, Normal temperature, Normal weight bearing. No: Dariel's sign - Neurological Neuro grossly intact: Yes Cognition: Normal Orientation: AAOx4 [place] Coma Scale Eye Opening: Spontaneous [place] Coma Scale Verbal: Oriented [place] Coma Scale Motor: Obeys Commands [place] Coma Scale Total: 15 Speech: Normal Motor strength normal: LUE, RUE, LLE, RLE Sensory: Normal - Psychological Associated symptoms: Normal affect, Normal mood - Skin Skin Temperature: Warm Skin Moisture: Dry Skin Color: Normal Course - Re-evaluation Re-evalutation: 03/23/20 12:51 Patient presents with sickle cell crisis. Chest x-ray is clear labs are unremarkable. Hemoglobin is stable. Vital signs are stable. She is not . There is no evidence of obvious infection. Patient appears stable for discharge to follow-up with her primary care physician. - Vital Signs Vital signs: Temp Pulse Resp BP Pulse Ox 99 F 107 H 16 105/71 97 03/23/20 10:55 03/23/20 10:36 03/23/20 10:36 03/23/20 10:36 03/23/20 10:36 - Laboratory Result Diagrams: 03/23/20 11:35 03/23/20 11:35 Laboratory results interpreted by me: 03/23/20 03/23/20 03/23/20 11:10 11:35 11:35 RBC 2.94 L Hgb 9.7 L Hct 26.6 L MCHC 36.6 H RDW 19.5 H Baso % (Auto) 2.2 H Reticulocyte # 0.134 H Retic Count (auto) 4.55 H BUN 4 L Creatinine 0.44 L Total Bilirubin 3.9 H Total Protein 8.5 H Urine Blood SMALL H Urine Urobilinogen 4.0 H - Diagnostic Test Radiology reviewed: Image reviewed, Reports reviewed Discharge - Discharge Clinical Impression: Sickle cell crisis Condition: Stable Disposition: HOME, SELF-CARE Instructions: Sickle Cell Crisis ([facility]) Additional Instructions: Please call your primary care physician as soon as possible to arrange follow-up Prescriptions: Oxycodone HCl/Acetaminophen [Percocet 5-325 mg Tablet] 1 tab PO Q6 3 Days #12 tablet Forms: Return to Work Referrals: AIDEN ALEMAN PA-C [Primary Care Provider] - Follow up in 1 week
[2020-03-23 12:11] LABS: ALBUMIN 4.4 g/dL (3.5-5.0); ALKALINE PHOSPHATASE 76 U/L (38-126); ANION GAP 8 (5-19); ASPARTATE AMINO TRANSFERASE 33 U/L (14-36); BILIRUBIN,DIRECT 0.4 mg/dL (0.0-0.4); BILIRUBIN,TOTAL 3.9 mg/dL (0.2-1.3); BLOOD UREA NITROGEN 4 mg/dL (7-20); CALCIUM 9.6 mg/dL (8.4-10.2); CARBON DIOXIDE 25 mmol/L (22-30); CHLORIDE 107 mmol/L (98-107); GLUCOSE 92 mg/dL (75-110); POTASSIUM 3.8 mmol/L (3.6-5.0); TOTAL PROTEIN 8.5 g/dL (6.3-8.2)
[2020-03-23 12:20] LABS: ANISOCYTOSIS 2+; PLATELET COMMENT ADEQUATE
[2020-03-23 12:21] LABS: TARGET CELLS 2+
[2020-03-23 12:23] LABS: POIKILOCYTOSIS 2+; SICKLE RED CELLS 2+
--- NOTE | 2020-03-23 12:44 | RADIOLOGY REPORT (SQ) ---
EXAM DESCRIPTION: CHEST SINGLE VIEW IMAGES COMPLETED DATE/TIME: 03/23/2020 12:35 pm REASON FOR STUDY: sickle cell/dyspnea COMPARISON: 02/19/2020 EXAM PARAMETERS: NUMBER OF VIEWS: One view. TECHNIQUE: Single frontal radiographic view of the chest acquired. RADIATION DOSE: NA LIMITATIONS: None. FINDINGS: LUNGS AND PLEURA: No opacities, masses or pneumothorax. No pleural effusion. MEDIASTINUM AND HILAR STRUCTURES: No masses. Contour normal. HEART AND VASCULAR STRUCTURES: Heart normal in size. Normal vasculature. BONES: No acute findings. 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 HARDWARE: Right arm port with catheter tip at cavoatrial junction. Left shoulder hemiarthroplasty. OTHER: No other significant finding. IMPRESSION: No evidence of acute cardiopulmonary process. TECHNICAL DOCUMENTATION: JOB ID: [id number] [employer]- All Rights Reserved Reading location - IP/workstation name: [email or web address]
[2020-03-23 13:30] VITALS: BP 119/74
== END 2020-03-23 13:28 | disposition home or self-care (01) ==
LOC: ER 10:33
DX: D57.00 Hb-SS disease with crisis, unspecified (principal); R00.0 Tachycardia, unspecified; Z85.528 Personal history of other malignant neoplasm of kidney; Z90.49 Acquired absence of other specified parts of digestive tract
CPT/HCPCS: 36591; 96376; 99284; 96361; 96374; 36415; 84703; 85025; 85045; 80053; 81001; 71045; J2270; J7030; J1642

== ENCOUNTER 2020-03-30 10:54 | Day surgery (SDC) | payer MEDICARE, MEDICAID ==
[~2020-03-30 10:54] MED LIST changes: -CHONDR SU A NA/HYALUR INTRAOC KIT (SURGICARE) ONE; -EPINEPHRINE INJ/PF 1 MG/1 ML AMPULE ONE; -KETOROLAC TROMETHAMINE 0.45% 4 DROP/0.4 ML DROPERETTE OD PRN; +KETOROLAC TROMETHAMINE 0.45% 4 DROP/0.4 ML DROPERETTE OS PRN; +ONDANSETRON HCL INJ/PF 4 MG/2 ML SDV ONE; -TETRACAINE HCL 0.5% OPH SOLN 0.6 ML DROPERETTE OD PRN; -TETRACAINE HCL 0.5% OPH SOLN 4 ML OD PRN
[2020-03-30] MEDS: BESIFLOXACIN HCL 0.6% OPH SUSP 5 ML BOTTLE OS PRN ×4 (12:02→13:06)
[2020-03-30] MEDS: TETRACAINE HCL 0.5% OPH SOLN 4 ML OS PRN ×3 (12:02→12:55)
[2020-03-30] MEDS: CYCLOPENTOLATE 0.2%/PHENYLEPHRINE 1% OPH SOLN 2 ML OS PRN ×3 (12:02→12:25)
[2020-03-30] MEDS: TROPICAMIDE 1% OPH SOLN 15 ML OS PRN ×3 (12:02→12:25)
--- NOTE | 2020-03-30 12:40 | Operative Report ---
Operative Report-[facility] Operative Report: DATE OF SURGERY: March 30, 2020 PREOPERATIVE DIAGNOSIS: NUCLEAR CATARACT, LEFT EYE. POSTOPERATIVE DIAGNOSIS: NUCLEAR CATARACT, LEFT EYE. PROCEDURE PERFORMED: PHACOEMULSIFICATION WITH POSTERIOR CHAMBER INTRAOCULAR LENS IMPLANT, LEFT EYE. SURGEON: Timmy Doherty DO MEDICATIONS AND ANESTHESIA: Versed: IV Versed Tetracaine drops: 1 to 2 drops given as needed COMPLICATION: [None] INDICATIONS FOR SURGERY: Medical necessity: Best corrected visual acuity worse than 20/40 secondary to cataracts with impairment of ability to carry out needs or desired activities, blurred vision, visual distortion, reduced contrast sensitivity and/or glare with association functional impairment and supporting documentation/testing, and cataracts causing symptomatic impairment of visual functions not corrected with tolerable changes in glasses or contact lenses interfering with activities of daily life. PROCEDURE: Consent: The risks, benefits and alternatives of this procedures was discussed with the patient. The patient read and signed the consent forms, was identified and was seated in the exam chair. IOL: MX 60 E 16.5 IOL Diopters: [] Phacoemulsification with posterior chamber intraocular lens implant: The face was prepped with 5% povidone iodine solution, and a few drops of 5% povidone iodine solution was instilled into the inferior fornix. A non-fenestrated drape was placed over the eye and the lids were parted with the speculum. A paracentesis was made with a 15 degree blade, and 1% lidocaine MPF followed by viscoelastic was injected into the anterior chamber. A 2.4 mm metal micro- keratome was used to create a temporal clear corneal incision. A circular anterior capsulorrhexis was created, followed by hydro-dissection and hydro- delineation. The phacoemulsification hand piece was inserted and the nucleus was removed with the Phaco chop technique. The irrigation-aspiration hand piece was used to remove the residual cortex, and vacuum the posterior capsule. The capsular bag was inflated and viscoelastic and the above-mentioned IOL was injected into the eye with care to insert both leaning and trailing haptics in the capsular bag. The irrigation/aspiration hand piece was reinserted to remove residual viscoelastic from the capsular bag and anterior chamber. The corneal incision was hydrated, and anterior chamber was inflated with sterile BSS via the paracentesis site, and found to be watertight. Postop medication:1 drop of prednisolone into operative by followed by 1 drop of Cosopt into operative eye followed by 1 drop of Besivance intraoperative by Other: []
[2020-03-30] MEDS ORDERED: NORMAL SALINE INJ/PF 0.9% 10 ML SDV ONE (12:41)
[2020-03-30] MEDS: CHONDR SU A NA/HYALUR INTRAOC KIT (SURGICARE) ONE ×2 (12:55)
[2020-03-30] MEDS: EPINEPHRINE INJ/PF 1 MG/1 ML AMPULE ONE ×2 (12:55)
[2020-03-30] MEDS: DORZOLAMIDE HCL 2%/TIMOLOL MALEAT 0.5% OPH SOLN 10 ML OS PRN ×2 (13:06)
== END 2020-03-30 12:44 | disposition home or self-care (01) ==
LOC: SC 10:54
PROVIDERS: ATTEND Ophthalmology
DX: H25.12 Age-related nuclear cataract, left eye (principal)
CPT/HCPCS: 66984; V2632; J2250; J3490 ×3; A9270; J0171; J2405; J1642; 142; J3010

== ENCOUNTER 2020-04-15 17:00 | Emergency (ER) | payer MEDICARE, MEDICAID ==
[2020-04-15] MEDS ORDERED: IBUPROFEN 800 MG TABLET PO ONE (21:38)
[2020-04-15] MEDS ORDERED: ACETAMINOPHEN 325 MG TABLET PO ONE (21:38)
[2020-04-15] MEDS ORDERED: DIPHENHYDRAMINE HCL 50 MG/ML VIAL IV ONE (21:39)
[2020-04-15] MEDS ORDERED: NORMAL SALINE 1000 ML 1,000 ML IV ONE (21:39)
--- NOTE | 2020-04-15 21:42 | ER Document Report ---
ED Medical Screen (RME) - General Chief Complaint: Sickle Cell Crisis Stated Complaint: SICKLE CELL CRISIS Time Seen by Provider: 04/15/20 21:34 Primary Care Provider: AIDEN ALEMAN PA-C [Primary Care Provider] - Follow up as needed TRAVEL OUTSIDE OF THE [place] IN LAST 30 DAYS: No - HPI Notes: 04/15/20 21:40 34-year-old female with a history of sickle cell crisis presents to the emergency room with complaints of having a headache and bilateral leg pain that started today. Patient states her back tufter is in [place], was advised by her primary care, to go to the emergency room for further evaluation. Patient states her last sickle cell crisis was at the beginning of March. Denies any chest pain, shortness of breath, nausea vomiting diarrhea. Denies any fevers or chills. She thinks she may be dehydrated. I have greeted and performed a rapid initial assessment of this patient. A comprehensive ED assessment and evaluation of the patient, analysis of test results and completion of the medical decision making process will be conducted by additional ED providers. PHYSICAL EXAMINATION: GENERAL: Well-appearing, well-nourished and in no acute distress. HEAD: Atraumatic, normocephalic. EYES: Pupils equal round extraocular movements intact, conjunctiva are normal. NECK: Normal range of motion CV: s1, s2 regular LUNGS: No respiratory distress Musculoskeletal: Normal range of motion NEUROLOGICAL: Normal speech, normal gait. SKIN: Warm, Dry, normal turgor, no rashes or lesions noted. 04/15/20 21:41 - Related Data Allergies/Adverse Reactions: green pepper Allergy (Severe, Verified 03/29/20 09:38) Anaphylaxis No Known Drug Intolerances Allergy (Verified 03/29/20 09:38) Past Medical History - Past Medical History Cardiac Medical History: Denies: Hx Coronary Artery Disease, Hx Heart Attack, Hx Hypertension Pulmonary Medical History: Reports: Hx Pneumonia - YEARLY SINCE 2003 (last time 07/2017) Denies: Hx Asthma, Hx Bronchitis, Hx COPD Neurological Medical History: Denies: Hx Cerebrovascular Accident, Hx Seizures, Hx Parkinson's Disease Renal/ Medical History: Denies: Hx Peritoneal Dialysis Malignancy Medical History: Reports: Hx Renal (Kidney) Cancer GI Medical History: Denies: Hx Hepatitis, Hx Hiatal Hernia, Hx Pancreatitis, Hx Ulcer Musculoskeltal Medical History: Denies Hx Arthritis, Reports Hx Musculoskeletal Deformity, Reports Hx Musculoskeletal Trauma, Denies Hx Systemic Lupus Erythematosus Psychiatric Medical History: Reports: Hx Depression Infectious Medical History: Denies: Hx Hepatitis Past Surgical History: Reports: Hx Section, Hx Cholecystectomy, Hx Kidney (Renal Surgery) - partial Lt nephrectomy, Hx Orthopedic Surgery - L Femur, R hip, left hip, Other - Partial left nephrectomy for renal cell carcinoma. Denies: Hx Hysterectomy, Hx Mastectomy, Hx Open Heart Surgery, Hx Pacemaker - Immunizations Immunizations up to date: Yes Hx Diphtheria, Pertussis, Tetanus Vaccination: Yes - 2016 Physical Exam - Vital signs Vitals: Temp Pulse Resp BP Pulse Ox 99.0 F 100 16 111/75 99 04/15/20 17:25 04/15/20 17:25 04/15/20 17:25 04/15/20 17:25 04/15/20 17:25 Course - Vital Signs Vital signs: Temp Pulse Resp BP Pulse Ox 99 F 100 16 111/75 99 04/15/20 21:31 04/15/20 17:25 04/15/20 17:25 04/15/20 17:25 04/15/20 17:25 Doctor's Discharge - Discharge Disposition: LEFT WITHOUT BEING SEEN Referrals: AIDEN ALEMAN PA-C [Primary Care Provider] - Follow up as needed
--- NOTE | 2020-04-15 22:11 | RADIOLOGY REPORT (SQ) ---
EXAM DESCRIPTION: XR CHEST 1 VIEW COMPLETED DATE/TME: 04/15/2020 21:39 CLINICAL HISTORY: 34 years, Female, sickle cell crisis COMPARISON: 03/23/2020 chest NUMBER OF VIEWS: 1 TECHNIQUE: Portable chest LIMITATIONS: None. FINDINGS: The heart size is normal. Arqebm-p-Nxld catheter in place. Osteopenia. Post surgical change of the left humerus. Coarse interstitial change bilaterally however the lungs are otherwise clear. No pneumothorax IMPRESSION: No acute cardiopulmonary process copyright 2011 [employer] All Rights Reserved
[2020-04-15 23:54] LABS: APPEARANCE,URINE SLIGHTLY-CLOUDY; BILIRUBIN,URINE NEGATIVE (NEGATIVE); COLOR,URINE YELLOW; GLUCOSE, URINE NEGATIVE (NEGATIVE); KETONES,URINE NEGATIVE (NEGATIVE); LEUKOCYTE ESTERASE,URINE NEGATIVE (NEGATIVE); NITRITE,URINE NEGATIVE (NEGATIVE); PROTEIN,URINE NEGATIVE (NEGATIVE); URINE SPECIFIC GRAVITY 1.012
[2020-04-16] MEDS: IBUPROFEN 800 MG TABLET PO ONE ×2 (03:08→03:13)
[2020-04-16] MEDS: ACETAMINOPHEN 325 MG TABLET PO ONE ×2 (03:08→03:13)
[2020-04-16] MEDS ORDERED: DIPHENHYDRAMINE HCL 50 MG/ML VIAL IV ONE (03:15)
[2020-04-16] MEDS ORDERED: HYDROMORPHONE HCL INJ/PF 2 MG/ML AMPULE IV ONE ×2 (03:16→05:26)
[2020-04-16 03:29] LABS: ABSOLUTE BASOPHILS # (AUTO) 0.1 10^3/uL (0.0-0.2); ABSOLUTE EOSINOPHILS # (AUTO) 0.2 10^3/uL (0.0-0.6); ABSOLUTE LYMPHOCYTES (AUTO) 3.4 10^3/uL (0.5-4.7); ABSOLUTE MONOCYTES (AUTO) 0.8 10^3/uL (0.1-1.4); ABSOLUTE NEUT (AUTO) 5.7 10^3/uL (1.7-8.2); ABSOLUTE RETICS # 0.199 10^6/uL (0.028-0.122); BASOPHILS % (AUTO) 1.3 % (0-2); EOSINOPHILS % (AUTO) 2.2 % (0-6); HEMATOCRIT 25.4 % (36.0-47.0); HEMOGLOBIN 9.3 g/dL (12.0-15.5); LYMPHOCYTES % (AUTO) 33.1 % (13-45); MEAN CORPUSCULAR HEMOGLOBIN 33.8 pg (27.0-33.4); MEAN CORPUSCULAR HGB CONC 36.7 g/dL (32.0-36.0); MEAN CORPUSCULAR VOLUME 92 fl (80-97); MONOCYTES % (AUTO) 7.7 % (3-13); PLATELET COUNT 366 10^3/uL (150-450); RED BLOOD COUNT 2.76 10^6/uL (3.72-5.28); RED CELL DISTRIBUTION WIDTH 20.6 % (11.5-14.0); RETICULOCYTE COUNT (AUTO) 7.22 % (0.66-2.85); SEGMENTED NEUTROPHILS % (AUTO) 55.7 % (42-78); TOTAL CELLS COUNTED % (AUTO) 100 %; WHITE BLOOD COUNT 10.2 10^3/uL (4.0-10.5)
[2020-04-16 03:34] LABS: ALBUMIN 4.4 g/dL (3.5-5.0); ALKALINE PHOSPHATASE 107 U/L (38-126); ANION GAP 9 (5-19); ASPARTATE AMINO TRANSFERASE 35 U/L (14-36); BILIRUBIN,DIRECT 0.3 mg/dL (0.0-0.4); BILIRUBIN,TOTAL 4.1 mg/dL (0.2-1.3); BLOOD UREA NITROGEN 7 mg/dL (7-20); CALCIUM 9.2 mg/dL (8.4-10.2); CARBON DIOXIDE 20 mmol/L (22-30); CHLORIDE 108 mmol/L (98-107); GLUCOSE 93 mg/dL (75-110); POTASSIUM 3.5 mmol/L (3.6-5.0); TOTAL PROTEIN 8.4 g/dL (6.3-8.2)
[2020-04-16 03:58] LABS: ANISOCYTOSIS 2+; PLATELET COMMENT ADEQUATE; POIKILOCYTOSIS 2+; POLYCHROMASIA 1+; SICKLE RED CELLS 2+; TARGET CELLS 1+
--- NOTE | 2020-04-16 05:31 | ER Document Report ---
Entered by AMINA BRYAN SCRIBE 04/16/20 0317 Acting as scribe for:GERMAINE JEFF IV, MD ED General Pain - General Chief Complaint: Sickle Cell Crisis Stated Complaint: SICKLE CELL CRISIS Time Seen by Provider: 04/15/20 21:34 Primary Care Provider: AIDEN ALEMAN PA-C [Primary Care Provider] - Follow up as needed Mode of Arrival: Ambulatory Information source: Patient Notes: This 34 year old female patient with a history of sickle cell disease presents to the ED today with complaints of sickle cell crisis that started x3 days ago. Patient reports myalgia, bilateral leg pain, and chills. TRAVEL OUTSIDE OF THE [place] IN LAST 30 DAYS: No - Related Data Allergies/Adverse Reactions: green pepper Allergy (Severe, Verified 03/29/20 09:38) Anaphylaxis No Known Drug Intolerances Allergy (Verified 03/29/20 09:38) Past Medical History - General Information source: Patient - Social History Smoking Status: Never Smoker Cigarette use (# per day): No Chew tobacco use (# tins/day): No Smoking Education Provided: No Family History: Reviewed & Not Pertinent, Other - Sickle trait Patient has suicidal ideation: No Patient has homicidal ideation: No Pulmonary Medical History: Reports: Hx Pneumonia - YEARLY SINCE 2003 (last time 07/2017) Malignancy Medical History: Reports: Hx Renal (Kidney) Cancer Musculoskeletal Medical History: Reports Hx Musculoskeletal Deformity, Reports Hx Musculoskeletal Trauma Psychiatric Medical History: Reports: Hx Depression Past Surgical History: Reports: Hx Section, Hx Cholecystectomy, Hx Kidney (Renal Surgery) - partial left nephrectomy for renal cell carcinoma, Hx Orthopedic Surgery - L Femur, R hip, left hip, Other - Partial left nephrectomy for renal cell carcinoma - Immunizations Immunizations up to date: Yes Hx Diphtheria, Pertussis, Tetanus Vaccination: Yes - 2017 Hx Pneumococcal Vaccination: 07/22/17 Review of Systems - Review of Systems Constitutional: See HPI, Chills EENT: No symptoms reported Cardiovascular: No symptoms reported Respiratory: No symptoms reported Gastrointestinal: No symptoms reported Genitourinary: No symptoms reported Female Genitourinary: No symptoms reported Musculoskeletal: See HPI, Muscle pain, Other - Leg pain Skin: No symptoms reported Hematologic/Lymphatic: No symptoms reported Neurological/Psychological: No symptoms reported -: Yes All other systems reviewed and negative Physical Exam - Vital signs Vitals: Temp Pulse Resp BP Pulse Ox 99.0 F 100 16 111/75 99 04/15/20 17:25 04/15/20 17:25 04/15/20 17:25 04/15/20 17:25 04/15/20 17:25 Interpretation: Normal - General General appearance: Alert In distress: None - HEENT Head: Normocephalic, Atraumatic Eyes: Normal Pupils: PERRL - Respiratory Respiratory status: No respiratory distress Chest status: Nontender Breath sounds: Normal Chest palpation: Normal - Cardiovascular Rhythm: Regular Heart sounds: Normal auscultation Murmur: No Friction rub: No Gallop: None auscultated - Abdominal Inspection: Normal Distension: No distension Bowel sounds: Normal Tenderness: Nontender - Abdomen soft Organomegaly: No organomegaly - Back Back: Normal, Nontender - Extremities General upper extremity: Normal inspection General lower extremity: Normal inspection - Neurological Neuro grossly intact: Yes Orientation: AAOx4 [place] Coma Scale Eye Opening: Spontaneous [place] Coma Scale Verbal: Oriented [place] Coma Scale Motor: Obeys Commands [place] Coma Scale Total: 15 - Psychological Associated symptoms: Normal affect, Normal mood - Skin Skin Temperature: Warm Skin Moisture: Dry Skin Color: Normal Course - Re-evaluation Re-evalutation: 04/16/20 05:27 Results of ED MSE discussed with patient. All questions answered prior to discharge. Emergency signs and symptoms, reasons to return to the emergency department discussed with patient. Patient is complaining that her current prescriber is not adequately controlling her pain with the 120 tablets of 10 mg oxycodone she receives monthly. This MD offered to give the patient a referral to Dr. Enriquez with heme/onc. - Vital Signs Vital signs: Temp Pulse Resp BP Pulse Ox 98.8 F 86 18 110/77 98 04/16/20 01:36 04/16/20 01:36 04/16/20 01:36 04/16/20 05:00 04/16/20 05:01 - Laboratory Result Diagrams: 04/16/20 02:50 04/16/20 02:50 Laboratory results interpreted by me: 04/15/20 04/16/20 04/16/20 23:11 02:50 02:50 RBC 2.76 L Hgb 9.3 L Hct 25.4 L MCH 33.8 H MCHC 36.7 H RDW 20.6 H Reticulocyte # 0.199 H Retic Count (auto) 7.22 H Potassium 3.5 L Chloride 108 H Carbon Dioxide 20 L Total Bilirubin 4.1 H Total Protein 8.4 H Urine Blood SMALL H Urine Urobilinogen 2.0 H Discharge - Discharge Clinical Impression: Sickle cell anemia with crisis Condition: Stable Disposition: HOME, SELF-CARE Additional Instructions: Return to the Emergency Department without delay if any worse. HOME CARE INSTRUCTIONS & INFORMATION: Thank you for choosing us for your medical needs. We hope you're satisfied with the care you received. After you leave, you must properly care for your problem and, at the same time, observe its progress. Any condition can change. Some illnesses can change rapidly over hours or days. If your condition worsens, return to the Emergency Department or see your physician promptly. ABOUT YOUR X-RAYS AND EKG'S: If you had an EKG or X-rays taken, they have been read by the Emergency Physician. The X-rays and EKG's will also be read by a Radiologist or [employer] within 24 hours. If discrepancies are noted, you will be notified by telephone. Please be certain the ED has a correct telephone number & address where you can be reached. Also, realize that some fractures or abnormalities do not show up on initial X-rays. If your symptoms continue, see your physician. ABOUT YOUR LABORATORY TEST: If you had laboratory tests, the results have been reviewed by the Emergency Physician. Some test results (for example cultures) may not be available for several days. You will be contacted if any test result shows you need additional treatment. Please be certain the ED has a correct telephone number and address where you can be reached. ABOUT YOUR MEDICATIONS: You will receive instructions on how to take your medicine on the prescription label you receive. Additional information may be provided by the Pharmacy. If you have questions afterwards, call the ED for clarification or further instructions. Some prescribed medications may cause drowsiness. Do not perform tasks such as driving a car or operating machinery without consulting your Pharmacist. If you feel you need a refill of pain medication, your condition will need re-evaluation. Please do not call for a refill of any medication. ABOUT YOUR SIGNATURE: Signature of this document acknowledges to followin. Understanding that you received emergency treatment and that you may be released before al medical problems are known or treated. Please be certain the ED has a correct phone number & address where you can be reached. 2. Acknowledgement that you will arrange for follow-up care as recommended. 3. Authorization for the Emergency Physician to provide information to your follow-up Physician in order to maximize your care. AT ANY TIME, IF YOUR SYMPTOMS CHANGE SIGNIFICANTLY OR WORSEN OR YOU DEVELOP NEW SYMPTOMS, RETURN TO THE EMERGENCY DEPARTMENT IMMEDIATELY FOR RE-EVALUATION. OUR GOAL IS TO PROVIDE EXCELLENT MEDICAL CARE! WE HOPE THAT WE HAVE MET YOUR EXPECTATIONS DURING YOUR EMERGENCY DEPARTMENT VISIT AND THAT YOU FEEL YOU HAVE RECEIVED EXCELLENT CARE! Sickle Cell Crisis You have "sickle cell crisis." Sickle cell disease is caused by abnormal hemoglobin. This hemoglobin can deform red blood cells into a sickle shape. These abnormal blood cells can block blood vessels. This causes the pain of sickle cell crisis. Sickle cell crisis can occur any time. But attacks are more likely with acute infection, dehydration, or altitude change. A crisis usually causes pain in the legs, back, abdomen, and chest. Sometimes the pain may ease and return later. The usual treatment is oxygen, pain medication, IV fluids, and treatment of infection. Attacks may take a couple of days to resolve. Return if the pain becomes more severe, or if there are new symptoms. Referrals: AIDEN ALEMAN PA-C [Primary Care Provider] - Follow up as needed GAIL ENRIQUEZ MD [ACTIVE STAFF] - 04/18/20 (call 04/18/2020 to set up follow up appointment) I personally performed the services described in the documentation, reviewed and edited the documentation which was dictated to the scribe in my presence, and it accurately records my words and actions.
[2020-04-16 05:56] VITALS: BP 118/90
== END 2020-04-16 05:54 | disposition home or self-care (01) ==
LOC: ER 17:00
DX: D57.00 Hb-SS disease with crisis, unspecified (principal); M79.10 Myalgia, unspecified site; M79.604 Pain in right leg; M79.605 Pain in left leg
CPT/HCPCS: 36591; 96376; 99284; 96361; 96374; 96375; 36415; 84703; 85025; 85045; 80053; 81001; 71045; A9270 ×2; J1200; J1170; J7030; J1642

== ENCOUNTER 2020-08-05 11:42 | Observation (INO) | payer MEDICARE, MEDICAID ==
--- NOTE | 2020-08-05 14:11 | RADIOLOGY REPORT (SQ) ---
EXAM DESCRIPTION: CT HEAD WITHOUT IMAGES COMPLETED DATE/TIME: 08/05/2020 1:48 pm REASON FOR STUDY: Left-sided weakness COMPARISON: 09/23/2017 TECHNIQUE: Axial images acquired through the brain without intravenous contrast. Images reviewed wi th bone, brain and subdural windows. Additional sagittal and coronal reconstructions were generated. Images stored on PACS. All CT scanners at this facility use dose modulation, iterative reconstruction, and/or weight based d osing when appropriate to reduce radiation dose to as low as reasonably achievable (ALARA). [facility]: Dose Right [facility]: CareDose [facility]: Dose Right [facility]: Teradose 4D [facility]: Candescent SoftBase RADIATION DOSE: CT Rad equipment meets quality standard of care and radiation dose reduction techniq ues were employed. CTDIvol: 53.2 mGy. DLP: 1097 mGy-cm. mGy. LIMITATIONS: None. FINDINGS: VENTRICLES: Normal size and contour. CEREBRUM: No masses. No hemorrhage. No midline shift. No evidence for acute infarction. Normal gra y/white matter differentiation. No areas of low density in the white matter. CEREBELLUM: No masses. No hemorrhage. No alteration of density. No evidence for acute infarction. EXTRAAXIAL SPACES: No fluid collections. No masses. ORBITS AND GLOBE: No intra- or extraconal masses. Normal contour of globe without masses. CALVARIUM: No fracture. PARANASAL SINUSES: No fluid or mucosal thickening. SOFT TISSUES: No mass or hematoma. OTHER: No other significant finding. IMPRESSION: NO ACUTE INTRACRANIAL IMAGING FINDINGS. EVIDENCE OF ACUTE STROKE: NO. COMMENT: Quality ID # [id number]: Final reports with documentation of one or more dose reduction techniques (e.g., Automated exposure control, adjustment of the mA and/or kV according to patient size, use of iterative reconstruction technique) TECHNICAL DOCUMENTATION: JOB ID: [id number] 2010 [employer]- All Rights Reserved Reading location - IP/workstation name: [email or web address]
[2020-08-05 14:32] LABS: HEMATOCRIT 22.8 % (36.0-47.0); HEMOGLOBIN 8.7 g/dL (12.0-15.5); MEAN CORPUSCULAR HEMOGLOBIN 34.3 pg (27.0-33.4); MEAN CORPUSCULAR VOLUME 90 fl (80-97); PLATELET COUNT 368 10^3/uL (150-450); RED BLOOD COUNT 2.53 10^6/uL (3.72-5.28); RED CELL DISTRIBUTION WIDTH 22.2 % (11.5-14.0); RETICULOCYTE COUNT (AUTO) 8.71 % (0.66-2.85); WHITE BLOOD COUNT 8.5 10^3/uL (4.0-10.5)
[2020-08-05 14:51] LABS: MEAN CORPUSCULAR HGB CONC 38.1 g/dL (32.0-36.0)
[2020-08-05 14:53] LABS: ABSOLUTE LYMPHOCYTES# (MANUAL) 2.6 10^3/uL (0.5-4.7); ABSOLUTE MONOCYTES # (MANUAL) 0.3 10^3/uL (0.1-1.4); ALBUMIN 4.2 g/dL (3.5-5.0); ALKALINE PHOSPHATASE 104 U/L (38-126); ANION GAP 8 (5-19); ASPARTATE AMINO TRANSFERASE 63 U/L (14-36); BASOPHILS % (MANUAL) 1 % (0-2); BILIRUBIN,DIRECT 1.3 mg/dL (0.0-0.4); BILIRUBIN,TOTAL 5.7 mg/dL (0.2-1.3); BLOOD UREA NITROGEN 4 mg/dL (7-20); CALCIUM 9.5 mg/dL (8.4-10.2); CARBON DIOXIDE 22 mmol/L (22-30); CHLORIDE 108 mmol/L (98-107); EOSINOPHILS % (MANUAL) 10 % (0-6); GLUCOSE 104 mg/dL (75-110); LYMPHOCYTES % (MANUAL) 30 % (13-45); MONOCYTES % (MANUAL) 4 % (3-13); NUCLEATED RED BLOOD CELLS 1 /100 WBC (0); POTASSIUM 4.3 mmol/L (3.6-5.0); SEGMENTED NEUTROPHILS % (MAN) 55 % (42-78); TOTAL CELLS COUNTED 100; TOTAL PROTEIN 8.2 g/dL (6.3-8.2)
[2020-08-05 14:58] LABS: ANISOCYTOSIS 3+; POIKILOCYTOSIS 2+; POLYCHROMASIA 1+; SCHISTOCYTES SLIGHT; SICKLE RED CELLS 2+; TARGET CELLS SLIGHT; TEAR DROP CELLS SLIGHT
[2020-08-05 14:59] LABS: HOWELL-JOLLY BODIES PRESENT; PAPPENHEIMER BODIES PRESENT; PLATELET COMMENT ADEQUATE; PLATELET LARGE PRESENT
--- NOTE | 2020-08-05 17:34 | ER Document Report ---
ED General - General Chief Complaint: Weakness Stated Complaint: WEAKNESS,LEFT BODY NUMBNESS Time Seen by Provider: 08/05/20 13:02 TRAVEL OUTSIDE OF THE [place] IN LAST 30 DAYS: No - HPI Notes: 34-year-old female with past medical history of sickle cell anemia to the emergency department with complaints of left-sided body weakness that began last week and has persisted. She states she also had some difficulty with speaking. She has had some difficulty with weakness of the hand as well. She states that she has had mini strokes in the past. The last time she had a mini stroke was 3 years ago. She is not on any blood thinners and she does not take a daily aspirin. She states she sees Dr. Enriquez for hematology. The last time she had a transfusion was in May. She states that she does not feel like her sickle cell pain is out of control today. She takes oxycodone 10 mg, fentanyl patch, Flexeril. She denies any fevers or chills. Denies any cough or chest pain. Denies any back pain or abdominal pain. - Related Data Allergies/Adverse Reactions: green pepper Allergy (Severe, Verified 03/29/20 09:38) Anaphylaxis No Known Drug Intolerances Allergy (Verified 03/29/20 09:38) Home Medications: Oxycodone 10mg. Flexeril 10mg. Fentanyl patch 50 mcg Past Medical History - General Information source: Patient - Social History Smoking Status: Never Smoker Frequency of alcohol use: None Drug Abuse: None Family History: DM, Hypertension, Other - Sickle trait Patient has homicidal ideation: No - Past Medical History Cardiac Medical History: Denies: Hx Coronary Artery Disease, Hx Heart Attack, Hx Hypertension Pulmonary Medical History: Reports: Hx Pneumonia - YEARLY SINCE 2003 (last time 07/2017) Denies: Hx Asthma, Hx Bronchitis, Hx COPD Neurological Medical History: Denies: Hx Cerebrovascular Accident, Hx Seizures, Hx Parkinson's Disease Renal/ Medical History: Denies: Hx Peritoneal Dialysis Malignancy Medical History: Reports: Hx Renal (Kidney) Cancer GI Medical History: Denies: Hx Hepatitis, Hx Hiatal Hernia, Hx Pancreatitis, Hx Ulcer Musculoskeletal Medical History: Denies Hx Arthritis, Reports Hx Musculoskeletal Deformity, Reports Hx Musculoskeletal Trauma, Denies Hx Systemic Lupus Erythematosus Psychiatric Medical History: Reports: Hx Depression Infectious Medical History: Denies: Hx Hepatitis Past Surgical History: Reports: Hx Section, Hx Cholecystectomy, Hx Kidney (Renal Surgery) - partial left nephrectomy for renal cell carcinoma, Hx Orthopedic Surgery - L Femur, R hip, left hip, left shoulder, Other - Por t-A-Cath placement. Denies: Hx Hysterectomy, Hx Mastectomy, Hx Open Heart Surgery, Hx Pacemaker - Immunizations Immunizations up to date: Yes Hx Diphtheria, Pertussis, Tetanus Vaccination: Yes - 2016 Hx Pneumococcal Vaccination: 07/22/17 Review of Systems - Review of Systems Constitutional: denies: Chills, Fever EENT: No symptoms reported Cardiovascular: denies: Chest pain, Palpitations, Dizziness, Lightheaded Respiratory: denies: Cough, Short of breath Gastrointestinal: denies: Abdomen distended, Abdominal pain, Diarrhea, Nausea, Vomiting Genitourinary: denies: Flank pain, Hematuria Neurological/Psychological: See HPI, Weakness, Numbness, Tingling, Other - Speech difficulty -: Yes All other systems reviewed and negative Physical Exam - Vital signs Vitals: Temp Pulse Resp BP Pulse Ox 98.6 F 95 16 114/72 94 08/05/20 11:50 08/05/20 11:50 08/05/20 11:50 08/05/20 11:50 08/05/20 11:50 Interpretation: Normal - General General appearance: Appears well, Alert In distress: None - HEENT Head: Normocephalic, Atraumatic Eyes: Normal Pupils: PERRL Ears: Normal External canal: Normal Tympanic membrane: Normal Sinus: Normal Nasal: Normal Mouth/Lips: Normal Pharynx: Normal Neck: Normal, Supple. No: Lymphadenopathy - Respiratory Respiratory status: No respiratory distress Chest status: Nontender Breath sounds: Normal. No: Rales, Rhonchi, Wheezing Chest palpation: Normal - Cardiovascular Rhythm: Regular Heart sounds: Normal auscultation Murmur: No - Abdominal Inspection: Normal Distension: No distension Bowel sounds: Normal Tenderness: Nontender. No: Tender, McBurney's point, Sauer's sign, Guarding, Rebound Organomegaly: No organomegaly - Back Back: Normal, Nontender. No: CVA tenderness - Neurological Neuro grossly intact: Yes Cognition: Normal Orientation: AAOx4 [place] Coma Scale Eye Opening: Spontaneous [place] Coma Scale Verbal: Oriented [place] Coma Scale Motor: Obeys Commands [place] Coma Scale Total: 15 Speech: Normal. No: Dysarthria Cranial nerves: Normal. No: Facial palsy, Forehead sparing, Gaze palsy, Sensory deficit, Tongue deviation Cerebellar coordination: Normal - Normal [id number] bilaterally. Normal [id number] bilaterally no leg drift. No pronator drift.. No: Gait ataxia Motor strength normal: LUE, RUE, LLE, RLE Additional motor exam normals: No: Equal driver/merchandiser - There is noted weakness in the left hand driver/merchandiser.'s about a 4 out of 5 comparatively speaking to the right side., Pronator drift Sensory: Altered light touch - Patient reports altered light touch to the left arm and left leg. - Psychological Associated symptoms: Normal affect, Normal mood - Skin Skin Temperature: Warm Skin Moisture: Dry Skin Color: Normal Course - Re-evaluation Re-evalutation: 08/05/[address] Beatty. Last lab findings as well as head CT. Will consult with hospitalist team for possible admission for TIA/stroke. Spoke with Dr. Feldman about the patient. He will come down and see her. Discussed the physical exam findings plus the head CT. He will round back with me once he sees her. 08/05/20 18:52 Dr. Feldman accepts patient. He will place her under observation. Impression: SCA with left sided body numbness/tingling with left hand weakness. Patient did have difficulty speaking but that has gotten better. Admitted to the hospitalist team for observation. - Vital Signs Vital signs: Temp Pulse Resp BP Pulse Ox 98.6 F 103 H 16 124/82 96 08/05/20 12:14 08/05/20 17:59 08/05/20 17:59 08/05/20 17:59 08/05/20 17:59 - Laboratory Result Diagrams: 08/05/20 14:13 08/05/20 14:13 Laboratory results interpreted by me: 08/05/20 08/05/20 08/05/20 14:13 14:13 17:20 RBC 2.53 L Hgb 8.7 L Hct 22.8 L MCH 34.3 H MCHC 38.1 H RDW 22.2 H Reticulocyte # 0.220 H Eosinophils % (Manual) 10 H Absolute Eos (Manual) 0.9 H Retic Count (auto) 8.71 H Chloride 108 H BUN 4 L Creatinine 0.46 L Total Bilirubin 5.7 H Direct Bilirubin 1.3 H AST 63 H Urine Urobilinogen 4.0 H - Diagnostic Test Radiology reviewed: Image reviewed, Reports reviewed - EKG Interpretation by Me Additional EKG results interpreted by me: 08/05/20 rate: 100, rhythm: Sinus tachycardia. Interpretation: No STEMI, no ST changes. +LVH Discharge - Discharge Clinical Impression: Left hand weakness Sickle cell anemia Qualifiers: Sickle-cell associated disorders: without crisis Qualified Code(s): D57.1 - Sickle-cell disease without crisis Condition: Stable Disposition: ADMITTED OBSERVATION Admitting Provider: Gaston (Hospitalist) Unit Admitted: Medical Floor
[2020-08-05] MEDS ORDERED: OXYCODONE HCL IR 5 MG TABLET PO ONE (17:52)
[2020-08-05] MEDS ORDERED: ASPIRIN 325 MG TABLET PO ONE (17:52)
[2020-08-05 18:18] LABS: APPEARANCE,URINE CLEAR; BILIRUBIN,URINE NEGATIVE (NEGATIVE); COLOR,URINE AMBER; GLUCOSE, URINE NEGATIVE (NEGATIVE); KETONES,URINE NEGATIVE (NEGATIVE); LEUKOCYTE ESTERASE,URINE NEGATIVE (NEGATIVE); NITRITE,URINE NEGATIVE (NEGATIVE); PROTEIN,URINE NEGATIVE (NEGATIVE); URINE SPECIFIC GRAVITY 1.006
[2020-08-05] MEDS ORDERED: CYCLOBENZAPRINE HCL 10 MG TABLET PO PRN (18:44)
--- NOTE | 2020-08-05 18:53 | PDOC H&P ---
History of Present Illness Admission Date/PCP: GAIL CANELA MD History of Present Illness: DARIEN CAPELLAN is a 34 year old female who has a history of sickle cell disease and is on chronic narcotics at home who says she has had multiple TIAs in the past, and says she came to the ER this evening because she was having symptoms that lasted for close to a week and a half. She said that she was having numbness and weakness on the left side of her body that was not going away. She claims to have had some slurred speech earlier on but we cannot corroborate this. She does not have any slurring of her speech now. She ambulates without difficulty. She gestures with her left hand and arm and moves it independently without any detectable deficit. She is able to sit upright in the bed without support. 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 She said her symptoms started on Saturday of last week, over 10 days ago. Her head CT was negative. Her labs are well within the typical range for her. Past Medical History Cardiac Medical History: Denies: Coronary Artery Disease, Myocardial Infarction, Hypertension Pulmonary Medical History: Reports: Pneumonia - YEARLY SINCE 2003 (last time 07/2017) Denies: Asthma, Bronchitis, Chronic Obstructive Pulmonary Disease (COPD) Neurological Medical History: Denies: Seizures Malignancy Medical History: Reports: Renal (Kidney) Cancer GI Medical History: Denies: Hepatitis, Hiatal Hernia Musculoskeltal Medical History: Denies: Arthritis Psychiatric Medical History: Reports: Depression Hematology: Reports: Anemia - SICKLE CELL, Sickle Cell Disease Denies: Hemophilia Past Surgical History Past Surgical History: Reports: Section, Cholecystectomy, Orthopedic Surgery - L Femur, R hip, left hip, left shoulder, Other - Port-A-Cath placement Denies: Amputation, Hysterectomy, Mastectomy, Pacemaker Social History Smoking Status: Unknown if Ever Smoked Frequency of Alcohol Use: Rare Hx Recreational Drug Use: No Drugs: None Hx Prescription Drug Abuse: No Family History Family History: DM, Hypertension, Other - Sickle trait Parental Family History Reviewed: Yes Children Family History Reviewed: NA Sibling(s) Family History Reviewed.: Yes Medication/Allergy Home Medications: Cyclobenzaprine HCl [Flexeril 10 mg Tablet] 10 mg PO TIDP PRN 12/08/19 Folic Acid 1 mg PO DAILY 03/09/20 Oxycodone HCl [Oxycodone HCl ER] 10 mg PO Q6HP PRN 03/09/20 Fentanyl [Duragesic 50 Mcg/Hr Transdermal Patch] 1 each TD Q3D 08/05/20 Norethindrone-E.estradiol-Iron [Aurovela 24 Fe 1 mg-20 Mcg Tab] 1 each PO DAILY 08/05/20 Allergies/Adverse Reactions: green pepper Allergy (Severe, Verified 03/29/20 09:38) Anaphylaxis No Known Drug Intolerances Allergy (Verified 03/29/20 09:38) Review of Systems All systems: reviewed and no additional remarkable complaints except as stated - All systems were reviewed and were negative except as noted in the HPI Physical Exam Vital Signs: Temp Pulse Resp BP Pulse Ox 98.6 F 103 H 16 124/82 96 08/05/20 12:14 08/05/20 17:59 08/05/20 17:59 08/05/20 17:59 08/05/20 17:59 Intake & Output 08/04/20 08/05/20 08/06/20 06:59 06:59 06:59 Weight 47.627 kg General appearance: PRESENT: no acute distress, cooperative, thin, other - She appeared to be nodding on me a little bit during our conversation Head exam: PRESENT: atraumatic, normocephalic Eye exam: PRESENT: EOMI, PERRLA. ABSENT: conjunctival injection, nystagmus, scleral icterus Ear exam: PRESENT: normal external ear exam Neck exam: PRESENT: full ROM. ABSENT: carotid bruit, JVD, lymphadenopathy, meningismus, tenderness, thyromegaly Respiratory exam: PRESENT: clear to auscultation emerson, symmetrical, unlabored. ABSENT: accessory muscle use, chest wall tenderness, crackles, prolonged expiratory phas, rhonchi, tachypnea, wheezes Cardiovascular exam: PRESENT: RRR, +S1, +S2 Pulses: PRESENT: normal carotid pulses Vascular exam: PRESENT: normal capillary refill GI/Abdominal exam: PRESENT: normal bowel sounds, soft. ABSENT: distended, guarding, rebound, tenderness Extremities exam: ABSENT: clubbing, pedal edema Musculoskeletal exam: PRESENT: normal inspection. ABSENT: deformity Neurological exam: PRESENT: awake, oriented to person, oriented to place, oriented to time, oriented to situation, CN II-XII grossly intact, motor sensory deficit - Faint difference in english horn player strength with the left side being perhaps a bit diminished, claims to have some numbness on the left side but no discernible motor weakness otherwise, normal gait Psychiatric exam: PRESENT: flat affect Skin exam: PRESENT: dry, warm Results Laboratory Results: 08/05/20 14:13 08/05/20 14:13 08/05/20 08/05/20 08/05/20 14:13 14:13 14:13 WBC 8.5 RBC 2.53 L Hgb 8.7 L Hct 22.8 L MCV 90 MCH 34.3 H MCHC 38.1 H RDW 22.2 H Plt Count 368 Seg Neutrophils % Not Reportable Retic Count (auto) 8.71 H Sodium 138.0 Potassium 4.3 Chloride 108 H Carbon Dioxide 22 Anion Gap 8 BUN 4 L Creatinine 0.46 L Est GFR ( Amer) > 60 Glucose 104 Calcium 9.5 Total Bilirubin 5.7 H AST 63 H Alkaline Phosphatase 104 Total Protein 8.2 Albumin 4.2 Serum HCG, Qual NEGATIVE Urine Color Urine Appearance Urine pH Ur Specific [place] Urine Protein Urine Glucose (UA) Urine Ketones Urine Blood Urine Nitrite Ur Leukocyte Esterase Urine WBC (Auto) Urine RBC (Auto) 08/05/20 17:20 WBC RBC Hgb Hct MCV MCH MCHC RDW Plt Count Seg Neutrophils % Retic Count (auto) Sodium Potassium Chloride Carbon Dioxide Anion Gap BUN Creatinine Est GFR ( Amer) Glucose Calcium Total Bilirubin AST Alkaline Phosphatase Total Protein Albumin Serum HCG, Qual Urine Color JULY Urine Appearance CLEAR Urine pH 7.0 Ur Specific [place] 1.006 Urine Protein NEGATIVE Urine Glucose (UA) NEGATIVE Urine Ketones NEGATIVE Urine Blood NEGATIVE Urine Nitrite NEGATIVE Ur Leukocyte Esterase NEGATIVE Urine WBC (Auto) 0 Urine RBC (Auto) 0 Impressions: Head CT 08/05/20 13:03 IMPRESSION: NO ACUTE INTRACRANIAL IMAGING FINDINGS. EVIDENCE OF ACUTE STROKE: NO. Assessment and Plan - Diagnosis (1) TIA (transient ischemic attack) Is this a current diagnosis for this admission?: Yes (2) Opiate dependence Qualifiers: Substance use status: uncomplicated Qualified Code(s): F11.20 - Opioid dependence, uncomplicated Is this a current diagnosis for this admission?: Yes (3) Sickle cell anemia Qualifiers: Sickle-cell associated disorders: without crisis Qualified Code(s): D57.1 - Sickle-cell disease without crisis Is this a current diagnosis for this admission?: Yes - Plan Summary Summary: We will start her on aspirin. I do not think she needs to be seen by PT, OT, or speech therapy. We will check a fasting lipid panel. We will get an MRI of the brain. If her MRI is negative for any source of her symptoms, we will set her up with a neurologist as an outpatient. We will continue her medicines as prescribed once verified by pharmacy. - Time Time Spent with patient: 35 or more minutes Anticipated Discharge Disposition: Home, Self Care Anticipated Discharge Timeframe: within 24 hours
[2020-08-05 19:31] LABS: URINE AMPHETAMINES SCREEN NEGATIVE; URINE BARBITURATES SCREEN NEGATIVE; URINE BENZODIAZEPINES SCREEN NEGATIVE; URINE COCAINE SCREEN NEGATIVE; URINE MARIJUANA (THC) SCREEN NEGATIVE; URINE METHADONE SCREEN NEGATIVE; URINE PHENCYCLIDINE SCREEN NEGATIVE
[2020-08-05] MEDS ORDERED: FENTANYL 50 MCG/HR PATCH.TD72 TD SCH (20:00)
--- NOTE | 2020-08-05 20:34 | RADIOLOGY REPORT (SQ) ---
EXAM DESCRIPTION: MR BRAIN WITHOUT IV CONTRAST COMPLETED DATE/TME: 08/05/2020 18:00 CLINICAL HISTORY: 34 years, Female, left sided weakness COMPARISON: Head CT from earlier today and brain MRI from January 24, 2016. TECHNIQUE: Noncontrast multiplanar multiecho MR imaging of the brain was performed. Images stored on PACS. LIMITATIONS: None. FINDINGS: Multiple areas of focal and confluent increased T2/FLAIR signal are noted within the periventricular and subcortical white matter, with interval progression compared to the 2016 brain MRI. Additionally, there is abnormal increased T2/FLAIR signal within the visualized upper cervical cord at and below the C1-C2 level, new from the prior MRI. There is no diffusion restriction. There is no evidence of intracranial hemorrhage on gradient echo. There is no abnormal mass effect. There is no hydrocephalus. The major vascular flow voids in the skull base appear maintained, implying patency. No calvarial lesion is seen. The orbits and paranasal sinuses are grossly unremarkable. There is a 9 mm fluid signal structure inferior to the right mastoid in the region of the sternocleidomastoid muscle, new from the prior MRI and could represent a small abscess, posttraumatic injury, or perhaps a necrotic lymph node. Clinical correlation is recommended. Fluid aspiration might be considered as clinically directed. IMPRESSION: 1. Extensive white matter signal abnormality, increased from the January 2016 brain MRI. Additionally, there is partial visualization of abnormal signal within the upper cervical cord, new from the prior MR. No diffusion restriction is identified to strongly suggest acute or active process, however postcontrast imaging of the brain and formal imaging of the spinal cord are recommended for additional characterization. Considerations would include multiple sclerosis, vasculitis, Lyme disease, etc. Patient also has a reported history of sickle cell disease. 2. Incidental 9 mm fluid signal structure in the region of the right sternocleidomastoid muscle inferior to the right mastoid. Clinical correlation is recommended. Fluid sampling might be considered. copyright 2010 [employer]- All Rights Reserved
[2020-08-05] MEDS: HEPARIN SOD (PORCINE) 5,000 UNIT/ML 1 ML VIAL SUBCUT SCH (23:55)
[2020-08-06] MEDS: OXYCODONE HCL SR 10 MG TABLET PO PRN ×2 (00:02→06:46)
[2020-08-06] MEDS: HEPARIN SOD (PORCINE) 5,000 UNIT/ML 1 ML VIAL SUBCUT SCH (06:44)
[2020-08-06 08:07] LABS: CHOLESTEROL 170.42 mg/dL (0-200); TRIGLYCERIDES 112 mg/dL (<150)
[2020-08-06 08:17] LABS: DIRECT LDL 120 mg/dL (<100)
--- NOTE | 2020-08-06 09:58 | EKG REPORT ---
SEVERITY:- ABNORMAL ECG - SINUS TACHYCARDIA LEFT VENTRICULAR HYPERTROPHY : Confirmed by: Monika Mendez 06-Aug-2020 09:57:38
[2020-08-06] MEDS ORDERED: ASPIRIN 81 MG TABLET, CHEWABLE PO SCH (10:00)
[2020-08-06] MEDS ORDERED: NORETHINDRONE E ESTRADIOL IRON PO SCH (10:00)
[2020-08-06 12:15] VITALS: BP 128/84
--- NOTE | 2020-08-06 14:52 | PDOC DISCHARGE SUMMARY ---
Impression - Admit/DC Date/PCP Admission Date/Primary Care Provider: 08/05/20 19:40 GAIL CANELA MD Discharge Date: 08/06/20 - Discharge Diagnosis (1) TIA (transient ischemic attack) Is this a current diagnosis for this admission?: Yes (2) Opiate dependence Is this a current diagnosis for this admission?: Yes (3) Sickle cell anemia Is this a current diagnosis for this admission?: Yes - Assessment Summary: We will start her on aspirin. I do not think she needs to be seen by PT, OT, or speech therapy. We will check a fasting lipid panel. We will get an MRI of the brain. If her MRI is negative for any source of her symptoms, we will set her up with a neurologist as an outpatient. We will continue her medicines as prescribed once verified by pharmacy. - Additional Information Resuscitation Status: Full Code Discharge Diet: Cardiac Discharge Activity: Activity As Tolerated Referrals: GAIL CANELA MD [Primary Care Provider] - Follow up as needed RADHA SHI MD [NO LOCAL MD] - (1-2 weeks; persistent left-side numbness x 2 weeks, nothing acute on MRI) Home Medications: Cyclobenzaprine HCl [Flexeril 10 mg Tablet] 10 mg PO TIDP PRN 12/08/19 Oxycodone HCl [Oxycodone HCl ER] 10 mg PO Q6HP PRN 03/09/20 Fentanyl [Duragesic 50 Mcg/Hr Transdermal Patch] 1 each TD Q3D 08/05/20 Norethindrone-E.estradiol-Iron [Aurovela 24 Fe 1 mg-20 Mcg Tab] 1 each PO DAILY 08/05/20 Aspirin [Aspirin 81 mg Chewable Tablet] 81 mg PO DAILY tab.chew 08/06/20 History of Present Illiness History of Present Illness: DARIEN CAPELLAN is a 34 year old female who has a history of sickle cell disease and is on chronic narcotics at home who says she has had multiple TIAs in the past, and says she came to the ER this evening because she was having symptoms that lasted for close to a week and a half. She said that she was having numbness and weakness on the left side of her body that was not going away. She claims to have had some slurred speech earlier on but we cannot corroborate this. She does not have any slurring of her speech now. She ambulates without difficulty. She gestures with her left hand and arm and moves it independently without any detectable deficit. She is able to sit upright in the bed without support. Her network controller strength on the left is somewhat decreased but it seems a bit disconcordant with the intensity with which she gestured with her left hand and arm during our conversation. She said her symptoms started on Saturday of last week, over 10 days ago. Her head CT was negative. Her labs are well within the typical range for her. Hospital Course Hospital Course: Her vital signs of remained stable. Her symptoms have not changed. She continues to display no evidence of pain nor of impairment of motor function. She still says she has some numbness but she does not display any functional deficit. She continues to show full use of all of her extremities. MRI was negative for anything acute. The comparison scan was from 4 years ago, and there has been some minor white matter interval change since then. More things on the differential was vasculitis but this does not present like any vasculitis I have ever seen or heard of. I recommended that she continue her usual medications, continue a daily aspirin, and we have set her up with a follow-up visit with neurology within 2 weeks. Her labs and examination were reassuring and she was discharged in stable condition. Physical Exam Vital Signs: Temp Pulse Resp BP Pulse Ox 97.6 F 96 17 128/84 H 96 08/06/20 12:14 08/06/20 12:14 08/06/20 12:14 08/06/20 12:14 08/06/20 12:14 Intake & Output 08/05/20 08/06/20 08/07/20 06:59 06:59 06:59 Weight 48.2 kg General appearance: PRESENT: no acute distress, cooperative, thin Respiratory exam: PRESENT: clear to auscultation emerson, symmetrical, unlabored. ABSENT: accessory muscle use, chest wall tenderness, crackles, prolonged expiratory phas, rhonchi, tachypnea, wheezes Cardiovascular exam: PRESENT: RRR, +S1, +S2 Pulses: PRESENT: normal carotid pulses Vascular exam: PRESENT: normal capillary refill GI/Abdominal exam: PRESENT: normal bowel sounds, soft. ABSENT: distended, guarding, rebound, tenderness Extremities exam: ABSENT: clubbing, pedal edema Musculoskeletal exam: PRESENT: normal inspection. ABSENT: deformity Neurological exam: PRESENT: awake, oriented to person, oriented to place, oriented to time, oriented to situation, CN II-XII grossly intact Psychiatric exam: PRESENT: flat affect Skin exam: PRESENT: dry, warm Results Laboratory Results: WBC 8.5 10^3/uL (4.0-10.5) 08/05/20 14:13 RBC 2.53 10^6/uL (3.72-5.28) L 08/05/20 14:13 Hgb 8.7 g/dL (12.0-15.5) L 08/05/20 14:13 Hct 22.8 % (36.0-47.0) L 08/05/20 14:13 MCV 90 fl (80-97) 08/05/20 14:13 MCH 34.3 pg (27.0-33.4) H 08/05/20 14:13 MCHC 38.1 g/dL (32.0-36.0) H 08/05/20 14:13 RDW 22.2 % (11.5-14.0) H 08/05/20 14:13 Plt Count 368 10^3/uL (150-450) 08/05/20 14:13 Lymph % (Auto) Not Reportable 08/05/20 14:13 [place] % (Auto) Not Reportable 08/05/20 14:13 Eos % (Auto) Not Reportable 08/05/20 14:13 Baso % (Auto) Not Reportable 08/05/20 14:13 Reticulocyte # 0.220 10^6/uL (0.028-0.122) H 08/05/20 14:13 Absolute Neuts (auto) Not Reportable 08/05/20 14:13 Absolute Lymphs (auto) Not Reportable 08/05/20 14:13 Absolute Monos (auto) Not Reportable 08/05/20 14:13 Absolute Eos (auto) Not Reportable 08/05/20 14:13 Absolute Basos (auto) Not Reportable 08/05/20 14:13 Total Counted 100 08/05/20 14:13 Seg Neutrophils % Not Reportable 08/05/20 14:13 Seg Neuts % (Manual) 55 % (42-78) 08/05/20 14:13 Lymphocytes % (Manual) 30 % (13-45) 08/05/20 14:13 Monocytes % (Manual) 4 % (3-13) 08/05/20 14:13 Eosinophils % (Manual) 10 % (0-6) H 08/05/20 14:13 Basophils % (Manual) 1 % (0-2) 08/05/20 14:13 Abs Neuts (Manual) 4.7 10^3/uL (1.7-8.2) 08/05/20 14:13 Abs Lymphs (Manual) 2.6 10^3/uL (0.5-4.7) 08/05/20 14:13 Abs Monocytes (Manual) 0.3 10^3/uL (0.1-1.4) 08/05/20 14:13 Absolute Eos (Manual) 0.9 10^3/uL (0.0-0.6) H 08/05/20 14:13 Abs Basophils (Manual) 0.1 10^3/uL (0.0-0.2) 08/05/20 14:13 Nucleated RBCs 1 /100 WBC (0) 08/05/20 14:13 Large Platelets PRESENT 08/05/20 14:13 Platelet Comment ADEQUATE 08/05/20 14:13 Polychromasia 1+ 08/05/20 14:13 Poikilocytosis 2+ 08/05/20 14:13 Anisocytosis 3+ 08/05/20 14:13 Pappenheimer Bodies PRESENT 08/05/20 14:13 Sickle Cells 2+ 08/05/20 14:13 Target Cells SLIGHT 08/05/20 14:13 Tear Drop Cells SLIGHT 08/05/20 14:13 [place] Bodies PRESENT 08/05/20 14:13 Schistocytes SLIGHT 08/05/20 14:13 Retic Count (auto) 8.71 % (0.66-2.85) H 08/05/20 14:13 Sodium 138.0 mmol/L (137-145) 08/05/20 14:13 Potassium 4.3 mmol/L (3.6-5.0) 08/05/20 14:13 Chloride 108 mmol/L (98-107) H 08/05/20 14:13 Carbon Dioxide 22 mmol/L (22-30) 08/05/20 14:13 Anion Gap 8 (5-19) 08/05/20 14:13 BUN 4 mg/dL (7-20) L 08/05/20 14:13 Creatinine 0.46 mg/dL (0.52-1.25) L 08/05/20 14:13 Est GFR ( Amer) > 60 (>60) 08/05/20 14:13 Est GFR (MDRD) Non-Af > 60 (>60) 08/05/20 14:13 Glucose 104 mg/dL (75-110) 08/05/20 14:13 Calcium 9.5 mg/dL (8.4-10.2) 08/05/20 14:13 Total Bilirubin 5.7 mg/dL (0.2-1.3) H 08/05/20 14:13 Direct Bilirubin 1.3 mg/dL (0.0-0.4) H 08/05/20 14:13 Neonat Total Bilirubin Not Reportable 08/05/20 14:13 Neonat Direct Bilirubin Not Reportable 08/05/20 14:13 Neonat Indirect Bili Not Reportable 08/05/20 14:13 AST 63 U/L (14-36) H 08/05/20 14:13 ALT 24 U/L (<35) 08/05/20 14:13 Alkaline Phosphatase 104 U/L (38-126) 08/05/20 14:13 Total Protein 8.2 g/dL (6.3-8.2) 08/05/20 14:13 Albumin 4.2 g/dL (3.5-5.0) 08/05/20 14:13 Triglycerides 112 mg/dL (<150) 08/06/20 06:30 Cholesterol 170.42 mg/dL (0-200) 08/06/20 06:30 LDL Cholesterol Direct 120 mg/dL (<100) H 08/06/20 06:30 VLDL Cholesterol 22.0 mg/dL (10-31) 08/06/20 06:30 HDL Cholesterol 36 mg/dL (>40) L 08/06/20 06:30 Serum HCG, Qual NEGATIVE (NEGATIVE) 08/05/20 14:13 Urine Color JULY 08/05/20 17:20 Urine Appearance CLEAR 08/05/20 17:20 Urine pH 7.0 (5.0-9.0) 08/05/20 17:20 Ur Specific [place] 1.006 08/05/20 17:20 Urine Protein NEGATIVE mg/dL (NEGATIVE) 08/05/20 17:20 Urine Glucose (UA) NEGATIVE mg/dL (NEGATIVE) 08/05/20 17:20 Urine Ketones NEGATIVE mg/dL (NEGATIVE) 08/05/20 17:20 Urine Blood NEGATIVE (NEGATIVE) 08/05/20 17:20 Urine Nitrite NEGATIVE (NEGATIVE) 08/05/20 17:20 Urine Bilirubin NEGATIVE (NEGATIVE) 08/05/20 17:20 Urine Urobilinogen 4.0 mg/dL (<2.0) H 08/05/20 17:20 Ur Leukocyte Esterase NEGATIVE (NEGATIVE) 08/05/20 17:20 Urine WBC (Auto) 0 /HPF 08/05/20 17:20 Urine RBC (Auto) 0 /HPF 08/05/20 17:20 Squamous Epi Cells Auto 2 /HPF 08/05/20 17:20 Urine Mucus (Auto) RARE /LPF 08/05/20 17:20 Urine Ascorbic Acid NEGATIVE (NEGATIVE) 08/05/20 17:20 Urine Opiates Screen UNCONFIRMED POSITIVE 08/05/20 17:20 Urine Methadone Screen NEGATIVE 08/05/20 17:20 Ur Barbiturates Screen NEGATIVE 08/05/20 17:20 Ur Phencyclidine Scrn NEGATIVE 08/05/20 17:20 Ur Amphetamines Screen NEGATIVE 08/05/20 17:20 U Benzodiazepines Scrn NEGATIVE 08/05/20 17:20 Urine Cocaine Screen NEGATIVE 08/05/20 17:20 U Marijuana (THC) Screen NEGATIVE 08/05/20 17:20 Impressions: Head CT 08/05/20 13:03 IMPRESSION: NO ACUTE INTRACRANIAL IMAGING FINDINGS. EVIDENCE OF ACUTE STROKE: NO. Head MRI 08/05/20 18:00 IMPRESSION: 1. Extensive white matter signal abnormality, increased from the January 2016 brain MRI. Additionally, there is partial visualization of abnormal signal within the upper cervical cord, new from the prior MR. No diffusion restriction is identified to strongly suggest acute or active process, however postcontrast imaging of the brain and formal imaging of the spinal cord are recommended for additional characterization. Considerations would include multiple sclerosis, vasculitis, Lyme disease, etc. Patient also has a reported history of sickle cell disease. 2. Incidental 9 mm fluid signal structure in the region of the right sternocleidomastoid muscle inferior to the right mastoid. Clinical correlation is recommended. Fluid sampling might be considered. copyright 2011 [employer]- All Rights Reserved Plan Time Spent: Greater than 30 Minutes Stroke Is this a Stroke Patient?: No Acute Heart Failure Is this a Heart Failure Patient?: No
== END 2020-08-06 14:34 | disposition home or self-care (01) ==
LOC: ER 11:42 → EH 19:40 → 3W 22:51
PROVIDERS: ADMIT Family Medicine; ATTEND Family Medicine
DX: G45.9 Transient cerebral ischemic attack, unspecified (principal); F11.20 Opioid dependence, uncomplicated; D57.1 Sickle-cell disease without crisis; R53.1 Weakness; R20.0 Anesthesia of skin; Z79.899 Other long term (current) drug therapy
CPT/HCPCS: 93005; 36591; 99285; 36415 ×2; 84703; 85025; 85045; 80053; 81001; 80307; 80061; 70551; 70450; 93010; G0378 ×3; A9270 ×6; J1644; J3490; J1642

== ENCOUNTER 2020-09-13 10:15 | Emergency (ER) | payer MEDICARE, MEDICAID ==
[2020-09-13] MEDS ORDERED: HYDROMORPHONE HCL INJ/PF 2 MG/ML AMPULE IV ONE ×2 (10:40→13:49)
[2020-09-13] MEDS ORDERED: DIPHENHYDRAMINE HCL 50 MG/ML VIAL IV ONE ×2 (10:40→13:49)
[2020-09-13] MEDS ORDERED: NORMAL SALINE 1000 ML 1,000 ML IV ONE (10:41)
--- NOTE | 2020-09-13 10:55 | ER Document Report ---
ED General - General Stated Complaint: BACK PAIN Time Seen by Provider: 09/13/20 10:22 Primary Care Provider: GAIL CANELA MD [Primary Care Provider] - Follow up as needed TRAVEL OUTSIDE OF THE [place] IN LAST 30 DAYS: No - HPI Notes: 35-year-old female with past medical history for sickle cell anemia, recent surgery on right shoulder for avascular necrosis at [facility] to the emergency department with complaints of low back pain that began 2 days ago. She feels like this is the beginning portions of the sickle cell pain crisis for her. She admits that the pain does radiate down into the legs. She denies any fevers or chills. She denies any chest pain or shortness of breath. She states that she is currently not on any regular pain medicine. She states that Dr. Canela was writing her for oxycodone but after her shoulder surgery, Dr Canela was having [facility] monitor her pain management. She states that her due team will no longer write her for any pain medicine. She denies any falls, trauma, bladder or bowel incontinence, radiculopathy, urinary retention, saddle paresthesia. - Related Data Allergies/Adverse Reactions: green pepper Allergy (Severe, Verified 03/29/20 09:38) Anaphylaxis No Known Drug Intolerances Allergy (Verified 03/29/20 09:38) Past Medical History - General Information source: Patient - Social History Smoking Status: Never Smoker Frequency of alcohol use: None Family History: DM, Hypertension, Other - Sickle trait - Past Medical History Cardiac Medical History: Denies: Hx Coronary Artery Disease, Hx Heart Attack, Hx Hypertension Pulmonary Medical History: Reports: Hx Pneumonia - YEARLY SINCE 2003 (last time 07/2017) Denies: Hx Asthma, Hx Bronchitis, Hx COPD Neurological Medical History: Denies: Hx Cerebrovascular Accident, Hx Seizures, Hx Parkinson's Disease Renal/ Medical History: Denies: Hx Peritoneal Dialysis Malignancy Medical History: Reports: Hx Renal (Kidney) Cancer GI Medical History: Denies: Hx Hepatitis, Hx Hiatal Hernia, Hx Pancreatitis, Hx Ulcer Musculoskeletal Medical History: Denies Hx Arthritis, Reports Hx Musculoskeletal Deformity, Reports Hx Musculoskeletal Trauma, Denies Hx Systemic Lupus Erythematosus Psychiatric Medical History: Reports: Hx Depression Infectious Medical History: Denies: Hx Hepatitis Past Surgical History: Reports: Hx Section, Hx Cholecystectomy, Hx Kidney (Renal Surgery) - partial left nephrectomy for renal cell carcinoma, Hx Orthopedic Surgery - L Femur, R hip, left hip, left shoulder, Other - Port-A-Cath placement. Denies: Hx Hysterectomy, Hx Mastectomy, Hx Open Heart Surgery, Hx Pacemaker - Immunizations Immunizations up to date: Yes Hx Diphtheria, Pertussis, Tetanus Vaccination: Yes - 2016 Hx Pneumococcal Vaccination: 07/22/17 Review of Systems - Review of Systems Constitutional: denies: Chills, Fever EENT: No symptoms reported Cardiovascular: denies: Chest pain, Palpitations, Heart racing, Orthopnea, Dysp alberto, Syncope, Dizziness, Lightheaded Respiratory: denies: Cough, Short of breath Gastrointestinal: denies: Abdominal pain, Diarrhea, Nausea, Vomiting Musculoskeletal: Back pain Skin: No symptoms reported Hematologic/Lymphatic: No symptoms reported Neurological/Psychological: No symptoms reported -: Yes All other systems reviewed and negative Physical Exam - Vital signs Vitals: Temp Resp 98.2 F 20 09/13/20 10:56 09/13/20 10:56 Interpretation: Normal Course - Re-evaluation Re-evalutation: 09/13/20 13:50 1 patient is being evaluated she had a call from [facility] and she now has prescription for pain medication waiting for her at her pharmacy. She states that her pain has gotten better but she still is having a little bit of pain. We will give her 1 more dose of pain medicine here. Just a states that due to put her on antibiotics for her shoulder and she has had a yeast infection since then. She would like a dose of Diflucan. We will give that here as well. After that we will discharge. She has very reassuring lab work today. Her hemoglobin is 9 and her reticulocyte count is within normal limits. Otherwise her chemistries are all reassuring. We will plan to send her home and have her follow-up outpatient. Patient agrees with the plan - Vital Signs Vital signs: Temp Pulse Resp BP Pulse Ox 98.2 F 16 128/98 H 09/13/20 10:56 09/13/20 12:22 09/13/20 12:22 - Laboratory Result Diagrams: 09/13/20 12:08 09/13/20 12:08 Laboratory results interpreted by me: 09/13/20 09/13/20 09/13/20 12:08 12:08 12:21 RBC 3.04 L Hgb 9.1 L Hct 26.3 L RDW 19.4 H Plt Count 782 H Chloride 108 H Creatinine 0.46 L Calcium 10.3 H Total Bilirubin 2.2 H Alkaline Phosphatase 134 H Total Protein 9.2 H Urine Urobilinogen 2.0 H Discharge - Discharge Clinical Impression: Sickle cell anemia with pain Back pain Qualifiers: Back pain location: low back pain Chronicity: acute Back pain laterality: midline Sciatica presence: without sciatica Qualified Code(s): M54.5 - Low back pain Condition: Stable Disposition: HOME, SELF-CARE Additional Instructions: Follow-up with your primary care, partner alliance manager, [facility] in the next week. Get your medication filled. Return if any worsening symptoms. Good reassuring lab work today. Your hemoglobin was 9.1. Return if you have any worsening symptoms. Push fluids. Referrals: GAIL CANELA MD [Primary Care Provider] - Follow up in 3-5 days
[2020-09-13 12:29] LABS: ABSOLUTE RETICS # 0.084 10^6/uL (0.028-0.122); HEMATOCRIT 26.3 % (36.0-47.0); HEMOGLOBIN 9.1 g/dL (12.0-15.5); MEAN CORPUSCULAR HGB CONC 34.6 g/dL (32.0-36.0); MEAN CORPUSCULAR VOLUME 87 fl (80-97); PLATELET COUNT 782 10^3/uL (150-450); RED BLOOD COUNT 3.04 10^6/uL (3.72-5.28); RED CELL DISTRIBUTION WIDTH 19.4 % (11.5-14.0); RETICULOCYTE COUNT (AUTO) 2.76 % (0.66-2.85); WHITE BLOOD COUNT 9.5 10^3/uL (4.0-10.5)
[2020-09-13 12:49] LABS: ALBUMIN 4.6 g/dL (3.5-5.0); ALKALINE PHOSPHATASE 134 U/L (38-126); ANION GAP 11 (5-19); ASPARTATE AMINO TRANSFERASE 34 U/L (14-36); BILIRUBIN,DIRECT 0.3 mg/dL (0.0-0.4); BILIRUBIN,TOTAL 2.2 mg/dL (0.2-1.3); BLOOD UREA NITROGEN 8 mg/dL (7-20); CALCIUM 10.3 mg/dL (8.4-10.2); CARBON DIOXIDE 23 mmol/L (22-30); CHLORIDE 108 mmol/L (98-107); GLUCOSE 83 mg/dL (75-110); TOTAL PROTEIN 9.2 g/dL (6.3-8.2)
[2020-09-13 13:10] LABS: ABSOLUTE LYMPHOCYTES# (MANUAL) 1.8 10^3/uL (0.5-4.7); ABSOLUTE MONOCYTES # (MANUAL) 0.4 10^3/uL (0.1-1.4); BASOPHILS % (MANUAL) 0 % (0-2); EOSINOPHILS % (MANUAL) 1 % (0-6); LYMPHOCYTES % (MANUAL) 17 % (13-45); MONOCYTES % (MANUAL) 4 % (3-13); SEGMENTED NEUTROPHILS % (MAN) 76 % (42-78); TOTAL CELLS COUNTED 100
[2020-09-13 13:15] LABS: ANISOCYTOSIS 2+; PLATELET COMMENT INCREASED; POIKILOCYTOSIS 2+; SICKLE RED CELLS 2+; TARGET CELLS 2+
[2020-09-13 13:45] LABS: APPEARANCE,URINE CLEAR; BILIRUBIN,URINE NEGATIVE (NEGATIVE); CALCIUM OXALATE CRYSTALS,URINE FEW /HPF; COLOR,URINE YELLOW; GLUCOSE, URINE NEGATIVE (NEGATIVE); KETONES,URINE NEGATIVE (NEGATIVE); LEUKOCYTE ESTERASE,URINE NEGATIVE (NEGATIVE); NITRITE,URINE NEGATIVE (NEGATIVE); PROTEIN,URINE NEGATIVE (NEGATIVE); URINE SPECIFIC GRAVITY 1.013
[2020-09-13] MEDS ORDERED: FLUCONAZOLE 100 MG TABLET PO ONE (13:49)
[2020-09-13 15:07] VITALS: BP 130/96
== END 2020-09-13 15:00 | disposition home or self-care (01) ==
LOC: ER 10:15
DX: D57.00 Hb-SS disease with crisis, unspecified (principal); M54.5 Low back pain
CPT/HCPCS: 96376; 99284; 96361; 96374; 96375; 36415; 85025; 85045; 80053; 81001; J1200; J1170; J7030; A9270

== ENCOUNTER 2020-10-07 10:10 | Emergency (ER) | payer MEDICARE, MEDICAID ==
[2020-10-07] MEDS ORDERED: HYDROMORPHONE HCL INJ/PF 2 MG/ML AMPULE IV ONE ×2 (10:43→11:42)
[2020-10-07] MEDS ORDERED: NORMAL SALINE 1000 ML 1,000 ML IV ONE (10:43)
--- NOTE | 2020-10-07 10:45 | ER Document Report ---
ED Medical Screen (RME) - General Chief Complaint: Back Pain Stated Complaint: SICKLE CELL CRISIS Time Seen by Provider: 10/07/20 10:38 Primary Care Provider: GAIL CANELA MD [Primary Care Provider] - Follow up as needed Notes: Patient presents complaining of low back pain and bilateral lower extremity pain that started yesterday. Patient has a history of sickle cell disease and is concerned about possible crisis. Patient denies any fever or urinary symptoms. Patient does have a history of sickle cell disease as well as lupus. I have greeted and performed a rapid initial assessment of this patient. A comprehensive ED assessment and evaluation of the patient, analysis of test results and completion of the medical decision making process will be conducted by additional ED providers. TRAVEL OUTSIDE OF THE [place] IN LAST 30 DAYS: No - Related Data Allergies/Adverse Reactions: green pepper Allergy (Severe, Verified 03/29/20 09:38) Anaphylaxis No Known Drug Intolerances Allergy (Verified 03/29/20 09:38) Home Medications: Flexeril, Oxycodone, Adderall, Fentanyl, Gabapentin, Lactulose, Zoloft, Senokot Past Medical History - Social History Chew tobacco use (# tins/day): No Frequency of alcohol use: None Drug Abuse: None - Past Medical History Cardiac Medical History: Denies: Hx Coronary Artery Disease, Hx Heart Attack, Hx Hypertension Pulmonary Medical History: Reports: Hx Pneumonia - YEARLY SINCE 2003 (last time 07/2017) Denies: Hx Asthma, Hx Bronchitis, Hx COPD Neurological Medical History: Denies: Hx Cerebrovascular Accident, Hx Seizures, Hx Parkinson's Disease Renal/ Medical History: Denies: Hx Peritoneal Dialysis Malignancy Medical History: Reports: Hx Renal (Kidney) Cancer GI Medical History: Denies: Hx Hepatitis, Hx Hiatal Hernia, Hx Pancreatitis, Hx Ulcer Musculoskeltal Medical History: Denies Hx Arthritis, Reports Hx Musculoskeletal Deformity, Reports Hx Musculoskeletal Trauma, Denies Hx Systemic Lupus Erythematosus Psychiatric Medical History: Reports: Hx Depression Infectious Medical History: Denies: Hx Hepatitis Past Surgical History: Reports: Hx Section, Hx Cholecystectomy, Hx Kidney (Renal Surgery) - partial left nephrectomy for renal cell carcinoma, Hx Orthopedic Surgery - L Femur, R hip, left hip, left shoulder, Other - Port-A-Cath placement. Denies: Hx Hysterectomy, Hx Mastectomy, Hx Open Heart Surgery, Hx Pacemaker - Immunizations Immunizations up to date: Yes Hx Diphtheria, Pertussis, Tetanus Vaccination: Yes - 2016 Physical Exam - Back Back: Tender - Lower lumbar paraspinal tenderness Doctor's Discharge - Discharge Referrals: GAIL CANELA MD [Primary Care Provider] - Follow up as needed
--- NOTE | 2020-10-07 11:00 | ER Document Report ---
ED General - General Chief Complaint: Back Pain Stated Complaint: SICKLE CELL CRISIS Time Seen by Provider: 10/07/20 10:38 Primary Care Provider: GAIL CANELA MD [ACTIVE STAFF] - Follow up in 3-5 days TRAVEL OUTSIDE OF THE [place] IN LAST 30 DAYS: No - HPI Notes: 35-year-old female with past medical history for sickle cell anemia and avascular necrosis of the right shoulder to the emergency department with complaints of back pain and leg pain that began last night. She states that she feels like she may be the beginning of sickle cell crisis. She states that she has run out of her regular medicines that her implementation project manager writes for her. She is supposed to be on a fentanyl patch as well as oxycodone. She states that she has some leftover Percocet 5/325 mg from her surgery for her right shoulder at [place]. She states that is what she took prior to arrival but it has not helped to control her pain. Denies any fevers or chills. She did receive 1 mg of Dilaudid by EMS. She denies any chest pain, shortness of breath, fevers, chills. She states she supposed to have a follow-up appointment with her implementation project manager, Dr. Canela, on October 17. - Related Data Allergies/Adverse Reactions: green pepper Allergy (Severe, Verified 03/29/20 09:38) Anaphylaxis No Known Drug Intolerances Allergy (Verified 03/29/20 09:38) Home Medications: Flexeril, Oxycodone, Adderall, Fentanyl, Gabapentin, L actulose, Zoloft, Senokot Past Medical History - Social History Smoking Status: Former Smoker Chew tobacco use (# tins/day): No Frequency of alcohol use: None Drug Abuse: None Family History: DM, Hypertension, Other - Sickle trait - Past Medical History Cardiac Medical History: Denies: Hx Coronary Artery Disease, Hx Heart Attack, Hx Hypertension Pulmonary Medical History: Reports: Hx Pneumonia - YEARLY SINCE 2003 (last time 07/2017) Denies: Hx Asthma, Hx Bronchitis, Hx COPD Neurological Medical History: Denies: Hx Cerebrovascular Accident, Hx Seizures, Hx Parkinson's Disease Renal/ Medical History: Denies: Hx Peritoneal Dialysis Malignancy Medical History: Reports: Hx Renal (Kidney) Cancer GI Medical History: Denies: Hx Hepatitis, Hx Hiatal Hernia, Hx Pancreatitis, Hx Ulcer Musculoskeletal Medical History: Denies Hx Arthritis, Reports Hx Musculoskeletal Deformity, Reports Hx Musculoskeletal Trauma, Denies Hx Systemic Lupus Jose thematosus Psychiatric Medical History: Reports: Hx Depression Infectious Medical History: Denies: Hx Hepatitis Past Surgical History: Reports: Hx Section, Hx Cholecystectomy, Hx Kidney (Renal Surgery) - partial left nephrectomy for renal cell carcinoma, Hx Orthopedic Surgery - L Femur, R hip, left hip, left shoulder, Other - Port-A-Cath placement. Denies: Hx Hysterectomy, Hx Mastectomy, Hx Open Heart Surgery, Hx Pacemaker - Immunizations Immunizations up to date: Yes Hx Diphtheria, Pertussis, Tetanus Vaccination: Yes - 2016 Hx Pneumococcal Vaccination: 07/22/17 Physical Exam - Vital signs Vitals: Resp Pulse Ox 18 100 10/07/20 10:43 10/07/20 10:43 Interpretation: Normal - Notes Notes: PHYSICAL EXAMINATION: GENERAL: Well-appearing, well-nourished and in no acute distress. HEAD: Atraumatic, normocephalic. EYES: Pupils equal round and reactive to light, extraocular movements intact, sclera anicteric, conjunctiva are normal. ENT: nares patent, oropharynx clear without exudates. Moist mucous membranes. NECK: Normal range of motion, supple without lymphadenopathy LUNGS: Breath sounds clear to auscultation bilaterally and equal. No wheezes rales or rhonchi. HEART: Regular rate and rhythm without murmurs ABDOMEN: Soft, nontender, normoactive bowel sounds. No guarding, no rebound. No masses appreciated. EXTREMITIES: Normal range of motion, no pitting or edema. No cyanosis. Mild tenderness to pot flotation over the bilateral paraspinal lumbar muscles. There is no midline tenderness to palpation. Negative straight leg raise bilaterally. Patient has full range of motion of bilateral upper extremities and lower extremities against resistance. She has some mild tenderness to palpation over her right shoulder which is where she had her surgery for her AVN. There is no edema or erythema to the shoulder. NEUROLOGICAL: No focal neurological deficits. Moves all extremities spontaneously and on command. PSYCH: Normal mood, normal affect. SKIN: Warm, Dry, normal turgor, no rashes or lesions noted. Course - Re-evaluation Re-evalutation: 10/07/20 Impression: Back pain, sickle cell pain. Patient has very reassuring lab work today. Her hemoglobin is 9.6improved since last time she was here for her sickle cell anemia pain. Reticulocyte count is 2.5. She has no symptoms to suggest acute chest syndrome. She has had some relief with her pain with IV Dilaudid as well as Percocet and Toradol. Do think that she needs to follow-up with her implementation project manager for better pain control. When she had her surgery for her AVN of the right shoulder with [facility] think her pain management got messed up. She is supposed to see Dr. Canela on October 17, but I have encouraged her to call the office and see if she can be seen sooner. Plan will be to discharge patient with close outpatient follow up. Encouraged to return if worse. - Vital Signs Vital signs: Temp Pulse Resp BP Pulse Ox 22 H 111/74 100 10/07/20 14:00 10/07/20 13:34 10/07/20 13:34 Selected Entries 08/06/20 10/07/20 10/07/20 12:14 10:54 11:01 Temperature 97.6 F Pulse Rate 96 Heart Rate ( 92 88 Monitors) Respiratory 17 Rate Blood Pressure 107/83 103/71 Blood Pressure 128/84 H [RIGHT ARM] Blood Pressure 81 Mean O2 Sat by Pulse Oximetry 10/07/20 13:34 Temperature Pulse Rate Heart Rate ( 86 Monitors) Respiratory 15 Rate Blood Pressure 111/74 Blood Pressure [RIGHT ARM] Blood Pressure Mean O2 Sat by Pulse 100 Oximetry - Laboratory Results Result Diagrams: 10/07/20 10:45 10/07/20 10:45 Laboratory Results Interpreted: 10/07/20 10/07/20 10/07/20 10:45 10:45 10:45 RBC 3.11 L Hgb 9.6 L Hct 27.3 L RDW 20.7 H Plt Count 510 H Chloride 109 H BUN 6 L Creatinine 0.44 L Total Bilirubin 3.2 H AST 41 H Total Protein 8.7 H Urine Urobilinogen 2.0 H Critical Laboratory Results Reviewed: No Critical Results - Radiology Results Critical Radiology Results Reviewed: No Critical Results Discharge - Discharge Clinical Impression: Sickle-cell disease with pain Condition: Stable Disposition: HOME, SELF-CARE Additional Instructions: Please follow-up with your implementation project manager without fail. Call them on Saturday to see if he can get an earlier appointment than the . Continue to take the Percocet that you have at home. Return if you have worsening pain. Push fluids. Today your hemoglobin was 9.6. Your reticulocyte count was 2.5. Referrals: GAIL CANELA MD [ACTIVE STAFF] - Follow up in 3-5 days
[2020-10-07 11:05] LABS: ABSOLUTE BASOPHILS # (AUTO) 0.1 10^3/uL (0.0-0.2); ABSOLUTE EOSINOPHILS # (AUTO) 0.5 10^3/uL (0.0-0.6); ABSOLUTE LYMPHOCYTES (AUTO) 1.9 10^3/uL (0.5-4.7); ABSOLUTE MONOCYTES (AUTO) 0.6 10^3/uL (0.1-1.4); ABSOLUTE NEUT (AUTO) 4.9 10^3/uL (1.7-8.2); BASOPHILS % (AUTO) 1.6 % (0-2); EOSINOPHILS % (AUTO) 5.7 % (0-6); HEMATOCRIT 27.3 % (36.0-47.0); HEMOGLOBIN 9.6 g/dL (12.0-15.5); LYMPHOCYTES % (AUTO) 23.2 % (13-45); MEAN CORPUSCULAR HEMOGLOBIN 30.9 pg (27.0-33.4); MEAN CORPUSCULAR HGB CONC 35.3 g/dL (32.0-36.0); MEAN CORPUSCULAR VOLUME 88 fl (80-97); MONOCYTES % (AUTO) 7.9 % (3-13); PLATELET COUNT 510 10^3/uL (150-450); RED BLOOD COUNT 3.11 10^6/uL (3.72-5.28); RED CELL DISTRIBUTION WIDTH 20.7 % (11.5-14.0); RETICULOCYTE COUNT (AUTO) 2.56 % (0.66-2.85); SEGMENTED NEUTROPHILS % (AUTO) 61.6 % (42-78); TOTAL CELLS COUNTED % (AUTO) 100 %
[2020-10-07 11:14] LABS: AMORPHOUS SEDIMENT,URINE TRACE /HPF; APPEARANCE,URINE CLEAR; BILIRUBIN,URINE NEGATIVE (NEGATIVE); COLOR,URINE YELLOW; GLUCOSE, URINE NEGATIVE (NEGATIVE); KETONES,URINE NEGATIVE (NEGATIVE); LEUKOCYTE ESTERASE,URINE NEGATIVE (NEGATIVE); NITRITE,URINE NEGATIVE (NEGATIVE); PROTEIN,URINE NEGATIVE (NEGATIVE)
[2020-10-07 11:36] LABS: ALBUMIN 4.3 g/dL (3.5-5.0); ALKALINE PHOSPHATASE 90 U/L (38-126); ANION GAP 8 (5-19); ASPARTATE AMINO TRANSFERASE 41 U/L (14-36); BILIRUBIN,DIRECT 0.2 mg/dL (0.0-0.4); BILIRUBIN,TOTAL 3.2 mg/dL (0.2-1.3); BLOOD UREA NITROGEN 6 mg/dL (7-20); CALCIUM 9.7 mg/dL (8.4-10.2); CARBON DIOXIDE 23 mmol/L (22-30); CHLORIDE 109 mmol/L (98-107); GLUCOSE 81 mg/dL (75-110); POTASSIUM 4.1 mmol/L (3.6-5.0); TOTAL PROTEIN 8.7 g/dL (6.3-8.2)
[2020-10-07] MEDS ORDERED: KETOROLAC TROMETHAMINE INJ/PF 30 MG/1 ML SDV IV ONE (14:38)
[2020-10-07] MEDS ORDERED: OXYCODONE-ACETAMINOPHEN 5-325 MG TABLET PO ONE ×2 (14:38→16:24)
[2020-10-07 15:55] VITALS: BP 111/74
== END 2020-10-07 21:51 | disposition home or self-care (01) ==
LOC: ER 10:10
DX: D57.00 Hb-SS disease with crisis, unspecified (principal); M54.9 Dorsalgia, unspecified; Z90.49 Acquired absence of other specified parts of digestive tract; Z88.6 Allergy status to analgesic agent
CPT/HCPCS: 99284; 96361; 96374; 96375; 36415; 84703; 85025; 85045; 80053; 81001; J1885; A9270; J1170; J7030; J1642

== ENCOUNTER 2020-11-03 05:45 | Emergency (ER) | payer MEDICARE, MEDICAID ==
[2020-11-03] MEDS ORDERED: NORMAL SALINE 1000 ML 1,000 ML IV ONE (07:12)
[2020-11-03] MEDS ORDERED: KETOROLAC TROMETHAMINE INJ/PF 30 MG/1 ML SDV IV ONE (07:21)
--- NOTE | 2020-11-03 07:57 | ER Document Report ---
Entered by GUSTAVO SILVA SCRIBE 11/03/20 0712 Acting as scribe for:ALEX MERCADO MD ED General Pain - General Chief Complaint: Sickle Cell Crisis Stated Complaint: PAIN IN LEG AND LEFT SIDE Time Seen by Provider: 11/03/20 07:07 Primary Care Provider: AIDEN ALEMAN PA-C [Primary Care Provider] - Follow up as needed GAIL ENRIQUEZ MD [ACTIVE STAFF] - Follow up as needed Mode of Arrival: Ambulatory Information source: Patient Notes: This 35-year-old female patient with sickle cell disease presents to the emergency department today with complaints of a possible sickle cell crisis which began a few days ago. Patient is prescribed oxycodone 15 mg every 4 hours and fentanyl patches. She last took her oxycodone last night at 9:30 PM stating that she "does not like to take it because it does not work". The last few reticulocyte counts here were in the normal range. She denies any fevers or vomiting. She reports that the pain is in both of her legs and her low back. EMS reports that the patient slept the entire transport to the emergency room. TRAVEL OUTSIDE OF THE [place] IN LAST 30 DAYS: No - Related Data Allergies/Adverse Reactions: green pepper Allergy (Severe, Verified 03/29/20 09:38) Anaphylaxis No Known Drug Intolerances Allergy (Verified 03/29/20 09:38) Home Medications: oxycodone, zofran, flexeril Past Medical History - General Information source: Patient - Social History Smoking Status: Never Smoker Cigarette use (# per day): No Frequency of alcohol use: None Drug Abuse: None Lives with: Family Family History: Reviewed & Not Pertinent, DM, Hypertension, Other - Sickle trait Pulmonary Medical History: Reports: Hx Pneumonia - YEARLY SINCE 2003 (last time 07/2017) Malignancy Medical History: Reports: Hx Renal (Kidney) Cancer Musculoskeletal Medical History: Reports Hx Musculoskeletal Deformity, Reports Hx Musculoskeletal Trauma Psychiatric Medical History: Reports: Hx Depression Past Surgical History: Reports: Hx Section, Hx Cholecystectomy, Hx Kidney (Renal Surgery) - partial left nephrectomy for renal cell carcinoma, Hx Orthopedic Surgery - L Femur, R hip, left hip, left shoulder, Other - Port-A-Cath placement - Immunizations Immunizations up to date: Yes Hx Diphtheria, Pertussis, Tetanus Vaccination: Yes - 2016 Hx Pneumococcal Vaccination: 07/22/17 Review of Systems - Review of Systems Constitutional: See HPI, Other - bilateral leg pain, back pain EENT: No symptoms reported Cardiovascular: No symptoms reported Respiratory: No symptoms reported Gastrointestinal: No symptoms reported Genitourinary: No symptoms reported Female Genitourinary: No symptoms reported Musculoskeletal: No symptoms reported Skin: No symptoms reported Hematologic/Lymphatic: No symptoms reported Neurological/Psychological: No symptoms reported -: Yes All other systems reviewed and negative Physical Exam - Vital signs Vitals: Temp Pulse Resp BP Pulse Ox 98.1 F 93 16 106/69 96 11/03/20 07:07 11/03/20 07:07 11/03/20 07:07 11/03/20 07:07 11/03/20 07:07 - Notes Notes: Physical Exam: General: Alert, appears well. HEENT: Normocephalic. Atraumatic. PERRL. Extraocular movements intact. Oropharynx clear. Neck: Supple. Non-tender. Respiratory: No respiratory distress. Clear and equal breath sounds bilaterally. Cardiovascular: Regular rate and rhythm. No tachycardia. Abdominal: Normal Inspection. Non-tender. No distension. Normal Bowel Sounds. Back: No gross abnormalities. Extremities: Moves all four extremities. Upper extremities: Normal inspection. Normal ROM. Lower extremities: Palpation of the thigh and lower leg muscles causes a small amount of discomfort and the patient reports that it tickles. Neurological: Normal cognition. AAOx4. Normal speech. Psychological: Normal affect. Normal Mood. Skin: Warm. Dry. Normal color. Course - Re-evaluation Re-evalutation: 11/03/20 09:12 EMS reports the patient slept during the transport to the emergency room. When I went in to see the patient, it appeared that she had been sleeping. She states that the Christine codon 15 mg tablets are not helping her pain and her last dose was at 9:30 PM last night, even though it is prescribed for every 4 hours. At this time she is complaining of pain and wanting IV pain medication. She received 1 mg Dilaudid, and discharged home to take her pain medication at home. Her reticulocyte count is 3.75, many of her visits it is in normal range. When she has been in here in obvious sickle cell crisis, her reticulocyte count is in the 7-9 range. - Vital Signs Vital signs: Temp Pulse Resp BP Pulse Ox 98.1 F 93 16 106/69 96 11/03/20 07:07 11/03/20 07:07 11/03/20 07:07 11/03/20 07:07 11/03/20 07:07 - Laboratory Results Result Diagrams: 11/03/20 08:15 11/03/20 08:15 Laboratory Results Interpreted: 11/03/20 11/03/20 11/03/20 08:15 08:15 08:15 RBC 2.67 L Hgb 8.4 L Hct 22.8 L MCHC 36.7 H RDW 21.2 H Retic Count (auto) 3.75 H BUN 6 L Creatinine 0.45 L Total Bilirubin 4.4 H AST 59 H Lactate Dehydrogenase 698 H Total Protein 8.6 H Critical Laboratory Results Reviewed: No Critical Results - Reticulocyte count is only slightly elevated at 3.75, hemoglobin is 8.4 - Radiology Results Critical Radiology Results Reviewed: No Critical Results Discharge - Discharge Clinical Impression: Sickle cell anemia with crisis Condition: Stable Disposition: HOME, SELF-CARE Additional Instructions: Sickle Cell Crisis You have "sickle cell crisis." Sickle cell disease is caused by abnormal hemoglobin. This hemoglobin can deform red blood cells into a sickle shape. These abnormal blood cells can block blood vessels. This causes the pain of sickle cell crisis. Sickle cell crisis can occur any time. But attacks are more likely with acute infection, dehydration, or altitude change. A crisis usually causes pain in the legs, back, abdomen, and chest. Sometimes the pain may ease and return later. The usual treatment is oxygen, pain medication, IV fluids, and treatment of infection. Attacks may take a couple of days to resolve. Return if the pain becomes more severe, or if there are new symptoms. Drink plenty of fluids. Get plenty of rest. Take the oxycodone 15 mg pain medication you are prescribed to treat your pain at home. Follow-up with Dr. Enriquez or your primary care provider if not improving. RETURN TO THE EMERGENCY ROOM IF ANY NEW OR WORSENING SYMPTOMS. Referrals: AIDEN ALEMAN PA-C [Primary Care Provider] - Follow up as needed GAIL ENRIQUEZ MD [ACTIVE STAFF] - Follow up as needed I personally performed the services described in the documentation, reviewed and edited the documentation which was dictated to the scribe in my presence, and it accurately records my words and actions.
[2020-11-03 08:36] LABS: ABSOLUTE BASOPHILS # (AUTO) 0.1 10^3/uL (0.0-0.2); ABSOLUTE EOSINOPHILS # (AUTO) 0.4 10^3/uL (0.0-0.6); ABSOLUTE LYMPHOCYTES (AUTO) 2.9 10^3/uL (0.5-4.7); ABSOLUTE NEUT (AUTO) 4.7 10^3/uL (1.7-8.2); BASOPHILS % (AUTO) 1.5 % (0-2); HEMATOCRIT 22.8 % (36.0-47.0); HEMOGLOBIN 8.4 g/dL (12.0-15.5); LYMPHOCYTES % (AUTO) 32.2 % (13-45); MEAN CORPUSCULAR HEMOGLOBIN 31.4 pg (27.0-33.4); MEAN CORPUSCULAR HGB CONC 36.7 g/dL (32.0-36.0); MEAN CORPUSCULAR VOLUME 86 fl (80-97); MONOCYTES % (AUTO) 11.2 % (3-13); PLATELET COUNT 321 10^3/uL (150-450); RED BLOOD COUNT 2.67 10^6/uL (3.72-5.28); RED CELL DISTRIBUTION WIDTH 21.2 % (11.5-14.0); RETICULOCYTE COUNT (AUTO) 3.75 % (0.66-2.85); SEGMENTED NEUTROPHILS % (AUTO) 51.1 % (42-78); TOTAL CELLS COUNTED % (AUTO) 100 %; WHITE BLOOD COUNT 9.2 10^3/uL (4.0-10.5)
[2020-11-03 08:49] LABS: ALBUMIN 4.3 g/dL (3.5-5.0); ALKALINE PHOSPHATASE 84 U/L (38-126); ANION GAP 7 (5-19); ASPARTATE AMINO TRANSFERASE 59 U/L (14-36); BILIRUBIN,DIRECT 0.4 mg/dL (0.0-0.4); BILIRUBIN,TOTAL 4.4 mg/dL (0.2-1.3); BLOOD UREA NITROGEN 6 mg/dL (7-20); CALCIUM 9.6 mg/dL (8.4-10.2); CARBON DIOXIDE 25 mmol/L (22-30); CHLORIDE 105 mmol/L (98-107); CREATINE KINASE 34 U/L (30-135); GLUCOSE 87 mg/dL (75-110); POTASSIUM 4.2 mmol/L (3.6-5.0); TOTAL PROTEIN 8.6 g/dL (6.3-8.2)
[2020-11-03 08:58] LABS: ANISOCYTOSIS 3+; PLATELET COMMENT ADEQUATE
[2020-11-03 08:59] LABS: OVALOCYTES 2+; POIKILOCYTOSIS 3+; SICKLE RED CELLS 2+; TARGET CELLS 3+
[2020-11-03 09:00] LABS: HOWELL-JOLLY BODIES PRESENT; POLYCHROMASIA 1+
[2020-11-03] MEDS ORDERED: HYDROMORPHONE HCL INJ/PF 2 MG/ML AMPULE IV ONE (09:11)
[2020-11-03 10:33] VITALS: BP 99/71
== END 2020-11-03 10:25 | disposition home or self-care (01) ==
LOC: ER 05:45
DX: D57.00 Hb-SS disease with crisis, unspecified (principal); M79.605 Pain in left leg; M79.604 Pain in right leg; M54.5 Low back pain; Z79.899 Other long term (current) drug therapy
CPT/HCPCS: 99284; 96361; 96374; 96375; 36415; 82550; 83615; 84703; 85025; 85045; 80053; 84484; J1885; J1170; J7030; J1642